=== PATIENT | female | born 1955 | race Caucasian/White ===

== ENCOUNTER 2016-08-24 21:10 | Inpatient (IN) | payer MEDICARE ==
[~2016-08-24] VITALS: Ht 180.3 cm; Wt 93.6 kg
[~2016-08-24 21:10] MED LIST: BUPR150T3 PO; CITA40; CYCL-36 PO; GABA300C3 PO; IMIT100T PO; LORTA5 PO; PRED20 PO; PRIL40CA PO; TRAM50 PO
[2016-08-24 21:57] VITALS: BP 137/85; PULSE 127; RESP 20; TEMP 99.7; O2SAT 97
[2016-08-24 22:30] VITALS: BP 149/90; PULSE 108; RESP 20; O2SAT 98
[2016-08-24] MEDS ORDERED: ONDANSETRON HCL 4 MG/2 ML VIAL IV PUSH ONE (22:30)
[2016-08-24] MEDS ORDERED: SODIUM CHLOR 0.9% 1000 ML INJ 1,000 ML IV ONE (22:30)
[2016-08-24] MEDS ORDERED: HYDROmorphone HCL PF 1 MG/ML VIAL IV PUSH ONE (22:30)
--- NOTE | 2016-08-24 22:32 | PD ---
HPI Chief Complaint: right lower quadrant pain Time Seen by Provider: 22:05 Travel History International Travel<30 days: No Contact w/Intl Traveler<30days: No Traveled to known affect area: No History of Present Illness HPI This 61-year-old female says she is having severe pain in the right inguinal area. She's been having pain and nausea since last . She has not been able to eat. She went to [facility] on and had a CT scan. She was told she had colitis and was put on Phenergan and Flagyl and Cipro. She has not gotten any better. She continues to have somewhat diffuse abdominal pain and also quite severe pain in the right inguinal area. She has a history of rheumatoid arthritis and has been on methotrexate and cortisone in the past. sHe says that since Tuesday she has not been able to eat. sHe is not aware of fever or chills PFSH Past Medical History Asthma: Yes Cardiovascular Problems: Yes (SVT) Diminished Hearing: No GERD: Yes Headaches: Yes (MIGRAINES) Respiratory: Yes Past Surgical History Appendectomy: Yes Cholecystectomy: Yes Other Surgery: Yes (back sx. rotator cuff repair) Social History Alcohol Use: No Tobacco Use: No Substance Use: No Allergies-Medications (Allergen,Severity, Reaction): Coded Allergies: Levaquin (Verified Allergy, Severe, 08/24/16) Zosyn (Verified Allergy, Severe, ANAPHALACTIC SHOCK, 08/24/16) Erythromycin (Verified Allergy, Intermediate, RASH, 08/24/16) Tetracycline (Verified Allergy, Intermediate, RASH, 08/24/16) Reported Meds & Prescriptions Reported Meds & Active Scripts Active Ultram (Tramadol HCl) 50 Mg Tab 50 Mg PO Q6 PRN Deltasone (Prednisone) 20 Mg Tab 2 Tab PO DAILY 5 Days Reported Imitrex (Sumatriptan Succinate) 100 Mg Tab 100 Mg PO BID PRN Flexeril (Cyclobenzaprine HCl) 10 Mg Tab 10 Mg PO TID Nixon 5-325 mg (Hydrocodone-Acetaminophen 5-325 mg) 1 Tab 1 Tab PO Q6H PRN Prilosec 40 mg cap (Omeprazole) 40 Mg Cap 40 Mg PO BID Gabapentin 300 Mg Cap 300 Mg PO TID Bupropion Hcl Xl (Bupropion HCl) 150 Mg Tab 150 Mg PO DAILY Celexa 40 Mg Tab (Citalopram Hydrobromide) 40 Mg Tab 40 Mg .XX DAILY Review of Systems General / Constitutional: No: Fever, Chills Eyes: No: Diploplia, Blurred Vision HENT: No: Headaches, Vertigo Cardiovascular: No: Chest Pain or Discomfort, Palpitations Respiratory: No: Cough, Shortness of Breath Gastrointestinal: Positive: Nausea, Abdominal Pain, Loss of Appetite Genitourinary: No: Frequency Musculoskeletal: Positive: Myalgias, Arthralgias, Pain (rheumatoid arthritis) Skin: No Rash Psychiatric: No: Anxiety, Depression Hematologic/Lymphatic: No: Easy Bruising Physical Exam Narrative GENERAL: Well-developed female. She appears quite uncomfortable with pain. Pain is aggravated by movement of the right leg. SKIN: Warm and dry. HEAD: Atraumatic. Normocephalic. EYES: Pupils equal and round. No scleral icterus. No injection or drainage. ENT: No nasal bleeding or discharge. Mucous membranes pink and moist. NECK: Trachea midline. No JVD. CARDIOVASCULAR: Regular rate and rhythm. No murmur appreciated. RESPIRATORY: No accessory muscle use. Clear to auscultation. Breath sounds equal bilaterally. GASTROINTESTINAL: Abdomen soft, there is mild right-sided tenderness, nondistended. Hepatic and splenic margins not palpable. He has a lot of pain in an area just below the inguinal ligament on themedial aspect of the thigh. I do not Feel a definite mass there MUSCULOSKELETAL: No obvious deformities. No clubbing. No cyanosis. No edema. NEUROLOGICAL: Awake and alert. No obvious cranial nerve deficits. Motor grossly within normal limits. Normal speech. PSYCHIATRIC: Appropriate mood and affect; insight and judgment normal. Data Data Last Documented VS Vital Signs Date Time Temp Pulse Resp B/P Pulse Ox O2 Delivery O2 Flow Rate FiO2 08/24/16 21:57 99.7 127 20 137/85 97 Orders Complete Blood Count With Diff (08/24/16 22:20) Comprehensive Metabolic Panel (08/24/16 22:20) Urinalysis - C+S If Indicated (08/24/16 22:20) Ct Abd/Pel W Iv Contrast(Rout) (08/24/16 22:20) Sodium Chlor 0.9% 1000 Ml Inj (Ns 1000 M (08/24/16 22:30) Sodium Chlor 0.9% 1000 Ml Inj (Ns 1000 M (08/24/16 22:30) Ondansetron Inj (Zofran Inj) (08/24/16 22:30) Hydromorphone Pf Inj (Dilaudid Pf Inj) (08/24/16 22:30) Potassium Chlor 20 Meq Premix (Kcl 20 Me (08/24/16 23:30) Labs Laboratory Tests Test 08/24/16 22:55 White Blood Count 12.1 TH/MM3 Red Blood Count 4.24 MIL/MM3 Hemoglobin 12.0 GM/DL Hematocrit 37.0 % Mean Corpuscular Volume 87.3 FL Mean Corpuscular Hemoglobin 28.3 PG Mean Corpuscular Hemoglobin 32.5 % Concent Red Cell Distribution Width 18.9 % Platelet Count 322 TH/MM3 Mean Platelet Volume 7.0 FL Neutrophils (%) (Auto) % Lymphocytes (%) (Auto) % Monocytes (%) (Auto) % Eosinophils (%) (Auto) % Basophils (%) (Auto) % Neutrophils # (Auto) TH/MM3 Lymphocytes # (Auto) TH/MM3 Monocytes # (Auto) TH/MM3 Eosinophils # (Auto) TH/MM3 Basophils # (Auto) TH/MM3 CBC Comment AUTO DIFF Differential Total Cells 100 Counted Neutrophils % (Manual) 69 % Band Neutrophils % 1 % Lymphocytes % 22 % Monocytes % 7 % Eosinophils % 1 % Neutrophils # (Manual) 8.5 TH/MM3 Differential Comment AUTO DIFF CONFIRMED Platelet Estimate NORMAL Platelet Morphology Comment NORMAL Sodium Level 141 MEQ/L Potassium Level 3.0 MEQ/L Chloride Level 103 MEQ/L Carbon Dioxide Level 25.7 MEQ/L Anion Gap 12 MEQ/L Blood Urea Nitrogen 9 MG/DL Creatinine 0.91 MG/DL Estimat Glomerular Filtration 63 ML/MIN Rate Random Glucose 119 MG/DL Calcium Level 8.9 MG/DL Total Bilirubin 0.5 MG/DL Aspartate Amino Transf 49 U/L (AST/SGOT) Alanine Aminotransferase 96 U/L (ALT/SGPT) Alkaline Phosphatase 151 U/L Total Protein 7.7 GM/DL Albumin 3.6 GM/DL [facility] Medical Decision Making Medical Screen Exam Complete: Yes Emergency Medical Condition: Yes Medical Record Reviewed: Yes Differential Diagnosis , Differential includes femoral hernia, bowel obstruction Narrative Course White count is elevated at 12,000. Her potassium is 3.0. The CT scan was ordered. The patient had infiltration of her IV had CTs of the CT has been done without contrast. The result is pending. Disposition will be determined by oncoming physician. Rod Elder MD Aug 24, 2016 22:32
[2016-08-24 23:08] LABS: MEAN CELL VOLUME 87.3 FL (80.0-100.0); MEAN CORPUSCULAR HEMOGLOBIN 28.3 PG (27.0-34.0); MEAN CORPUSCULAR HGB CONC 32.5 % (32.0-36.0); PLATELET COUNT 322 TH/MM3 (150-450); RED BLOOD COUNT 4.24 MIL/MM3 (4.00-5.30); RED CELL DISTRIBUTION WIDTH 18.9 % (11.6-17.2); WHITE BLOOD COUNT 12.1 TH/MM3 (4.0-11.0)
[2016-08-24 23:14] VITALS: BP 150/88; PULSE 98; RESP 20; O2SAT 97
[2016-08-24 23:18] LABS: HEMO FLAGS AUTO DIFF
[2016-08-24 23:23] LABS: CHLORIDE 103 MEQ/L (98-107); SODIUM (NA) 141 MEQ/L (136-145)
[2016-08-24 23:26] LABS: ANION GAP 12 MEQ/L (5-15); BICARBONATE 25.7 MEQ/L (21.0-32.0)
[2016-08-24 23:27] LABS: BLOOD UREA NITROGEN 9 MG/DL (7-18)
[2016-08-24 23:29] LABS: ALT (GPT) 96 U/L (10-53)
[2016-08-24 23:30] LABS: AST (GOT) 49 U/L (15-37); GLOMERULAR FILTRATION RATE 63 ML/MIN (>89)
[2016-08-24 23:31] LABS: TOTAL BILIRUBIN ADULT 0.5 MG/DL (0.2-1.0)
[2016-08-24 23:32] LABS: ALKALINE PHOSPHATASE 151 U/L (45-117)
[2016-08-24] MEDS: SODIUM CHLOR 0.9% 1000 ML INJ 1,000 ML IV SCH (23:35)
[2016-08-24 23:42] LABS: BANDS 1 % (0-6); EOSINOPHILS 1 % (0-4); NEUTROPHIL # MANUAL DIFF 8.5 TH/MM3 (1.8-7.7); POLYS (SEG NEUTROPHILS) 69 % (16-70); WBC DIFF SAMPLE 100
[2016-08-24 23:44] LABS: PLATELET ESTIMATE SMEAR NORMAL (NORMAL); PLATELET MORPHOLOGY NORMAL (NORMAL); SCAN/DIFF AUTO DIFF CONFIRMED
[2016-08-24] MEDS: POTASSIUM CHLOR 20 MEQ PREMIX 100 ML IV SCH (23:44)
[2016-08-25] VITALS (9 sets, daily range): BP systolic 101–157; BP diastolic 69–94; PULSE 96–109; RESP 16–20; TEMP 98.3–98.5; O2SAT 94–97
--- NOTE | 2016-08-25 00:39 | RADHPO ---
EXAM DATE/TIME: 08/24/2016 23:48 [facility] COMPARISON: No previous studies available for comparison. INDICATIONS : Abdominal pain. Right inguinal pain. Evaluate for femoral hernia. ORAL CONTRAST: No oral contrast ingested. RADIATION DOSE: 19.16 CTDIvol (mGy) MEDICAL HISTORY : Cardiovascular disease. Gastroesophageal reflux disease. SURGICAL HISTORY : Appendectomy. Cholecystectomy. ENCOUNTER: Initial ACUITY: 1 week PAIN SCALE: 10/10 LOCATION: Right inguinal TECHNIQUE: Volumetric scanning of the abdomen and pelvis was performed. Using automated exposure control and ad justment of the mA and/or kV according to patient size, radiation dose was kept as low as reasonably achievable to obtain optimal diagnostic quality images. FINDINGS: LOWER LUNGS: The visualized lower lungs are clear. Small hiatal hernia. LIVER: Homogeneous density without lesion. There is no dilation of the biliary tree. Patient is status post cholecystectomy. SPLEEN: Normal size without lesion. PANCREAS: Within normal limits. KIDNEYS: Normal in size and shape. There is no mass, stone, or hydronephrosis. ADRENAL GLANDS: Within normal limits. VASCULAR: There is no aortic aneurysm. BOWEL/MESENTERY: The stomach, small bowel, and colon demonstrate no acute abnormality. There is no free intraperitone al air or fluid. A few scattered diverticula in the descending colon. ABDOMINAL WALL: Within normal limits. RETROPERITONEUM: There is no lymphadenopathy. BLADDER: No wall thickening or mass. REPRODUCTIVE: Within normal limits. INGUINAL: There is no lymphadenopathy or hernia. MUSCULOSKELETAL: Within normal limits for patient age. CONCLUSION: 1. Patient is status post cholecystectomy. 2. Small hiatal hernia. 3. Scattered diverticula in the descending colon without diverticulitis. 4. Otherwise negative. Specifically, no findings of hernia to explain current clinical symptoms. Seth Duran MD on August 25, 2016 at 0:35 Board Certified Radiologist. This report was verified electronically.
[2016-08-25] MEDS ORDERED: TRAZ100T4 PO (00:54)
[2016-08-25] MEDS ORDERED: METR-1 PO (00:54)
[2016-08-25] MEDS ORDERED: HYDR-3580 PO (00:54)
[2016-08-25] MEDS ORDERED: CIPR-9 PO (00:54)
[2016-08-25] MEDS ORDERED: CYCL1TAB29 PO (00:54)
[2016-08-25] MEDS ORDERED: METH2.5T PO (00:54)
[2016-08-25] MEDS ORDERED: OMEP40CA2 PO (00:54)
[2016-08-25] MEDS ORDERED: CLON1TAB PO (00:54)
[2016-08-25] MEDS ORDERED: VITA400T PO (00:54)
[2016-08-25] MEDS ORDERED: ZOFR8TAB PO (00:54)
[2016-08-25] MEDS ORDERED: SUMA100T2 PO (00:54)
[2016-08-25] MEDS ORDERED: FOLI1TAB4 PO (00:54)
[2016-08-25] MEDS ORDERED: PROM25TA5 PO (00:54)
[2016-08-25] MEDS ORDERED: CITA20TA4 PO (00:54)
[2016-08-25] MEDS ORDERED: VITA500T49 PO (00:54)
[2016-08-25] MEDS ORDERED: BUPR100T4 PO (00:54)
[2016-08-25] MEDS ORDERED: HYDROmorphone HCL PF 1 MG/ML VIAL IM ONE (01:15)
[2016-08-25] MEDS ORDERED: ONDANSETRON ODT 4 MG TAB PO ONE (01:15)
[2016-08-25] MEDS: POTASSIUM CHLOR 20 MEQ PREMIX 100 ML IV SCH (01:30)
--- NOTE | 2016-08-25 02:03 | RADHPO ---
EXAM DATE/TIME: 08/25/2016 01:17 [facility] COMPARISON: No previous studies available for comparison. INDICATIONS : Right groin pain from unknown injury. MEDICAL HISTORY : RA. SURGICAL HISTORY : None. ENCOUNTER: Initial ACUITY: 1 week PAIN SCORE: 9/10 LOCATION: Right proximal femur FINDINGS: Two view examination of the right femur demonstrates no evidence of fracture or dislocation. Bony mi neralization is normal. The soft tissue structures are intact. Osteoarthritic changes in the right h ip. CONCLUSION: No acute osseous injury. Osteoarthritis of the right hip. Seth Duran MD on August 25, 2016 at 1:59 Board Certified Radiologist. This report was verified electronically.
--- NOTE | 2016-08-25 02:26 | PD ---
Physical Exam Date Seen by Provider: Aug 25, 2016 Time Seen by Provider: 00:35 Narrative GENERAL: Well-developed well-nourished female in discomfort but no respiratory distress SKIN: Warm and dry. CARDIOVASCULAR: Regular rate and rhythm without murmurs, gallops, or rubs. RESPIRATORY: Breath sounds equal bilaterally. No accessory muscle use. GASTROINTESTINAL: Abdomen soft, non-tender, nondistended. Mild right lower quadrant tenderness to direct palpation no guarding no rebound no mass. MUSCULOSKELETAL: No cyanosis, or edema. Attention right lower extremity no redness no induration no ecchymosis no edema no pallor no coolness of the limb no increased warmth dorsalis pedis pulse 2+ to palpation capillary refill brisk and less than 2 seconds per digit patient is able to perform hip flexion extension with discomfort in the anterior right groin area femoral pulses 2+ to palpation no palpable pulsatile mass. No deformity. Data Data Last Documented VS Vital Signs Date Time Temp Pulse Resp B/P Pulse Ox O2 Delivery O2 Flow Rate FiO2 08/25/16 02:00 20 08/25/16 01:55 102 127/75 95 08/24/16 21:57 99.7 Orders Complete Blood Count With Diff (08/24/16 22:20) Comprehensive Metabolic Panel (08/24/16 22:20) Urinalysis - C+S If Indicated (08/24/16 22:20) Sodium Chlor 0.9% 1000 Ml Inj (Ns 1000 M (08/24/16 22:30) Sodium Chlor 0.9% 1000 Ml Inj (Ns 1000 M (08/24/16 22:30) Ondansetron Inj (Zofran Inj) (08/24/16 22:30) Hydromorphone Pf Inj (Dilaudid Pf Inj) (08/24/16 22:30) Potassium Chlor 20 Meq Premix (Kcl 20 Me (08/24/16 23:30) Ct Abd/Pel W/O Iv Contrast (08/24/16 22:20) Hydromorphone Pf Inj (Dilaudid Pf Inj) (08/25/16 01:15) Ondansetron Odt (Zofran Odt) (08/25/16 01:15) Femur (Ap & Lat/2vws) (08/25/16 ) Admit Order (Ed Use Only) (08/25/16 ) ^ Saline Lock (08/25/16 02:18) Resp Oxygen Kenrick C Titrat 1-4 L (08/25/16 ) ^ Notify Dr: Other (08/25/16 02:18) Sodium Chloride 0.9% Flush (Ns Flush) (08/25/16 09:00) Sodium Chloride 0.9% Flush (Ns Flush) (08/25/16 02:30) Potassium Chloride (Kcl) (08/25/16 02:30) Promethazine (Phenergan) (08/25/16 02:30) Labs Laboratory Tests Test 08/24/16 22:55 White Blood Count 12.1 TH/MM3 Red Blood Count 4.24 MIL/MM3 Hemoglobin 12.0 GM/DL Hematocrit 37.0 % Mean Corpuscular Volume 87.3 FL Mean Corpuscular Hemoglobin 28.3 PG Mean Corpuscular Hemoglobin 32.5 % Concent Red Cell Distribution Width 18.9 % Platelet Count 322 TH/MM3 Mean Platelet Volume 7.0 FL Neutrophils (%) (Auto) % Lymphocytes (%) (Auto) % Monocytes (%) (Auto) % Eosinophils (%) (Auto) % Basophils (%) (Auto) % Neutrophils # (Auto) TH/MM3 Lymphocytes # (Auto) TH/MM3 Monocytes # (Auto) TH/MM3 Eosinophils # (Auto) TH/MM3 Basophils # (Auto) TH/MM3 CBC Comment AUTO DIFF Differential Total Cells 100 Counted Neutrophils % (Manual) 69 % Band Neutrophils % 1 % Lymphocytes % 22 % Monocytes % 7 % Eosinophils % 1 % Neutrophils # (Manual) 8.5 TH/MM3 Differential Comment AUTO DIFF CONFIRMED Platelet Estimate NORMAL Platelet Morphology Comment NORMAL Sodium Level 141 MEQ/L Potassium Level 3.0 MEQ/L Chloride Level 103 MEQ/L Carbon Dioxide Level 25.7 MEQ/L Anion Gap 12 MEQ/L Blood Urea Nitrogen 9 MG/DL Creatinine 0.91 MG/DL Estimat Glomerular Filtration 63 ML/MIN Rate Random Glucose 119 MG/DL Calcium Level 8.9 MG/DL Total Bilirubin 0.5 MG/DL Aspartate Amino Transf 49 U/L (AST/SGOT) Alanine Aminotransferase 96 U/L (ALT/SGPT) Alkaline Phosphatase 151 U/L Total Protein 7.7 GM/DL Albumin 3.6 GM/DL [facility] Medical Record Reviewed: Yes Supervised Visit with BECCA: No Interpretation(s) Last Impressions Femur X-Ray 08/25/16 0000 Signed Impressions: Service Date/Time: Thursday, August 25, 2016 01:17 - CONCLUSION: No acute osseous injury. Osteoarthritis of the right hip. Seth Duran MD Abdomen/Pelvis CT 08/24/16 2220 Signed Impressions: Service Date/Time: Wednesday, August 24, 2016 23:48 - CONCLUSION: 1. Patient is status post cholecystectomy. 2. Small hiatal hernia. 3. Scattered diverticula in the descending colon without diverticulitis. 4. Otherwise negative. Specifically, no findings of hernia to explain current clinical symptoms. Seth Duran MD CBC & BMP Diagram 08/24/16 22:55 Vital Signs Date Time Temp Pulse Resp B/P Pulse Ox O2 Delivery O2 Flow Rate FiO2 08/25/16 00:20 20 08/24/16 21:57 99.7 127 20 137/85 97 Differential Diagnosis Please refer to Dr. Samuels's dictation Narrative Course Care accepted in transfer from Dr. Samuels for pending CT and patient disposition; patient with ongoing intractable pain IV access obtained in the emergency department IV fluids administered oral potassium replacement administered Phenergan requested by patient by mouth and CT abdomen and pelvis reveals no acute abnormality. Patient's case discussed with on-call [facility] hospitalist for intractable groin pain and persistent lower abdominal pain after or outpatient oral replacement with Flagyl and Cipro and as needed Phenergan from [facility] since . Physician Communication Physician Communication discussed with Miguel Welch--admit obs to Dr Mckeon Diagnosis Primary Impression: Intractable pain Additional Impressions: Right groin pain Abdominal pain Qualified Code: R10.31 - Right lower quadrant abdominal pain Rheumatoid arthritis Admitting Information Admitting Physician Requests: Observation Yoana Kessler MD Aug 25, 2016 02:26
[2016-08-25] MEDS ORDERED: PROMETHAZINE HCL 25 MG TAB PO ONE (02:30)
[2016-08-25] MEDS ORDERED: POTASSIUM CHLORIDE 20 MEQ CONTROLLED RELEASE TAB PO ONE (02:30)
[2016-08-25] MEDS ORDERED: SODIUM CHLORIDE 0.9% FLUSH 5 ML FLUSH IVF PRN (02:30)
[2016-08-25] MEDS ORDERED: NALOXONE HCL 0.4 MG/ML AMP IV PRN (03:30)
[2016-08-25] MEDS ORDERED: ONDANSETRON HCL 4 MG/2 ML VIAL IVP PRN (03:30)
[2016-08-25] MEDS ORDERED: SENNOSIDES 8.6 MG TAB PO PRN (03:30)
[2016-08-25] MEDS ORDERED: BISACODYL 10 MG SUPP PR PRN (03:30)
[2016-08-25] MEDS ORDERED: ACETAMINOPHEN 325 MG TAB PO PRN (03:30)
[2016-08-25] MEDS: ENOXAPARIN SODIUM 40 MG/0.4 ML SYRINGE SQ SCH (03:54)
[2016-08-25] MEDS: HYDROmorphone HCL PF 1 MG/ML VIAL IV PRN ×5 (03:58→21:11)
[2016-08-25] MEDS: SODIUM CHLOR 0.9% 1000 ML INJ 1,000 ML IV SCH (06:07)
[2016-08-25 08:54] LABS: POTASSIUM 3.5 MEQ/L (3.5-5.1)
[2016-08-25 09:00] LABS: BICARBONATE 24.9 MEQ/L (21.0-32.0)
[2016-08-25] MEDS ORDERED: SODIUM CHLORIDE 0.9% FLUSH 5 ML FLUSH IVF SCH (09:00)
[2016-08-25] MEDS: SODIUM CHLORIDE 0.9% FLUSH 5 ML FLUSH FLUSH SCH ×2 (09:00→22:01)
[2016-08-25 09:04] LABS: INDIRECT BILIRUBIN 0.4 MG/DL (0.0-0.8); TOTAL BILIRUBIN ADULT 0.5 MG/DL (0.2-1.0)
[2016-08-25] MEDS ORDERED: HYDROmorphone HCL PF 1 MG/ML VIAL IV PUSH PRN (10:30)
[2016-08-25] MEDS ORDERED: SUMAtriptan SUCCINATE 50 MG TAB PO PRN (11:00)
[2016-08-25] MEDS: DEXT 5%-NACL 0.45% 1000 ML INJ 1,000 ML IV SCH ×2 (11:19→20:30)
[2016-08-25] MEDS: PANTOPRAZOLE SODIUM 40 MG VIAL IV PUSH SCH (11:20)
--- NOTE | 2016-08-25 11:31 | MH ---
cc: REMINGTON YUAN MD DATE OF ADMISSION 08/25/[address] Symone Fisher CHIEF COMPLAINT The patient came to the ER complaining of right groin pain for two weeks associated with nausea. HISTORY OF PRESENT ILLNESS This is a 61-year-old obese female with longstanding history of her rheumatoid arthritis and osteoarthritis. She has been on methotrexate for some time along with prednisone. She has longstanding pain in her right hip. She apparently was injected four 4 weeks ago and her right hip area of what sounds like a possible steroid injection. This helped her chronic groin pain initially, however two weeks later, she developed increasing pain which is more severe and different than the previous pain. She also developed increased nausea and had low grade temperature. Last , she went to [facility] emergency room reportedly where she was diagnosed with possible colitis. She was sent home on oral antibiotic and Phenergan. She is taking the antibiotics and Phenergan, however she continued to feel nauseous and continued to have severe pain in the right groin area. She reports that she has not been able to eat much of anything since Tuesday. She can only sip a small amount of fluid. She denies vomiting because she does not "have anything in her". She denies chest pain, denies dyspnea, orthopnea, paroxysmal or paroxysmal nocturnal dyspnea. PAST MEDICAL HISTORY This patient is significant for: 1. Rheumatoid arthritis with osteoarthritis. 2. History of depression 3. History of migraine headache. 4. History of gastroesophageal reflux disease. 5. Prior history of pancreatitis x2 6. History of chronic pain and narcotic dependence. 7. Questionable history of gastroparesis. PAST SURGICAL HISTORY Significant for: 1. Appendectomy 2. Cholecystectomy 3. ERCP 4. Right shoulder rotator cuff repair 5. L4-L5 microdiskectomy SOCIAL HISTORY The patient denies smoking, drinking or drug abuse. She lives by herself. She is on disability due to her depression and psychiatric disorder. FAMILY HISTORY Both parents are . Mom in her 70s due to cirrhosis. Dad at age of 81 due to complications of lung cancer and pneumonia. MEDICATIONS Home medications, she takes: 1. Flexeril 10 mg t.i.d. 2. Imitrex 100 mg p.r.n. for headache 3. [place] 5/325 and she takes 7.5/325 two or three times a day 4. Prilosec 40 mg b.i.d. 5. Gabapentin 300 mg p.o. three times a day 6. Bupropion XL 150 mg daily 7. Celexa 40 mg daily 8. She takes an intermittent course of prednisone. 9. She was given Cipro, Flagyl and Phenergan recently. 10. She has some left over Zofran from previous doctor visit from [place] that she uses occasionally. REVIEW OF SYSTEMS Patient has a congenital nystagmus. She denies headache at this time. She denies changes in vision or hearing. Denies sore throat, dysphagia, or odynophagia. Denies cough with sputum production. She has chronic pain in her bilateral hand, wrist, elbows and shoulders. She also has some back pain. She has morning stiffness. She denies changes in bowel pattern and denies melena or bright red blood per rectum. Denies dysuria or hematuria. Denies any Vaginal discharge. Denies major depression or suicidal ideations. Otherwise negative for 12 systems replacement except what is mentioned above. ALLERGIES She reports allergies to LEVAQUIN, ZOSYN, ERYTHROMYCIN, TETRACYCLINE. PHYSICAL EXAM On examination, this is a middle-aged obese female lying in bed. She is awake, alert. She is slightly drowsy from receiving narcotics. She is responsive and oriented x3. VITAL SIGNS: Upon arrival blood pressure was 137/85, pulse of 127, respiration 20, temperature 99.7, O2 sat 97%. HEAD: Normocephalic, atraumatic. Extraocular muscles intact. The patient has horizontal nystagmus. Pupils are round and reactive. ENT: No throat congestion. No oral ulcers or thrush. Ears clear. NECK: Supple. No JVD. No lymphadenopathy. No bruits. CARDIOVASCULAR: S1 and S2 audible. Regular rhythm. RESPIRATORY: Lungs are clear to auscultation. No crackles or rhonchi appreciated. GI: Abdomen is soft, protuberant and bulky. No epigastric tenderness. No suprapubic tenderness. Positive bowel sounds. EXTREMITIES: She has tenderness over the right groin anteriorly. Pain with flexion and extension of both feet. Feet are warm to touch. Homans' sign is negative. NEUROLOGIC: She is awake and alert. She is oriented x3. She has horizontal nystagmus. Moving all four extremities. Movement is limited due to pain. LABORATORY DATA White count 12.1, hemoglobin 12.0, hematocrit 37.0, platelet count of 322, MCV of 87.3. Sodium 142, potassium 3.0, chloride 103, bicarb 25.7, BUN of 9, creatinine 0.91, glucose 109, calcium was 8.9. ALP 151, AST 49, ALT 96, total protein 7.7, albumin 3.6. Repeat potassium is corrected to 3.5. PT/INR normal. X-ray of his right femur shows osteoarthritic changes. No evidence of fracture or dislocation. CT ABDOMEN AND PELVIS Showed post cholecystectomy changes, small hiatal hernia, scattered diverticula in the descending colon without evidence of diverticulitis, otherwise unremarkable study. ASSESSMENT 1. Right groin pain of two weeks duration with nausea and low grade temperature in this obese middle-aged female with prior injection into her right hip. Rule out septic arthritis with a two week laps between the reported injection and development of symptoms. 2. Persistent nausea due to pain. 3. Possible history of gastroparesis. 4. Hypokalemia due to nausea. 5. History of rheumatoid arthritis on DMARD and prednisone. 6. Chronic back pain 7. History of depression and anxiety. 8. Obesity 9. History of pancreatitis. PLAN 1. The patient is admitted to the hospital under observation. 2. I ordered a sed rate and C-reactive protein. 3. I will order MRI of her right hip to rule out septic arthritis. If she has any increased inflammatory markers. 4. The MRA of the hip showed obvious inflammation. We will consider orthopedic evaluation. 5. We will give her IV fluids along with antiemetics. 6. Obtain GI consultation. 7. Consider repeating gastric emptying study. 8. Monitor LFTs. 9. Resume anti-anxiety and antidepressants. 10. Provide supportive care. 11. PPI I have discussed the finding with the patient and have answered all of her questions. Further management of this patient will be dependent on the hospital course. MD MADHU Daly/JLUIS /10:14 AM /10:48 AM NEGRITA
[2016-08-25] MEDS ORDERED: GADODIAMIDE PF 287 MG/ML 20 ML VIAL (for RAD MRI) IV ONE (15:55)
[2016-08-25] MEDS: ONDANSETRON HCL 4 MG/2 ML VIAL IV PUSH PRN (16:34)
--- NOTE | 2016-08-25 16:45 | RADHPO ---
EXAM DATE/TIME: 08/25/2016 15:46 [facility] COMPARISON: FEMUR RIGHT (AP & LAT/2VWS), August 25, 2016, 1:17. INDICATIONS : Right hip pain, hip joint injection 1 month ago. CONTRAST: 18 cc Omniscan (gadodiamide) IV MEDICAL HISTORY : Arthritis. Gastroesophageal reflux disease. Osteoarthritis. SURGICAL HISTORY : Cholecystectomy. Appendectomy. Discectomy, lumbar. Rotator cuff repair. Deviated septum repair. ENCOUNTER: Subsequent ACUITY: 2 day PAIN SCORE: 10 LOCATION: Right hip. TECHNIQUE: Multiplanar, multisequence MRI examination was performed without contrast and after the intravenous a dministration of gadolinium. FINDINGS: 12 mm subchondral marrow edema and reactive appearing enhancement seen centrally of the femoral head. This is probably a site of nondisplaced subchondral fracturing, such as an insufficiency fracture. T here is mild right hip osteoarthritis. A small moderate effusion and mild synovitis present. No other bony signal abnormalities are demonstrated. No displaced bone fragments are seen. Right greater trochanter within normal limits. Right ischial tuberosity/hamstring origin within normal limits. CONCLUSION: Focal subchondral signal changes centrally of the right femoral head as above. A subchondral insuffic iency fracture would be most likely. Joint infection is considered much less likely as there is only a small to moderate effusion and fairly mild appearing synovitis, and no other bony signal changes ar e present. If there is high clinical concern for infectious arthropathy, there is probably enough lan nt fluid to tap for diagnostic purposes. Ivan Zuniga MD on August 25, 2016 at 16:39 Board Certified Radiologist. This report was verified electronically.
[2016-08-25] MEDS ORDERED: POTASSIUM CHLORIDE INJ 40 MEQ in SODIUM CHLOR 0.9% 1000 ML INJ 1,000 ML IV SCH (22:00)
[2016-08-25] MEDS: clonazePAM 1 MG TAB PO SCH (22:00)
[2016-08-25] MEDS: traZODone HCL 100 MG TAB PO SCH (22:01)
[2016-08-25] MEDS: PHENERGAN 25 MG/ML IM PRN (22:11)
[2016-08-25] MEDS: NS + KCL 40 MEQ INJ 1,000 ML IV SCH (22:11)
[2016-08-26] VITALS: BP 119/74; PULSE 99; RESP 20; TEMP 98; O2SAT 93
[2016-08-26] MEDS: ONDANSETRON HCL 4 MG/2 ML VIAL IV PUSH PRN ×3 (00:42→16:54)
[2016-08-26] MEDS: HYDROmorphone HCL PF 1 MG/ML VIAL IV PRN ×6 (00:44→23:46)
[2016-08-26] MEDS: ENOXAPARIN SODIUM 40 MG/0.4 ML SYRINGE SQ SCH (03:36)
[2016-08-26] MEDS: PHENERGAN 25 MG/ML IM PRN ×2 (03:50→19:46)
[2016-08-26 05:11] LABS: BLOOD, URINE NEG (NEG); GLUCOSE,URINE NEG (NEG); KETONE, URINE TRACE mg/dL (NEG); PH, URINE 5.5 (5.0-8.5)
[2016-08-26 05:12] LABS: NITRITE,URINE POS (NEG)
[2016-08-26 05:16] LABS: URINE COLOR AMBER (YELLW/STRAW)
[2016-08-26 05:17] LABS: BACTERIA, URINE FEW /hpf; HYALINE CAST, URINE 0-2 /lpf (RARE); MUCUS URINE MOD /lpf (OCC); SQUAMOUS EPITHELIAL CELL URINE 0-5 /hpf (0-5)
[2016-08-26 05:18] LABS: COMMENT (UR) CULTURE INDICATED; CULTURE IF INDICATED CULTURE INDICATED; WBC, URINE 0-2 /hpf (0-5)
--- NOTE | 2016-08-26 07:57 | HHI.PR ---
Subjective Remarks pt is feeling some nausea no vomitting still has rt hip pain ros for 10 point system is otherwise unremarkable Objective Objective Results - Vital Signs Date Time Temp Pulse Resp B/P Pulse Ox O2 Delivery O2 Flow Rate FiO2 08/26/16 00:00 98.0 99 20 119/74 93 08/25/16 22:05 20 08/25/16 20:00 98.3 102 20 121/79 94 08/25/16 19:58 97 21 08/25/16 16:00 98.3 96 20 139/83 94 08/25/16 12:00 98.4 98 18 152/85 94 08/25/16 09:30 98.5 109 20 145/86 95 08/25/16 08:00 95 21 I/O 08/25/16 08/25/16 08/25/16 08/26/16 08/26/16 08/26/16 07:00 15:00 23:00 07:00 15:00 23:00 Intake Total 1000 ml 525 ml 60 ml 860 ml Output Total 500 ml Balance 1000 ml 525 ml 60 ml 360 ml Intake Oral 525 ml 60 ml 60 ml IV Total 1000 ml 800 ml Output Urine Total 500 ml Bladder Scan Volume Amount 375 ml 575 ml # Voids 1 0 1 # Bowel Movements 0 0 0 Result Diagram: 08/24/16 2255 08/25/16 0835 Other Results Laboratory Tests Test 08/25/16 08/25/16 08/26/16 08:35 11:15 03:40 Sodium Level 142 Potassium Level 3.5 Chloride Level 108 Carbon Dioxide Level 24.9 Anion Gap 9 Blood Urea Nitrogen 9 Creatinine 0.77 Estimat Glomerular Filtration 77 Rate Random Glucose 119 Calcium Level 8.2 Phosphorus Level 2.4 Magnesium Level 2.0 Total Bilirubin 0.5 Direct Bilirubin 0.1 Indirect Bilirubin 0.4 Aspartate Amino Transf 48 (AST/SGOT) Alanine Aminotransferase 81 (ALT/SGPT) Alkaline Phosphatase 146 Total Protein 7.1 Albumin 3.2 Erythrocyte Sedimentation Rate 69 C-Reactive Protein 1.70 Urine Color JAN Urine Turbidity CLEAR Urine pH 5.5 Urine Specific [place] GREATER THAN 1.035 Urine Protein 30 Urine Glucose (UA) NEG Urine Ketones TRACE Urine Occult Blood NEG Urine Nitrite POS Urine Bilirubin NEG Urine Leukocyte Esterase NEG Urine WBC 0-2 Urine Squamous Epithelial 0-5 Cells Urine Bacteria FEW Urine Hyaline Casts 0-2 Urine Mucus MOD Microscopic Urinalysis Comment CULTURE INDICATED Date/Time Procedure Status Source Growth 08/26/16 03:40 Urine Culture Received Urine Clean Catch Pending Physical Exam Physical Exam On examination, this is a middle-aged obese female lying in bed. She is awake, alert. She is responsive and oriented x3. VITAL SIGNS: reivewed HEAD: Normocephalic, atraumatic. Extraocular muscles intact. The patient has horizontal nystagmus. Pupils are round and reactive. ENT: No throat congestion. No oral ulcers or thrush. Ears clear. NECK: Supple. No JVD. No lymphadenopathy. No bruits. CARDIOVASCULAR: S1 and S2 audible. Regular rhythm. RESPIRATORY: Lungs are clear to auscultation. No crackles or rhonchi appreciated. GI: Abdomen is soft, protuberant and bulky. No epigastric tenderness. No suprapubic tenderness. Positive bowel sounds. EXTREMITIES: She has tenderness over the right groin anteriorly. Pain with flexion and extension of both feet. Feet are warm to touch. Homans' sign is negative. NEUROLOGIC: She is awake and alert. She is oriented x3. She has horizontal nystagmus. Moving all four extremities. Movement is limited due to pain. A/P Assessment and Plan 1. Right groin pain of two weeks duration with nausea and low grade temperature in this obese middle-aged female with prior injection into her right hip. Rule out septic arthritis with a two week laps between the reported injection and development of symptoms. 2. Persistent nausea due to pain. 3. Possible history of gastroparesis. 4. Hypokalemia due to nausea. 5. History of rheumatoid arthritis on DMARD and prednisone. 6. Chronic back pain 7. History of depression and anxiety. 8. Obesity 9. Previous history of his sensory dysfunction. 10. History of pancreatitis. PLAN inc sed rate and C-reactive protein. MRI of her right hip eport reviwed consider orthopedic evaluation. IV fluids along with antiemetics. awaitng GI consultation. awaiting gastric emptying study. Monitor LFTs. Resume anti-anxiety and antidepressants. Provide supportive care. PPI dw pt dw GI on floor labs for Rajan Adler MD Aug 26, 2016 07:57
[2016-08-26 08:00] VITALS: BP 145/84; PULSE 96; RESP 20; TEMP 98.9; O2SAT 95
[2016-08-26 08:17] LABS: HEMATOCRIT 32.3 % (35.0-46.0); MEAN CELL VOLUME 88.7 FL (80.0-100.0); MEAN CORPUSCULAR HEMOGLOBIN 28.2 PG (27.0-34.0); MEAN CORPUSCULAR HGB CONC 31.8 % (32.0-36.0); PLATELET COUNT 290 TH/MM3 (150-450); RED BLOOD COUNT 3.65 MIL/MM3 (4.00-5.30); RED CELL DISTRIBUTION WIDTH 18.6 % (11.6-17.2); REVIEW FLAG FINAL; WHITE BLOOD COUNT 7.3 TH/MM3 (4.0-11.0)
[2016-08-26 08:28] LABS: CHLORIDE 111 MEQ/L (98-107); POTASSIUM 3.7 MEQ/L (3.5-5.1); SODIUM (NA) 144 MEQ/L (136-145)
[2016-08-26 08:34] LABS: ANION GAP 9 MEQ/L (5-15); BICARBONATE 24.2 MEQ/L (21.0-32.0); BLOOD UREA NITROGEN 7 MG/DL (7-18)
[2016-08-26 08:35] LABS: ALT (GPT) 63 U/L (10-53); AST (GOT) 35 U/L (15-37); GLOMERULAR FILTRATION RATE 89 ML/MIN (>89)
[2016-08-26 08:37] LABS: TOTAL BILIRUBIN ADULT 0.3 MG/DL (0.2-1.0)
[2016-08-26 08:38] LABS: ALKALINE PHOSPHATASE 120 U/L (45-117)
[2016-08-26] MEDS: clonazePAM 1 MG TAB PO SCH ×2 (09:00→20:59)
[2016-08-26] MEDS: SODIUM CHLORIDE 0.9% FLUSH 5 ML FLUSH FLUSH SCH ×2 (09:00→21:00)
[2016-08-26] MEDS: CITALOPRAM HYDROBROMIDE 20 MG TAB PO SCH (09:18)
[2016-08-26] MEDS: NS + KCL 40 MEQ INJ 1,000 ML IV SCH (09:18)
[2016-08-26] MEDS: buPROPion HCL 100 MG TAB PO SCH (09:22)
[2016-08-26 12:00] VITALS: BP 111/77; PULSE 101; RESP 18; TEMP 99.1; O2SAT 98
[2016-08-26] MEDS: PANTOPRAZOLE SODIUM 40 MG VIAL IV PUSH SCH (12:25)
[2016-08-26 12:47] LABS: FERRITIN 29 NG/ML (8-252); GAMMA GT 255 U/L (5-55); TRANSFERRIN IRON PROFILE 247 MG/DL (200-360)
[2016-08-26] MEDS ORDERED: FUROSEMIDE 20 MG/2 ML VIAL IV PUSH ONE ×2 (14:15→15:45)
[2016-08-26] MEDS ORDERED: METOCLOPRAMIDE HCL 10 MG/2 ML VIAL IV ONE (15:24)
[2016-08-26 16:00] VITALS: BP 142/78; PULSE 103; RESP 18; TEMP 98.7; O2SAT 97
--- NOTE | 2016-08-26 16:34 | MB ---
cc: CHRISTY CARLSON M.D. DATE OF CONSULTATION: 08/26/2016 DATE OF [address] Yu. REASON FOR CONSULTATION Abdominal pain and elevated liver enzymes. The patient is a 61-year-old lady with a history of rheumatoid arthritis and osteoarthritis, on methotrexate and prednisone for a long time. The patient had pain in the right hip for a very long time. She had an injection done 4 weeks ago in that area, most likely a steroid injection. The patient went to [facility] and was diagnosed with possible colitis. She was sent home on antibiotics and Phenergan. The patient reports having pain in the right upper quadrant epigastrium, also having some nausea, inability to take any medications by mouth or eat. She also has some of diarrhea alternating with constipation. She had this kind of problems in the past but not to this extent. She had an endoscopy many, many years ago, colonoscopy a few years ago and she is not looking forward to having another one. PAST MEDICAL HISTORY 1. Rheumatoid arthritis with osteoarthritis. 2. History of depression. 3. Migraine headaches. 4. Reflux. 5. Pancreatitis x2. 6. Question of gastroparesis. 7. Chronic pain. PAST SURGICAL HISTORY 1. Appendectomy. 2. Cholecystectomy. 3. ERCP. 4. Right shoulder rotator repair. 5. L4, L5 microdiskectomy. ALLERGIES LEVAQUIN, ZOSYN, ERYTHROMYCIN AND TETRACYCLINE. SOCIAL HISTORY Denies smoking, drinking or drug use. FAMILY HISTORY Parents are . Mom had cirrhosis. MEDICATION Medication at home: 1. Flexeril. 2. Imitrex. 3. Nal[place]st. 4. Prilosec. 5. Gabapentin. 6. Bupropion. 7. Celexa. 8. Prednisone. 9. Phenergan. 10. Cipro. 11. Zofran. REVIEW OF SYSTEMS She denies any fever or chills. She does have decreased appetite, inability to tolerate p.o. ENT: No alteration in baseline hearing or visual acuity. PULMONARY: Denies any chest pain, shortness of breath. GASTROINTESTINAL: As above. GENITOURINARY: Denies dysuria, hematuria. HEMATOLOGIC: Denies any history of anemia or bleeding disorder. SKIN: No alteration in baseline skin lesion. NEUROLOGICAL: No history of TIA or CVA kind of symptoms. PHYSICAL EXAMINATION GENERAL: On clinical exam she is sitting comfortably in bed, in no acute distress. VITAL SIGNS: Her temperature is 99.1, pulse is 101, respiration 18, blood pressure 117/77, pulse ox 98. HEENT: PERRLA. NECK: No JVD. No lymphadenopathy. CHEST: Clear to auscultation and palpation. CARDIOVASCULAR: S1, S2. No murmur. ABDOMEN: Soft, obese. Bowel sounds are present. Tender in the right upper quadrant, right lower quadrant. SAP PROJECT MANAGER: Awake, alert, oriented x3. No focal signs identified. LABORATORY DATA Her white count is 7.3, was 12.7, hemoglobin 10.3, was 12.8, platelets 290, ESR 69. Her AST is 48, ALT 81, alkaline phosphatase 120. C-reactive protein 1.7. IMAGING STUDIES The patient had a CT abdomen and pelvis which was suggestive of hiatal hernia, diverticulosis, otherwise negative. IMPRESSION Mrs. Cox is a 61-year-old lady admitted with pain in the right lower quadrant and also noted to have decreased appetite, inability to tolerate p.o., elevated liver enzymes. Differential would include peptic ulcer disease, esophagitis, pancreatitis. Elevation of the liver enzymes most likely medication induced but biliary obstruction needs to be entertained. Decreased appetite, fullness, nausea, rule out gastroparesis. RECOMMENDATIONS Gastric emptying study, MRCP. If the above studies are negative we will schedule upper endoscopy in the morning. The patient refuses colonoscopy for now. Elevated liver enzymes most likely secondary to medication. We are going to send additional blood work to establish the etiology of the elevation. We are going to send AMELIA, anti-smooth muscle antibody, antimitochondrial antibody, ferritin, iron, ceruloplasmin, celiac panel, hepatitis profile, GGTP. Further recommendation will depend on the patient's clinical status and the above results. I would like to thank Dr. Yu for referring her to our office for consultation. Christy Carlson MD BSB/TLL /1:32 PM /3:36 PM
--- NOTE | 2016-08-26 17:13 | RADHPO ---
EXAM DATE/TIME: 08/26/2016 11:22 [facility] COMPARISON: CT ABDOMEN & PELVIS W/O CONTRAST, August 24, 2016, 23:48. INDICATIONS : Pain. Right upper quadrant pain. MEDICAL HISTORY : Rheumatoid arthritis. Gastroesophageal reflux disease. Asthma. SURGICAL HISTORY : Appendectomy. Cholecystectomy. Rotator cuff surgery, back surgery and deviated septum repair. ENCOUNTER: Initial ACUITY: 1 day PAIN SCORE: 7/10 LOCATION: Right upper quadrant TECHNIQUE: Multiplanar, multisequence magnetic resonance imaging of the abdomen was performed. High-resolution 3D dataset was utilized to reconstruct maximum-intensity projection (MIP) images. FINDINGS: INTRAHEPATIC BILE DUCTS: Within normal limits. No significant anatomical variant is present. EXTRAHEPATIC BILE DUCTS: The common duct measures between 5 and 6 mm throughout. No stone or filling defect is identified. GALLBLADDER: Surgically absent. Cystic duct remnant is mildly distended but demonstrates no abnormality. LIVER: Normal size and signal intensity. No concerning liver lesion is identified on this non-contrast exam. PANCREAS: The main pancreatic duct is normal in size. There is no significant anatomical variant. Signal inte nsity is within normal limits. No mass is visualized on this non-contrast exam. OTHER: The remaining visualized structures demonstrate no acute abnormality on this non-contrast exam. There is a small hiatal hernia. CONCLUSION: 1. No abnormality is identified to explain the clinical symptoms. 2. Small hiatal hernia. Ivan Perez MD on August 26, 2016 at 17:07 Board Certified Radiologist. This report was verified electronically.
--- NOTE | 2016-08-26 17:45 | RADHPO ---
EXAM DATE/TIME: 08/26/2016 10:06 [facility] COMPARISON: No previous studies available for comparison. INDICATIONS : Nausea for 1 week. DOSE: 1.0 mCi Tc99m Sulfur Colloid Labeled Whole egg PO MEDICATONS: 1.) 5 mg Reglan IV at 90 minutes IMAGIN hrs MEDICAL HISTORY : Hypothyroidism. Rheumatoid arthritis. Chronic obstructive pulmonary disease. SURGICAL HISTORY : section. Hysterectomy. Cholecystectomy. ENCOUNTER: Initial ACUITY: 1 week PAIN SCALE: 4/10 LOCATION: Bilateral Abdomen. TECHNIQUE: Following the oral ingestion of radiotracer-labeled meal, dynamic sequential images in the URDU projec tion were acquired with simultaneous computer acquisition. The data set was decay-corrected. FINDINGS: LAG PHASE: There is no significant lag time before onset of gastric emptying. EMPTYING: Gastric emptying kinetics are linear. The decay-corrected, back-extrapolated half-time of emptying i s 19 minutes. (Normal for this lab is 45- 90 minutes.) INTERVENTION: None CONCLUSION: 1. Rapid gastric emptying with half-time of 19 minutes. Vipul Alvarez MD on August 26, 2016 at 17:43 Board Certified Radiologist. This report was verified electronically.
[2016-08-26 20:00] VITALS: BP_SYST 127; BP_SYST 151; BP_DIAS 65; BP_DIAS 79; PULSE 109; PULSE 93; RESP 20; TEMP 100.3; TEMP 97.8; O2SAT 94; O2SAT 98
[2016-08-26 20:45] VITALS: O2SAT 95
[2016-08-26] MEDS: traZODone HCL 100 MG TAB PO SCH (20:59)
[2016-08-27] VITALS (7 sets, daily range): BP systolic 104–171; BP diastolic 54–93; PULSE 91–108; RESP 16–22; TEMP 97.3–99.6; O2SAT 91–97
[2016-08-27] MEDS: ONDANSETRON HCL 4 MG/2 ML VIAL IV PUSH PRN ×3 (01:57→17:00)
[2016-08-27] MEDS: PHENERGAN 25 MG/ML IM PRN ×2 (06:45→13:46)
[2016-08-27 06:47] LABS: INDIRECT BILIRUBIN 0.3 MG/DL (0.0-0.8); TOTAL BILIRUBIN ADULT 0.4 MG/DL (0.2-1.0)
[2016-08-27] MEDS: HYDROmorphone HCL PF 1 MG/ML VIAL IV PRN ×5 (06:49→21:35)
[2016-08-27] MEDS: clonazePAM 1 MG TAB PO SCH ×2 (09:00→21:35)
[2016-08-27] MEDS: buPROPion HCL 100 MG TAB PO SCH (10:27)
[2016-08-27] MEDS: PANTOPRAZOLE SODIUM 40 MG VIAL IV PUSH SCH (10:27)
[2016-08-27] MEDS: SODIUM CHLORIDE 0.9% FLUSH 5 ML FLUSH FLUSH SCH ×2 (10:28→21:35)
[2016-08-27] MEDS: CITALOPRAM HYDROBROMIDE 20 MG TAB PO SCH (10:28)
--- NOTE | 2016-08-27 10:31 | PD.RAD ---
Post Procedure Progress Note Pre Procedure Diagnosis: (1) Right groin pain Post Procedure Diagnosis: (1) Right groin pain Procedure Date: Aug 27, 2016 Supervising Radiologist: Rico Kohler Proceduralist/Assist: Annika Ricardo, RT(R)(), Samara Haines RT(R) Anesthesia: Local Plan of Activity Patient to Unit: Nursing Unit Patient Condition: Good See PACS Report for procedural detail/treatment Drainage Procedure Procedure 1 Imaging Guidance: Fluoroscopy Side: Right Procedure Type: Aspiration Fluid Removal (CCs): 1 Fluid Description: Clear, Bloody Rico Kohler MD Aug 27, 2016 10:31
[2016-08-27 11:20] LABS: WBC, SYNOVIAL FLUID 880 /MM3 (0-200)
--- NOTE | 2016-08-27 12:02 | HHI.PR ---
Subjective Interval History Alert, oriented, still complaining of right hip/groin/right lower quadrant pain Has urinary retention Complaining of nausea No fever Review of Systems Constitutional Constitutional Remarks 10 systems reviewed and negative except for the above Vitals/Results Intake & Output 08/26/16 08/26/16 08/27/16 15:00 23:00 07:00 Intake Total 700 ml Output Total 250 ml 1750 ml Balance -250 ml -1750 ml 700 ml Intake Oral 700 ml Output Urine Total 250 ml 1750 ml Bladder Scan Volume Amount 98 ml # Voids 3 # Bowel Movements 1 0 0 Vital Signs Vital Signs Date Time Temp Pulse Resp B/P Pulse Ox O2 Delivery O2 Flow Rate FiO2 08/27/16 08:00 98.4 103 16 105/54 97 08/27/16 04:00 98.9 101 16 104/62 95 08/27/16 00:55 18 08/27/16 00:00 99.6 108 20 112/68 94 08/26/16 20:45 95 21 08/26/16 20:00 100.3 109 20 127/79 94 08/26/16 20:00 97.8 93 20 151/65 98 08/26/16 16:00 98.7 103 18 142/78 97 08/26/16 12:00 99.1 101 18 111/77 98 CBC/BMP: 08/26/16 0800 08/26/16 0800 Lab Results Laboratory Tests Test 08/27/16 08/27/16 05:49 10:00 Total Bilirubin 0.4 MG/DL Direct Bilirubin 0.1 MG/DL Indirect Bilirubin 0.3 MG/DL Aspartate Amino Transf 30 U/L (AST/SGOT) Alanine Aminotransferase 53 U/L (ALT/SGPT) Alkaline Phosphatase 112 U/L Total Protein 6.4 GM/DL Albumin 2.8 GM/DL Synovial Fluid Color PINK Synovial Fluid Appearance SLIGHT Synovial Fluid WBC 880 /MM3 Synovial Fluid RBC 81605 /MM3 Synovial Fluid Neutrophils 62 % Synovial Fluid Lymphocytes 30 % Synovial Fluid Monocytes 8 % Microbiology Microbiology 08/27/16 Gram Stain, Received Pending 08/27/16 Body Fluid Culture, Received Pending 08/27/16 Gram Stain, Received Pending Physical Exam General General Appearance: Well Developed, Comfortable Eyes Eye Exam: Pupils Reactive Ears & Nose Ears & Nose Exam: Nasal Mucosa [place] Throat Throat Exam: Oral Mucosa [place] & Moist Neck Neck Exam: Trachea Midline Pulmonary Resp Exam: Breath Sounds Equal Cardiology CV Exam: Normal Sinus Rhythm, Good Perfusion Gastrointestinal/Abdomen GI Exam: Non-Tender, Bowel Sounds Present Musculoskeletal MS Exam: Normal Tone Integumentary Skin Exam: Warm, Dry Extremeties Extremities Exam: Trace Edema Neurologic Neuro Exam: Awake, Oriented, Speech Clear Psychiatric Psych Exam: Appropriate Responses VTE Prophylaxis VTE Prophylaxis Meds: Heparin Assessment/Plan Assessment/Plan Assessment and Plan Right groin pain status post right hip joint aspiration biopsy on 08/27/16 Rule out septic arthritis Low-grade fever Nausea Overweight Right lower quadrant pain urinary retention Diarrhea Elevated liver enzymes Possible subtle fracture in the right femoral head, according to MRI Mild anemia Proteinuria Management Pain control Follow liver enzymes Follow biopsy reports Anti-emetic as needed loving catheter Stool testing Orthopedics following GI following Consult infectious disease Panendoscopy later today Discussed with patient Discussed with nurse Elba Matthew MD Aug 27, 2016 12:02
--- NOTE | 2016-08-27 12:03 | RADHPO ---
EXAM DATE/TIME: 08/27/2016 09:35 [place] Corrected on: September 09, 2016; Corrected date [facility] COMPARISON: No previous studies available for comparison. INDICATIONS : Patient with a history of right hip pain. MEDICAL HISTORY : Rheumatoid arthritis with osteoarthritis Depression Migraines Reflux Pancreatitis Gastroparesis Chronic pain SURGICAL HISTORY : Appendectomy Cholecystectomy ERCP Right shoulder rotator repair L4, L5 microdiskectomy ENCOUNTER: Initial ACUITY: 1 day PAIN SCORE: 9/10 LOCATION: Right hip FLUORO TIME: 1.07 minutes IMAGE SERIES: 0 CONTRAST: 1 cc Omnipaque 350 DEVICE(S): 22 gauge needle was placed into the right hip joint. RESPONSE: Pre procedure pain level was 9/10 Post procedure pain level was 8/10 FLUID: Total volume of1 cc of clear red fluid was removed. Fluid specimen was submitted to the lab for evaluation. PROCEDURE : 1. Fluoroscopically guided right hip aspiration. The risks, benefits and alternatives to the procedure were explained and verbal and written consent w as obtained. The site was prepped in sterile fashion. Full sterile technique was used, including ca p, mask, sterile gloves and gown and a large sterile sheet. Hand hygiene and 2% chlorhexidine and/or betadine/alcohol prep was utilized per protocol for cutaneous antisepsis. The skin and subcutaneous tissues were infiltrated with local anesthetic solution. 10 cc of sterile or placed in the joint after confirmation with contrast and 1 cc of fluid was aspira tiffanie. A specimen was sent to the lab for evaluation The patient tolerated the procedure well and there were no complications. CONCLUSION: Uncomplicated aspiration as above. Rico Kohler MD on August 27, 2016 at 11:48 Board Certified Radiologist. Board Certified Radiologist. This report was verified electronically.
[2016-08-27 14:25] LABS: ANA SCREEN NEG (NEG)
--- NOTE | 2016-08-27 16:28 | GIPROC ---
[facility] [place] [address] [place] [address], [id number] EGD PROCEDURE REPORT EXAM DATE: 08/27/2016 PATIENT NAME: Garima Cox MR #: [id number] BIRTHDATE: 1955 ATTENDING: Christy Melton MD ORDER #: [id number] RESIDENTIAL INTERIOR DESIGNER: Tiana Muñoz and Abilio Saavedra STATUS: inpatient INDICATIONS: The patient is a 61 yr old female here for an EGD due to nausea, poor oral intake PROCEDURE PERFORMED: EGD w/ biopsy MEDICATIONS: None and Per Anesthesia. TOPICAL ANESTHETIC: none CONSENT: The patient understands the risks and benefits of the procedure and understands that these risks include, but are not limited to: sedation, allergic reaction, infection, perforation and/or bleeding. Alternative means of evaluation and treatment include, among others: physical exam, x-rays, and/or surgical intervention. The patient elects to proceed with this endoscopic procedure. medical equipment was checked for proper function. Hand hygiene and appropriate measures for infection prevention was taken. After the risks, benefits and alternatives of the procedure were thoroughly explained, Informed consent was verified, confirmed and timeout was successfully executed by the treatment team. The patient was anesthetized with topical anesthesia and the Pentax EG-[id number] endoscope was introduced through the mouth and advanced to the second portion of the duodenum. Retroflexed views revealed a hiatal hernia The gastroscope was then slowly withdrawn and removed. Prominent ampulla gastritis antrum-biopsy esophagitis distal esophagus -biopsy. ADVERSE EVENTS: There were no complications. IMPRESSIONS: 1. Prominent ampulla gastritis antrum-biopsy esophagitis distal esophagus -biopsy 2. Retroflexed views revealed a hiatal hernia RECOMMENDATIONS: 1. Await biopsy results. Biopsy results will not be ready for 7-10 days. If you don't hear from us in two weeks, call our office for biopsy results. 2. Anti-reflux regimen 3. Continue PPI 4. Avoid NSAIDS PATIENT CONDITION: stable DISPOSITION: Inpatient REPEAT EXAM: EGD pending biopsy results Christy Mleton MD eSigned: Christy Melton MD 08/27/2016 4:27 PM cc: PATIENT NAME: Garima Cox MR#: [id number]
[2016-08-27] MEDS ORDERED: PROPOFOL 200 MG/20 ML AMP IV ONE (17:14)
--- NOTE | 2016-08-27 20:47 | MB ---
cc: EMILY CHEUNG MD DATE OF CONSULTATION 08/27/[address] Matthew. REASON FOR CONSULTATION Fever, hip pain and diarrhea. HISTORY OF PRESENT ILLNESS This is a 61-year-old white female who presented to emergency department with pain in the right groin. The patient notes that the pain began approximately 10 days ago. She saw her primary physician after two days from the onset and she was sent to the emergency department at [facility] to be evaluated. The patient was told that she has had colitis and she was put on Flagyl and Cipro. The pain did not get any better. She also was complaining of pain in the right lower abdomen at the time. She presented to the emergency department for further evaluation. She notes that she had decreased appetite a few days before admission. The patient had low grade fever after she was evaluated and admitted. Temperature was 99.7 degrees when she presented and heart rate was 102 and white blood cell count was mildly elevated at 12.1. CT scan of abdomen and pelvis showed scattered diverticula in the descending colon without diverticulitis and was otherwise negative. MRI of the right hip showed focal subchondral signal changes at the right femoral head. There was also small to moderate effusion and mild appearing synovitis. The patient underwent aspiration of the right hip today. One mL of fluid which was clear to bloody was removed and sent for analysis. The fluid count revealed 880 white cells with 62% neutrophils and 450 red cells. The patient states that she continues to have right groin pain. She states that the pain sometimes radiates up the left side of her abdomen and also down the inner aspect of the right groin. The patient notes that she had a steroid injection into the right hip in June. She has history of rheumatoid arthritis. PAST MEDICAL HISTORY 1. Rheumatoid arthritis 2. Gastroesophageal reflux disease 3. Depression, 4. Migraine headaches 5. History of pancreatitis, 6. History of polyp removal from the lower GI tracts 7. Hysterectomy 8. Appendectomy 9. Sympathectomy 10. Cataract surgery, 11. Hypothyroidism, 12. Left knee arthroscopy ALLERGIES LEVAQUIN TETRACYCLINE ERYTHROMYCIN ZOSYN - ALLERGIC TO THE TAZOBACTAM COMPONENT OF ZOSYN MEDICATIONS 1. Wellbutrin. 2. Celexa. 3. Klonopin 4. Desyrel 5. Protonix 6. Dilaudid SOCIAL HISTORY No tobacco use, no alcohol. No illicit drugs. FAMILY HISTORY Noncontributory. REVIEW OF SYSTEMS GENERAL: Significant for slight chills and fever. HEENT: No difficulty swallowing or soreness of the throat. No visual blurring or diplopia. No nasal bleed or nasal drainage. NECK: No pain or swelling. CARDIOVASCULAR: No palpitation or chest pain. RESPIRATORY: No cough or shortness of breath. GASTROINTESTINAL: Significant for loose stools. No constipation. Lower abdominal pain. GENITOURINARY:: No urgency, frequency or dysuria. MUSCULOSKELETAL: Significant for right groin pain, ENDOCRINE: No polyuria OR polydipsia. HEMATOPOIETIC: No easy bruising or bleeding. INTEGUMENTARY: No skin rash or itching. NEUROLOGIC: No problems with coordination. Weakness at the right lower extremity. PSYCHIATRIC: No problems with confusion, no problems with suicidal ideation. PHYSICAL EXAMINATION GENERAL: This is a pleasant female in no acute distress. VITAL SIGNS: Temperature 98.1, BP 121/76, respirations 18, heart rate 103. HEENT: The head is atraumatic. Extraocular movements are grossly intact, pupils reactive to light. No icterus. No conjunctival erythema. Nose - no drainage or bleeding. Oropharynx - no visible lesions. Oral mucosa is moist. NECK: Supple without adenopathy. LUNGS: Clear, decreased breath sounds throughout. HEART: Distant S1-S2. No audible murmurs. ABDOMEN: Bowel sounds present, soft, mild tenderness at the right lower quadrant. RECTAL: Not performed. EXTREMITIES: Right groin region has tenderness on palpation of the inner groove of the groin. No clubbing or cyanosis or edema. SKIN: No rash. NEUROLOGIC: No focal findings. PSYCHIATRIC: The patient calm and cooperative. LABORATORY DATA WBC 7.3, platelet count 290, hemoglobin 10.3, sedimentation rate 69, creatinine 0.68, BUN seven, sodium 144, AST 35, ALT 63, alk phos 120. C-reactive protein 1.70. IMPRESSION 1. Right groin pain and fever. Possible myositis versus a right groin abscess. 2. Fever probably related to infection of the right groin. 3. Diarrhea. Questionable etiology. The patient notes that the diarrhea has subsided. 4. Multiple antibiotic allergies. RECOMMENDATIONS 1. Monitor the synovial fluid culture 2. Monitor temperature and clinical status. 3. May hold off on antibiotics until further information is obtained from the culture since the patient is currently afebrile and the white blood cell count is normal. Thank you for this consultation. The patient's progress will be monitored and further recommendations will be made on followup. Emily Cheung MD FD/ /5:28 PM /8:12 PM [facility]
[2016-08-27] MEDS: traZODone HCL 100 MG TAB PO SCH (21:35)
[2016-08-28 00:05] VITALS: BP 99/63; PULSE 97; RESP 18; TEMP 98.8; O2SAT 93
[2016-08-28 03:47] LABS: C. DIFF EPI 027 PRESUMPTIVE NEGATIVE (NEGATIVE); C. DIFF TOXIN PCR NEGATIVE (NEGATIVE)
[2016-08-28 08:00] VITALS: BP 91/61; PULSE 94; RESP 20; TEMP 98.8; O2SAT 94
[2016-08-28] MEDS: clonazePAM 1 MG TAB PO SCH ×2 (09:00→21:34)
--- NOTE | 2016-08-28 09:21 | HHI.PR ---
Subjective Remarks Alert, oriented, still complaining of right hip/groin/right lower quadrant pain No fever Objective Objective Results - Vital Signs Date Time Temp Pulse Resp B/P Pulse Ox O2 Delivery O2 Flow Rate FiO2 08/28/16 08:00 98.8 94 20 91/61 94 08/28/16 00:05 98.8 97 18 99/63 93 08/27/16 20:05 99.0 108 22 115/67 91 08/27/16 16:45 93 16 108/76 95 08/27/16 16:35 92 16 103/67 93 08/27/16 16:25 98.9 92 15 103/78 98 08/27/16 16:00 98.8 91 16 126/81 97 08/27/16 15:50 98.8 91 18 126/81 97 08/27/16 12:00 98.4 103 16 105/54 97 I/O 08/27/16 08/27/16 08/27/16 08/28/16 08/28/16 08/28/16 07:00 15:00 23:00 07:00 15:00 23:00 Intake Total 700 ml 150 ml Output Total 200 ml Balance 700 ml -200 ml 150 ml Intake Oral 700 ml Other 150 ml Output Urine Total 200 ml # Voids 3 3 5 # Bowel Movements 0 1 Result Diagram: 08/26/16 0800 08/26/16 0800 Other Results Laboratory Tests Test 08/27/16 08/27/16 10:00 18:00 Synovial Fluid Color PINK Synovial Fluid Appearance SLIGHT Synovial Fluid WBC 880 Synovial Fluid RBC 17296 Synovial Fluid Neutrophils 62 Synovial Fluid Lymphocytes 30 Synovial Fluid Monocytes 8 Synovial Fluid Crystals NONE Stool C. difficile Toxin (PCR) NEGATIVE Stl C. difficile Toxin PRESUMPTIVE Epiderm 027 NEGATIVE Date/Time Procedure Status Source Growth 08/27/16 10:00 Gram Stain - Final Resulted Fluid Synovial Fluid 08/27/16 10:00 Body Fluid Culture Resulted Fluid Synovial Fluid Pending 08/27/16 10:00 Cancelled Other 08/26/16 03:40 Urine Culture - Final Complete Urine Clean Catch No growth. ROS General: No: Fatigue, Weakness, Other HEENT: No: Sore Throat, Dysphagia, Other Cardiac: No: Chest Pain, Edema, Palpitations, Other Pulmonary: No: Cough, SOB, Wheezing, Other GI: No: Abdominal Pain, BM, Diarrhea, N/V, Other /RETAIL CLERK: No: Dysuria, Urgency, Other Neuro/MS: Other (right hip/groin pain.) Psych: No: Anxiety, Depression, Other Skin: No: Itching, Rash, Other Physical Exam Physical Exam PHYSICAL EXAMINATION GENERAL: This is a well-developed, well-nourished female who appears to be in no acute distress. She is alert and awake.. HEAD: Normocephalic without any lesion or mass noted. . EYES: Perrla, Normal eye movement, no icterus. OROPHARYNGEAL: Oropharynx without erythema or edema. MOUTH/THROAT: Buccal mucosa is moist. NECK: Supple. No nuchal rigidity or lymphadenopathy. CARDIAC: Regular rhythm, regular rate, S1 and S2 are heard. LUNGS: Clear to auscultation bilaterally. ABDOMEN: Soft, nontender, no organomegaly or masses. Bowel sounds are heard in all four quadrants. No rebound. No guarding. EXTREMITIES: Trace pedal edema. NEUROLOGICAL: No focal deficits. SKIN:Warm and moist PSYCH: Mood and affect appropriate A/P Assessment and Plan Assessment and Plan Right groin pain: myositis vs abscess. status post right hip joint aspiration biopsy on 08/27/16 Rule out septic arthritis Low-grade fever prob sec to #1 Nausea Overweight Right lower quadrant pain urinary retention Diarrhea: improving. Elevated liver enzymes Possible subtle fracture in the right femoral head, according to MRI Mild anemia Proteinuria Management Pain control Follow liver enzymes Follow biopsy reports Anti-emetic as needed loving catheter Stool testing: c.diff neg. Orthopedics following GI following appreciate Infectious disease input. Panendoscopy later today Discussed with patient Discussed with nurse AM labs. Sobia Hugo MD Aug 28, 2016 09:21 Sobia Hugo MD Aug 28, 2016 09:21
[2016-08-28] MEDS: buPROPion HCL 100 MG TAB PO SCH (09:31)
[2016-08-28] MEDS: CITALOPRAM HYDROBROMIDE 20 MG TAB PO SCH (09:31)
[2016-08-28] MEDS: SODIUM CHLORIDE 0.9% FLUSH 5 ML FLUSH FLUSH SCH ×2 (09:31→11:58)
[2016-08-28] MEDS: HEPARIN SODIUM - SQ 10,000 UNITS/ML VIAL SQ SCH ×2 (09:32→20:10)
[2016-08-28] MEDS: PANTOPRAZOLE SODIUM 40 MG VIAL IV PUSH SCH (11:57)
[2016-08-28 12:00] VITALS: BP 93/71; PULSE 91; RESP 20; TEMP 98; O2SAT 94
[2016-08-28] MEDS: HYDROmorphone HCL PF 1 MG/ML VIAL IV PRN ×3 (12:09→20:10)
[2016-08-28 16:00] VITALS: BP 103/64; PULSE 91; RESP 20; TEMP 99.3; O2SAT 94
--- NOTE | 2016-08-28 16:31 | RADHPO ---
EXAM DATE/TIME: 08/28/2016 14:58 [facility] COMPARISON: No previous studies available for comparison. INDICATIONS : Hydronephrosis. MEDICAL HISTORY : Chronic obstructive pulmonary disease. Hypothyroidism. Migraines. Emphysema. Arthritis. SURGICAL HISTORY : Cholecystectomy. Hysterectomy. section. Cardiac catheterization. L4-L5 repair. Left knee art hroscopy. Sympathectomy. ENCOUNTER: Initial ACUITY: 1 day PAIN SCORE: 3/10 LOCATION: Bilateral flank MEASUREMENTS: RIGHT KIDNEY: 11.5 x 5.3 x 5.4 cm LEFT KIDNEY: 12.2 x 5.1 x 5.8 cm FINDINGS: RIGHT KIDNEY: Renal cortex is normal in thickness and echotexture. No hydronephrosis, stone, or mass. LEFT KIDNEY: Renal cortex is normal in thickness and echotexture. No hydronephrosis, stone, or mass. BLADDER: Within normal limits given the degree of distension. CONCLUSION: No acute abnormality demonstrated. No perceptible parenchymal changes. Ivan Zuniga MD on August 28, 2016 at 16:29 Board Certified Radiologist. This report was verified electronically.
--- NOTE | 2016-08-28 16:53 | HHI.IDPN ---
Note Infectious Disease Note Patient continues to have severe pain in the R groin. (+) Sweats. Afebrile. Feels warm. Culture of the groin aspirate has no growth at 24 hours. PAST MEDICAL HISTORY 1. Rheumatoid arthritis 2. Gastroesophageal reflux disease 3. Depression, 4. Migraine headaches 5. History of pancreatitis, 6. History of polyp removal from the lower GI tracts 7. Hysterectomy 8. Appendectomy 9. Sympathectomy 10. Cataract surgery, 11. Hypothyroidism, 12. Left knee arthroscopy ALLERGIES LEVAQUIN TETRACYCLINE ERYTHROMYCIN ZOSYN - ALLERGIC TO THE TAZOBACTAM COMPONENT OF ZOSYN Current Medications Medications (Trade) Dose Ordered Sig/Kelly Route PRN Reason Start Time Stop Time Status Last Admin Dose Admin IV Flush (NS Flush) 2 ml UNSCH PRN FLUSH FLUSH AFTER USING IV ACCESS 08/25/16 03:30 IV Flush (NS Flush) 2 ml BID FLUSH 08/25/16 09:00 08/28/16 11:58 Bisacodyl (Dulcolax Supp) 10 mg DAILY PRN ME CONSTIPATION 08/25/16 03:30 Sennosides (Senokot) 17.2 mg Q12H PRN PO CONSTIPATION 08/25/16 03:30 Acetaminophen (Tylenol) 650 mg Q6H PRN PO PAIN SCALE 1 TO 2 08/25/16 03:30 Hydromorphone HCl (Dilaudid Pf Inj) 0.5 mg Q3H PRN IV Pain 3-5; if unable to take PO 08/25/16 03:30 Hydromorphone HCl (Dilaudid Pf Inj) 1 mg Q3H PRN IV Pain 6-10;if unable to take PO 08/25/16 03:30 08/28/16 12:09 Naloxone HCl (Narcan Inj) 0.4 mg UNSCH PRN IV SEE LABEL COMMENTS 08/25/16 03:30 Bupropion HCl (Wellbutrin) 300 mg DAILY PO 08/26/16 09:00 08/28/16 09:31 Citalopram Hydrobromide (CeleXA) 20 mg DAILY PO 08/26/16 09:00 08/28/16 09:31 Clonazepam (KlonoPIN) 1.5 mg BID PO 08/25/16 21:00 08/27/16 21:35 Trazodone HCl (Desyrel) 100 mg HS PO 08/25/16 21:00 08/27/16 21:35 Pantoprazole Sodium (Protonix Inj) 40 mg Q24H IV PUSH 08/25/16 12:00 08/28/16 11:57 Ondansetron HCl (Zofran Inj) 4 mg Q8HR PRN IV PUSH n/v 08/25/16 14:00 08/27/16 17:00 Non-Formulary Medication PHENERGAN 25 MG/ML; IM DO... Q6H PRN IM NAUSEA OR VOMITING 08/25/16 20:15 08/27/16 13:46 Heparin Sodium (Porcine) (Heparin Inj) 5,000 units Q12HR SQ 08/28/16 09:00 08/28/16 09:32 SOCIAL HISTORY No tobacco use, no alcohol. No illicit drugs. FAMILY HISTORY Noncontributory. OBJECTIVE: Vital Signs Date Time Temp Pulse Resp B/P Pulse Ox O2 Delivery O2 Flow Rate FiO2 08/28/16 16:00 99.3 91 20 103/64 94 08/28/16 12:39 18 08/28/16 12:00 98.0 91 20 93/71 94 08/28/16 08:00 98.8 94 20 91/61 94 08/28/16 00:05 98.8 97 18 99/63 93 08/27/16 20:05 99.0 108 22 115/67 91 Laboratory Tests Test 08/27/16 05:49 Total Bilirubin 0.4 MG/DL Direct Bilirubin 0.1 MG/DL Indirect Bilirubin 0.3 MG/DL Aspartate Amino Transf 30 U/L (AST/SGOT) Alanine Aminotransferase 53 U/L (ALT/SGPT) Alkaline Phosphatase 112 U/L Total Protein 6.4 GM/DL Albumin 2.8 GM/DL Microbiology Date/Time Procedure Status Source Growth 08/26/16 03:40 Urine Culture - Final Complete Urine Clean Catch No growth. 08/27/16 10:00 Gram Stain - Final Resulted Fluid Synovial Fluid 08/27/16 10:00 Body Fluid Culture - Preliminary Resulted Fluid Synovial Fluid NO GROWTH IN 24 HOURS. 08/27/16 10:00 Cancelled Other PHYSICAL EXAMINATION GENERAL: No acute distress. HEENT: No icterus. No conjunctival erythema. Nose - no drainage or bleeding. Oropharynx - no visible lesions. Oral mucosa is moist. NECK: Supple without adenopathy. LUNGS: Clear, decreased breath sounds. HEART: Distant S1-S2. No audible murmurs. ABDOMEN: Bowel sounds present, soft, non tender. EXTREMITIES: Right groin region has tenderness on palpation of the inner groove of the groin. No clubbing or cyanosis or edema. SKIN: No rash. NEUROLOGIC: No focal findings. PSYCHIATRIC: The patient calm and cooperative. IMPRESSION 1. Right groin pain and fever. Possible myositis versus a right groin abscess. Also could be related to severe osteoarthritis. 2. Fever probably related to infection of the right groin. 3. Diarrhea. Questionable etiology. The patient notes that the diarrhea has subsided. 4. Multiple antibiotic allergies. 5. Subchondral insufficiency fracture noted on r. femoral head on MRI. RECOMMENDATIONS 1. Monitor the synovial fluid culture. 2. Monitor temperature and clinical status. 3. Start empiric Ceftriaxone. Zechariah Hernandez MD Aug 28, 2016 16:53
[2016-08-28] MEDS: cefTRIAXone INJ 2,000 MG in SODIUM CHLORIDE 0.9% INJ 100 ML IV SCH (17:33)
[2016-08-28] MEDS: SODIUM CHLORIDE 0.9% FLUSH 5 ML FLUSH FLUSH PRN (17:34)
[2016-08-28 17:54] LABS: IGA SERUM 513 mg/dL (81-463); TISSUE TRANSGLUTAMINASE AB IGG ND U/mL (())
[2016-08-28 20:43] VITALS: BP 85/65; PULSE 97; RESP 14; TEMP 98.3; O2SAT 93
[2016-08-28] MEDS: traZODone HCL 100 MG TAB PO SCH (21:34)
[2016-08-28] MEDS: ONDANSETRON HCL 4 MG/2 ML VIAL IV PUSH PRN (21:40)
[2016-08-29 00:56] VITALS: BP 85/63; PULSE 89; RESP 18; TEMP 98.3; O2SAT 98
[2016-08-29] MEDS: HYDROmorphone HCL PF 1 MG/ML VIAL IV PRN ×4 (04:28→20:00)
[2016-08-29 07:50] LABS: HEMATOCRIT 31.2 % (35.0-46.0); MEAN CELL VOLUME 87.5 FL (80.0-100.0); MEAN CORPUSCULAR HEMOGLOBIN 27.3 PG (27.0-34.0); MEAN CORPUSCULAR HGB CONC 31.2 % (32.0-36.0); PLATELET COUNT 402 TH/MM3 (150-450); RED BLOOD COUNT 3.56 MIL/MM3 (4.00-5.30); RED CELL DISTRIBUTION WIDTH 17.9 % (11.6-17.2); REVIEW FLAG FINAL; WHITE BLOOD COUNT 5.6 TH/MM3 (4.0-11.0)
[2016-08-29 08:00] VITALS: BP 103/71; PULSE 94; RESP 20; TEMP 97.9; O2SAT 91
[2016-08-29 08:03] LABS: BICARBONATE 29.3 MEQ/L (21.0-32.0)
--- NOTE | 2016-08-29 08:18 | HHI.PR ---
Subjective Remarks Alert, oriented, still complaining of right hip/groin/right lower quadrant pain No fever Objective Objective Results - Vital Signs Date Time Temp Pulse Resp B/P Pulse Ox O2 Delivery O2 Flow Rate FiO2 08/29/16 05:04 18 08/29/16 00:56 98.3 89 18 85/63 98 08/28/16 20:43 98.3 97 14 85/65 93 08/28/16 16:00 99.3 91 20 103/64 94 08/28/16 12:00 98.0 91 20 93/71 94 I/O 08/28/16 08/28/16 08/28/16 08/29/16 08/29/16 08/29/16 07:00 15:00 23:00 07:00 15:00 23:00 Intake Total 1000 ml 240 ml 480 ml Output Total 700 ml 320 ml 220 ml Balance 300 ml -80 ml 260 ml Intake Oral 1000 ml 240 ml 480 ml Output Urine Total 700 ml 320 ml 220 ml # Voids 5 0 Result Diagram: 08/29/16 0700 08/29/16 0700 Other Results Laboratory Tests Test 08/29/16 07:00 White Blood Count 5.6 Red Blood Count 3.56 Hemoglobin 9.7 Hematocrit 31.2 Mean Corpuscular Volume 87.5 Mean Corpuscular Hemoglobin 27.3 Mean Corpuscular Hemoglobin 31.2 Concent Red Cell Distribution Width 17.9 Platelet Count 402 Mean Platelet Volume 7.4 Sodium Level 143 Potassium Level 3.0 Chloride Level 105 Carbon Dioxide Level 29.3 Anion Gap 9 Blood Urea Nitrogen 4 Creatinine 0.58 Estimat Glomerular Filtration 106 Rate Random Glucose 97 Calcium Level 8.2 Date/Time Procedure Status Source Growth 08/27/16 10:00 Gram Stain - Final Resulted Fluid Synovial Fluid 08/27/16 10:00 Body Fluid Culture - Preliminary Resulted Fluid Synovial Fluid NO GROWTH IN 24 HOURS. 08/27/16 10:00 Cancelled Other 08/26/16 03:40 Urine Culture - Final Complete Urine Clean Catch No growth. ROS General: No: Fatigue, Weakness, Other HEENT: No: Sore Throat, Dysphagia, Other Cardiac: No: Chest Pain, Edema, Palpitations, Other Pulmonary: No: Cough, SOB, Wheezing, Other GI: No: Abdominal Pain, BM, Diarrhea, N/V, Other Neuro/MS: Other (Right hip/groin pain,) Psych: No: Anxiety, Depression, Other Skin: No: Itching, Rash, Other Physical Exam Physical Exam PHYSICAL EXAMINATION GENERAL: This is a well-developed, well-nourished female who appears to be in no acute distress. She is alert and awake.. HEAD: Normocephalic without any lesion or mass noted. . EYES: Perrla, Normal eye movement, no icterus. OROPHARYNGEAL: Oropharynx without erythema or edema. MOUTH/THROAT: Buccal mucosa is moist. NECK: Supple. No nuchal rigidity or lymphadenopathy. CARDIAC: Regular rhythm, regular rate, S1 and S2 are heard. LUNGS: Clear to auscultation bilaterally. ABDOMEN: Soft, nontender, no organomegaly or masses. Bowel sounds are heard in all four quadrants. No rebound. No guarding. EXTREMITIES: Trace pedal edema. NEUROLOGICAL: No focal deficits. SKIN:Warm and moist PSYCH: Mood and affect appropriate A/P Assessment and Plan Assessment and Plan Right groin pain: myositis vs abscess. status post right hip joint aspiration biopsy on 08/27/16 Rule out septic arthritis Low-grade fever prob sec to #1 Nausea: S/p EGd on 08/27/16. Overweight Right lower quadrant pain urinary retention Diarrhea: improving. Elevated liver enzymes Possible subtle fracture in the right femoral head, according to MRI Mild anemia Hypokalemia Proteinuria Management Pain control Follow liver enzymes Follow biopsy reports Anti-emetic as needed s/p EGd on 08/27/16: gastritis/esophagitis: biopsy pending. loving catheter Stool testing: c.diff neg. Orthopedics following GI following appreciate Infectious disease input. KCL 40meq po x2. rpt potassium in am. Discussed with patient Discussed with nurse AM labs. Sobia Hugo MD Aug 29, 2016 08:18
[2016-08-29] MEDS: clonazePAM 1 MG TAB PO SCH ×3 (09:00→21:35)
[2016-08-29] MEDS: buPROPion HCL 100 MG TAB PO SCH (09:13)
[2016-08-29] MEDS: HEPARIN SODIUM - SQ 10,000 UNITS/ML VIAL SQ SCH ×2 (09:14→19:59)
[2016-08-29] MEDS: CITALOPRAM HYDROBROMIDE 20 MG TAB PO SCH (09:14)
[2016-08-29] MEDS: SODIUM CHLORIDE 0.9% FLUSH 5 ML FLUSH FLUSH SCH ×2 (09:15→21:22)
[2016-08-29] MEDS ORDERED: POTASSIUM CHLORIDE 20 MEQ CONTROLLED RELEASE TAB PO PRN (09:30)
[2016-08-29] MEDS: PHENERGAN 25 MG/ML IM PRN (10:04)
[2016-08-29 12:00] VITALS: BP 98/65; PULSE 93; RESP 20; TEMP 98; O2SAT 93
[2016-08-29] MEDS: PANTOPRAZOLE SODIUM 40 MG VIAL IV PUSH SCH (12:20)
[2016-08-29 16:00] VITALS: BP 88/62; PULSE 88; RESP 20; TEMP 96.9; O2SAT 94
--- NOTE | 2016-08-29 16:47 | HHI.GIFU ---
GI Follow-up Note Consult Follow-up Subjective: Patient laying in bed comfortably, no new complaints except feeling tired Objective: PHYSICAL EXAMINATION: Vitals signs stable No fever HEENT: Pupils round and reactive to light; normocephalic; atraumatic; no jaundice. Throat is clear. NECK: Neck is supple, no JVD, no lymphadenopathy. CHEST: Chest is clear to auscultation and percussion. CARDIAC: Regular rate and rhythm with no murmur gallop or rubs. ABDOMEN: Soft, nondistended, nontender; no hepatosplenomegaly; bowel sounds are present in all four quadrants. EXTREMITIES: No clubbing, cyanosis, or edema. SKIN: Normal; no rash; no jaundice. DROP WIRE BUILDER: No focal deficits; alert and oriented times three. Available Data (labs, X- Rays, Procedues) : Last Impressions Renal Ultrasound 08/28/16 Signed Impressions: Service Date/Time: Sunday, August 28, 2016 14:58 - CONCLUSION: No acute abnormality demonstrated. No perceptible parenchymal changes. Ivan Zuniga MD Hip Aspiration/Injection 08/27/16 0000 Signed Impressions: Service Date/Time: Monday, July 25, 2016 09:35 - CONCLUSION: Uncomplicated aspiration as above. Rico Kohler MD Gastric Emptying Nuclear Medicine 08/26/16 0000 Signed Impressions: Service Date/Time: August 10:06 - CONCLUSION: 1. Rapid gastric emptying with half-time of 19 minutes. Vipul Alvarez MD Cholangiopancreatography MRI 08/26/16 0000 Signed Impressions: Service Date/Time: August 11:22 - CONCLUSION: 1. No abnormality is identified to explain the clinical symptoms. 2. Small hiatal hernia. Ivan Perez MD Hip MRI 08/25/16 0000 Signed Impressions: Service Date/Time: Thursday, August 25, 2016 15:46 - CONCLUSION: Focal subchondral signal changes centrally of the right femoral head as above. A subchondral insufficiency fracture would be most likely. Joint infection is considered much less likely as there is only a small to moderate effusion and fairly mild appearing synovitis, and no other bony signal changes are present. If there is high clinical concern for infectious arthropathy, there is probably enough joint fluid to tap for diagnostic purposes. Ivan Zuniga MD Femur X-Ray 08/25/16 0000 Signed Impressions: Service Date/Time: Thursday, August 25, 2016 01:17 - CONCLUSION: No acute osseous injury. Osteoarthritis of the right hip. Seth Duran MD Abdomen/Pelvis CT 08/24/16 2220 Signed Impressions: Service Date/Time: Wednesday, August 24, 2016 23:48 - CONCLUSION: 1. Patient is status post cholecystectomy. 2. Small hiatal hernia. 3. Scattered diverticula in the descending colon without diverticulitis. 4. Otherwise negative. Specifically, no findings of hernia to explain current clinical symptoms. Seth Duran MD Laboratory Tests Test 08/27/16 08/29/16 18:00 07:00 Stool C. difficile Toxin (PCR) NEGATIVE Stl C. difficile Toxin PRESUMPTIVE Epiderm 027 NEGATIVE White Blood Count 5.6 TH/MM3 Red Blood Count 3.56 MIL/MM3 Hemoglobin 9.7 GM/DL Hematocrit 31.2 % Mean Corpuscular Volume 87.5 FL Mean Corpuscular Hemoglobin 27.3 PG Mean Corpuscular Hemoglobin 31.2 % Concent Red Cell Distribution Width 17.9 % Platelet Count 402 TH/MM3 Mean Platelet Volume 7.4 FL Sodium Level 143 MEQ/L Potassium Level 3.0 MEQ/L Chloride Level 105 MEQ/L Carbon Dioxide Level 29.3 MEQ/L Anion Gap 9 MEQ/L Blood Urea Nitrogen 4 MG/DL Creatinine 0.58 MG/DL Estimat Glomerular Filtration 106 ML/MIN Rate Random Glucose 97 MG/DL Calcium Level 8.2 MG/DL Allergies Coded Allergies Type Severity Reaction Last Updated Verified Levaquin Allergy Severe 08/25/16 Yes Zosyn Allergy Severe ANAPHALACTIC SHOCK 08/25/16 Yes Erythromycin Allergy Intermediate RASH 08/25/16 Yes Tetracycline Allergy Intermediate RASH 08/25/16 Yes Active Scripts Medications Dose Route/Sig Days Date Category Dose Instructions Vitamin B12 (Cyanocobalamin) 500 Mcg Tab 500 Mcg PO DAILY 08/25/16 Reported Vitamin D-3 (Cholecalciferol) 400 Unit Tab 400 Mg PO DAILY 08/25/16 Reported Clonazepam 1 Mg Tab 1.5 Mg PO BID 08/25/16 Reported Phenergan (Promethazine HCl) 25 Mg Tab 25 Mg PO Q6H PRN 08/25/16 Reported Flagyl (Metronidazole) 500 Mg Tab 500 Mg PO TID 08/25/16 Reported Cipro (Ciprofloxacin HCl) 500 Mg Tab 500 Mg PO BID 08/25/16 Reported Trazodone (Trazodone HCl) 100 Mg Tab 100 Mg PO HS 08/25/16 Reported Omeprazole 40 Mg Cap 40 Mg PO DAILY 08/25/16 Reported Sumatriptan (Sumatriptan Succinate) 100 Mg Tab 100 Mg PO ONCE PRN 08/25/16 Reported If a satisfactory response has not been obtained at 2 hours, a second dose may be administered Zofran (Ondansetron HCl) 8 Mg Tab 8 Mg PO TID 08/25/16 Reported Flexeril (Cyclobenzaprine HCl) 10 Mg Tab 10 Mg PO BID 08/25/16 Reported Hydrocodone-Acetaminophen 7.5-325 mg Tab 1 Tab PO Q6H PRN 08/25/16 Reported Citalopram (Citalopram Hydrobromide) 20 Mg Tab 20 Mg PO DAILY 08/25/16 Reported Folate (Folic Acid) 1 Mg Tab 1 Mg PO DAILY 08/25/16 Reported Methotrexate 2.5 Mg Tab 2.5 Mg PO Q7D 08/25/16 Reported Bupropion HCl 100 Mg Tab 300 Mg PO DAILY 08/25/16 Reported ASSESSMENT/PLAN: Seen and examined, LFTs improving. Biopsies-p from EGD. Still doesnot want a colonoscopy. It was a pleasure seeing Garima Cox Thank you for this consult. Entered by: Tawny Ocampo MD Aug 29, 2016 16:47
[2016-08-29 16:59] VITALS: BP 103/71; PULSE 86
[2016-08-29] MEDS: cefTRIAXone INJ 2,000 MG in SODIUM CHLORIDE 0.9% INJ 100 ML IV SCH (17:04)
[2016-08-29 20:00] VITALS: BP 101/70; PULSE 93; RESP 18; TEMP 99; O2SAT 92
[2016-08-29] MEDS: traZODone HCL 100 MG TAB PO SCH (21:35)
[2016-08-30] VITALS: BP 101/67; PULSE 89; RESP 18; TEMP 99.3; O2SAT 96
[2016-08-30 06:59] LABS: BICARBONATE 30.7 MEQ/L (21.0-32.0)
[2016-08-30 07:15] LABS: POTASSIUM 2.9 MEQ/L (3.5-5.1)
[2016-08-30] MEDS: buPROPion HCL 100 MG TAB PO SCH (07:46)
[2016-08-30] MEDS: CITALOPRAM HYDROBROMIDE 20 MG TAB PO SCH (07:46)
[2016-08-30] MEDS: clonazePAM 1 MG TAB PO SCH ×2 (07:47→21:07)
[2016-08-30] MEDS: SODIUM CHLORIDE 0.9% FLUSH 5 ML FLUSH FLUSH SCH ×2 (07:47→21:09)
[2016-08-30] MEDS: HEPARIN SODIUM - SQ 10,000 UNITS/ML VIAL SQ SCH ×2 (07:48→21:07)
--- NOTE | 2016-08-30 07:52 | HHI.GIFU ---
GI Follow-up Note Consult Follow-up Subjective: Patient laying in bed comfortably, still decreased poor oral intake.No nausea, vomiting.Pain better, refusing colonoscopy . LFTs better Objective: PHYSICAL EXAMINATION: Vitals signs stable No fever Vital Signs Date Time Temp Pulse Resp B/P Pulse Ox O2 Delivery O2 Flow Rate FiO2 08/30/16 00:00 99.3 89 18 101/67 96 HEENT: Pupils round and reactive to light; normocephalic; atraumatic; no jaundice. Throat is clear. NECK: Neck is supple, no JVD, no lymphadenopathy. CHEST: Chest is clear to auscultation and percussion. CARDIAC: Regular rate and rhythm with no murmur gallop or rubs. ABDOMEN: Soft, nondistended, nontender; no hepatosplenomegaly; bowel sounds are present in all four quadrants. EXTREMITIES: No clubbing, cyanosis, or edema. SKIN: Normal; no rash; no jaundice. SECURITY MANAGEMENT SPECIALIST: No focal deficits; alert and oriented times three. Available Data (labs, X- Rays, Procedues) : Laboratory Tests Test 08/29/16 08/30/16 07:00 05:14 White Blood Count 5.6 TH/MM3 Red Blood Count 3.56 MIL/MM3 Hemoglobin 9.7 GM/DL Hematocrit 31.2 % Mean Corpuscular Volume 87.5 FL Mean Corpuscular Hemoglobin 27.3 PG Mean Corpuscular Hemoglobin 31.2 % Concent Red Cell Distribution Width 17.9 % Platelet Count 402 TH/MM3 Mean Platelet Volume 7.4 FL Sodium Level 143 MEQ/L 144 MEQ/L Potassium Level 3.0 MEQ/L 2.9 MEQ/L Chloride Level 105 MEQ/L 105 MEQ/L Carbon Dioxide Level 29.3 MEQ/L 30.7 MEQ/L Anion Gap 9 MEQ/L 8 MEQ/L Blood Urea Nitrogen 4 MG/DL 5 MG/DL Creatinine 0.58 MG/DL 0.59 MG/DL Estimat Glomerular Filtration 106 ML/MIN 104 ML/MIN Rate Random Glucose 97 MG/DL 93 MG/DL Calcium Level 8.2 MG/DL 8.6 MG/DL ASSESSMENT/PLAN: poor oral intake-slowly improving -egd -gastris/esophagitis abdominal pain, diarrhea-improved refusing colonoscopy pain in right lower quadrant most likely related to hip pain elevated lfts-better, most likely medications induced Recommendations fu labs colonoscopy if agrees can be done op add ensure to her diet ppi fu biopsy call us as needed if dc fu gi in 1-2 weeks gi will sign off It was a pleasure seeing Garima Cox Thank you for this consult. Entered by: Christy Davis MD Aug 30, 2016 07:52
[2016-08-30] MEDS: HYDROmorphone HCL PF 1 MG/ML VIAL IV PRN ×5 (07:57→23:13)
[2016-08-30 08:00] VITALS: BP 96/69; PULSE 86; RESP 18; TEMP 97.6; O2SAT 92
[2016-08-30] MEDS ORDERED: POTASSIUM CHLOR 10 MEQ PREMIX 100 ML IV ONE (09:15)
--- NOTE | 2016-08-30 10:07 | HHI.PR ---
Subjective History of Present Illness still having severe R groin pain / needing IV analgesic round the clock less Nausea/ No vomiting No fever or chills appetite is ok No CP or SOB No cough or sputum no dysuria No melena or BRBPR offers no other c/o Vitals/Results Intake & Output 08/29/16 08/29/16 08/30/16 15:00 23:00 07:00 Intake Total 1000 ml 240 ml Balance 1000 ml 240 ml Intake Oral 1000 ml 240 ml # Voids 5 3 # Bowel Movements 0 1 Vital Signs Vital Signs Date Time Temp Pulse Resp B/P Pulse Ox O2 Delivery O2 Flow Rate FiO2 08/30/16 08:27 20 08/30/16 08:00 97.6 86 18 96/69 92 08/30/16 00:00 99.3 89 18 101/67 96 08/29/16 20:36 18 08/29/16 20:00 99.0 93 18 101/70 92 08/29/16 16:59 86 103/71 08/29/16 16:00 96.9 88 20 88/62 94 08/29/16 12:00 98.0 93 20 98/65 93 CBC/BMP: 08/29/16 0700 08/30/16 0514 Lab Results Laboratory Tests Test 08/30/16 05:14 Sodium Level 144 MEQ/L Potassium Level 2.9 MEQ/L Chloride Level 105 MEQ/L Carbon Dioxide Level 30.7 MEQ/L Anion Gap 8 MEQ/L Blood Urea Nitrogen 5 MG/DL Creatinine 0.59 MG/DL Estimat Glomerular Filtration 104 ML/MIN Rate Random Glucose 93 MG/DL Calcium Level 8.6 MG/DL Physical Exam General General Appearance: Well Developed, Well Nourished, Anxious, Painful Eyes Eye Exam: Pupils Equal, Sclera White Ears & Nose Ears & Nose Exam: Nasal Mucosa [place] Throat Throat Exam: Oral Mucosa [place] & Moist Neck Neck Exam: Neck Supple, Trachea Midline Pulmonary Resp Exam: Clear Bilaterally, Breath Sounds Equal, No Distress Cardiology CV Exam: Regular, Normal Sinus Rhythm Gastrointestinal/Abdomen GI Exam: Soft, Bowel Sounds Present Integumentary Skin Exam: Warm, Dry Extremeties Extremities Exam: Pedal Pulses Palpable, Trace Edema Neurologic Neuro Exam: Alert, Awake, Oriented, Speech Clear, Moving All Extremities Psychiatric Psych Exam: Appropriate Responses VTE Prophylaxis VTE Prophylaxis Meds: Heparin PUD Prophylasis PUD Prophylaxis: Protonix Assessment/Plan Assessment/Plan Assessment and Plan Right groin pain status post right hip joint aspiration biopsy on 08/27/16 Rule out septic arthritis Low-grade fever Nausea Overweight Right lower quadrant pain urinary retention Diarrhea Elevated liver enzymes Possible subtle fracture in the right femoral head, according to MRI Mild anemia Proteinuria Management Pain control/ IV analgesic Joint fluid c/s Neg empiric iV abx / Rocephin Ortho consult awaited I spoke w Dr Oliva , He reviewed MRI Hip , he Rec Non operative tx No Weight Bearing RLExt Replace kcl PPI anti emetic GI input appreciated Cscope as out pt basis pt meets Inpatient criteria , still very painful needing IV pain meds & also currently On [place] bx . expected LOS is 5 to 6 days /possible d/c home w HHC or SNF d/w case management associate ' will f/u Madonna Yu MD Aug 30, 2016 10:07
[2016-08-30] MEDS ORDERED: POTASSIUM CHLORIDE 10 MEQ CONTROLLED RELEASE TAB PO ONE (10:15)
[2016-08-30 12:00] VITALS: BP 105/70; PULSE 86; RESP 16; TEMP 97.4; O2SAT 93
[2016-08-30 16:00] VITALS: BP 119/85; PULSE 60; RESP 16; TEMP 97.7; O2SAT 96
--- NOTE | 2016-08-30 16:08 | HHI.IDPN ---
Note Infectious Disease Note Patient continues to have severe pain in the R groin. Pain was better yesterday but worse today. 8/10 pain scale. (+) Sweats. Afebrile. Notes dry mouth. Culture of the groin aspirate has no growth at 72 hours. PAST MEDICAL HISTORY 1. Rheumatoid arthritis 2. Gastroesophageal reflux disease 3. Depression, 4. Migraine headaches 5. History of pancreatitis, 6. History of polyp removal from the lower GI tracts 7. Hysterectomy 8. Appendectomy 9. Sympathectomy 10. Cataract surgery, 11. Hypothyroidism, 12. Left knee arthroscopy ALLERGIES LEVAQUIN TETRACYCLINE ERYTHROMYCIN ZOSYN - ALLERGIC TO THE TAZOBACTAM COMPONENT OF ZOSYN Current Medications Medications (Trade) Dose Ordered Sig/Kelly Route PRN Reason Start Time Stop Time Status Last Admin Dose Admin IV Flush (NS Flush) 2 ml UNSCH PRN FLUSH FLUSH AFTER USING IV ACCESS 08/25/16 03:30 08/28/16 17:34 IV Flush (NS Flush) 2 ml BID FLUSH 08/25/16 09:00 08/30/16 07:47 Bisacodyl (Dulcolax Supp) 10 mg DAILY PRN [place] CONSTIPATION 08/25/16 03:30 Sennosides (Senokot) 17.2 mg Q12H PRN PO CONSTIPATION 08/25/16 03:30 Acetaminophen (Tylenol) 650 mg Q6H PRN PO PAIN SCALE 1 TO 2 08/25/16 03:30 Hydromorphone HCl (Dilaudid Pf Inj) 0.5 mg Q3H PRN IV Pain 3-5; if unable to take PO 08/25/16 03:30 08/30/16 07:57 Hydromorphone HCl (Dilaudid Pf Inj) 1 mg Q3H PRN IV Pain 6-10;if unable to take PO 08/25/16 03:30 08/30/16 12:12 Naloxone HCl (Narcan Inj) 0.4 mg UNSCH PRN IV SEE LABEL COMMENTS 08/25/16 03:30 Bupropion HCl (Wellbutrin) 300 mg DAILY PO 08/26/16 09:00 08/30/16 07:46 Citalopram Hydrobromide (CeleXA) 20 mg DAILY PO 08/26/16 09:00 08/30/16 07:46 Clonazepam (KlonoPIN) 1.5 mg BID PO 08/25/16 21:00 08/29/16 21:35 Trazodone HCl (Desyrel) 100 mg HS PO 08/25/16 21:00 08/29/16 21:35 Ondansetron HCl (Zofran Inj) 4 mg Q8HR PRN IV PUSH n/v 08/25/16 14:00 08/28/16 21:40 Non-Formulary Medication PHENERGAN 25 MG/ML; IM DO... Q6H PRN IM NAUSEA OR VOMITING 08/25/16 20:15 08/29/16 10:04 Heparin Sodium (Porcine) 5000 units 5,000 units Q12HR SQ 08/28/16 09:00 08/30/16 07:48 Ceftriaxone Sodium/Sodium Chloride (Rocephin Inj/NS Inj) 100 ml @ 200 mls/hr Q24H IV 08/28/16 18:00 08/29/16 17:04 Pantoprazole Sodium (Protonix) 40 mg DAILY PO 08/31/16 09:00 SOCIAL HISTORY No tobacco use, no alcohol. No illicit drugs. FAMILY HISTORY Noncontributory. OBJECTIVE: Vital Signs Date Time Temp Pulse Resp B/P Pulse Ox O2 Delivery O2 Flow Rate FiO2 08/30/16 12:42 20 08/30/16 12:00 97.4 86 16 105/70 93 08/30/16 08:27 20 08/30/16 08:00 97.6 86 18 96/69 92 08/30/16 00:00 99.3 89 18 101/67 96 08/29/16 20:00 99.0 93 18 101/70 92 08/29/16 16:59 86 103/71 08/29/16 08/29/16 08/30/16 15:00 23:00 07:00 Intake Total 1000 ml 240 ml Balance 1000 ml 240 ml Intake Oral 1000 ml 240 ml # Voids 5 3 # Bowel Movements 0 1 Laboratory Tests Test 08/29/16 07:00 White Blood Count 5.6 TH/MM3 Red Blood Count 3.56 MIL/MM3 Hemoglobin 9.7 GM/DL Hematocrit 31.2 % Mean Corpuscular Volume 87.5 FL Mean Corpuscular Hemoglobin 27.3 PG Mean Corpuscular Hemoglobin 31.2 % Concent Red Cell Distribution Width 17.9 % Platelet Count 402 TH/MM3 Mean Platelet Volume 7.4 FL Laboratory Tests Test 08/29/16 08/30/16 07:00 05:14 Sodium Level 143 MEQ/L 144 MEQ/L Potassium Level 3.0 MEQ/L 2.9 MEQ/L Chloride Level 105 MEQ/L 105 MEQ/L Carbon Dioxide Level 29.3 MEQ/L 30.7 MEQ/L Anion Gap 9 MEQ/L 8 MEQ/L Blood Urea Nitrogen 4 MG/DL 5 MG/DL Creatinine 0.58 MG/DL 0.59 MG/DL Estimat Glomerular Filtration 106 ML/MIN 104 ML/MIN Rate Random Glucose 97 MG/DL 93 MG/DL Calcium Level 8.2 MG/DL 8.6 MG/DL PHYSICAL EXAMINATION GENERAL: No acute distress. HEENT: No icterus. No conjunctival erythema. Oropharynx - no visible lesions. Oral mucosa is dry. No thrush. NECK: Supple without adenopathy. LUNGS: Clear, decreased breath sounds. HEART: Distant S1-S2. No audible murmurs. ABDOMEN: Bowel sounds present, soft, non tender. EXTREMITIES: Right groin region tender on palpation at the inner groove of the groin. No clubbing or cyanosis or edema. SKIN: No rash. NEUROLOGIC: No focal findings. PSYCHIATRIC: The patient calm and cooperative. IMPRESSION 1. Right groin pain and fever. Possible myositis versus a right groin abscess. Also could be related to severe osteoarthritis. 2. Fever probably related to infection of the right groin. 3. Diarrhea. Questionable etiology. The patient notes that the diarrhea has subsided. 4. Multiple antibiotic allergies. 5. Subchondral insufficiency fracture noted on r. femoral head on MRI. RECOMMENDATIONS 1. Agree with orthopedic consult. 2. Continue Ceftriaxone. 3. Await ortho consult to determine if antibiotic can be stopped. Dr. Rosie An covering tomorrow. Zechariah Hernandez MD Aug 30, 2016 16:08
[2016-08-30] MEDS: cefTRIAXone INJ 2,000 MG in SODIUM CHLORIDE 0.9% INJ 100 ML IV SCH (16:19)
[2016-08-30] MEDS: SODIUM CHLORIDE 0.9% FLUSH 5 ML FLUSH FLUSH PRN ×2 (19:41→23:13)
[2016-08-30 19:54] LABS: ENDOMYSIAL AB TITER ND (<1:5); TISSUE TRANSGLUTAMINASE AB LESS THAN 1 U/mL (())
[2016-08-30 20:00] VITALS: BP 112/80; PULSE 100; RESP 20; TEMP 98.3; O2SAT 97
[2016-08-30] MEDS: traZODone HCL 100 MG TAB PO SCH (21:09)
[2016-08-31] VITALS: BP 98/69; PULSE 89; RESP 18; TEMP 98; O2SAT 92
[2016-08-31] MEDS: SODIUM CHLORIDE 0.9% FLUSH 5 ML FLUSH FLUSH PRN ×3 (00:12→07:47)
[2016-08-31] MEDS: ONDANSETRON HCL 4 MG/2 ML VIAL IV PUSH PRN ×2 (00:12→15:00)
[2016-08-31] MEDS: HYDROmorphone HCL PF 1 MG/ML VIAL IV PRN ×5 (02:21→21:26)
[2016-08-31 03:49] LABS: MITOCHONDRIAL ABS LESS THAN 20.0 U (())
[2016-08-31 08:00] VITALS: BP 101/73; PULSE 86; RESP 18; TEMP 98.3; O2SAT 94
[2016-08-31] MEDS: HEPARIN SODIUM - SQ 10,000 UNITS/ML VIAL SQ SCH ×2 (08:29→22:55)
[2016-08-31] MEDS: CITALOPRAM HYDROBROMIDE 20 MG TAB PO SCH (08:29)
[2016-08-31] MEDS: buPROPion HCL 100 MG TAB PO SCH (08:29)
[2016-08-31] MEDS: clonazePAM 1 MG TAB PO SCH ×3 (08:29→22:51)
[2016-08-31] MEDS: PANTOPRAZOLE SOD 40 MG DELAYED RELEASE TAB PO SCH (08:29)
[2016-08-31] MEDS: SODIUM CHLORIDE 0.9% FLUSH 5 ML FLUSH FLUSH SCH ×2 (08:36→21:26)
[2016-08-31 12:00] VITALS: BP 102/68; PULSE 87; RESP 16; TEMP 97.6; O2SAT 94
[2016-08-31 16:00] VITALS: BP 105/72; PULSE 95; RESP 18; TEMP 98.1; O2SAT 95
--- NOTE | 2016-08-31 16:58 | HHI.PR ---
Subjective Interval History Alert, verbal, complaining of right hip pain, pain worse with minimal activity, frustrated and had slow progress Review of Systems Constitutional Constitutional Remarks 10 systems reviewed and negative except for the above Vitals/Results Intake & Output 08/30/16 08/30/16 08/31/16 15:00 23:00 07:00 Intake Total 420 ml 640 ml 420 ml Output Total 840 ml 100 ml Balance -420 ml 540 ml 420 ml Intake Oral 420 ml 640 ml 420 ml Output Urine Total 840 ml 100 ml Bladder Scan Volume Amount 328 ml # Voids 2 # Bowel Movements 0 0 Vital Signs Vital Signs Date Time Temp Pulse Resp B/P Pulse Ox O2 Delivery O2 Flow Rate FiO2 08/31/16 12:00 97.6 87 16 102/68 94 08/31/16 08:00 98.3 86 18 101/73 94 08/31/16 00:00 98.0 89 18 98/69 92 08/30/16 20:00 98.3 100 20 112/80 97 CBC/BMP: 08/29/16 0700 08/30/16 0514 Physical Exam General General Appearance: Well Developed, Well Nourished, Anxious, Painful Eyes Eye Exam: Pupils Equal, Sclera White Ears & Nose Ears & Nose Exam: Nasal Mucosa [place] Throat Throat Exam: Oral Mucosa [place] & Moist Neck Neck Exam: Neck Supple, Trachea Midline Pulmonary Resp Exam: Clear Bilaterally, Breath Sounds Equal, No Distress Cardiology CV Exam: Regular, Normal Sinus Rhythm Gastrointestinal/Abdomen GI Exam: Soft, Bowel Sounds Present Integumentary Skin Exam: Warm, Dry Extremeties Extremities Exam: Pedal Pulses Palpable, Trace Edema Neurologic Neuro Exam: Alert, Awake, Oriented, Speech Clear, Moving All Extremities Psychiatric Psych Exam: Appropriate Responses VTE Prophylaxis VTE Prophylaxis Meds: Heparin PUD Prophylasis PUD Prophylaxis: Protonix Assessment/Plan Assessment/Plan Assessment and Plan Right groin pain status post right hip joint aspiration biopsy on 08/27/16 No strong evidence of septic arthritis Low-grade fever earlier this admission Hypokalemia Overweight Right lower quadrant pain Elevated liver enzymes Possible subtle fracture in the right femoral head, according to MRI Mild anemia Proteinuria Management Transfer to the main campus for orthopedics evaluation This has been requested 5 days ago, patient has not been seen by orthopedics yet Pain control/ IV analgesic Joint fluid c/s Neg empiric iV abx / Rocephin Replace potassium Regular diet, per patient request PPI anti emetic GI input appreciated Cscope as out pt basis possible d/c home w HHC or SNF d/w patient and nurse Elba Matthew MD Aug 31, 2016 16:58
[2016-08-31] MEDS: cefTRIAXone INJ 2,000 MG in SODIUM CHLORIDE 0.9% INJ 100 ML IV SCH (18:34)
[2016-08-31] MEDS: POTASSIUM CHLORIDE 25 MEQ EFFERVESCENT TAB PO SCH ×2 (18:34→22:27)
[2016-08-31] MEDS: PHENERGAN 25 MG/ML IM PRN (18:45)
[2016-08-31 20:00] VITALS: BP 88/57; PULSE 101; RESP 16; TEMP 98.9; O2SAT 91
[2016-08-31] MEDS: traZODone HCL 100 MG TAB PO SCH (22:52)
[2016-09-01] MEDS: HYDROmorphone HCL PF 1 MG/ML VIAL IV PRN ×4 (00:25→22:35)
[2016-09-01 00:28] VITALS: BP 129/72; PULSE 102; RESP 18; TEMP 99; O2SAT 94
[2016-09-01 04:05] VITALS: BP 98/64; PULSE 95; RESP 18; TEMP 98; O2SAT 91
[2016-09-01 08:00] VITALS: BP 105/60; PULSE 93; RESP 19; TEMP 98.7; O2SAT 97
[2016-09-01] MEDS: POTASSIUM CHLORIDE 25 MEQ EFFERVESCENT TAB PO SCH ×3 (10:17→22:36)
[2016-09-01] MEDS: HEPARIN SODIUM - SQ 10,000 UNITS/ML VIAL SQ SCH ×2 (10:18→22:35)
[2016-09-01] MEDS: buPROPion HCL 100 MG TAB PO SCH (10:19)
[2016-09-01] MEDS: PANTOPRAZOLE SOD 40 MG DELAYED RELEASE TAB PO SCH (10:20)
[2016-09-01] MEDS: clonazePAM 1 MG TAB PO SCH ×2 (10:20→22:35)
[2016-09-01] MEDS: CITALOPRAM HYDROBROMIDE 20 MG TAB PO SCH (10:20)
[2016-09-01] MEDS: SODIUM CHLORIDE 0.9% FLUSH 5 ML FLUSH FLUSH SCH ×2 (10:23→22:37)
[2016-09-01 12:00] VITALS: BP 102/55; PULSE 97; RESP 19; TEMP 98.6; O2SAT 91
[2016-09-01 12:08] LABS: BICARBONATE 31.8 MEQ/L (21.0-32.0); POTASSIUM 4.3 MEQ/L (3.5-5.1)
[2016-09-01] MEDS ORDERED: PANT40TA3 PO (13:48)
[2016-09-01] MEDS ORDERED: HYDR-3288 PO (13:48)
[2016-09-01] MEDS ORDERED: CLON1 PO (13:48)
[2016-09-01] MEDS ORDERED: BISA10R PR (13:48)
--- NOTE | 2016-09-01 13:59 | PD.CONS ---
cc: Rakesh Oliva Jr., MD HPI Service Orthopedic Surgeons Consult Requested By Primary Care Physician Symone Fisher M.D. Admission Diagnosis Intractable pain R groin Diagnoses: Chief Complaint: right groin pain History of Present Illness 61-year-old obese female h/o of RA, c/o right groin pain for 4 weeks. Pain has worsened in the past few day that she is unable to bear much weight. no history of fall or trauma. she is being followed by a housing assistant and she received an injected four 4 weeks ago and her right hip area. The injection did help initially. She also developed increased nausea and had low grade temperature. In the interim was dx with collitis at [facility]. She denies vomiting. She denies chest pain, denies dyspnea, orthopnea, paroxysmal or paroxysmal nocturnal dyspnea. Right hip pain is 8/10, exacerbated by ROM, relieved a rest and iv meds, not associated wit neuro symptoms, pain localized in groin, nonradiating. PAST MEDICAL HISTORY This patient is significant for: 1. Rheumatoid arthritis with osteoarthritis. 2. History of depression 3. History of migraine headache. 4. History of gastroesophageal reflux disease. 5. Prior history of pancreatitis x2 6. History of sensory dysfunction. 7. Questionable history of gastroparesis. 8. History of chronic pain and narcotic dependence. PAST SURGICAL HISTORY Significant for: 1. Appendectomy 2. Cholecystectomy 3. ERCP 4. Right shoulder rotator cuff repair 5. L4-L5 microdiskectomy SOCIAL HISTORY The patient denies smoking, drinking or drug abuse. She lives by herself. She is on disability due to her depression and psychiatric disorder. FAMILY HISTORY Both parents are . Mom in her 70s due to cirrhosis. Dad at age of 81 due to complications of lung cancer and pneumonia. MEDICATIONS Home medications, she takes: 1. Flexeril 10 mg t.i.d. 2. Imitrex 100 mg p.r.n. for headache 3. [place] 5/325 and she takes 7.5/325 two or three times a day 4. Prilosec 40 mg b.i.d. 5. Gabapentin 300 mg p.o. three times a day 6. Bupropion XL 150 mg daily 7. Celexa 40 mg daily 8. She takes an intermittent course of prednisone. 9. She was given Cipro, Flagyl and Phenergan recently. 10. She has some left over Zofran from previous doctor visit from [place] that she uses occasionally. Past Family Social History Allergies: Coded Allergies: Levaquin (Verified Allergy, Severe, 08/31/16) Zosyn (Verified Allergy, Severe, ANAPHALACTIC SHOCK, 08/31/16) Erythromycin (Verified Allergy, Intermediate, RASH, 08/31/16) Tetracycline (Verified Allergy, Intermediate, RASH, 08/31/16) Active Ordered Medications Current Medications Medications (Trade) Dose Ordered Sig/Kelly Route Start Time Stop Time Status Last Admin (NS Flush) 2 ml UNSCH PRN FLUSH 08/25/16 03:30 08/31/16 07:47 (NS Flush) 2 ml BID FLUSH 08/25/16 09:00 09/01/16 10:23 (Dulcolax Supp) 10 mg DAILY PRN [place] 08/25/16 03:30 (Senokot) 17.2 mg Q12H PRN PO 08/25/16 03:30 (Tylenol) 650 mg Q6H PRN PO 08/25/16 03:30 (Dilaudid Pf Inj) 0.5 mg Q3H PRN IV 08/25/16 03:30 08/30/16 07:57 (Dilaudid Pf Inj) 1 mg Q3H PRN IV 08/25/16 03:30 09/01/16 10:22 (Narcan Inj) 0.4 mg UNSCH PRN IV 08/25/16 03:30 (Wellbutrin) 300 mg DAILY PO 08/26/16 09:00 09/01/16 10:19 (CeleXA) 20 mg DAILY PO 08/26/16 09:00 09/01/16 10:20 (KlonoPIN) 1.5 mg BID PO 08/25/16 21:00 09/01/16 10:20 (Desyrel) 100 mg HS PO 08/25/16 21:00 08/31/16 22:52 (Zofran Inj) 4 mg Q8HR PRN IV PUSH 08/25/16 14:00 08/31/16 15:00 Non-Formulary Medication PHENERGAN 25 MG/ML; IM DO... Q6H PRN IM 08/25/16 20:15 08/31/16 18:45 Heparin Sodium (Porcine) 5000 units 5,000 units Q12HR SQ 08/28/16 09:00 09/01/16 10:18 (Rocephin Inj/NS Inj) 100 ml @ 200 mls/hr Q24H IV 08/28/16 18:00 08/31/16 18:34 (Protonix) 40 mg DAILY PO 08/31/16 09:00 09/01/16 10:20 (K-Lyte Cl Eff) 25 meq Q12HR PO 08/31/16 17:00 09/01/16 10:17 Reported Meds & Active Scripts Active [place] (Hydrocodone-Acetaminophen) 7.5-325 mg Tab 1 Tab PO Q4H PRN Klonopin (Clonazepam) 1 Mg Tab 1.5 Mg PO BID Reported Vitamin B12 (Cyanocobalamin) 500 Mcg Tab 500 Mcg PO DAILY Vitamin D-3 (Cholecalciferol) 400 Unit Tab 400 Mg PO DAILY Clonazepam 1 Mg Tab 1.5 Mg PO BID Phenergan (Promethazine HCl) 25 Mg Tab 25 Mg PO Q6H PRN Flagyl (Metronidazole) 500 Mg Tab 500 Mg PO TID Cipro (Ciprofloxacin HCl) 500 Mg Tab 500 Mg PO BID Trazodone (Trazodone HCl) 100 Mg Tab 100 Mg PO HS Omeprazole 40 Mg Cap 40 Mg PO DAILY Sumatriptan (Sumatriptan Succinate) 100 Mg Tab 100 Mg PO ONCE PRN If a satisfactory response has not been obtained at 2 hours, a second dose may be administered Zofran (Ondansetron HCl) 8 Mg Tab 8 Mg PO TID Flexeril (Cyclobenzaprine HCl) 10 Mg Tab 10 Mg PO BID Hydrocodone-Acetaminophen 7.5-325 mg Tab 1 Tab PO Q6H PRN Citalopram (Citalopram Hydrobromide) 20 Mg Tab 20 Mg PO DAILY Folate (Folic Acid) 1 Mg Tab 1 Mg PO DAILY Methotrexate 2.5 Mg Tab 2.5 Mg PO Q7D Bupropion HCl 100 Mg Tab 300 Mg PO DAILY Physical Exam Vital Signs Vital Signs Date Time Temp Pulse Resp B/P Pulse Ox O2 Delivery O2 Flow Rate FiO2 09/01/16 12:00 98.6 97 19 102/55 91 09/01/16 10:52 15 09/01/16 08:00 98.7 93 19 105/60 97 09/01/16 04:05 98.0 95 18 98/64 91 09/01/16 00:28 99.0 102 18 129/72 94 08/31/16 20:00 98.9 101 16 88/57 91 08/31/16 16:00 98.1 95 18 105/72 95 Physical Exam aaox3. resting laying on left side. Head: Neck normocephalic atraumatic. Trachea midline. Pulmonary: normal respiratory effort. Abdomen: soft nontender Musculoskeletal exam bilateral upper extremity- neurovascular intact. No deformities. Right lower extremity- neurovascular intact. no deformity, nontender at GT or anterior hip. painful log roll, ROM is painful beyond 30 flexion. Passive 5-40 deg. Intact sensation distally. 2+ palpable dorsalis pedis and posterior tibial pulses. Soft compartments. Negative Homans. Laboratory Laboratory Tests Test 09/01/16 11:31 Sodium Level 142 Potassium Level 4.3 Chloride Level 103 Carbon Dioxide Level 31.8 Anion Gap 7 Blood Urea Nitrogen 4 Creatinine 0.80 Estimat Glomerular Filtration 73 Rate Random Glucose 149 Calcium Level 8.7 Result Diagram: 08/29/16 0700 09/01/16 1131 Imaging MRI revealed femoral head with kissing acetabular lesion with nonspecific high intensity signal, possible stress reaction. Xrays negative for fx or dislocation. Moderate hip DJD. Assessment & Plan Assessment and Plan Initially discussed this case with Dr Fletcher. Patient transferred from [facility] as a result of breakdown in communication. 61yo female, h/o OA and RA, c/o 4 weeks h/o nontraumatic right hip pain. She is nvi and has pain with WB and ROM. no clinical evidence of septic arthritis. hip aspiration performed a few days ago was negative. xray reveal moderate DJD changes. MRI reveal possible subconchondral stress reaction in the femoral head and acetabulum. She is likely experiencing axacerbation of her RA, as she also c /o of IP joints hand pain. No need for any orthopedic intervention. I recommend that she f/u with her housing assistant outpatient. -NWB RLE for 3-4 weeks. f/u [address] Oliva- Rakesh Kunz Jr., MD Sep 01, 2016 13:59
--- NOTE | 2016-09-01 15:16 | HHI.PR ---
Subjective Subjective Remarks Resting in bed Appetite fair Right groin, hip leg pain with movement No shortness of breath Anxiety mild Obesity (Angelita Valdez) Review of Systems Constitutional Constitutional Remarks 10 point ROS done. Positives include right leg pain with movement in the hip area all the way down to her right foot cannot put weight on it.. Other systems negative are unremarkable (Angelita Valdez) Musculoskeletal MS: Weakness, Stiffness, Discomfort/Pain MS Remarks Pain with movement right leg (Angelita Valdez) Psychiatric Psychiatric: Normal Mood, Anxiety (Angelita Valdez) Vitals/Results Intake & Output 08/31/16 08/31/16 09/01/16 15:00 23:00 07:00 Intake Total 650 ml 168 ml Output Total 1050 ml 200 ml 250 ml Balance -400 ml -32 ml -250 ml Intake Oral 650 ml 48 ml IV Total 120 ml Output Urine Total 1050 ml 200 ml 250 ml # Bowel Movements 1 0 Vital Signs Vital Signs Date Time Temp Pulse Resp B/P Pulse Ox O2 Delivery O2 Flow Rate FiO2 09/01/16 12:00 98.6 97 19 102/55 91 09/01/16 10:52 15 09/01/16 08:00 98.7 93 19 105/60 97 09/01/16 04:05 98.0 95 18 98/64 91 09/01/16 00:28 99.0 102 18 129/72 94 08/31/16 20:00 98.9 101 16 88/57 91 08/31/16 16:00 98.1 95 18 105/72 95 (Angelita Valdez) CBC/BMP: 08/29/16 0700 09/01/16 1131 Lab Results Laboratory Tests Test 09/01/16 11:31 Sodium Level 142 MEQ/L Potassium Level 4.3 MEQ/L Chloride Level 103 MEQ/L Carbon Dioxide Level 31.8 MEQ/L Anion Gap 7 MEQ/L Blood Urea Nitrogen 4 MG/DL Creatinine 0.80 MG/DL Estimat Glomerular Filtration 73 ML/MIN Rate Random Glucose 149 MG/DL Calcium Level 8.7 MG/DL Imaging Remarks Last Impressions Renal Ultrasound 08/28/16 0000 Signed Impressions: Service Date/Time: Sunday, August 28, 2016 14:58 - CONCLUSION: No acute abnormality demonstrated. No perceptible parenchymal changes. Ivan Zuniga MD Hip Aspiration/Injection 08/27/16 0000 Signed Impressions: Service Date/Time: Monday, July 25, 2016 09:35 - CONCLUSION: Uncomplicated aspiration as above. Rico Kohler MD Gastric Emptying Nuclear Medicine 08/26/16 0000 Signed Impressions: Service Date/Time: August 10:06 - CONCLUSION: 1. Rapid gastric emptying with half-time of 19 minutes. Vipul Alvarez MD Cholangiopancreatography MRI 08/26/16 0000 Signed Impressions: Service Date/Time: August 11:22 - CONCLUSION: 1. No abnormality is identified to explain the clinical symptoms. 2. Small hiatal hernia. Ivan Perez MD Hip MRI 08/25/16 0000 Signed Impressions: Service Date/Time: Thursday, August 25, 2016 15:46 - CONCLUSION: Focal subchondral signal changes centrally of the right femoral head as above. A subchondral insufficiency fracture would be most likely. Joint infection is considered much less likely as there is only a small to moderate effusion and fairly mild appearing synovitis, and no other bony signal changes are present. If there is high clinical concern for infectious arthropathy, there is probably enough joint fluid to tap for diagnostic purposes. Ivan Zuniga MD Femur X-Ray 08/25/16 0000 Signed Impressions: Service Date/Time: Thursday, August 25, 2016 01:17 - CONCLUSION: No acute osseous injury. Osteoarthritis of the right hip. Seth Duran MD Abdomen/Pelvis CT 08/24/160 Signed Impressions: Service Date/Time: Wednesday, August 24, 2016 23:48 - CONCLUSION: 1. Patient is status post cholecystectomy. 2. Small hiatal hernia. 3. Scattered diverticula in the descending colon without diverticulitis. 4. Otherwise negative. Specifically, no findings of hernia to explain current clinical symptoms. Seth Duran MD Current Medications Active Medications Potassium Bicarb/ Potassium Chloride (K-Lyte Cl Eff) 25 meq Q12HR PO Last administered on 09/01/16t 10:17; Admin Dose 25 MEQ; Start 08/31/16 at 17:00 ( Courtney,Angelita M. [employer]) Physical Exam General General Appearance: Well Developed, Well Nourished, Anxious, Painful (CourtneyAngelita garcia. [employer]) Eyes Eye Exam: Pupils Equal, Sclera White (Angelita Valdez. [employer]) Ears & Nose Ears & Nose Exam: Nasal Mucosa [place] (Angelita Valdez M. [employer]) Throat Throat Exam: Oral Mucosa [place] & Moist (Angeltia Valdez M. [employer]) Neck Neck Exam: Neck Supple, Trachea Midline (Angelita Valdez. [employer]) Pulmonary Resp Exam: Clear Bilaterally, Breath Sounds Equal, No Distress (Ferney,Susan M. [employer]) Cardiology CV Exam: Regular, Normal Sinus Rhythm (CourtneyAngelita garcia. [employer]) Gastrointestinal/Abdomen GI Exam: Soft, Bowel Sounds Present (Angelita Valdez. [employer]) Integumentary Skin Exam: Warm, Dry (Angelita Valdez. [employer]) Extremeties Extremities Exam: Pedal Pulses Palpable, Trace Edema (Angelita Valdez. [employer]) Neurologic Neuro Exam: Alert, Awake, Oriented, Speech Clear, Moving All Extremities ( Angelita Valdez. [employer]) Psychiatric Psych Exam: Appropriate Responses (Angelita Valdez. [employer]) VTE Prophylaxis VTE Prophylaxis Meds: Heparin (CourtneyAngelita. [employer]) PUD Prophylasis PUD Prophylaxis: Protonix (Ferney,Susan M. [employer]) Assessment/Plan Assessment/Plan Assessment and Plan Right groin pain status post right hip joint aspiration biopsy on 08/27/16 No strong evidence of septic arthritis Low-grade fever earlier this admission Hypokalemia Overweight Right lower quadrant pain Elevated liver enzymes Possible subtle fracture in the right femoral head, according to MRI Mild anemia Proteinuria Management Labs vital signs reviewed . Afebrile Joel catheter to be DC'd, monitor for voiding Orthopedic eval done. No surgical intervention. She needs to be nonweightbearing 3-4 weeks Pain control/ IV analgesic Joint fluid c/s Neg empiric iV abx / Rocephin Regular diet, tolerating food well PPI prophylaxis GI input appreciated Cscope as out pt basis Patient is stable and should be able to go to rehabilitation/SNF for strengthening, so hopefully she can return home in the near future. Per or throat patient is nonweightbearing 3-4 weeks d/w patient and nurse d/w Dr. Yu, patient seen on his behalf discussed with case management Discharge planning in process (Angelita Valdez) Assessment/Plan pt is seen & examined d/w PT d/w angelita d/w DR Ann ,ok to d/c abx , all c/s are neg d/w DR Oliva. nOn operative tx d/c to SNF w [facility] RLExt see Orders see HRS see MRS d/w SW (Madonna Yu MD) Angelita Valdez Sep 01, 2016 15:16 Madonna Yu MD Sep 01, 2016 15:24
[2016-09-01 16:00] VITALS: BP 105/68; PULSE 96; RESP 19; TEMP 98.3; O2SAT 91
[2016-09-01] MEDS: cefTRIAXone INJ 2,000 MG in SODIUM CHLORIDE 0.9% INJ 100 ML IV SCH (18:00)
[2016-09-01 20:59] VITALS: BP 148/68; PULSE 107; RESP 21; TEMP 98.1; O2SAT 97
[2016-09-01] MEDS: traZODone HCL 100 MG TAB PO SCH (22:36)
[2016-09-01] MEDS: SODIUM CHLORIDE 0.9% FLUSH 5 ML FLUSH FLUSH PRN (22:50)
[2016-09-01] MEDS: ONDANSETRON HCL 4 MG/2 ML VIAL IV PUSH PRN (22:50)
[2016-09-02] VITALS: PULSE 92; RESP 14; TEMP 98.8; O2SAT 94
[2016-09-02] MEDS: SODIUM CHLORIDE 0.9% FLUSH 5 ML FLUSH FLUSH PRN (03:19)
[2016-09-02] MEDS: HYDROmorphone HCL PF 1 MG/ML VIAL IV PRN (03:19)
[2016-09-02 04:00] VITALS: BP 103/59; PULSE 97; RESP 16; TEMP 96.9; O2SAT 93
[2016-09-02 08:00] VITALS: BP 105/61; PULSE 93; RESP 17; TEMP 97.5; O2SAT 92
[2016-09-02] MEDS: PANTOPRAZOLE SOD 40 MG DELAYED RELEASE TAB PO SCH (09:36)
[2016-09-02] MEDS: clonazePAM 1 MG TAB PO SCH (09:36)
[2016-09-02] MEDS: POTASSIUM CHLORIDE 25 MEQ EFFERVESCENT TAB PO SCH (09:37)
[2016-09-02] MEDS: CITALOPRAM HYDROBROMIDE 20 MG TAB PO SCH (09:37)
[2016-09-02] MEDS: HEPARIN SODIUM - SQ 10,000 UNITS/ML VIAL SQ SCH (09:39)
[2016-09-02 12:00] VITALS: BP 92/53; PULSE 95; RESP 18; TEMP 98.7; O2SAT 92
--- NOTE | 2016-09-02 13:14 | HHI.PR ---
Subjective Subjective Remarks Resting in bed Appetite fair/good Right groin, hip leg pain with movement No shortness of breath Anxiety mild, Obesity nwb (Angelita Valdez) Review of Systems Constitutional Constitutional Remarks 10 point ROS done. Positives include right leg pain with movement in the hip area all the way down to her right foot cannot put weight on it.. Other systems negative are unremarkable (Angelita Valdez) Musculoskeletal MS: Weakness, Stiffness, Discomfort/Pain MS Remarks Pain with movement right leg (Angelita Valdez) Psychiatric Psychiatric: Normal Mood, Anxiety (Angelita Valdez) Vitals/Results Intake & Output 09/01/16 09/01/16 09/02/16 15:00 23:00 07:00 Output Total 1000 ml Balance -1000 ml Output Urine Total 1000 ml # Voids 1 # Bowel Movements 0 1 Vital Signs Vital Signs Date Time Temp Pulse Resp B/P Pulse Ox O2 Delivery O2 Flow Rate FiO2 09/02/16 12:00 98.7 95 18 92/53 92 09/02/16 08:00 97.5 93 17 105/61 92 09/02/16 04:00 96.9 97 16 103/59 93 09/02/16 00:00 98.8 92 14 94 09/01/16 20:59 98.1 107 21 148/68 97 09/01/16 16:00 98.3 96 19 105/68 91 (Angelita Valdez) CBC/BMP: 08/29/16 0700 09/01/16 1131 Physical Exam General General Appearance: Well Developed, Well Nourished, Anxious, Painful (Angelita Valdez) Eyes Eye Exam: Pupils Equal, Sclera White (Angelita Valdez) Ears & Nose Ears & Nose Exam: Nasal Mucosa [place] (Angelita Valdez) Throat Throat Exam: Oral Mucosa [place] & Moist (Angelita Valdez) Neck Neck Exam: Neck Supple, Trachea Midline (Angelita Valdez) Pulmonary Resp Exam: Clear Bilaterally, Breath Sounds Equal, No Distress (Angelita Valdez) Cardiology CV Exam: Regular, Normal Sinus Rhythm (Angelita Valdez) Gastrointestinal/Abdomen GI Exam: Soft, Bowel Sounds Present (Angelita Valdez) Integumentary Skin Exam: Warm, Dry (Angelita Valdez) Extremeties Extremities Exam: Pedal Pulses Palpable, Trace Edema (Angelita Valdez) Neurologic Neuro Exam: Alert, Awake, Oriented, Speech Clear, Moving All Extremities ( Angelita Valdez) Psychiatric Psych Exam: Appropriate Responses (Angelita Valdez) VTE Prophylaxis VTE Prophylaxis Meds: Heparin (Angelita Valdez) PUD Prophylasis PUD Prophylaxis: Protonix (Angelita Valdez) Assessment/Plan Assessment/Plan Right groin pain status post right hip joint aspiration biopsy on 08/27/16 No strong evidence of septic arthritis Low-grade fever earlier this admission Hypokalemia Overweight Right lower quadrant pain Elevated liver enzymes Possible subtle fracture in the right femoral head, according to MRI Mild anemia Proteinuria Management Labs vital signs reviewed . Afebrile, hgb, 9.7, Orthopedic eval done. No surgical intervention. She needs to be nonweightbearing 3-4 weeks Pain control/ IV analgesic empiric iV abx / Rocephin CM working on SNF, rehab today. [facility] coming to see her. Regular diet, tolerating food well PPI prophylaxis GI input appreciated Cscope as out pt basis, no acute issues or diaarhea Patient is stable and should be able to go to rehabilitation/SNF for strengthening, discharge today to [facility]. Per ortho, patient is nonweightbearing 3-4 weeks 3008 done, CM working towards [facility] SNF, rehab. Probable today. assessment medically stable. d/w patient and nurse d/w Dr. Yu, patient seen on his behalf discussed with case management (Angelita Valdez) Assessment/Plan pt is seen & examined d/w PT d/w angelita steele w above d/c when arrangements are made (Madonna Yu MD) Angelita Valdez Sep 02, 2016 13:14 Madonna Yu MD Sep 02, 2016 15:52
[2016-09-02 16:00] VITALS: BP 115/63; PULSE 91; RESP 18; TEMP 98; O2SAT 94
--- NOTE | 2016-10-15 18:24 | HHI.DS ---
Discharge Summary Admission Date Aug 25, 2016 at 10:08 Discharge Date: Sep 02, 2016 Admitting Diagnosis Intractable pain R groin (1) Intractable pain (2) Right groin pain (3) Abdominal pain (4) Rheumatoid arthritis Procedures 08/27/2016-EGD with findings of gastritis and esophagitis 08/27/2016-right hip aspiration per IR Imaging Last Impressions Renal Ultrasound 08/28/16 0000 Signed Impressions: Service Date/Time: Sunday, August 28, 2016 14:58 - CONCLUSION: No acute abnormality demonstrated. No perceptible parenchymal changes. Ivan Zuniga MD Hip Aspiration/Injection 08/27/16 0000 Signed Impressions: Service Date/Time: Saturday, August 27, 2016 09:35 - CONCLUSION: Uncomplicated aspiration as above. Rico Kohler MD Gastric Emptying Nuclear Medicine 08/26/16 0000 Signed Impressions: Service Date/Time: August 10:06 - CONCLUSION: 1. Rapid gastric emptying with half-time of 19 minutes. Vipul Alvarez MD Cholangiopancreatography MRI 08/26/16 0000 Signed Impressions: Service Date/Time: August 11:22 - CONCLUSION: 1. No abnormality is identified to explain the clinical symptoms. 2. Small hiatal hernia. Ivan Perez MD Hip MRI 08/25/16 0000 Signed Impressions: Service Date/Time: Thursday, August 25, 2016 15:46 - CONCLUSION: Focal subchondral signal changes centrally of the right femoral head as above. A subchondral insufficiency fracture would be most likely. Joint infection is considered much less likely as there is only a small to moderate effusion and fairly mild appearing synovitis, and no other bony signal changes are present. If there is high clinical concern for infectious arthropathy, there is probably enough joint fluid to tap for diagnostic purposes. Ivan Zuniga MD Femur X-Ray 08/25/16 0000 Signed Impressions: Service Date/Time: Thursday, August 25, 2016 01:17 - CONCLUSION: No acute osseous injury. Osteoarthritis of the right hip. Seth Duran MD Abdomen/Pelvis CT 08/24/160 Signed Impressions: Service Date/Time: Wednesday, August 24, 2016 23:48 - CONCLUSION: 1. Patient is status post cholecystectomy. 2. Small hiatal hernia. 3. Scattered diverticula in the descending colon without diverticulitis. 4. Otherwise negative. Specifically, no findings of hernia to explain current clinical symptoms. Seth Duran MD Hospital Course This is a 61-year-old obese female with longstanding history of rheumatoid arthritis and osteoarthritis. She haD been on methotrexate for some time along with prednisone. She has longstanding pain in her right hip. She apparently was injected four 4 weeks ago of right hip area of what sounds like a possible steroid injection. This helped her chronic groin pain initially, however two weeks later, she developed increasing pain which is more severe and different than the previous pain. She also developed increased nausea and had low grade temperature. Last , she went to [facility] emergency room reportedly where she was diagnosed with possible colitis. She was sent home on oral antibiotic and Phenergan. She was taking the antibiotics and Phenergan, however she continued to feel nauseous and continued to have severe pain in the right groin area. She reported that she had not been able to eat much of anything since Tuesday. She can only sip a small amount of fluid. She denied vomiting because she does not "have anything in her". She denied chest pain, denies dyspnea, orthopnea, paroxysmal or paroxysmal nocturnal dyspnea. Pt. evaluated in the ED: LABORATORY DATA White count 12.1, hemoglobin 12.0, hematocrit 37.0, platelet count of 322, MCV of 87.3. Sodium 142, potassium 3.0, chloride 103, bicarb 25.7, BUN of 9, creatinine 0.91, glucose 109, calcium was 8.9. ALP 151, AST 49, ALT 96, total protein 7.7, albumin 3.6. Repeat potassium is corrected to 3.5. PT/INR normal. X-ray of his right femur shows osteoarthritic changes. No evidence of fracture or dislocation. CT ABDOMEN AND PELVIS Showed post cholecystectomy changes, small hiatal hernia, scattered diverticula in the descending colon without evidence of diverticulitis, otherwise unremarkable study. Admitted for: 1. Right groin pain of two weeks duration with nausea and low grade temperature in this obese middle-aged female with prior injection into her right hip. Rule out septic arthritis with a two week laps between the reported injection and development of symptoms. 2. Persistent nausea due to pain. 3. Possible history of gastroparesis. 4. Hypokalemia due to nausea. 5. History of rheumatoid arthritis on DMARD and prednisone. 6. Chronic back pain 7. History of depression and anxiety. 8. Obesity 9. History of pancreatitis. During the course of the hospitalization, the following took place: Patient is admitted, ordered a sed rate and C-reactive protein. MRI of her right hip to rule out septic arthritis. IVF, antiemetics ordered. GI, ortho, and ID consulted. Patient remained very painful to the right hip, appropriate pain management was ordered Gastroenterology recommended further workup. Gastric emptying was done, it was normal. MRCP did not reveal any acute findings. Abdomen and pelvis CT was unremarkable. GI recommended EGD. Patient refuse colonoscopy. EGD showed gastritis and esophagitis. Patient did have diarrhea which improved. Again patient continued to refuse colonoscopy LFTs were followed, initially elevated but then improved. Per GI, possibly medication induced. GI signed off the case, recommended follow up as outpatient for biopsy findings in 1-2 weeks. Was continued on PPI, ensure was added to her diet. Orthopedic evaluated patient Per orthopedic evaluation, no evidence of septic arthritis. Hip aspiration was performed, results were negative. She had pain with WB and ROM. nxray reveal moderate DJD changes. MRI reveal possible subconchondral stress reaction in the femoral head and acetabulum. She was likely experiencing exacerbation of her RA , as she also c/o of IP joints hand pain. No need for any orthopedic intervention. Recommended that she f/u with her wrapper hand outpatient, [facility] for 3-4 weeks, f/u [address] Oliva. Per ID, put on Rocephin initially Cultures remain negative Hip aspiration results negative It was thought that right groin pain was possible myositis versus right groin abscess versus severe arthritis. Patient did have diarrhea, etiology was unclear. Diarrhea did improve. Patient had multiple antibiotic allergies which made her management difficult. No need for antibiotics upon discharge. Patient's symptoms improve, physical therapy was ordered to assist with mobility Case management was consulted for discharge planning Patient was discharged in stable condition to rehabilitation facility Pt Condition on Discharge: Stable Discharge Disposition: Discharge to SNF Discharge Instructions DIET: Follow Instructions for: As Tolerated, No Restrictions Activities you can perform: Non Weight Bearing Follow up Referrals: Orthopedics - 2 Weeks PCP Follow-up - 2 Weeks New Medications: Hydrocodone-Acetaminophen ([place]) 7.5-325 mg Tab 1 TAB PO Q4H PRN PAIN #60 Ref 0 TAB Bisacodyl Supp (Bisac-Evac Supp) 10 Mg Supp 10 MG LA DAILY PRN CONSTIPATION #10 TAB Clonazepam (Klonopin) 1 Mg Tab 1.5 MG PO BID anxiety #60 TAB Pantoprazole (Pantoprazole) 40 Mg Tab 40 MG PO DAILY gerd #30 TAB Continued Medications: Bupropion HCl (Bupropion HCl) 100 Mg Tab 300 MG PO DAILY Control Depression Ref 0 TAB Cholecalciferol (Vitamin D-3) 400 Unit Tab 400 MG PO DAILY Citalopram (Citalopram) 20 Mg Tab 20 MG PO DAILY Control Depression #30 Ref 0 TAB Cyanocobalamin (Vitamin B12) 500 Mcg Tab 500 MCG PO DAILY #1 BOTTLE Cyclobenzaprine (Flexeril) 10 Mg Tab 10 MG PO BID Muscle Spasm #90 Ref 0 TAB Folic Acid (Folate) 1 Mg Tab 1 MG PO DAILY Nutritional Supplement Ref 0 TAB Methotrexate (Methotrexate) 2.5 Mg Tab 2.5 MG PO Q7D Ref 0 TAB Omeprazole (Omeprazole) 40 Mg Cap 40 MG PO DAILY #30 Ref 0 CAP Sumatriptan (Sumatriptan) 100 Mg Tab 100 MG PO ONCE If a satisfactory response has not been obtained at 2 hours, a second dose may be administered PRN MIGRAINE HEADACHE Ref 0 TAB Trazodone (Trazodone) 100 Mg Tab 100 MG PO HS Control Depression #30 Ref 0 TAB Discontinued Medications: Ciprofloxacin (Cipro) 500 Mg Tab 500 MG PO BID Infection Ref 0 TAB Clonazepam (Clonazepam) 1 Mg Tab 1.5 MG PO BID #60 Ref 0 TAB Hydrocodone-Acetaminophen (Hydrocodone-Acetaminophen) 7.5-325 mg Tab 1 TAB PO Q6H PRN PAIN Ref 0 TAB Metronidazole (Flagyl) 500 Mg Tab 500 MG PO TID Infection Ref 0 TAB Ondansetron (Zofran) 8 Mg Tab 8 MG PO TID Nausea/Vomiting Ref 0 TAB Promethazine (Phenergan) 25 Mg Tab 25 MG PO Q6H PRN Nausea/Vomiting Ref 0 TAB Kenia Macias Oct 15, 2016 18:24
== END 2016-09-02 19:00 | DRG 543 ==
LOC: PHED 21:10 → PHEDA 08-25 02:21 → PHEDH 08-25 06:20 → PH3A 08-25 09:29 → OBSVTOIN 08-25 10:08 → N05B 08-31 22:03
PROVIDERS: ADMIT Family Medicine; ATTEND Family Medicine
PROC: 0DB98ZX Excision of Duodenum, Via Natural or Artificial Opening Endoscopic, Diagnostic (ICD-10-PCS; 2016-08-27)
PROC: 0DB68ZX Excision of Stomach, Via Natural or Artificial Opening Endoscopic, Diagnostic (ICD-10-PCS; 2016-08-27)
PROC: 0DB38ZX Excision of Lower Esophagus, Via Natural or Artificial Opening Endoscopic, Diagnostic (ICD-10-PCS; 2016-08-27)
PROC: 0S993ZX Drainage of Right Hip Joint, Percutaneous Approach, Diagnostic (ICD-10-PCS; principal; 2016-08-27 16:00)
DX: M84.451A Pathological fracture, right femur, initial encounter for fracture (principal); I47.1 Supraventricular tachycardia; F11.20 Opioid dependence, uncomplicated; F32.9 Major depressive disorder, single episode, unspecified; M06.9 Rheumatoid arthritis, unspecified; J45.909 Unspecified asthma, uncomplicated; K21.9 Gastro-esophageal reflux disease without esophagitis; G43.909 Migraine, unspecified, not intractable, without status migrainosus; R74.8 Abnormal levels of other serum enzymes; E03.9 Hypothyroidism, unspecified; K29.70 Gastritis, unspecified, without bleeding; K20.9 Esophagitis, unspecified; K44.9 Diaphragmatic hernia without obstruction or gangrene; G89.29 Other chronic pain; E87.6 Hypokalemia; R33.9 Retention of urine, unspecified; M16.11 Unilateral primary osteoarthritis, right hip; K59.00 Constipation, unspecified; F41.9 Anxiety disorder, unspecified; Z79.52 Long term (current) use of systemic steroids
CPT/HCPCS: 20610; 27093; 73552; 73723; 74176; 74181; 76377; 76775; 76937; 78264; 80048; 80053; 80074; 80076; 81001; 82103; 82390; 82728; 82784; 82977; 83516; 83520; 83540; 83550; 83735; 84100; 85025; 85027; 85652; 86038; 86140; 86256; 87070; 87086; 87205; 87493; 88305; 88312; 89051; 89060; 96361; 96372; 96374; 96375; A9541; A9579; C9113; G0378; G8987-GP; G8988-GP; J0696; J1170; J1644; J1650; J1940; J2405; J2765; J3480; J7030; Q0169

== ENCOUNTER 2016-12-12 19:42 | Inpatient (IN) | payer MEDICARE ==
[~2016-12-12] VITALS: Ht 170.2 cm; Wt 86.8 kg
[~2016-12-12 19:42] MED LIST changes: +BISA10R PR; +BUPR100T4 PO; -BUPR150T3 PO; +CITA20TA4 PO; -CITA40; +CLON1 PO; -CYCL-36 PO; +CYCL1TAB29 PO; +FOLI1TAB4 PO; -GABA300C3 PO; +HYDR-3288 PO; -IMIT100T PO; -LORTA5 PO; +METH2.5T PO; +OMEP40CA2 PO; +PANT40TA3 PO; -PRED20 PO; -PRIL40CA PO; +SUMA100T2 PO; -TRAM50 PO; +TRAZ100T4 PO; +VITA400T PO; +VITA500T49 PO
[2016-12-12 19:44] VITALS: BP 140/72; PULSE 122; RESP 20; TEMP 98.8; O2SAT 98
[2016-12-12] MEDS ORDERED: AZTREONAM INJ 2,000 MG in SODIUM CHLORIDE 0.9% INJ 100 ML IV STA (20:41)
[2016-12-12] MEDS ORDERED: VANCOMYCIN INJ 1,000 MG in SODIUM CHLOR 0.9% 250 ML INJ 250 ML IV STA (20:41)
[2016-12-12] MEDS ORDERED: SODIUM CHLOR 0.9% 1000 ML INJ 1,000 ML IV ONE ×2 (20:41)
[2016-12-12] MEDS ORDERED: SODIUM CHLOR 0.9% 1000 ML INJ 100 ML IV ONE (20:41)
[2016-12-12] MEDS ORDERED: metroNIDAZOLE 500 MG INJ 100 ML IV STA (20:41)
--- NOTE | 2016-12-12 21:11 | RADRPT ---
EXAM DATE/TIME: 12/12/2016 21:03 [place] COMPARISON: No previous studies available for comparison. INDICATIONS : Fever with entire body ache. MEDICAL HISTORY : Rheumatoid arthritis. Chronic obstructive pulmonary disease. Emphysema. SURGICAL HISTORY : Cholecystectomy. Hysterectomy. section. ENCOUNTER: Initial ACUITY: 1 day PAIN SCORE: 10/10 LOCATION: Bilateral entire body FINDINGS: A single view of the chest demonstrates the lungs to be symmetrically aerated without evidence of mas s, infiltrate or effusion. The cardiomediastinal contours are unremarkable. Osseous structures are intact. Degenerative changes are noted throughout the thoracic spine. CONCLUSION: No acute cardiopulmonary disease. Fred Acevedo MD on December 12, 2016 at 21:08 Board Certified Radiologist. This report was verified electronically.
[2016-12-12] MEDS ORDERED: MORPHINE SULFATE 4 MG/ML INJ IV PUSH ONE (21:45)
[2016-12-12] MEDS ORDERED: PROMETHAZINE HCL 12.5 MG SUPP RECTAL ONE (21:45)
--- NOTE | 2016-12-12 21:58 | PD ---
HPI Chief Complaint: Fever Time Seen by Provider: 20:38 Travel History International Travel<30 days: No Contact w/Intl Traveler<30days: No Traveled to known affect area: No History of Present Illness HPI The patient is a 61 year old female who presents to the [facility] emergency department with a history of chronic joint pain and chronic low back pain previously diagnosed with rheumatoid arthritis and recently seen for a second opinion by a new enforcement safety officer, . She reports that she received laboratory study results from him on and was diagnosed with ankylosing spondylitis. She reports that she was started on sulfasalazine. She took her first dose on . She reports that she took 2 doses on 2 doses on Tuesday and then began to have a fever which she attributed to the medicine. She reports that she has not taking any since then. She reports that on Tuesday she began to have abdominal pain. The patient has chronic intermittent diarrhea that she reports has recurred over the last month , however her last episode of diarrhea was on Tuesday. The patient reports having nausea without any vomiting. She reports that she has chronic nausea which is treated with Phenergan 25 mg tablets by mouth. The patient denies having any known sick contacts. She reports that she was last on antibiotic in September. She denies any foreign travel or unusual food intake. The patient reports that she has been evaluated in the past for an inflammatory bowel disease. She reports that she last had a colonoscopy a year ago that was reportedly unremarkable. A colonoscopy prior to that was 4-5 years ago and revealed some polyps that were removed. I review systems, the patient denies any recent worsening cough, congestion (she has a history of chronic postnasal drip and congestion related to chronic sinusitis and allergies), neck pain, chest pain, shortness of breath, urinary symptoms, or neurologic symptoms. [facility] Past Medical History Narrative Medical The patient's past medical history is significant for having chronic joint pain and chronic low back pain previously diagnosed with rheumatoid arthritis and recently seen for a second opinion by a new enforcement safety officer, . She reports that she received laboratory study results from him on and was diagnosed with ankylosing spondylitis, history of chronic pain, history of migraine headaches, history of anxiety disorder, history of acid reflux, hyperlipidemia, COPD, history of liver enzyme elevation in the past with a hepatitis panel that was negative. The patient reports that her prior elevated LFTs were thought to be related to methotrexate which was discontinued. Arthritis: Yes Asthma: Yes Anxiety: Yes Depression: Yes Cancer: No Cardiovascular Problems: Yes High Cholesterol: Yes Chemotherapy: Yes (METHOTREXATE LOW DOSES) Chest Pain: Yes COPD: Yes Diminished Hearing: No Endocrine: Yes Gastrointestinal Disorders: Yes (lower GI POLYPS REMOVAL ) GERD: Yes Genitourinary: Yes Headaches: Yes (MIGRAINES) Immune Disorder: Yes (RA) Implanted Vascular Access Dvce: No Musculoskeletal: Yes Neurologic: No Psychiatric: Yes (BIPOLAR ) Respiratory: Yes (ASTHMA) Migraines: Yes Thyroid Disease: Yes (HYPO ) Tetanus Vaccination: Unknown ?: Not LMP: 2001 Menopausal: Yes : 0 Para: 0 Past Surgical History Narrative Surgical The patient's past surgical history is significant for a cholecystectomy, appendectomy, cardiac catheterization without any stents placed, history of back surgery, history of a rotator cuff surgery, , hysterectomy Abdominal Surgery: Yes Appendectomy: Yes Cardiac Surgery: Yes (cardiac cath x2 no stents ) Cholecystectomy: Yes Ear Surgery: Yes (cataracts, lens) Gynecologic Surgery: Yes (, hysterectomy ) Neurologic Surgery: Yes (SYPATHECTOMY ) Oral Surgery: Yes (all teeth removal ) Other Surgery: Yes (BACK SURGERY, ROTATOR CUFF SURGERY) Social History Alcohol Use: No Tobacco Use: No Substance Use: No Allergies-Medications (Allergen,Severity, Reaction): Coded Allergies: Levaquin (Verified Allergy, Severe, 12/12/16) Zosyn (Verified Allergy, Severe, ANAPHALACTIC SHOCK, 12/12/16) Erythromycin (Verified Allergy, Intermediate, RASH, 12/12/16) Tetracycline (Verified Allergy, Intermediate, RASH, 12/12/16) Reported Meds & Prescriptions Reported Meds & Active Scripts Active [place] (Hydrocodone-Acetaminophen) 7.5-325 mg Tab 1 Tab PO Q4H PRN Klonopin (Clonazepam) 1 Mg Tab 1.5 Mg PO BID Reported Sulfasalazine 500 Mg Tab 500 Mg PO BID Vitamin B12 (Cyanocobalamin) 500 Mcg Tab 500 Mcg PO DAILY Vitamin D-3 (Cholecalciferol) 400 Unit Tab 400 Mg PO DAILY Trazodone (Trazodone HCl) 100 Mg Tab 100 Mg PO HS Omeprazole 40 Mg Cap 40 Mg PO DAILY Sumatriptan (Sumatriptan Succinate) 100 Mg Tab 100 Mg PO ONCE PRN If a satisfactory response has not been obtained at 2 hours, a second dose may be administered Flexeril (Cyclobenzaprine HCl) 10 Mg Tab 10 Mg PO BID Citalopram (Citalopram Hydrobromide) 20 Mg Tab 20 Mg PO DAILY Bupropion HCl 100 Mg Tab 300 Mg PO DAILY Review of Systems Except as stated in HPI: all other systems reviewed are Neg General / Constitutional: No: Fever Eyes: No: Visual changes HENT: No: Headaches Cardiovascular: No: Chest Pain or Discomfort Respiratory: No: Shortness of Breath Gastrointestinal: Positive: Nausea, Diarrhea, Abdominal Pain, Changes in Bowel Habits, Loss of Appetite, No: Hematemesis, Hematochezia, Constipation, Indigestion, Other Genitourinary: No: Dysuria Musculoskeletal: No: Pain Skin: No Rash Neurologic: No: Weakness Psychiatric: No: Depression Endocrine: No: Polydipsia Hematologic/Lymphatic: No: Easy Bruising Physical Exam Narrative General: The patient is a well-developed well-nourished female, uncomfortable appearing on arrival with reported low back pain, laying on her left side holding the right side of the abdomen. Head and Neck exam: Head is normocephalic atraumatic. Eyes: EOMI, pupils are equal round and reactive to light. Nose: Midline septum with pink mucous membranes Mouth: Dentition unremarkable. Moist mucus membranes. Posterior oropharynx is not erythematous. No tonsillar hypertrophy. Uvula midline. Airway patent. Neck: No palpable lymphadenopathy. No nuchal rigidity. No thyromegaly. Cardiovascular: Sinus tachycardia in the 1 teens without murmurs, gallops, or rubs. No pulse deficit to the extremities and simultaneous auscultation and palpation of her radial artery. Lungs: Clear to auscultation bilaterally. No wheezes, rhonchi, or rales. Abdomen: Soft, tenderness on palpation of the right upper and lower quadrant of the abdomen worse along the mid aspect of the lateral right side of the abdomen. No guarding, rebound, or rigidity. Negative [place] sign. The patient has tenderness on palpation over McBurney's point. The patient has normal bowel sounds are audible. Extremities: No clubbing, cyanosis, or edema. 2+ pulses in all 4 extremities. No calf tenderness on palpation. Back: No spinous process tenderness to palpation. The patient has tenderness on palpation along bilateral SI joints. No erythema or ecchymosis noted. No step- off or crepitus. Right-sided CVA tenderness on palpation. Neurologic Exam: Grossly nonfocal. Skin Exam: No rash noted. Intact skin that is warm and dry. Data Data Last Documented VS Vital Signs Date Time Temp Pulse Resp B/P Pulse Ox O2 Delivery O2 Flow Rate FiO2 12/12/16 20:37 108 20 99 12/12/16 19:44 98.8 140/72 Room Air Orders Electrocardiogram (12/12/16 20:41) Complete Blood Count With Diff (12/12/16 20:41) Comprehensive Metabolic Panel (12/12/16 20:41) Prothrombin Time / Inr (Pt) (12/12/16 20:41) Act Partial Throm Time (Ptt) (12/12/16 20:41) Lactic Acid Sepsis Protocol (12/12/16 20:41) Magnesium (Mg) (12/12/16 20:41) Lipase (12/12/16 20:41) Ckmb (Isoenzyme) Profile (12/12/16 20:41) Troponin I (12/12/16 20:41) Urinalysis - C+S If Indicated (12/12/16 20:41) Influenzae A/B Antigen (12/12/16 20:41) Blood Culture (12/12/16 20:41) Chest, Single Ap (12/12/16 20:41) Blood Glucose (12/12/16 20:41) Ecg Monitoring (12/12/16 20:41) Iv Access Insert/Monitor (12/12/16 20:41) Oximetry (12/12/16 20:41) Oxygen Administration (12/12/16 20:41) Ct Abd/Pel W Iv Contrast(Rout) (12/12/16 20:41) Vancomycin Inj (Vancomycin Inj) (12/12/16 20:41) Aztreonam Inj (Azactam Inj) (12/12/16 20:41) Metronidazole 500 Mg Inj (Flagyl 500 Mg (12/12/16 20:41) Sodium Chlor 0.9% 1000 Ml Inj (Ns 1000 M (12/12/16 20:41) Sodium Chlor 0.9% 1000 Ml Inj (Ns 1000 M (12/12/16 20:41) Sodium Chlor 0.9% 1000 Ml Inj (Ns 1000 M (12/12/16 20:41) Morphine Inj (Morphine Inj) (12/12/16 21:45) Promethazine Supp (Phenergan Supp) (12/12/16 21:45) Hydromorphone Pf Inj (Dilaudid Pf Inj) (12/12/16 22:45) Iohexol 350 Inj (Omnipaque 350 Inj) (12/13/16 00:09) Diphenhydramine Inj (Benadryl Inj) (12/13/16 01:09) Urine Culture (12/13/16 00:45) Admit Order (Ed Use Only) (12/13/16 01:49) Labs Laboratory Tests Test 12/12/16 12/12/16 12/13/16 21:25 22:50 00:45 Prothrombin Time 11.4 SEC Prothromb Time International 1.0 RATIO Ratio Activated Partial 30.6 SEC Thromboplast Time Lactic Acid Level 1.3 mmol/L White Blood Count 7.2 TH/MM3 Red Blood Count 4.48 MIL/MM3 Hemoglobin 12.2 GM/DL Hematocrit 36.8 % Mean Corpuscular Volume 82.1 FL Mean Corpuscular Hemoglobin 27.3 PG Mean Corpuscular Hemoglobin 33.2 % Concent Red Cell Distribution Width 16.7 % Platelet Count 222 TH/MM3 Mean Platelet Volume 7.8 FL Neutrophils (%) (Auto) 67.1 % Lymphocytes (%) (Auto) 22.6 % Monocytes (%) (Auto) 8.3 % Eosinophils (%) (Auto) 1.7 % Basophils (%) (Auto) 0.3 % Neutrophils # (Auto) 4.9 TH/MM3 Lymphocytes # (Auto) 1.6 TH/MM3 Monocytes # (Auto) 0.6 TH/MM3 Eosinophils # (Auto) 0.1 TH/MM3 Basophils # (Auto) 0.0 TH/MM3 CBC Comment DIFF FINAL Differential Comment Sodium Level 135 MEQ/L Potassium Level 4.6 MEQ/L Chloride Level 102 MEQ/L Carbon Dioxide Level 20.3 MEQ/L Anion Gap 13 MEQ/L Blood Urea Nitrogen 14 MG/DL Creatinine 0.93 MG/DL Estimat Glomerular Filtration 62 ML/MIN Rate Random Glucose 79 MG/DL Calcium Level 9.5 MG/DL Magnesium Level 2.1 MG/DL Total Bilirubin 0.5 MG/DL Aspartate Amino Transf 162 U/L (AST/SGOT) Alanine Aminotransferase 139 U/L (ALT/SGPT) Alkaline Phosphatase 203 U/L Total Creatine Kinase 42 U/L Troponin I LESS THAN 0.02 NG/ML Total Protein 9.0 GM/DL Albumin 3.7 GM/DL Lipase 57 U/L Urine Color YELLOW Urine Turbidity HAZY Urine pH 6.5 Urine Specific [place] 1.047 Urine Protein 30 mg/dL Urine Glucose (UA) NEG mg/dL Urine Ketones 10 mg/dL Urine Occult Blood TRACE Urine Nitrite NEG Urine Bilirubin NEG Urine Urobilinogen 2.0 MG/DL Urine Leukocyte Esterase TRACE Urine RBC 14 /hpf Urine WBC 3 /hpf Urine Squamous Epithelial 16 /hpf Cells Urine Renal Epithelial Cells <1 /hpf Urine Bacteria FEW /hpf Urine Hyaline Casts INNUM /lpf Urine Mucus FEW /lpf Microscopic Urinalysis Comment CATH-CULTURE IND MDM Medical Decision Making Medical Screen Exam Complete: Yes Emergency Medical Condition: Yes Medical Record Reviewed: Yes Interpretation(s) Last Impressions Chest X-Ray 12/12/162040 Signed Impressions: Service Date/Time: Monday, December 12, 2016 21:03 - CONCLUSION: No acute cardiopulmonary disease. Fred Acevedo MD Abdomen/Pelvis CT 12/12/162040 Signed Impressions: Service Date/Time: Tuesday, December 13, 2016 00:07 - CONCLUSION: 1. There is a mild amount gas in the lumen of the sigmoid colon with transition in diameter in the distal sigmoid without definite mass seen. If the patient has not had a colonoscopy, may consider such. 2. Nonspecific lymph nodes in the periaortic region upper abdomen, subcentimeter in size, and unchanged from August 2016. 3. Small hiatus hernia, stable. Damian Reinoso MD Differential Diagnosis Bowel obstruction, versus colitis, versus diverticulitis, versus dehydration, versus sepsis of undetermined origin Narrative Course During the course of the patients emergency department visit, the patients history, examination, and differential diagnosis were reviewed with the patient. The patient had IV access obtained and blood work sent for analysis. An EKG was done on arrival. The patient's EKG shows a sinus rhythm heart rate of 95, no acute ST segment elevation or depression, T waves are inverted in lead 3, V1. The patient was initially provided normal saline of 30 mL per KG IV fluid bolus , Azactam, vancomycin, and Flagyl were started for suspected sepsis with an abdominal source. CT scan of the abdomen and pelvis was ordered. The patients laboratory studies were reviewed and remarkable for a white count of 7.2, hemoglobin 12.2, platelets 222 with monocytes 8.3, CMP is remarkable for sodium of 135, CO2 20.3, GFR 62, lactic acid 1.3, AST 162, ALT 139, alkaline phosphatase 203 which is increased compared to previously. The patient has had a cholecystectomy. Magnesium is 2.1, total bilirubin 0.5, CPK 42, troponin I less than 0.02, lipase 57, PT 11.4, PTT 30.6, urinalysis shows concentrated urine trace leukocyte Estrace, RBCs 14. Radiology studies were reviewed and remarkable for a chest x-ray that shows no acute cardiopulmonary disease. CT scan of the abdomen and pelvis shows there is a mild amount of gas in the lumen of the sigmoid colon with a transition in diameter in the distal sigmoid colon without a definite mass The patient required multiple doses of pain medication for pain relief, therefore the patient will be admitted to the hospital for intractable pain and further evaluation for possible colonic mass. The patients results were discussed with the patient, including the plan of care. I explained that further testing and/ or monitoring is indicated based on the patients history, examination, and/ or laboratory findings. Therefore, I recommended admission for additional evaluation. The patient expressed understanding and was agreeable with this plan. The patient was admitted to the hospital in stable condition and sent to a bed under the care of the [facility]. Physician Communication Physician Communication The patient's case was discussed with Ivan Welch who did agree to admit the patient to the [facility]. Diagnosis Primary Impression: Abdominal pain Qualified Code: R10.9 - Abdominal pain, unspecified location Additional Impressions: Mild dehydration Intractable pain Admitting Information Admitting Physician Requests: Admit Juliann Johnson MD Dec 12, 2016 21:58
[2016-12-12 22:21] LABS: AUTOMATED NEUTROPHIL # 4.9 TH/MM3 (1.8-7.7); BASOPHIL % 0.3 % (0.0-2.0); EOSINOPHIL # 0.1 TH/MM3 (0-0.4); EOSINOPHIL % 1.7 % (0.0-4.0); HEMATOCRIT 36.8 % (35.0-46.0); HEMO FLAGS DIFF FINAL; LYMPH % 22.6 % (9.0-44.0); LYMPHOCYTE # 1.6 TH/MM3 (1.0-4.8); MEAN CELL VOLUME 82.1 FL (80.0-100.0); MEAN CORPUSCULAR HEMOGLOBIN 27.3 PG (27.0-34.0); MEAN CORPUSCULAR HGB CONC 33.2 % (32.0-36.0); MONO % 8.3 % (0.0-8.0); NEUT % 67.1 % (16.0-70.0); PLATELET COUNT 222 TH/MM3 (150-450); RED BLOOD COUNT 4.48 MIL/MM3 (4.00-5.30); RED CELL DISTRIBUTION WIDTH 16.7 % (11.6-17.2); WHITE BLOOD COUNT 7.2 TH/MM3 (4.0-11.0)
[2016-12-12 22:26] LABS: APTT (PATIENT) 30.6 SEC (24.3-30.1); PROTHROMBIN TIME - PATIENT 11.4 SEC (9.8-11.6)
[2016-12-12] MEDS ORDERED: HYDROmorphone HCL PF 1 MG/ML VIAL IV PUSH ONE (22:45)
[2016-12-12] MEDS ORDERED: SULF500T3 PO (23:11)
[2016-12-12 23:34] LABS: ALT (GPT) 139 U/L (10-53); ANION GAP 13 MEQ/L (5-15); AST (GOT) 162 U/L (15-37); BICARBONATE 20.3 MEQ/L (21.0-32.0); BLOOD UREA NITROGEN 14 MG/DL (7-18); CHLORIDE 102 MEQ/L (98-107); GLOMERULAR FILTRATION RATE 62 ML/MIN (>89); MAGNESIUM 2.1 MG/DL (1.5-2.5); POTASSIUM 4.6 MEQ/L (3.5-5.1); SODIUM (NA) 135 MEQ/L (136-145)
[2016-12-12 23:37] LABS: ALKALINE PHOSPHATASE 203 U/L (45-117); CREATINE KINASE 42 U/L (26-192); TOTAL BILIRUBIN ADULT 0.5 MG/DL (0.2-1.0)
[2016-12-13] VITALS (10 sets, daily range): BP systolic 107–120; BP diastolic 53–72; PULSE 62–102; RESP 16–20; TEMP 98.1–99.2; O2SAT 93–96
[2016-12-13] MEDS ORDERED: IOHEXOL 350 MG/ML 10 ML VIAL (for RAD DIAG) IV ONE (00:09)
--- NOTE | 2016-12-13 00:36 | RADRPT ---
EXAM DATE/TIME: 12/13/2016 00:07 [facility] COMPARISON: CT ABDOMEN & PELVIS W/O CONTRAST, August 24, 2016, 23:48. MRI HIP RIGHT W & W/O CONTRAST, August 25 017, 15:46. INDICATIONS : Abdominal pain with fever and vomiting. IV CONTRAST: 96 cc Omnipaque 350 (iohexol) IV ORAL CONTRAST: No oral contrast ingested. RADIATION DOSE: 16.84 CTDIvol (mGy) MEDICAL HISTORY : Cardiovascular disease. Rheumatoid arthritis. Chronic obstructive pulmonary disease. SURGICAL HISTORY : section. Cholecystectomy.Appendectomy.Hysterectomy. Lumbar surgery. ENCOUNTER: Initial ACUITY: 3 days PAIN SCALE: 8/10 LOCATION: Bilateral abdomen TECHNIQUE: Volumetric scanning of the abdomen and pelvis was performed. Using automated exposure control and ad justment of the mA and/or kV according to patient size, radiation dose was kept as low as reasonably achievable to obtain optimal diagnostic quality images. DICOM format image data is available electro nically for review and comparison. FINDINGS: LOWER LUNGS: The visualized lower lungs are clear. Small hiatus hernia stable in appearance. LIVER: 9 mm hypodense lesion adjacent to gallbladder fossa is stable from prior CT. No new lesions seen. N o biliary ductal dilatation. Cholecystectomy. SPLEEN: Normal size without lesion. PANCREAS: Mild fatty replacement of the pancreas, stable from prior. KIDNEYS: Normal in size and shape. There is no mass, stone or hydronephrosis. Mildly prominent extrarenal pe lvis on both sides, stable from prior. ADRENAL GLANDS: Within normal limits. VASCULAR: There is no aortic aneurysm. BOWEL/MESENTERY: No dilated loops of small or large bowel. Oral contrast passes through to the distal small bowel. N o significant wall thickening seen. There is a moderate amount of gas seen in the lumen of the mid s igmoid colon with a abrupt transition in diameter and the distal sigmoid, but no definite mass seen. No evidence of free fluid.. ABDOMINAL WALL: Within normal limits. RETROPERITONEUM: There are scattered subcentimeter periaortic lymph nodes which are similar in appearance to prior CT of August 2016. BLADDER: No wall thickening or mass. REPRODUCTIVE: Within normal limits. INGUINAL: There is no lymphadenopathy or hernia. MUSCULOSKELETAL: Degenerative changes in the right hip have similar characteristics to prior exam. CONCLUSION: 1. There is a mild amount gas in the lumen of the sigmoid colon with transition in diameter in the di stal sigmoid without definite mass seen. If the patient has not had a colonoscopy, may consider such . 2. Nonspecific lymph nodes in the periaortic region upper abdomen, subcentimeter in size, and unchang ed from August 2016. 3. Small hiatus hernia, stable. Damian Reinoso MD on December 13, 2016 at 0:21 Board Certified Radiologist. This report was verified electronically.
[2016-12-13] MEDS ORDERED: diphenhydrAMINE HCL 50 MG/ML VIAL ONE (01:09)
[2016-12-13 01:14] LABS: BACTERIA, URINE FEW /hpf; BLOOD, URINE TRACE (NEG); GLUCOSE,URINE NEG (NEG); HYALINE CAST, URINE INNUM /lpf (RARE); KETONE, URINE 10 mg/dL (NEG); MUCUS URINE FEW /lpf (OCC); NITRITE,URINE NEG (NEG); PH, URINE 6.5 (5.0-8.5); RENAL EPITHELIAL CELLS <1 /hpf; SQUAMOUS EPITHELIAL CELL URINE 16 /hpf (0-5); URINE COLOR YELLOW (YELLW/STRAW)
[2016-12-13 01:15] LABS: COMMENT (UR) CATH-CULTURE IND; CULTURE IF INDICATED CATH CULTURE IND
[2016-12-13] MEDS: SODIUM CHLOR 0.9% 1000 ML INJ 1,000 ML IV SCH ×4 (01:53→23:49)
[2016-12-13] MEDS ORDERED: NALOXONE HCL 0.4 MG/ML AMP IV PRN (02:00)
[2016-12-13] MEDS ORDERED: HEPARIN SODIUM - SQ 10,000 UNITS/ML VIAL SQ SCH (02:00)
[2016-12-13] MEDS: FAMOTIDINE 20 MG/2 ML VIAL IV PUSH SCH ×2 (02:00→15:10)
[2016-12-13] MEDS ORDERED: MORPHINE SULFATE 4 MG/ML INJ IV PRN (02:00)
[2016-12-13] MEDS ORDERED: diphenhydrAMINE HCL 50 MG/ML VIAL IV PUSH ONE (02:00)
[2016-12-13] MEDS: ONDANSETRON HCL 4 MG/2 ML VIAL IVP PRN ×4 (02:31→21:40)
[2016-12-13] MEDS: MORPHINE SULFATE 4 MG/ML INJ IV PRN ×3 (02:31→09:33)
[2016-12-13] MEDS: SODIUM CHLORIDE 0.9% FLUSH 10 ML FLUSH IV FLUSH PRN ×2 (05:41→23:48)
[2016-12-13] MEDS: SODIUM CHLORIDE 0.9% FLUSH 10 ML FLUSH IV FLUSH SCH ×2 (09:34→15:10)
--- NOTE | 2016-12-13 09:48 | HHI.HP ---
HPI Service [facility] Primary Care Physician Symone Fisher M.D. Admission Diagnosis Intractable abdominal pain, r/o bowel obstruction/ mass Diagnoses: Chief Complaint: Abdominal pain, fever (Kenia Macias) Travel History International Travel<30 Days: No Contact w/Intl Traveler <30 Da: No Traveled to Known Affected Are: No (Kenia Macias) History of Present Illness This a 61-year-old female with history of chronic joint pain secondary to rheumatoid arthritis, asthma, bipolar disease. Patient presented to the emergency room because of complaint of fever, right upper quadrant pain and overall feeling poorly. Patient states that she was recently evaluated by Dr. Burleson and was diagnosed with ankylosing spondylitis. She was prescribed sulfasalazine which she started taking last and then took another dose on Tuesday. States that on Tuesday she started to develop fevers that were low- grade and on Tuesday they spiked up to 102. She's had a dry cough but no sputum. She's had abdominal pain that is diffuse but more pronounced to the right upper quadrant. She's had loose stools, no blood. She's noted swelling on her joints. She feels that she cannot think straight and has not been eating very much and feeling nauseous. She is complaining of excessive thirst. She has not taken any more low sulfasalazine. She denies any recent sick contacts. No urinary symptoms. She has not been on any antibiotics. Indicates she has some chronic intermittent diarrhea. She's had previous GI evaluations, had capsule endoscopy EGD and colonoscopy about 3-4 years ago when she lived in [place]. Patient was evaluated in emergency room, laboratory workup was completed. CBC was unremarkable. CMP remarkable for mild hyponatremia, sodium 135. AST was 162, ALT 139, alkaline phosphatase 203. Lipase 57. Lactic acid 1.3. Urinalysis positive for trace leukocyte esterase culture pending. She was tachycardic, heart rate 122. Low-grade fever, temperature 99.2. Blood pressure initially 140s and has been trending down to 100s. Chest x-ray negative. Abdomen and pelvis CT shows mild amount of gas in the lumen of the sigmoid colon with transition in diameter and a distal sigmoid without definitive mass seen. Nonspecific lymph nodes in the periaortic region upper abdomen, subcentimeter in size and unchanged from August 2016. Small hiatal hernia. Influenza was negative. Cultures were obtained. Patient was started on IV fluids and given empiric antibiotics. A consultation has been put in place by gastroenterology who has evaluated. Apparently the patient had also recently taken hemp oil tabs. Patient is admitted for further hydration and treatment. (Kenia Macias) Review of Systems ROS Limitations: Altered Mental Status, Poor Historian Constitutional: COMPLAINS OF: Chills, Change in appetite Endocrine: COMPLAINS OF: Polydipsia (`) Respiratory: COMPLAINS OF: Cough Gastrointestinal: COMPLAINS OF: Abdominal pain, Diarrhea, Nausea, Vomiting Musculoskeletal: COMPLAINS OF: Joint pain, Joint Swelling Psychiatric: COMPLAINS OF: Confusion (Kenia Macias) Past Family Social History Past Medical History 1. Rheumatoid arthritis with osteoarthritis. 2. History of depression 3. History of migraine headache. 4. History of gastroesophageal reflux disease. 5. Prior history of pancreatitis x2 6. History of chronic pain and narcotic dependence. 7. Questionable history of gastroparesis. Past Surgical History 1. Appendectomy 2. Cholecystectomy 3. ERCP 4. Right shoulder rotator cuff repair 5. L4-L5 microdiskectomy Reported Medications Reported Meds & Active Scripts Active [place] (Hydrocodone-Acetaminophen) 7.5-325 mg Tab 1 Tab PO Q4H PRN Klonopin (Clonazepam) 1 Mg Tab 1.5 Mg PO BID Reported Sulfasalazine 500 Mg Tab 500 Mg PO BID Vitamin B12 (Cyanocobalamin) 500 Mcg Tab 500 Mcg PO DAILY Vitamin D-3 (Cholecalciferol) 400 Unit Tab 400 Mg PO DAILY Trazodone (Trazodone HCl) 100 Mg Tab 100 Mg PO HS Omeprazole 40 Mg Cap 40 Mg PO DAILY Sumatriptan (Sumatriptan Succinate) 100 Mg Tab 100 Mg PO ONCE PRN If a satisfactory response has not been obtained at 2 hours, a second dose may be administered Flexeril (Cyclobenzaprine HCl) 10 Mg Tab 10 Mg PO BID Citalopram (Citalopram Hydrobromide) 20 Mg Tab 20 Mg PO DAILY Bupropion HCl 100 Mg Tab 300 Mg PO DAILY (Kenia Macias) Allergies: Coded Allergies: Levaquin (Verified Allergy, Severe, 12/12/16) Zosyn (Verified Allergy, Severe, ANAPHALACTIC SHOCK, 12/12/16) Erythromycin (Verified Allergy, Intermediate, RASH, 12/12/16) Tetracycline (Verified Allergy, Intermediate, RASH, 12/12/16) Active Ordered Medications Inpatient Medications Aztreonam 2000 mg/ Sodium Chloride 100 ml @ 200 mls/hr ONCE STAT IV Last administered on 12/12/16 20:41; Start 12/12/16 at 20:41; Stop 12/12/16 at 21:10 ; Status DC Diphenhydramine HCl 25 mg 25 mg ONCE ONCE IV PUSH Last administered on 02:00; Start 12/13/16 at 02:00; Stop 12/13/16 at 02:01; Status DC Famotidine (Pepcid Inj) 20 mg Q12H IV PUSH Last administered on 12/13/16 02:00 ; Start 12/13/16 at 02:00 Heparin Sodium (Porcine) (Heparin Inj) 5,000 units Q12H SQ Last administered on 12/13/16 02:00; Start 12/13/16 at 02:00 Hydromorphone HCl (Dilaudid Pf Inj) 1 mg ONCE ONCE IV PUSH Last administered on 12/12/16 22:45; Start 12/12/16 at 22:45; Stop 12/12/16 at 22:46; Status DC Metronidazole (Flagyl 500 Mg Inj) 100 ml @ 100 mls/hr ONCE STAT IV Last administered on 12/12/16 20:41; Start 12/12/16 at 20:41; Stop 12/12/16 at 21:40 ; Status DC Morphine Sulfate (Morphine Inj) 4 mg Q3H PRN IV Pain 6-10;if unable to take PO Last administered on 12/13/16 09:33; Start 12/13/16 at 02:00 Naloxone HCl (Narcan Inj) 0.4 mg UNSCH PRN IV SEE LABEL COMMENTS; Start at 02:00 Ondansetron HCl (Zofran Inj) 4 mg Q6H PRN IVP NAUSEA OR VOMITING Last administered on 12/13/16 09:34; Start 12/13/16 at 02:00 Promethazine HCl (Phenergan Supp) 12.5 mg ONCE ONCE RECTAL Last administered on 12/12/16 21:45; Start 12/12/16 at 21:45; Stop 12/12/16 at 21:46; Status DC Sodium Chloride (NS 1000 ml Inj) 1,000 ml @ 100 mls/hr Q10H IV Last administered on 12/13/16 01:53; Start 12/13/16 at 01:53 Sodium Chloride (NS Flush) 2 ml BID IV FLUSH Last administered on 12/13/16 09: 34; Start 12/13/16 at 09:00 Vancomycin HCl 1000 mg/Sodium Chloride 250 ml @ 250 mls/hr ONCE STAT IV Last administered on 12/12/16 20:41; Start 12/12/16 at 20:41; Stop 12/12/16 at 21:40 ; Status DC Family History Both parents are . Mom in her 70s due to cirrhosis. Dad at age of 81 due to complications of lung cancer and pneumonia. Social History The patient denies smoking, drinking or drug abuse. She lives by herself. She is on disability due to her depression and psychiatric disorder. (Kenia Macias) Physical Exam Vital Signs Vital Signs Date Time Temp Pulse Resp B/P Pulse Ox O2 Delivery O2 Flow Rate FiO2 12/13/16 04:05 99.1 97 19 115/70 96 12/13/16 03:02 16 12/13/16 02:44 93 12/13/16 02:36 98 20 110/62 96 Room Air 12/13/16 02:36 96 Room Air 12/13/16 02:33 99 20 111/68 96 12/12/16 20:37 108 20 99 12/12/16 19:44 98.8 122 20 140/72 98 Room Air Physical Exam GENERAL: This is a well-nourished, well-developed patient, in no apparent distress. SKIN: No rashes, ecchymoses or lesions. Cool and dry. HEAD: Atraumatic. Normocephalic. No temporal or scalp tenderness. EYES: Pupils equal round and reactive. Extraocular motions intact. No scleral icterus. No injection or drainage. ENT: Nose without bleeding, purulent drainage or septal hematoma. Throat without erythema, tonsillar hypertrophy or exudate. Uvula midline. Airway patent. NECK: Trachea midline. No JVD or lymphadenopathy. Supple, nontender, no meningeal signs. CARDIOVASCULAR: Regular rate and rhythm without murmurs, gallops, or rubs. RESPIRATORY: Clear to auscultation. Breath sounds equal bilaterally. No wheezes , rales, or rhonchi. GASTROINTESTINAL: Abdomen soft, tender to palpation to right upper quadrant. Bowel sounds normoactive 4. Unable to detect any organomegaly. MUSCULOSKELETAL: Joint swelling noted to both hands. Mild edema to both hands. No other joint abnormality. Trace pretibial edema. Pedal pulses 2+. Active range of motion to all joints. NEUROLOGICAL: Awakes to voice, oriented 3. Slow to respond but otherwise attempts to give past medical history. No focal deficits. Laboratory Laboratory Tests Test 12/12/16 12/12/16 12/13/16 21:25 22:50 00:45 Prothrombin Time 11.4 Prothromb Time International 1.0 Ratio Activated Partial 30.6 Thromboplast Time Lactic Acid Level 1.3 White Blood Count 7.2 Red Blood Count 4.48 Hemoglobin 12.2 Hematocrit 36.8 Mean Corpuscular Volume 82.1 Mean Corpuscular Hemoglobin 27.3 Mean Corpuscular Hemoglobin 33.2 Concent Red Cell Distribution Width 16.7 Platelet Count 222 Mean Platelet Volume 7.8 Neutrophils (%) (Auto) 67.1 Lymphocytes (%) (Auto) 22.6 Monocytes (%) (Auto) 8.3 Eosinophils (%) (Auto) 1.7 Basophils (%) (Auto) 0.3 Neutrophils # (Auto) 4.9 Lymphocytes # (Auto) 1.6 Monocytes # (Auto) 0.6 Eosinophils # (Auto) 0.1 Basophils # (Auto) 0.0 CBC Comment DIFF FINAL Differential Comment Sodium Level 135 Potassium Level 4.6 Chloride Level 102 Carbon Dioxide Level 20.3 Anion Gap 13 Blood Urea Nitrogen 14 Creatinine 0.93 Estimat Glomerular Filtration 62 Rate Random Glucose 79 Calcium Level 9.5 Magnesium Level 2.1 Total Bilirubin 0.5 Aspartate Amino Transf 162 (AST/SGOT) Alanine Aminotransferase 139 (ALT/SGPT) Alkaline Phosphatase 203 Total Creatine Kinase 42 Troponin I LESS THAN 0.02 Total Protein 9.0 Albumin 3.7 Lipase 57 Urine Color YELLOW Urine Turbidity HAZY Urine pH 6.5 Urine Specific [place] 1.047 Urine Protein 30 Urine Glucose (UA) NEG Urine Ketones 10 Urine Occult Blood TRACE Urine Nitrite NEG Urine Bilirubin NEG Urine Urobilinogen 2.0 Urine Leukocyte Esterase TRACE Urine RBC 14 Urine WBC 3 Urine Squamous Epithelial 16 Cells Urine Renal Epithelial Cells <1 Urine Bacteria FEW Urine Hyaline Casts INNUM Urine Mucus FEW Microscopic Urinalysis Comment CATH-CULTURE IND Date/Time Procedure Status Source Growth 12/13/16 00:45 Urine Culture Received Urine Catheterized Urine Pending 12/12/16 21:55 Influenza Types A,B Antigen (KEYUR) - Final Complete Nasal Washing NEGATIVE FOR FLU A AND B ANTIGEN.... 12/12/16 21:25 Aerobic Blood Culture Received Blood Peripheral Pending 12/12/16 21:25 Anaerobic Blood Culture Received Blood Peripheral Pending (Kenia Macias) Result Diagram: 12/12/16212412/12/160 Imaging Last Impressions Chest X-Ray 12/12/162040 Signed Impressions: Service Date/Time: Monday, December 12, 2016 21:03 - CONCLUSION: No acute cardiopulmonary disease. Fred Acevedo MD Abdomen/Pelvis CT 12/12/162040 Signed Impressions: Service Date/Time: Tuesday, December 13, 2016 00:07 - CONCLUSION: 1. There is a mild amount gas in the lumen of the sigmoid colon with transition in diameter in the distal sigmoid without definite mass seen. If the patient has not had a colonoscopy, may consider such. 2. Nonspecific lymph nodes in the periaortic region upper abdomen, subcentimeter in size, and unchanged from August 2016. 3. Small hiatus hernia, stable. Damian Reinoso MD (Kenia Macias) Assessment and Plan Problem List: (1) Abdominal pain (2) Rheumatoid arthritis (3) Mild dehydration (4) Transaminitis (5) Depression (6) Diarrhea (7) UTI (urinary tract infection) Assessment and Plan Admit to Dr. Stephenson 61-year-old female presented to the emergency room with right upper quadrant pain, generalized malaise, nausea, vomiting, reported diarrhea, fever. Found with transaminitis. Had recently started taking sulfasalazine as well as hemp oil tabs. Reported diarrhea, has not had a BM in the last 24 hours. -Gastroenterology has been consulted for evaluation, their input is appreciated. Liver workup in progress. Possible upper and lower endoscopy tomorrow Continue with IV fluids -If diarrhea recurs, we will check stools for C. difficile. Avoid hepatotoxic agents, hold sulfasalazine at this time. Follow LFTs in the morning Fever, UTI, culture pending Continue with Azactam, patient allergic to so sent and Levaquin. Continue to follow cultures -Monitor CBC, monitor for fevers History rheumatoid arthritis and possible recent diagnosis of ankylosing spondylitis. -Continue to monitor Depression Continue home medications Home medications reviewed, initiated as indicated Heparin for DVT prophylaxis Plan of care has been discussed with the patient, attending and registered nurse. Further management of the patient will be dependent on the hospital course Patient was seen by myself and Dr. 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 In the case of services not specified as inpatient-only, they are appropriately provided as inpatient services in accordance with the 2-midnight benchmark. Estimated LOS (days): 2 2 days is the estimated time the patient will need to remain in the hospital, assuming treatment plan goals are met and no additional complications. Post-Hospital Plan: Home (Kenia Macias) Problem Qualifiers (1) Abdominal pain: Qualified Code: R10.9 - Abdominal pain, unspecified location (2) Rheumatoid arthritis: Qualified Code: M06.9 - Rheumatoid arthritis involving both hands, unspecified rheumatoid factor presence (3) Depression: Qualified Code: F32.9 - Depression, unspecified depression type (4) Diarrhea: Qualified Code: R19.7 - Diarrhea, unspecified type (5) UTI (urinary tract infection): Qualified Code: N39.0 - Urinary tract infection without hematuria, site unspecified Kenia Macias Dec 13, 2016 09:47 Rajan Stephenson MD Dec 13, 2016 19:00
--- NOTE | 2016-12-13 09:54 | PD.CONS ---
HPI History of Present Illness This is a 61 year old female who presented to the emergency room for evaluation of abdominal pain. She has a medical history of rheumatoid arthritis and at one point was on methotrexate, but she taken off of this secondary to elevated LFTs. She reports that her last labs revealed normal LFTs. She is followed by Dr. Burleson and was recently diagnosed with ankylosing spondylitis and started on sulfasalazine on . On Tuesday, she noticed that she was having fevers and mild RUQ pain. She thought it was the sulfasalazine and stopped taking it. She had associated nausea and vomiting, consisting of bilious material and was not able to keep anything down. She is no longer having this, but states that she has not had anything to eat. She has had this same RUQ pain intermittently for years. She is s/p cholecystectomy and was told at one time that this was related to Sphincter of Oddi Dysfunction. She cannot identify any aggravating or alleviating factors and can not tell if it is related to food or movement. It is a "double over type pain" and she has associated lower back pain that radiates to her right groin. This pain gradually worsened and therefore she came in for further evaluation. She also reports that she has been having intermittent diarrhea "for years." She last had a colonoscopy about a year and a half ago and reports this was normal. Prior to that, she did have a colonoscopy with polypectomy. She denies any history of ulcerative colitis or crohn's, but states that Dr. Burleson was doing some lab tests to look for this. She is not currently having the diarrhea and reports that her last bowel movement was or Tuesday. She is passing flatus. She has lost 22 lbs over the past 2-3 months. Abdomen/Pelvis CT (12/12/16)-----> 1. There is a mild amount gas in the lumen of the sigmoid colon with transition in diameter in the distal sigmoid without definite mass seen. If the patient has not had a colonoscopy, may consider such. 2. Nonspecific lymph nodes in the periaortic region upper abdomen, subcentimeter in size, and unchanged from August 2016. 3. Small hiatus hernia, stable. She was also noted to have elevated transaminases with T. Bili 0.5, AST 162, ALT 139, Alk Phosph 203. Of note, these were elevated during a prior hospitalization in August of 2016, but normal on . Her mother from complications related to cirrhosis. 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 In August of 2016, she had a liver workup with hepatitis profile negative, AMELIA negative, AMA < 20.0, ASMA negative, Celiac panel negative, ferritin 29, Iron saturation 10.4, Alpha 1 antitrypsin 177, Ceruloplasmin 27. She was told that her elevated LFTs was attributed to her Methotrexate and therefore she quit taking it. She occasionally drinks alcohol. She recently started Sulfasalazine on . She also started taking a CBD Hemp oil in a capsule about a month ago. PFSH Past Medical History RA OA Ankylosing spondylitis Depression Migraines GERD Pancreatitis x 2 COPD Chronic pain Diverticulosis Colon polyps Hx elevated LFTs, thought to be medication related Sphincter of Oddi Dysfunction. Past Surgical History Appendectomy Cholecystectomy ERCP Cardiac catheterization Right shoulder rotator cuff repair L4-5 Microdiscectomy Hysterectomy Colonoscopy Coded Allergies: Levaquin (Verified Allergy, Severe, 12/12/16) Zosyn (Verified Allergy, Severe, ANAPHALACTIC SHOCK, 12/12/16) Erythromycin (Verified Allergy, Intermediate, RASH, 12/12/16) Tetracycline (Verified Allergy, Intermediate, RASH, 12/12/16) Medications Allergies Coded Allergies Type Severity Reaction Last Updated Verified Levaquin Allergy Severe 12/12/16 Yes Zosyn Allergy Severe ANAPHALACTIC SHOCK 12/12/16 Yes Erythromycin Allergy Intermediate RASH 12/12/16 Yes Tetracycline Allergy Intermediate RASH 12/12/16 Yes Active Scripts Medications Dose Route/Sig Days Date Category Dose Instructions Sulfasalazine 500 Mg Tab 500 Mg PO BID 12/12/16 Reported [place] (Hydrocodone-Acetaminophen) 7.5-325 mg Tab 1 Tab PO Q4H PRN 09/01/16 Rx Klonopin (Clonazepam) 1 Mg Tab 1.5 Mg PO BID 09/01/16 Rx Vitamin B12 (Cyanocobalamin) 500 Mcg Tab 500 Mcg PO DAILY 08/25/16 Reported Vitamin D-3 (Cholecalciferol) 400 Unit Tab 400 Mg PO DAILY 08/25/16 Reported Trazodone (Trazodone HCl) 100 Mg Tab 100 Mg PO HS 08/25/16 Reported Omeprazole 40 Mg Cap 40 Mg PO DAILY 08/25/16 Reported Sumatriptan (Sumatriptan Succinate) 100 Mg Tab 100 Mg PO ONCE PRN 08/25/16 Reported If a satisfactory response has not been obtained at 2 hours, a second dose may be administered Flexeril (Cyclobenzaprine HCl) 10 Mg Tab 10 Mg PO BID 08/25/16 Reported Citalopram (Citalopram Hydrobromide) 20 Mg Tab 20 Mg PO DAILY 08/25/16 Reported Bupropion HCl 100 Mg Tab 300 Mg PO DAILY 08/25/16 Reported Family History Mother from complications r/t cirrhosis (states she acquired a tb infection that left her with chronic liver disease) Father had lung cancer, from pneumonia. Social History Quit smoking in March of 2016 Occasional ETOH use No illicit drug use Review of Systems Constitutional: COMPLAINS OF: Fatigue, Fever, Weight loss, Chills, Change in appetite Respiratory: DENIES: Cough Gastrointestinal: COMPLAINS OF: Abdominal pain, Diarrhea, Nausea, Vomiting, Anorexia, Heartburn, DENIES: Bloody stools, Hematemesis Musculoskeletal: COMPLAINS OF: Joint pain, Muscle aches, Back pain Integumentary: DENIES: Abnormal pigmentation Hematologic/lymphatic: DENIES: Bruising Neurologic: COMPLAINS OF: Headache Psychiatric: COMPLAINS OF: Depression, DENIES: Confusion GI Exam Vitals I&O Vital Signs Date Time Temp Pulse Resp B/P Pulse Ox O2 Delivery O2 Flow Rate FiO2 12/13/16 04:05 99.1 97 19 115/70 96 12/13/16 03:02 16 12/13/16 02:44 93 12/13/16 02:36 98 20 110/62 96 Room Air 12/13/16 02:36 96 Room Air 12/13/16 02:33 99 20 111/68 96 12/12/16 20:37 108 20 99 12/12/16 19:44 98.8 122 20 140/72 98 Room Air I/O 12/12/16 12/12/16 12/12/16 12/13/16 12/13/16 12/13/16 07:00 15:00 23:00 07:00 15:00 23:00 Intake Total 215 ml Output Total 1 ml Balance 214 ml Intake IV Total 215 ml Output Urine Total 1 ml Imaging Last Impressions Chest X-Ray 12/12/162040 Signed Impressions: Service Date/Time: Monday, December 12, 2016 21:03 - CONCLUSION: No acute cardiopulmonary disease. Fred Acevedo MD Abdomen/Pelvis CT 12/12/162040 Signed Impressions: Service Date/Time: Tuesday, December 13, 2016 00:07 - CONCLUSION: 1. There is a mild amount gas in the lumen of the sigmoid colon with transition in diameter in the distal sigmoid without definite mass seen. If the patient has not had a colonoscopy, may consider such. 2. Nonspecific lymph nodes in the periaortic region upper abdomen, subcentimeter in size, and unchanged from August 2016. 3. Small hiatus hernia, stable. Damian Reinoso MD Laboratory Test 12/12/16 12/12/16 12/13/16 21:25 22:50 00:45 Prothrombin Time 11.4 SEC Prothromb Time International 1.0 RATIO Ratio Activated Partial 30.6 SEC Thromboplast Time Lactic Acid Level 1.3 mmol/L White Blood Count 7.2 TH/MM3 Red Blood Count 4.48 MIL/MM3 Hemoglobin 12.2 GM/DL Hematocrit 36.8 % Mean Corpuscular Volume 82.1 FL Mean Corpuscular Hemoglobin 27.3 PG Mean Corpuscular Hemoglobin 33.2 % Concent Red Cell Distribution Width 16.7 % Platelet Count 222 TH/MM3 Mean Platelet Volume 7.8 FL Neutrophils (%) (Auto) 67.1 % Lymphocytes (%) (Auto) 22.6 % Monocytes (%) (Auto) 8.3 % Eosinophils (%) (Auto) 1.7 % Basophils (%) (Auto) 0.3 % Neutrophils # (Auto) 4.9 TH/MM3 Lymphocytes # (Auto) 1.6 TH/MM3 Monocytes # (Auto) 0.6 TH/MM3 Eosinophils # (Auto) 0.1 TH/MM3 Basophils # (Auto) 0.0 TH/MM3 CBC Comment DIFF FINAL Differential Comment Sodium Level 135 MEQ/L Potassium Level 4.6 MEQ/L Chloride Level 102 MEQ/L Carbon Dioxide Level 20.3 MEQ/L Anion Gap 13 MEQ/L Blood Urea Nitrogen 14 MG/DL Creatinine 0.93 MG/DL Estimat Glomerular Filtration 62 ML/MIN Rate Random Glucose 79 MG/DL Calcium Level 9.5 MG/DL Magnesium Level 2.1 MG/DL Total Bilirubin 0.5 MG/DL Aspartate Amino Transf 162 U/L (AST/SGOT) Alanine Aminotransferase 139 U/L (ALT/SGPT) Alkaline Phosphatase 203 U/L Total Creatine Kinase 42 U/L Troponin I LESS THAN 0.02 NG/ML Total Protein 9.0 GM/DL Albumin 3.7 GM/DL Lipase 57 U/L Urine Color YELLOW Urine Turbidity HAZY Urine pH 6.5 Urine Specific [place] 1.047 Urine Protein 30 mg/dL Urine Glucose (UA) NEG mg/dL Urine Ketones 10 mg/dL Urine Occult Blood TRACE Urine Nitrite NEG Urine Bilirubin NEG Urine Urobilinogen 2.0 MG/DL Urine Leukocyte Esterase TRACE Urine RBC 14 /hpf Urine WBC 3 /hpf Urine Squamous Epithelial 16 /hpf Cells Urine Renal Epithelial Cells <1 /hpf Urine Bacteria FEW /hpf Urine Hyaline Casts INNUM /lpf Urine Mucus FEW /lpf Microscopic Urinalysis Comment CATH-CULTURE IND Date/Time Procedure Status Source Growth 12/13/16 00:45 Urine Culture Received Urine Catheterized Urine Pending 12/12/16 21:55 Influenza Types A,B Antigen (KEYUR) - Final Complete Nasal Washing NEGATIVE FOR FLU A AND B ANTIGEN.... 12/12/16 21:25 Aerobic Blood Culture Received Blood Peripheral Pending 12/12/16 21:25 Anaerobic Blood Culture Received Blood Peripheral Pending Physical Examination HEENT: Normocephalic; atraumatic; no jaundice. CHEST: CTA CARDIAC: RRR ABDOMEN: Soft, nondistended, nontender; no hepatosplenomegaly; bowel sounds are present in all four quadrants. EXTREMITIES: Trace generalized edema. SKIN: Normal; no rash; no jaundice. STITCH WELDER: No focal deficits; alert and oriented times three. Assessment and Plan Plan ASSESSMENT: - Abnormal imaging on CT with questionable partial obstruction in sigmoid colon. Abdomen/Pelvis CT (12/12/16)-----> 1. There is a mild amount gas in the lumen of the sigmoid colon with transition in diameter in the distal sigmoid without definite mass seen. If the patient has not had a colonoscopy, may consider such. 2. Nonspecific lymph nodes in the periaortic region upper abdomen, subcentimeter in size, and unchanged from August 2016. 3. Small hiatus hernia, stable. Last colonoscopy was about 1.5 years ago, normal per patient. She had a colonoscopy prior to that with colon polyps. She has chronic diarrhea and denies any hx of IBD, but does note that her culinary art teacher is checking labs for this. She has a hx of diverticulosis without diverticulitis. Will plan for EGD/Colonoscopy in am if she can tolerate the bowel prep. - RUQ pain. 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 She cannot tell if this is related to food. She has elevated transaminases. - Elevated LFTs. Started CBD Hemp oil one month ago. Started Sulfasalazine on and took Tuesday, but stopped at that time secondary to fevers. She had elevated LFTs during a prior hospitalization in August of 2016, but normal on 08/27/16. Her mother from complications related to cirrhosis. 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 In August of 2016, she had a liver workup with hepatitis profile negative, AMELIA negative, AMA < 20.0, ASMA negative, Celiac panel negative, ferritin 29, Iron saturation 10.4, Alpha 1 antitrypsin 177, Ceruloplasmin 27. She was told that her elevated LFTs was attributed to her Methotrexate and therefore she quit taking it. Occasionally drinks alcohol. T. Bili 0.5, AST 162, ALT 139, Alk Phosph 203. ? Drug induced. ? Sphincter of Oddi Dysfunction. Will get AFP, as this was not included in previous liver workup. - Diarrhea, chronic. Pt reports that she has had intermittent diarrhea for years. She denies any hx of IBD, although she reports that Dr. Burleson is checking labs for IBD. She typically will have from 3-5 to 6-7 loose stools per day without blood. She has not had a bowel movement since . - Fevers/Chills. Pt reports she started having fevers after starting sulfasalazine on . 99.1. - Ankylosing spondylitis, RA, chronic pain. Per attending. Followed by Dr. Burleson as outpatient, recently started on sulfasalazine. PLAN: - Plan for egd/colonoscopy in am- D/W patient she will try to take bowel prep - Obtain consents - Clear liquids - Golytely prep - Hold heparin after MN - AFP level - CBC, CMP in am - Hold sulfasalazine - Supportive care - Further recommendations to follow based on results of above - Pt seen and examined by Dr. Hatfield and myself and this note is written on his behalf Roselia Brooks Dec 13, 2016 09:54
[2016-12-13] MEDS ORDERED: PEG (High)/E-LYTE SOLN 4000 ML BTL PO ONE (10:00)
[2016-12-13] MEDS: HEPARIN SODIUM - SQ 10,000 UNITS/ML VIAL SQ SCH (15:08)
[2016-12-13] MEDS: AZTREONAM INJ 1,000 MG in SODIUM CHLORIDE 0.9% INJ 100 ML IV SCH ×2 (15:26→23:49)
[2016-12-13] MEDS: HYDROmorphone HCL PF 1 MG/ML VIAL IV PUSH PRN ×2 (19:39→23:48)
[2016-12-13] MEDS: diphenhydrAMINE HCL 25 MG CAP PO PRN (20:34)
[2016-12-14] VITALS (7 sets, daily range): BP systolic 113–130; BP diastolic 58–84; PULSE 87–98; RESP 16–18; TEMP 96.8–99.1; O2SAT 95–98
[2016-12-14] MEDS ORDERED: NYSTAT/DIPHENHY/LIDO MOUTHWASH (Adult) 120ML PO SCH (02:00)
[2016-12-14] MEDS ORDERED: NYSTAT/DIPHENHY/LIDO MOUTHWASH (Adult) 120ML PO PRN (02:00)
[2016-12-14] MEDS: FAMOTIDINE 20 MG/2 ML VIAL IV PUSH SCH ×2 (02:21→12:23)
[2016-12-14] MEDS: HEPARIN SODIUM - SQ 10,000 UNITS/ML VIAL SQ SCH ×2 (02:32→14:18)
[2016-12-14] MEDS: HYDROmorphone HCL PF 1 MG/ML VIAL IV PUSH PRN ×4 (06:18→19:57)
[2016-12-14] MEDS: SODIUM CHLORIDE 0.9% FLUSH 10 ML FLUSH IV FLUSH PRN (06:18)
[2016-12-14] MEDS: AZTREONAM INJ 1,000 MG in SODIUM CHLORIDE 0.9% INJ 100 ML IV SCH ×3 (06:20→23:12)
[2016-12-14] MEDS: ONDANSETRON HCL 4 MG/2 ML VIAL IVP PRN ×2 (06:24→14:18)
--- NOTE | 2016-12-14 07:45 | EKG ---
Date Performed: 12/13/2016 Time Performed: 02:44:30 PTAGE: 61 years EKG: Sinus rhythm LOW QRS VOLTAGE IN PRECORDIAL LEADS POSSIBLE RIGHT VENTRICULAR CONDUCTION DELAY NONSPECIFIC [address] ABNORMALITY BORDERLINE ECG NO PREVIOUS TRACING DOCTOR: Koffi Singh Interpretating Date/Time 12/14/2016 07:42:55
[2016-12-14] MEDS: SODIUM CHLORIDE 0.9% FLUSH 10 ML FLUSH IV FLUSH SCH ×2 (08:02→19:56)
[2016-12-14] MEDS: buPROPion HCL 100 MG TAB PO SCH (08:02)
[2016-12-14] MEDS: CITALOPRAM HYDROBROMIDE 20 MG TAB PO SCH (08:02)
[2016-12-14] MEDS: CYANOCOBALAMIN 100 MCG TAB PO SCH (08:02)
[2016-12-14 08:08] LABS: AUTOMATED NEUTROPHIL # 3.7 TH/MM3 (1.8-7.7); BASOPHIL % 0.6 % (0.0-2.0); EOSINOPHIL # 0.3 TH/MM3 (0-0.4); EOSINOPHIL % 4.8 % (0.0-4.0); HEMATOCRIT 31.8 % (35.0-46.0); HEMO FLAGS DIFF FINAL; LYMPHOCYTE # 0.8 TH/MM3 (1.0-4.8); MEAN CELL VOLUME 83.3 FL (80.0-100.0); MEAN CORPUSCULAR HEMOGLOBIN 27.1 PG (27.0-34.0); MEAN CORPUSCULAR HGB CONC 32.6 % (32.0-36.0); MONO % 11.5 % (0.0-8.0); NEUT % 68.1 % (16.0-70.0); PLATELET COUNT 187 TH/MM3 (150-450); RED BLOOD COUNT 3.82 MIL/MM3 (4.00-5.30); RED CELL DISTRIBUTION WIDTH 15.9 % (11.6-17.2); WHITE BLOOD COUNT 5.4 TH/MM3 (4.0-11.0)
[2016-12-14 08:42] LABS: INDIRECT BILIRUBIN 0.2 MG/DL (0.0-0.8); TOTAL BILIRUBIN ADULT 0.3 MG/DL (0.2-1.0)
[2016-12-14] MEDS ORDERED: RESP: ALBUTEROL 2.5 MG/IPRATROPIUM 0.5 MG NEB (PRN) NEB (09:45)
[2016-12-14] MEDS ORDERED: LACTULOSE SYRUP 20 GM/30 ML CUP PO PRN (09:45)
[2016-12-14] MEDS ORDERED: BISACODYL EC 5 MG TABEC PO PRN (09:45)
[2016-12-14] MEDS ORDERED: ALBUTEROL SULFATE 90 MCG/ACT HFA 18 GM INHALER INH PRN (09:45)
[2016-12-14] MEDS ORDERED: SODIUM CHLORIDE 0.65% NASAL DRP/SPRY 30 ML BTL EACH NARE PRN (09:45)
[2016-12-14] MEDS ORDERED: DOCUSATE SODIUM 100 MG CAP PO PRN (09:45)
[2016-12-14] MEDS ORDERED: MAGNESIUM HYDROXIDE SUSP 30 ML CUP PO PRN (09:45)
--- NOTE | 2016-12-14 09:45 | HHI.PR ---
Subjective Remarks more awake, oriented x 3 c/o right upper quad pain wants to know if she is having ERCP or EGD/Colon c/o nasal dryness and occ. congestions wants rescue inhaler and duonebs if needed feeling very anxious Objective Objective Results - Vital Signs Date Time Temp Pulse Resp B/P Pulse Ox O2 Delivery O2 Flow Rate FiO2 12/14/16 08:00 98.6 89 18 113/60 96 12/14/16 04:00 98.2 98 17 115/84 98 12/14/16 00:00 98.4 91 18 115/69 95 12/13/16 22:00 95 Nasal Cannula 2.00 12/13/16 20:00 98.1 62 18 109/56 96 12/13/16 16:00 98.5 85 16 108/53 95 12/13/16 12:00 98.8 94 16 107/68 94 12/13/16 10:00 99.2 102 16 120/72 94 I/O 12/13/16 12/13/16 12/13/16 12/14/16 12/14/16 12/14/16 07:00 15:00 23:00 07:00 15:00 23:00 Intake Total 215 ml 40 ml 2355 ml Output Total 1 ml Balance 214 ml 40 ml 2355 ml Intake Oral 40 ml IV Total 215 ml 2355 ml Output Urine Total 1 ml # Voids 4 1 1 # Bowel Movements 0 Result Diagram: 12/14/16 0657 12/12/16 2250 Imaging Last Impressions Chest X-Ray 12/12/162040 Signed Impressions: Service Date/Time: Monday, December 12, 2016 21:03 - CONCLUSION: No acute cardiopulmonary disease. Fred Acevedo MD Abdomen/Pelvis CT 12/12/162040 Signed Impressions: Service Date/Time: Tuesday, December 13, 2016 00:07 - CONCLUSION: 1. There is a mild amount gas in the lumen of the sigmoid colon with transition in diameter in the distal sigmoid without definite mass seen. If the patient has not had a colonoscopy, may consider such. 2. Nonspecific lymph nodes in the periaortic region upper abdomen, subcentimeter in size, and unchanged from August 2016. 3. Small hiatus hernia, stable. Damian Reinoso MD Other Results Laboratory Tests Test 12/14/16 06:57 White Blood Count 5.4 Red Blood Count 3.82 Hemoglobin 10.4 Hematocrit 31.8 Mean Corpuscular Volume 83.3 Mean Corpuscular Hemoglobin 27.1 Mean Corpuscular Hemoglobin 32.6 Concent Red Cell Distribution Width 15.9 Platelet Count 187 Mean Platelet Volume 7.5 Neutrophils (%) (Auto) 68.1 Lymphocytes (%) (Auto) 15.0 Monocytes (%) (Auto) 11.5 Eosinophils (%) (Auto) 4.8 Basophils (%) (Auto) 0.6 Neutrophils # (Auto) 3.7 Lymphocytes # (Auto) 0.8 Monocytes # (Auto) 0.6 Eosinophils # (Auto) 0.3 Basophils # (Auto) 0.0 CBC Comment DIFF FINAL Differential Comment Total Bilirubin 0.3 Direct Bilirubin 0.1 Indirect Bilirubin 0.2 Aspartate Amino Transf 126 (AST/SGOT) Alanine Aminotransferase 122 (ALT/SGPT) Alkaline Phosphatase 226 Total Protein 6.9 Albumin 2.7 Date/Time Procedure Status Source Growth 12/13/16 00:45 Urine Culture Received Urine Catheterized Urine Pending 12/12/16 21:55 Influenza Types A,B Antigen (KEYUR) - Final Complete Nasal Washing NEGATIVE FOR FLU A AND B ANTIGEN.... 12/12/16 21:25 Aerobic Blood Culture - Preliminary Resulted Blood Peripheral NO GROWTH IN 1 DAY 12/12/16 21:25 Anaerobic Blood Culture - Preliminary Resulted Blood Peripheral NO GROWTH IN 1 DAY ROS HEENT: Other (dry nose, allergies ) Cardiac: Other GI: Abdominal Pain, Other (now constipated, no bm since Tuesday ) Physical Exam Physical Exam GENERAL: This is a well-nourished, well-developed patient, in no apparent distress. SKIN: No rashes, ecchymoses or lesions. Cool and dry. HEAD: Atraumatic. Normocephalic. No temporal or scalp tenderness. EYES: Pupils equal round and reactive. Extraocular motions intact. No scleral icterus. No injection or drainage. ENT: Nose without bleeding, purulent drainage or septal hematoma. Throat without erythema, tonsillar hypertrophy or exudate. Uvula midline. Airway patent. NECK: Trachea midline. No JVD or lymphadenopathy. Supple, nontender, no meningeal signs. CARDIOVASCULAR: Regular rate and rhythm without murmurs, gallops, or rubs. RESPIRATORY: Clear to auscultation. Breath sounds equal bilaterally. No wheezes , rales, or rhonchi. GASTROINTESTINAL: Abdomen soft, tender to palpation to right upper quadrant. Bowel sounds normoactive 4. Unable to detect any organomegaly. MUSCULOSKELETAL: Joint swelling noted to both hands. Mild edema to both hands. No other joint abnormality. Trace pretibial edema. Pedal pulses 2+. Active range of motion to all joints. NEUROLOGICAL: Awakes to voice, oriented 3. No focal deficits. Anxious Urinary Catheter: No Vascular Central Line Catheter: No A/P Diagnosis: (1) Abdominal pain (2) Rheumatoid arthritis (3) Mild dehydration (4) Transaminitis (5) Depression (6) Diarrhea (7) UTI (urinary tract infection) Assessment and Plan 61-year-old female presented to the emergency room with right upper quadrant pain, generalized malaise, nausea, vomiting, reported diarrhea, fever. Found with transaminitis. Had recently started taking sulfasalazine as well as hemp oil tabs. Reported diarrhea, has not had a BM in the last 24 hours. -Gastroenterology has been consulted for evaluation, their input is appreciated. Liver workup in progress. Has hx of sphincter of vicki dysfunction. Possible upper and lower endoscopy vs ERCP today Continue with IV fluids -If diarrhea recurs, we will check stools for C. difficile. Avoid hepatotoxic agents, hold sulfasalazine at this time. LFTs trending down -will wait for GI work up results, remains with RUQ pain. No diarrhea now, c/o constipation since Tuesday Fever, UTI, culture pending Continue with Azactam, patient allergic to so sent and Levaquin. Continue to follow cultures-negative so far -Monitor CBC, monitor for fevers History rheumatoid arthritis and possible recent diagnosis of ankylosing spondylitis. -Continue to monitor Depression Continue home medications Asthma, stable, no wheezing -Ventolin INH ordered as well as duonebs PRN Reports constipation now -bowel regimen in place Heparin for DVT prophylaxis follow up on GI work up results D/W RN D/W pt D/W Dr. Stephenson Patient was seen by myself and Dr. Stephenson, this note is written on his behalf Problem Qualifiers (1) Abdominal pain: Qualified Code: R10.9 - Abdominal pain, unspecified location (2) Rheumatoid arthritis: Qualified Code: M06.9 - Rheumatoid arthritis involving both hands, unspecified rheumatoid factor presence (3) Depression: Qualified Code: F32.9 - Depression, unspecified depression type (4) Diarrhea: Qualified Code: R19.7 - Diarrhea, unspecified type (5) UTI (urinary tract infection): Qualified Code: N39.0 - Urinary tract infection without hematuria, site unspecified Kenia Macias Dec 14, 2016 09:45
[2016-12-14] MEDS ORDERED: SENNOSIDES 8.6 MG TAB PO PRN (10:45)
--- NOTE | 2016-12-14 12:08 | HHI.GIFU ---
Subjective Remarks Resting in bed. Has mild nausea, no vomiting. Continues to have right sided abdominal pain, this seems to be more upper than lower. No diarrhea. Objective Vitals I&O Vital Signs Date Time Temp Pulse Resp B/P Pulse Ox O2 Delivery O2 Flow Rate FiO2 12/14/16 09:37 96 21 12/14/16 08:00 98.6 89 18 113/60 96 12/14/16 04:00 98.2 98 17 115/84 98 12/14/16 00:00 98.4 91 18 115/69 95 12/13/16 22:00 95 Nasal Cannula 2.00 12/13/16 20:00 98.1 62 18 109/56 96 12/13/16 16:00 98.5 85 16 108/53 95 12/13/16 12:00 98.8 94 16 107/68 94 I/O 12/13/16 12/13/16 12/13/16 12/14/16 12/14/16 12/14/16 07:00 15:00 23:00 07:00 15:00 23:00 Intake Total 215 ml 40 ml 2355 ml Output Total 1 ml Balance 214 ml 40 ml 2355 ml Intake Oral 40 ml IV Total 215 ml 2355 ml Output Urine Total 1 ml # Voids 4 1 1 # Bowel Movements 0 Laboratory Laboratory Tests Test 12/14/16 06:57 White Blood Count 5.4 Red Blood Count 3.82 Hemoglobin 10.4 Hematocrit 31.8 Mean Corpuscular Volume 83.3 Mean Corpuscular Hemoglobin 27.1 Mean Corpuscular Hemoglobin 32.6 Concent Red Cell Distribution Width 15.9 Platelet Count 187 Mean Platelet Volume 7.5 Neutrophils (%) (Auto) 68.1 Lymphocytes (%) (Auto) 15.0 Monocytes (%) (Auto) 11.5 Eosinophils (%) (Auto) 4.8 Basophils (%) (Auto) 0.6 Neutrophils # (Auto) 3.7 Lymphocytes # (Auto) 0.8 Monocytes # (Auto) 0.6 Eosinophils # (Auto) 0.3 Basophils # (Auto) 0.0 CBC Comment DIFF FINAL Differential Comment Total Bilirubin 0.3 Direct Bilirubin 0.1 Indirect Bilirubin 0.2 Aspartate Amino Transf 126 (AST/SGOT) Alanine Aminotransferase 122 (ALT/SGPT) Alkaline Phosphatase 226 Total Protein 6.9 Albumin 2.7 Date/Time Procedure Status Source Growth 6/26/17 00:45 Urine Culture Received Urine Catheterized Urine Pending 12/12/16 21:55 Influenza Types A,B Antigen (KEYUR) - Final Complete Nasal Washing NEGATIVE FOR FLU A AND B ANTIGEN.... 12/12/16 21:25 Aerobic Blood Culture - Preliminary Resulted Blood Peripheral NO GROWTH IN 2 DAYS 12/12/16 21:25 Anaerobic Blood Culture - Preliminary Resulted Blood Peripheral NO GROWTH IN 2 DAYS Imaging Last Impressions Chest X-Ray 12/12/162040 Signed Impressions: Service Date/Time: Monday, December 12, 2016 21:03 - CONCLUSION: No acute cardiopulmonary disease. Fred Acevedo MD Abdomen/Pelvis CT 12/12/162040 Signed Impressions: Service Date/Time: Tuesday, December 13, 2016 00:07 - CONCLUSION: 1. There is a mild amount gas in the lumen of the sigmoid colon with transition in diameter in the distal sigmoid without definite mass seen. If the patient has not had a colonoscopy, may consider such. 2. Nonspecific lymph nodes in the periaortic region upper abdomen, subcentimeter in size, and unchanged from August 2016. 3. Small hiatus hernia, stable. Damian Reinoso MD Physical Exam HEENT: Normocephalic; atraumatic; no jaundice. CHEST: CTA CARDIAC: RRR ABDOMEN: Soft, nondistended,mild RUQ/Right sided- in middle tenderness; no hepatosplenomegaly; bowel sounds are present in all four quadrants. EXTREMITIES: No clubbing, cyanosis, or edema. SKIN: Normal; no rash; no jaundice. ADVANCED PRACTICE RN: No focal deficits; alert and oriented times three. Assessment and Plan Plan ASSESSMENT: - Abnormal imaging on CT with questionable partial obstruction in sigmoid colon. Abdomen/Pelvis CT (12/12/16)-----> 1. There is a mild amount gas in the lumen of the sigmoid colon with transition in diameter in the distal sigmoid without definite mass seen. If the patient has not had a colonoscopy, may consider such. 2. Nonspecific lymph nodes in the periaortic region upper abdomen, subcentimeter in size, and unchanged from August 2016. 3. Small hiatus hernia, stable. Last colonoscopy was about 1.5 years ago, normal per patient. She had a colonoscopy prior to that with colon polyps. She has chronic diarrhea and denies any hx of IBD, but does note that her turner off is checking labs for this. She has a hx of diverticulosis without diverticulitis. CT imaging revealed by Dr. Hatfield. No need for egd/colonoscopy at this time. - RUQ pain. 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 She cannot tell if this is related to food. She has elevated transaminases. D/W Dr. Membreno/Liu, unclear if LFTs are elevated secondary to medication vs. SOD. Will start clears. If LFTs trend down. - Elevated LFTs. Started CBD Hemp oil one month ago. Started Sulfasalazine on and took Tuesday, but stopped at that time secondary to fevers. She had elevated LFTs during a prior hospitalization in August of 2016, but normal on 08/27/16. Her mother from complications related to cirrhosis. 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 In August of 2016, she had a liver workup with hepatitis profile negative, AMELIA negative, AMA < 20.0, ASMA negative, Celiac panel negative, ferritin 29, Iron saturation 10.4, Alpha 1 antitrypsin 177, Ceruloplasmin 27. She was told that her elevated LFTs was attributed to her Methotrexate and therefore she quit taking it. Occasionally drinks alcohol. Unclear if this is r/t drug induced liver disease vs. shincter of oddi dysfunction. Will get AFP, as this was not included in previous liver workup. LFTs are slightly improved. If these continue to improve, it is likely more related to recent Sulfasalazine use and we will follow as outpatient for possible ERCP with sphincteroplasty as outpatient if her RUQ persists. If these worsen or if she has worsening pain, we will consider as inpatient. - Diarrhea, chronic. Pt reports that she has had intermittent diarrhea for years. She denies any hx of IBD, although she reports that Dr. Burleson is checking labs for IBD. Has not had any since being in the hospital. - Fevers/Chills. Pt reports she started having fevers after starting sulfasalazine on . Afebrile. - Ankylosing spondylitis, RA, chronic pain. Per attending. Followed by Dr. Burleson as outpatient, recently started on sulfasalazine. PLAN: - Start Clear liquids - Cont. PPI - AFP level - CBC, CMP in am - Hold sulfasalazine - Supportive care - Will monitor LFTs. If these continue to improve and she tolerates diet/pain improves, it is possible that her LFT elevation was more related to medication and we can follow as outpatient for possible ERCP with sphincteroplasty as needed. If she has worsening LFT elevation, or worsening pain, we will consider as inpatient. Pt will need to d/w Dr. Burleson, changing her sulfasalazine. - Further recommendations to follow based on results of above - Pt seen and examined by Dr. Hatfield and myself and this note is written on his behalf Roselia Brooks Dec 14, 2016 12:08
[2016-12-14] MEDS: FLUTICASONE PROPIONATE 50 MCG/ACT 16 GM NASAL SPRAY EACH NARE SCH (12:22)
[2016-12-14] MEDS: DOCUSATE SODIUM 50 MG/SENNA 8.6 MG TAB PO SCH ×2 (12:25→19:56)
[2016-12-14] MEDS ORDERED: SUMAtriptan SUCCINATE 50 MG TAB PO PRN (15:15)
[2016-12-14] MEDS: SODIUM CHLOR 0.9% 1000 ML INJ 1,000 ML IV SCH (19:56)
[2016-12-14] MEDS: ONDANSETRON INJ 8 MG in DEXTROSE 5% IN WATER INJ 50 ML IV PUSH PRN ×2 (19:56)
[2016-12-14] MEDS ORDERED: ONDANSETRON HCL 4 MG/2 ML VIAL IVP PRN (20:00)
[2016-12-15] VITALS: BP 130/76; PULSE 99; RESP 17; TEMP 98.8; O2SAT 99
[2016-12-15] MEDS: HYDROmorphone HCL PF 1 MG/ML VIAL IV PUSH PRN ×3 (00:09→11:13)
[2016-12-15] MEDS: diphenhydrAMINE HCL 25 MG CAP PO PRN (00:39)
[2016-12-15] MEDS: HEPARIN SODIUM - SQ 10,000 UNITS/ML VIAL SQ SCH ×2 (02:28→16:17)
[2016-12-15] MEDS: FAMOTIDINE 20 MG/2 ML VIAL IV PUSH SCH ×2 (02:29→14:35)
[2016-12-15] MEDS: AZTREONAM INJ 1,000 MG in SODIUM CHLORIDE 0.9% INJ 100 ML IV SCH ×2 (05:41→16:18)
[2016-12-15] MEDS: SODIUM CHLOR 0.9% 1000 ML INJ 1,000 ML IV SCH ×2 (05:41→11:20)
[2016-12-15 05:48] VITALS: BP 124/64; PULSE 90; RESP 18; TEMP 96.7; O2SAT 96
[2016-12-15 07:17] LABS: AUTOMATED NEUTROPHIL # 2.7 TH/MM3 (1.8-7.7); BASOPHIL % 0.7 % (0.0-2.0); EOSINOPHIL # 0.2 TH/MM3 (0-0.4); EOSINOPHIL % 4.3 % (0.0-4.0); HEMATOCRIT 30.3 % (35.0-46.0); HEMO FLAGS DIFF FINAL; LYMPH % 28.8 % (9.0-44.0); LYMPHOCYTE # 1.4 TH/MM3 (1.0-4.8); MEAN CELL VOLUME 82.8 FL (80.0-100.0); MEAN CORPUSCULAR HGB CONC 32.6 % (32.0-36.0); MONO % 10.5 % (0.0-8.0); NEUT % 55.7 % (16.0-70.0); PLATELET COUNT 173 TH/MM3 (150-450); RED BLOOD COUNT 3.66 MIL/MM3 (4.00-5.30); WHITE BLOOD COUNT 4.9 TH/MM3 (4.0-11.0)
[2016-12-15 07:39] LABS: ALT (GPT) 92 U/L (10-53); ANION GAP 11 MEQ/L (5-15); BICARBONATE 23.8 MEQ/L (21.0-32.0); BLOOD UREA NITROGEN 3 MG/DL (7-18); CHLORIDE 108 MEQ/L (98-107); POTASSIUM 3.2 MEQ/L (3.5-5.1); SODIUM (NA) 143 MEQ/L (136-145)
[2016-12-15 07:41] LABS: ALKALINE PHOSPHATASE 235 U/L (45-117); AST (GOT) 74 U/L (15-37); GLOMERULAR FILTRATION RATE 116 ML/MIN (>89); TOTAL BILIRUBIN ADULT 0.4 MG/DL (0.2-1.0)
[2016-12-15 08:00] VITALS: BP 118/60; PULSE 86; RESP 16; TEMP 97.7; O2SAT 98
[2016-12-15] MEDS: POTASSIUM CHLORIDE 25 MEQ EFFERVESCENT TAB PO ONE ×2 (08:00→09:50)
[2016-12-15] MEDS: DOCUSATE SODIUM 50 MG/SENNA 8.6 MG TAB PO SCH (09:00)
[2016-12-15] MEDS: SODIUM CHLORIDE 0.9% FLUSH 10 ML FLUSH IV FLUSH SCH (09:00)
[2016-12-15] MEDS: FLUTICASONE PROPIONATE 50 MCG/ACT 16 GM NASAL SPRAY EACH NARE SCH (09:49)
[2016-12-15] MEDS: buPROPion HCL 100 MG TAB PO SCH (09:50)
[2016-12-15] MEDS: CITALOPRAM HYDROBROMIDE 20 MG TAB PO SCH (09:50)
[2016-12-15] MEDS: CYANOCOBALAMIN 100 MCG TAB PO SCH (09:51)
--- NOTE | 2016-12-15 09:51 | HHI.GIFU ---
Subjective Remarks Resting in bed. Mild nausea at times. Continues to have right-sided abdominal pain which she describes as a cramping. She has not had a bowel movement during this hospitalization reports that she was given a stool softener, which seemed to aggravate her pain. She has contacted Dr. Burleson's office regarding her hospitalization and she was told to stop the sulfasalazine Objective Vitals I&O Vital Signs Date Time Temp Pulse Resp B/P Pulse Ox O2 Delivery O2 Flow Rate FiO2 12/15/16 08:00 97.7 86 16 118/60 98 12/15/16 05:48 96.7 90 18 124/64 96 12/15/16 00:00 98.8 99 17 130/76 99 12/14/16 20:00 99.1 87 18 123/61 97 12/14/16 17:00 96.8 89 16 130/68 95 12/14/16 11:57 98.2 88 16 117/58 97 I/O 12/14/16 12/14/16 12/14/16 12/15/16 12/15/16 12/15/16 07:00 15:00 23:00 07:00 15:00 23:00 Intake Total 2355 ml 0 ml 800 ml 800 ml Balance 2355 ml 0 ml 800 ml 800 ml Intake Oral 0 ml IV Total 2355 ml 800 ml 800 ml # Voids 1 6 2 Laboratory Laboratory Tests Test 12/14/16 12/15/16 13:15 06:14 Tumor Marker Alpha Fetoprotein 2.8 White Blood Count 4.9 Red Blood Count 3.66 Hemoglobin 9.9 Hematocrit 30.3 Mean Corpuscular Volume 82.8 Mean Corpuscular Hemoglobin 27.0 Mean Corpuscular Hemoglobin 32.6 Concent Red Cell Distribution Width 16.0 Platelet Count 173 Mean Platelet Volume 7.2 Neutrophils (%) (Auto) 55.7 Lymphocytes (%) (Auto) 28.8 Monocytes (%) (Auto) 10.5 Eosinophils (%) (Auto) 4.3 Basophils (%) (Auto) 0.7 Neutrophils # (Auto) 2.7 Lymphocytes # (Auto) 1.4 Monocytes # (Auto) 0.5 Eosinophils # (Auto) 0.2 Basophils # (Auto) 0.0 CBC Comment DIFF FINAL Differential Comment Sodium Level 143 Potassium Level 3.2 Chloride Level 108 Carbon Dioxide Level 23.8 Anion Gap 11 Blood Urea Nitrogen 3 Creatinine 0.54 Estimat Glomerular Filtration 116 Rate Random Glucose 72 Calcium Level 8.3 Total Bilirubin 0.4 Aspartate Amino Transf 74 (AST/SGOT) Alanine Aminotransferase 92 (ALT/SGPT) Alkaline Phosphatase 235 Total Protein 7.0 Albumin 2.6 Date/Time Procedure Status Source Growth 12/13/16 00:45 Urine Culture - Final Complete Urine Catheterized Urine 50-100,000 CFU/ML MIXED GRAM POSITIVE... 12/12/16 21:55 Influenza Types A,B Antigen (KEYUR) - Final Complete Nasal Washing NEGATIVE FOR FLU A AND B ANTIGEN.... 12/12/16 21:25 Aerobic Blood Culture - Preliminary Resulted Blood Peripheral NO GROWTH IN 2 DAYS 12/12/16 21:25 Anaerobic Blood Culture - Preliminary Resulted Blood Peripheral NO GROWTH IN 2 DAYS Imaging Last Impressions Chest X-Ray 12/12/162040 Signed Impressions: Service Date/Time: Monday, December 12, 2016 21:03 - CONCLUSION: No acute cardiopulmonary disease. Fred Acevedo MD Abdomen/Pelvis CT 12/12/162040 Signed Impressions: Service Date/Time: Tuesday, December 13, 2016 00:07 - CONCLUSION: 1. There is a mild amount gas in the lumen of the sigmoid colon with transition in diameter in the distal sigmoid without definite mass seen. If the patient has not had a colonoscopy, may consider such. 2. Nonspecific lymph nodes in the periaortic region upper abdomen, subcentimeter in size, and unchanged from August 2016. 3. Small hiatus hernia, stable. Damian Reinoso MD Physical Exam HEENT: Normocephalic; atraumatic; no jaundice. CHEST: CTA CARDIAC: RRR ABDOMEN: Soft, nondistended,mild RUQ/Right sided- in middle tenderness; no hepatosplenomegaly; bowel sounds are present in all four quadrants. EXTREMITIES: No clubbing, cyanosis, or edema. SKIN: Normal; no rash; no jaundice. ARCHITECTURAL DESIGN LECTURER: No focal deficits; alert and oriented times three. Assessment and Plan Plan ASSESSMENT: - Abnormal imaging on CT with questionable partial obstruction in sigmoid colon. Abdomen/Pelvis CT (12/12/16)-----> 1. There is a mild amount gas in the lumen of the sigmoid colon with transition in diameter in the distal sigmoid without definite mass seen. If the patient has not had a colonoscopy, may consider such. 2. Nonspecific lymph nodes in the periaortic region upper abdomen, subcentimeter in size, and unchanged from August 2016. 3. Small hiatus hernia, stable. Last colonoscopy was about 1.5 years ago, normal per patient. She had a colonoscopy prior to that with colon polyps. She has chronic diarrhea and denies any hx of IBD, but does note that her pocket creaser is checking labs for this. She has a hx of diverticulosis without diverticulitis. CT imaging revealed by Dr. Hatfield. No need for egd/colonoscopy at this time. Continues to have right sided abdominal pain, cramping. No BM during this hospitalization. Will start miralax. - RUQ pain. 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 She cannot tell if this is related to food. She has elevated transaminases. D/W Dr. Membreno/Liu, unclear if LFTs are elevated secondary to medication vs. SOD. LFTs are trending down, T. Bili 0.4, AST 74, ALT 92, Alk Phosph 235. PPI, Advance diet as tolerated. - Elevated LFTs. Started CBD Hemp oil one month ago. Started Sulfasalazine on and took Tuesday, but stopped at that time secondary to fevers. She had elevated LFTs during a prior hospitalization in August of 2016, but normal on 08/27/16. Her mother from complications related to cirrhosis. 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 In August of 2016, she had a liver workup with hepatitis profile negative, AMELIA negative, AMA < 20.0, ASMA negative, Celiac panel negative, ferritin 29, Iron saturation 10.4, Alpha 1 antitrypsin 177, Ceruloplasmin 27. AFP 2.8. She was told that her elevated LFTs was attributed to her Methotrexate and therefore she quit taking it. Occasionally drinks alcohol. Unclear if this is r/t drug induced liver disease vs. shincter of oddi dysfunction. If these continue to improve, it is likely more related to recent Sulfasalazine use and we will follow as outpatient for possible ERCP with sphincteroplasty as outpatient if her RUQ persists. Her LFTs are improving, although she continues to have right sided cramping like pain. T. Bili 0.4, AST 74, ALT 92, Alk Phosph 235. - Constipation with hx of intermittent chronic diarrhea. Pt reports that she has had intermittent diarrhea for years. She denies any hx of IBD, although she reports that Dr. Burleson is checking labs for IBD. Has not had bowel movement since being in the hospital. Will start Miralax. - Fevers/Chills. Pt reports she started having fevers after starting sulfasalazine on . Afebrile. nL WBC. - Anemia. 9.9/30.3. No obvious blood loss. - Ankylosing spondylitis, RA, chronic pain. Per attending. Followed by Dr. Burleson as outpatient, recently started on sulfasalazine. PLAN: - OBEY - Add Miralax - Cont. PPI - Hold sulfasalazine- She has notified Dr. Burleson's office and he would also like for her to stop this. - LFT in am - Supportive care - Further recommendations to follow based on results of above - Pt seen and examined by Dr. Hatfield and myself and this note is written on his behalf Roselia Brooks Dec 15, 2016 09:51
[2016-12-15] MEDS ORDERED: POLYETHYLENE GLYCOL 17 GM PKG PO SCH (10:00)
--- NOTE | 2016-12-15 10:40 | HHI.PR ---
Subjective Remarks no n/v, tolerating liquids well states that RUQ improved from admission no diarrhea no bm since tuesday, refused bowel regimen chronic back pain no cp no sob no fever anxious to go home, prefers to have ERCP as OP Objective Objective Results - Vital Signs Date Time Temp Pulse Resp B/P Pulse Ox O2 Delivery O2 Flow Rate FiO2 12/15/16 08:00 97.7 86 16 118/60 98 12/15/16 05:48 96.7 90 18 124/64 96 12/15/16 00:00 98.8 99 17 130/76 99 12/14/16 20:00 99.1 87 18 123/61 97 12/14/16 17:00 96.8 89 16 130/68 95 12/14/16 11:57 98.2 88 16 117/58 97 I/O 12/14/16 12/14/16 12/14/16 12/15/16 12/15/16 12/15/16 07:00 15:00 23:00 07:00 15:00 23:00 Intake Total 2355 ml 0 ml 800 ml 800 ml Balance 2355 ml 0 ml 800 ml 800 ml Intake Oral 0 ml IV Total 2355 ml 800 ml 800 ml # Voids 1 6 2 Result Diagram: 12/15/1614 12/15/16 0614 Imaging Last Impressions Chest X-Ray 12/12/162040 Signed Impressions: Service Date/Time: Monday, December 12, 2016 21:03 - CONCLUSION: No acute cardiopulmonary disease. Fred Acevedo MD Abdomen/Pelvis CT 12/12/162040 Signed Impressions: Service Date/Time: Tuesday, December 13, 2016 00:07 - CONCLUSION: 1. There is a mild amount gas in the lumen of the sigmoid colon with transition in diameter in the distal sigmoid without definite mass seen. If the patient has not had a colonoscopy, may consider such. 2. Nonspecific lymph nodes in the periaortic region upper abdomen, subcentimeter in size, and unchanged from August 2016. 3. Small hiatus hernia, stable. Damian Reinoso MD Other Results Laboratory Tests Test 12/14/16 12/15/16 13:15 06:14 Tumor Marker Alpha Fetoprotein 2.8 White Blood Count 4.9 Red Blood Count 3.66 Hemoglobin 9.9 Hematocrit 30.3 Mean Corpuscular Volume 82.8 Mean Corpuscular Hemoglobin 27.0 Mean Corpuscular Hemoglobin 32.6 Concent Red Cell Distribution Width 16.0 Platelet Count 173 Mean Platelet Volume 7.2 Neutrophils (%) (Auto) 55.7 Lymphocytes (%) (Auto) 28.8 Monocytes (%) (Auto) 10.5 Eosinophils (%) (Auto) 4.3 Basophils (%) (Auto) 0.7 Neutrophils # (Auto) 2.7 Lymphocytes # (Auto) 1.4 Monocytes # (Auto) 0.5 Eosinophils # (Auto) 0.2 Basophils # (Auto) 0.0 CBC Comment DIFF FINAL Differential Comment Sodium Level 143 Potassium Level 3.2 Chloride Level 108 Carbon Dioxide Level 23.8 Anion Gap 11 Blood Urea Nitrogen 3 Creatinine 0.54 Estimat Glomerular Filtration 116 Rate Random Glucose 72 Calcium Level 8.3 Total Bilirubin 0.4 Aspartate Amino Transf 74 (AST/SGOT) Alanine Aminotransferase 92 (ALT/SGPT) Alkaline Phosphatase 235 Total Protein 7.0 Albumin 2.6 Date/Time Procedure Status Source Growth 12/13/16 00:45 Urine Culture - Final Complete Urine Catheterized Urine 50-100,000 CFU/ML MIXED GRAM POSITIVE... 12/12/16 21:55 Influenza Types A,B Antigen (KEYUR) - Final Complete Nasal Washing NEGATIVE FOR FLU A AND B ANTIGEN.... 12/12/16 21:25 Aerobic Blood Culture - Preliminary Resulted Blood Peripheral NO GROWTH IN 2 DAYS 12/12/16 21:25 Anaerobic Blood Culture - Preliminary Resulted Blood Peripheral NO GROWTH IN 2 DAYS ROS General: Other (back pain ) HEENT: No: Sore Throat, Dysphagia Cardiac: No: Chest Pain, Edema, Palpitations Pulmonary: No: Cough, SOB, Wheezing GI: Abdominal Pain /[employer]ICE [employer]IDENT [employer] SALES: No: Dysuria, Urgency Neuro/MS: No: Lightheaded, Confusion Psych: Anxiety Skin: No: Itching, Rash Physical Exam Physical Exam GENERAL: This is a well-nourished, well-developed patient, in no apparent distress. SKIN: No rashes, ecchymoses or lesions. Cool and dry. HEAD: Atraumatic. Normocephalic. No temporal or scalp tenderness. EYES: Pupils equal round and reactive. Extraocular motions intact. No scleral icterus. No injection or drainage. ENT: Nose without bleeding, purulent drainage or septal hematoma. Throat without erythema, tonsillar hypertrophy or exudate. Uvula midline. Airway patent. NECK: Trachea midline. No JVD or lymphadenopathy. Supple, nontender, no meningeal signs. CARDIOVASCULAR: Regular rate and rhythm without murmurs, gallops, or rubs. RESPIRATORY: Clear to auscultation. Breath sounds equal bilaterally. No wheezes , rales, or rhonchi. GASTROINTESTINAL: Abdomen soft, tender to palpation to right upper quadrant- improved. Bowel sounds normoactive 4. Unable to detect any organomegaly. MUSCULOSKELETAL: Joint swelling noted to both hands. Mild edema to both hands. No other joint abnormality. Trace pretibial edema. Pedal pulses 2+. Active range of motion to all joints. NEUROLOGICAL: Awakes to voice, oriented 3. No focal deficits. Anxious Urinary Catheter: No Vascular Central Line Catheter: No A/P Diagnosis: (1) Abdominal pain (2) Rheumatoid arthritis (3) Mild dehydration (4) Transaminitis (5) Depression (6) Diarrhea (7) UTI (urinary tract infection) Assessment and Plan 61-year-old female presented to the emergency room with right upper quadrant pain, generalized malaise, nausea, vomiting, reported diarrhea, fever. Found with transaminitis. Had recently started taking sulfasalazine as well as hemp oil tabs. Reported diarrhea, has not had a BM in the last 24 hours. -Gastroenterology has been consulted for evaluation, their input is appreciated. Liver workup in progress. Has hx of sphincter of vicki dysfunction. Continue with IV fluids-dec rate -If diarrhea recurs, we will check stools for C. difficile. None, no bm since sat. Avoid hepatotoxic agents, hold sulfasalazine at this time. -per GI poss ERCP as OP if numbers continue to trend down. No plans for colonoscopy/egd at this time. -unclear if elevated LFTs sec. to meds vs sphincter of vicki dysfunction. -LFTs trending down -diet adv. will see how she does, if she can tolerate well poss dc later today -no BM since Tuesday, still with some abd. pain, will check KUB Fever, UTI, cult. mixed GPC Continue with Azactam, patient allergic to so sent and Levaquin. -Monitor CBC, monitor for fevers History rheumatoid arthritis and possible recent diagnosis of ankylosing spondylitis. -Continue to monitor Depression Continue home medications Asthma, stable, no wheezing -Ventolin INH ordered as well as duonebs PRN Reports constipation now -bowel regimen in place, refusing Heparin for DVT prophylaxis Replace Norman shepherd dc today or tomorrow, improving D/W RN D/W pt D/W Dr. Stephenson/Silvana DAILY Patient was seen by myself and Dr. Stephenson, this note is written on his behalf Problem Qualifiers (1) Abdominal pain: Qualified Code: R10.9 - Abdominal pain, unspecified location (2) Rheumatoid arthritis: Qualified Code: M06.9 - Rheumatoid arthritis involving both hands, unspecified rheumatoid factor presence (3) Depression: Qualified Code: F32.9 - Depression, unspecified depression type (4) Diarrhea: Qualified Code: R19.7 - Diarrhea, unspecified type (5) UTI (urinary tract infection): Qualified Code: N39.0 - Urinary tract infection without hematuria, site unspecified Kenia Macias Dec 15, 2016 10:40
[2016-12-15 12:00] VITALS: BP 121/71; PULSE 91; RESP 16; TEMP 97.9; O2SAT 97
--- NOTE | 2016-12-15 13:57 | RADRPT ---
EXAM DATE/TIME: 12/15/2016 13:05 [facility] COMPARISON: No previous studies available for comparison. INDICATIONS : Abdominal pain, possible obstruction. MEDICAL HISTORY : Previous bile duct obstruction. SURGICAL HISTORY : Cholecystectomy. Appendectomy. ENCOUNTER: Initial ACUITY: 4 - 6 days PAIN SCORE: 10/10 LOCATION: Right lower quadrant abdomen. FINDINGS: There is no bowel obstruction or ileus. No radiopaque density resembling urinary calculi is noted. Ri ght upper quadrant surgical clip is noted. Degenerative changes and scoliosis of the thoraco-lumbar s pine are noted. Degenerative changes are noted involving the hip joints bilaterally. CONCLUSION: 1. No bowel obstruction or ileus. 2. Degenerative changes and scoliosis of the thoraco-lumbar spine are noted. 3. Degenerative changes are noted involving the hip joints bilaterally. Fred Acevedo MD on December 15, 2016 at 13:53 Board Certified Radiologist. This report was verified electronically.
[2016-12-15] MEDS ORDERED: OXYC-392 PO (13:58)
[2016-12-15] MEDS: ONDANSETRON INJ 8 MG in DEXTROSE 5% IN WATER INJ 50 ML IV PUSH PRN ×2 (14:41)
[2016-12-15 16:00] VITALS: BP 121/63; PULSE 91; RESP 16; TEMP 98.5
--- NOTE | 2016-12-15 16:42 | HHI.DS ---
Discharge Summary Admission Date Dec 13, 2016 at 01:51 Discharge Date: Dec 15, 2016 Admitting Diagnosis Intractable abdominal pain, r/o bowel obstruction/ mass (1) Abdominal pain (2) Rheumatoid arthritis (3) Mild dehydration (4) Transaminitis (5) Depression (6) Diarrhea (7) UTI (urinary tract infection) Brief History This a 61-year-old female with history of chronic joint pain secondary to rheumatoid arthritis, asthma, bipolar disease. Patient presented to the emergency room because of complaint of fever, right upper quadrant pain and overall feeling poorly. Patient states that she was recently evaluated by Dr. Burleson and was diagnosed with ankylosing spondylitis. She was prescribed sulfasalazine which she started taking last and then took another dose on Tuesday. States that on Tuesday she started to develop fevers that were low- grade and on Tuesday they spiked up to 102. She's had a dry cough but no sputum. She's had abdominal pain that is diffuse but more pronounced to the right upper quadrant. She's had loose stools, no blood. She's noted swelling on her joints. She feels that she cannot think straight and has not been eating very much and feeling nauseous. She is complaining of excessive thirst. She has not taken any more low sulfasalazine. She denies any recent sick contacts. No urinary symptoms. She has not been on any antibiotics. Indicates she has some chronic intermittent diarrhea. She's had previous GI evaluations, had capsule endoscopy EGD and colonoscopy about 3-4 years ago when she lived in [place]. Patient was evaluated in emergency room, laboratory workup was completed. CBC was unremarkable. CMP remarkable for mild hyponatremia, sodium 135. AST was 162, ALT 139, alkaline phosphatase 203. Lipase 57. Lactic acid 1.3. Urinalysis positive for trace leukocyte esterase culture pending. She was tachycardic, heart rate 122. Low-grade fever, temperature 99.2. Blood pressure initially 140s and has been trending down to 100s. Chest x-ray negative. Abdomen and pelvis CT shows mild amount of gas in the lumen of the sigmoid colon with transition in diameter and a distal sigmoid without definitive mass seen. Nonspecific lymph nodes in the periaortic region upper abdomen, subcentimeter in size and unchanged from August 2016. Small hiatal hernia. Influenza was negative. Cultures were obtained. Patient was started on IV fluids and given empiric antibiotics. A consultation has been put in place by gastroenterology who has evaluated. Apparently the patient had also recently taken hemp oil tabs. Patient is admitted for further hydration and treatment. CBC/BMP: 12/15/1614 12/15/16 0614 Significant Findings Laboratory Tests Test 12/12/16 12/12/16 12/13/16 12/14/16 21:25 22:50 00:45 06:57 Activated Partial 30.6 SEC Thromboplast Time (24.3-30.1) Monocytes (%) (Auto) 8.3 % (0.0-8.0) 11.5 % (0.0-8.0) Sodium Level 135 MEQ/L (136-145) Carbon Dioxide Level 20.3 MEQ/L (21.0-32.0) Estimat Glomerular Filtration 62 ML/MIN (>89) Rate Aspartate Amino Transf 162 U/L (15-37) 126 U/L (15-37) (AST/SGOT) Alanine Aminotransferase 139 U/L (10-53) 122 U/L (10-53) (ALT/SGPT) Alkaline Phosphatase 203 U/L 226 U/L (45-117) (45-117) Troponin I LESS THAN 0.02 NG/ML (0.02-0.05) Total Protein 9.0 GM/DL (6.4-8.2) Lipase 57 U/L (73-393) Urine Turbidity HAZY (CLEAR) Urine Specific [place] 1.047 (1.002-1.035) Urine Protein 30 mg/dL (NEG-TRACE) Urine Ketones 10 mg/dL (NEG) Urine Occult Blood TRACE (NEG) Urine Leukocyte Esterase TRACE (NEG) Urine RBC 14 /hpf (0-3) Urine Bacteria FEW /hpf (NONE) Urine Mucus FEW /lpf (OCC) Red Blood Count 3.82 MIL/MM3 (4.00-5.30) Hemoglobin 10.4 GM/DL (11.6-15.3) Hematocrit 31.8 % (35.0-46.0) Eosinophils (%) (Auto) 4.8 % (0.0-4.0) Lymphocytes # (Auto) 0.8 TH/MM3 (1.0-4.8) Albumin 2.7 GM/DL (3.4-5.0) Test 12/15/16 06:14 Red Blood Count 3.66 MIL/MM3 (4.00-5.30) Hemoglobin 9.9 GM/DL (11.6-15.3) Hematocrit 30.3 % (35.0-46.0) Monocytes (%) (Auto) 10.5 % (0.0-8.0) Eosinophils (%) (Auto) 4.3 % (0.0-4.0) Potassium Level 3.2 MEQ/L (3.5-5.1) Chloride Level 108 MEQ/L (98-107) Blood Urea Nitrogen 3 MG/DL (7-18) Random Glucose 72 MG/DL (74-106) Calcium Level 8.3 MG/DL (8.5-10.1) Aspartate Amino Transf 74 U/L (15-37) (AST/SGOT) Alanine Aminotransferase 92 U/L (10-53) (ALT/SGPT) Alkaline Phosphatase 235 U/L (45-117) Albumin 2.6 GM/DL (3.4-5.0) Imaging Last Impressions Abdomen X-Ray 12/15/16 0000 Signed Impressions: Service Date/Time: Thursday, December 15, 2016 13:05 - CONCLUSION: 1. No bowel obstruction or ileus. 2. Degenerative changes and scoliosis of the thoraco-lumbar spine are noted. 3. Degenerative changes are noted involving the hip joints bilaterally. Fred Acevedo MD Chest X-Ray 12/12/162040 Signed Impressions: Service Date/Time: Monday, December 12, 2016 21:03 - CONCLUSION: No acute cardiopulmonary disease. Fred Acevedo MD Abdomen/Pelvis CT 12/12/162040 Signed Impressions: Service Date/Time: Tuesday, December 13, 2016 00:07 - CONCLUSION: 1. There is a mild amount gas in the lumen of the sigmoid colon with transition in diameter in the distal sigmoid without definite mass seen. If the patient has not had a colonoscopy, may consider such. 2. Nonspecific lymph nodes in the periaortic region upper abdomen, subcentimeter in size, and unchanged from August 2016. 3. Small hiatus hernia, stable. Damian Reinoso MD Hospital Course This a 61-year-old female with history of chronic joint pain secondary to rheumatoid arthritis, asthma, bipolar disease. Patient presented to the emergency room because of complaint of fever, right upper quadrant pain and overall feeling poorly. Patient states that she was recently evaluated by Dr. Burleson and was diagnosed with ankylosing spondylitis. She was prescribed sulfasalazine which she started taking last and then took another dose on Tuesday. States that on Tuesday she started to develop fevers that were low- grade and on Tuesday they spiked up to 102. She's had a dry cough but no sputum. She's had abdominal pain that is diffuse but more pronounced to the right upper quadrant. She's had loose stools, no blood. She's noted swelling on her joints. She feels that she cannot think straight and has not been eating very much and feeling nauseous. She is complaining of excessive thirst. She has not taken any more low sulfasalazine. She denies any recent sick contacts. No urinary symptoms. She has not been on any antibiotics. Indicates she has some chronic intermittent diarrhea. She's had previous GI evaluations, had capsule endoscopy EGD and colonoscopy about 3-4 years ago when she lived in [place]. Patient was evaluated in emergency room, laboratory workup was completed. CBC was unremarkable. CMP remarkable for mild hyponatremia, sodium 135. AST was 162, ALT 139, alkaline phosphatase 203. Lipase 57. Lactic acid 1.3. Urinalysis positive for trace leukocyte esterase culture pending. She was tachycardic, heart rate 122. Low-grade fever, temperature 99.2. Blood pressure initially 140s and has been trending down to 100s. Chest x-ray negative. Abdomen and pelvis CT shows mild amount of gas in the lumen of the sigmoid colon with transition in diameter and a distal sigmoid without definitive mass seen. Nonspecific lymph nodes in the periaortic region upper abdomen, subcentimeter in size and unchanged from August 2016. Small hiatal hernia. Influenza was negative. Cultures were obtained. Patient was started on IV fluids and given empiric antibiotics. A consultation has been put in place by gastroenterology who has evaluated. Apparently the patient had also recently taken hemp oil tabs. Patient was admitted for further evaluation and treatment. (1) Abdominal pain (2) Rheumatoid arthritis (3) Mild dehydration (4) Transaminitis (5) Depression (6) Diarrhea (7) UTI (urinary tract infection) During the course of the hospitalization, the following took place: 61-year-old female presented to the emergency room with right upper quadrant pain, generalized malaise, nausea, vomiting, reported diarrhea, fever. Found with transaminitis. Had recently started taking sulfasalazine as well as hemp oil tabs. Reported diarrhea, has not had a BM in the last 24 hours. -Gastroenterology was consulted for evaluation, their input was appreciated. Liver workup in progress. Had hx of sphincter of vicki dysfunction. -put on IVF first, started on clear liquid idet. Avoid hepatotoxic agents, held sulfasalazine -per GI poss ERCP as OP if numbers continued to trend down. No plans for colonoscopy/egd at this time. -unclear if elevated LFTs sec. to meds vs sphincter of vicki dysfunction. -LFTs trending down -diet adv. she tolerated well. Because of no BM, KUB done, no obstruction, no ileus -RUQ pain improved, LFTs trending down. Poss sec. to Sulfasalazine. Pt. called Dr. Burleson and informed him, he agreed with stopping med. GI recommended OP follow up for poss ERCP. PT. agreeable with plan, symptoms resolving, she tolerated diet well. Fever, UTI, cult. mixed GPC -Initially treated wtih Azactam, patient allergic to Zosyn and Levaquin. -Monitored CBC, monitor for fevers -no need for abx as OP History rheumatoid arthritis and possible recent diagnosis of ankylosing spondylitis. -Continued to monitor -f/u as OP wit Dr. Burleson Depression Continued home medications Asthma, stable, not wheezing -Ventolin INH ordered as well as duonebs PRN Reported constipation -bowel regimen in place, refused to take Heparin for DVT prophylaxis K replaced, Pt. improved, tolerated diet cleared for dc Discharge home f/u GI Pt Condition on Discharge: Stable Discharge Disposition: Discharge Home Discharge Instructions DIET: Follow Instructions for: Heart Healthy Diet Activities you can perform: Weight Bearing as Lola Follow up Referrals: Gastroenterology - 2 Weeks PCP Follow-up - 1 Week Pulmonology - 2 Weeks New Medications: Oxycodone (Oxycodone) 5 Mg Tab 5 MG PO Q4H PRN PAIN 6-10 #31 TAB Continued Medications: Bupropion HCl (Bupropion HCl) 100 Mg Tab 300 MG PO DAILY Control Depression Ref 0 TAB Cholecalciferol (Vitamin D-3) 400 Unit Tab 400 MG PO DAILY Citalopram (Citalopram) 20 Mg Tab 20 MG PO DAILY Control Depression #30 Ref 0 TAB Clonazepam (Klonopin) 1 Mg Tab 1.5 MG PO BID anxiety #60 TAB Cyanocobalamin (Vitamin B12) 500 Mcg Tab 500 MCG PO DAILY #1 BOTTLE Cyclobenzaprine (Flexeril) 10 Mg Tab 10 MG PO BID Muscle Spasm #90 Ref 0 TAB Omeprazole (Omeprazole) 40 Mg Cap 40 MG PO DAILY #30 Ref 0 CAP Sumatriptan (Sumatriptan) 100 Mg Tab 100 MG PO ONCE If a satisfactory response has not been obtained at 2 hours, a second dose may be administered PRN MIGRAINE HEADACHE Ref 0 TAB Trazodone (Trazodone) 100 Mg Tab 100 MG PO HS Control Depression #30 Ref 0 TAB Discontinued Medications: Hydrocodone-Acetaminophen ([place]) 7.5-325 mg Tab 1 TAB PO Q4H PRN PAIN #60 Ref 0 TAB Sulfasalazine (Sulfasalazine) 500 Mg Tab 500 MG PO BID #90 Ref 0 TAB Kenia Macias [facility] Dec 15, 2016 16:42
[2016-12-15 18:30] VITALS: BP 125/67; PULSE 93; RESP 20; TEMP 97.6; O2SAT 98
== END 2016-12-15 19:35 | disposition home or self-care (01) | DRG 392 ==
LOC: NEPC 19:42 → NEDA 12-13 01:51 → HOCA 12-13 04:05
PROVIDERS: ADMIT Specialist; ATTEND Specialist
DX: R10.11 Right upper quadrant pain (principal); E87.1 Hypo-osmolality and hyponatremia; F11.20 Opioid dependence, uncomplicated; N39.0 Urinary tract infection, site not specified; J44.9 Chronic obstructive pulmonary disease, unspecified; E86.0 Dehydration; J45.909 Unspecified asthma, uncomplicated; G89.29 Other chronic pain; M06.9 Rheumatoid arthritis, unspecified; M45.9 Ankylosing spondylitis of unspecified sites in spine; G43.909 Migraine, unspecified, not intractable, without status migrainosus; F41.9 Anxiety disorder, unspecified; K21.9 Gastro-esophageal reflux disease without esophagitis; E78.5 Hyperlipidemia, unspecified; E78.00 Pure hypercholesterolemia, unspecified; F31.9 Bipolar disorder, unspecified; E03.9 Hypothyroidism, unspecified; J32.8 Other chronic sinusitis; M25.50 Pain in unspecified joint; K44.9 Diaphragmatic hernia without obstruction or gangrene; R00.0 Tachycardia, unspecified; M19.90 Unspecified osteoarthritis, unspecified site; R74.0 Nonspecific elevation of levels of transaminase and lactic acid dehydrogenase [LDH]; R19.7 Diarrhea, unspecified; Z87.891 Personal history of nicotine dependence; K59.00 Constipation, unspecified; Z86.010 Personal history of colon polyps; R63.1 Polydipsia
CPT/HCPCS: 71010; 74000; 74177; 76937; 80053; 80076; 81001; 82105; 82550; 83605; 83690; 83735; 84484; 85025; 85610; 85730; 87040; 87086; 87804; 93005; 96361; 96374; 96375; J1170; J1200; J1644; J2270; J2405; J3370; J7030; J7050; Q9967

== ENCOUNTER 2017-01-12 03:37 | Emergency (ER) | payer MEDICARE ==
[~2017-01-12] VITALS: Ht 152.4 cm; Wt 84.0 kg
[~2017-01-12 03:37] MED LIST changes: -BISA10R PR; -FOLI1TAB4 PO; -HYDR-3288 PO; -METH2.5T PO; +OXYC-392 PO; -PANT40TA3 PO
[2017-01-12 03:40] VITALS: BP 155/83; PULSE 109; RESP 16; TEMP 99.2; O2SAT 96
[2017-01-12 04:47] VITALS: BP 130/82; PULSE 105; RESP 24; O2SAT 98
[2017-01-12] MEDS ORDERED: TRAZ100T6 PO (04:47)
[2017-01-12] MEDS ORDERED: HYDR-3580 PO (04:47)
[2017-01-12] MEDS ORDERED: CHOL100025 CHEW (04:47)
[2017-01-12 05:45] VITALS: O2SAT 98
--- NOTE | 2017-01-12 06:05 | PD ---
HPI Chief Complaint: Flank/Kidney Pain Time Seen by Provider: 05:39 Travel History International Travel<30 days: No Contact w/Intl Traveler<30days: No Traveled to known affect area: No History of Present Illness HPI The patient is a 61 year old female who presents to the [facility] emergency department with a history of abdominal pain that began again on Tuesday. It is better in the morning. It is worse with eating and movement. It is in the right side of the front of the abdomen and radiates to the right back. Her pain is similar to when she was admitted to the hospital in the past with pancreatitis and liver inflammation in the past. She reports having associated N/V x1. She reports having Diarrhea for a couple of months- 2-3 x per day. She reports that she's had a 29 pound weight loss in the last 2 months. The patient was most recently admitted to the hospital and evaluated by the GI doctor on December 13, 2016. During that time it was difficult to determine whether the patient's elevated liver enzymes and symptoms were related to medication side effects, versus sphincter of Oddi dysfunction. It was recommended that the patient follow-up with the environmental studies department chair for consideration of ERCP if she continued to have symptoms. She reports that she has a follow-up appointment scheduled for January. The patient reports that she takes hydrocodone occasionally for pain, Zofran for nausea. On review of systems, the patient denies having any known fevers, neck pain, urinary symptoms , or neurologic symptoms. She does however report having some congestion and cough with frequent sneezing related to reportedly her allergy symptoms. She also reports having intermittent chest pain and shortness of breath. She reports that this is been determined to be related to pleurisy as her cardiac workup was negative, and her history of asthma. There is been no change with these symptoms recently. She has an appt. with her new PCP at 3:30 PM< Dr. Norton. [facility] Past Medical History Narrative Medical The patient's past medical history is significant for rheumatoid arthritis, osteoarthritis, ankylosing spondylitis, depression, migraine headaches, irritable bowel syndrome, acid reflux, sphincter of the Oddi syndrome, history of pancreatitis 2, COPD, chronic pain, diverticulosis, history of colon polyps , history of elevated LFTs presumably related to medication side effects. Arthritis: Yes Asthma: Yes Anxiety: No Depression: Yes (ON ANTIDEPRESSANTS) Cancer: No Cardiovascular Problems: Yes (Orthostatic hypotension) High Cholesterol: Yes Chemotherapy: Yes (METHOTREXATE LOW DOSES LAST TAKEN SEPTEMBER 2016) Chest Pain: Yes COPD: No Diminished Hearing: No Endocrine: Yes Gastrointestinal Disorders: Yes (lower GI POLYPS REMOVAL ) GERD: Yes Genitourinary: No Headaches: Yes (MIGRAINES) Immune Disorder: Yes (RA) Implanted Vascular Access Dvce: No Musculoskeletal: Yes Neurologic: Yes Psychiatric: No Reproductive: No Respiratory: Yes (ASTHMA) Migraines: Yes Thyroid Disease: No Menopausal: Yes : 0 Para: 0 Past Surgical History Narrative Surgical The patient's past surgical history is significant for an appendectomy, cholecystectomy, ERCP, cardiac catheterization, right shoulder rotator cuff repair, L4 5 microdiscectomy, , hysterectomy, colonoscopy. Abdominal Surgery: Yes (GI polyps removed 2009, gena 1995, appy 2007) Appendectomy: Yes Cardiac Surgery: Yes (Cardiac ablation for SVT 2007) Cholecystectomy: Yes Ear Surgery: No Eye Surgery: Yes (eye surgery for nystagmus 1978) Gynecologic Surgery: Yes Neurologic Surgery: Yes (SYPATHECTOMY ) Oral Surgery: No Other Surgery: Yes (BACK SURGERY 2015, ROTATOR CUFF SURGERY 2007) Social History Alcohol Use: Yes (RARE) Tobacco Use: No Substance Use: No Allergies-Medications (Allergen,Severity, Reaction): Coded Allergies: Levaquin (Verified Allergy, Severe, 12/12/16) Zosyn (Verified Allergy, Severe, ANAPHALACTIC SHOCK, 12/12/16) Erythromycin (Verified Allergy, Intermediate, RASH, 12/12/16) Tetracycline (Verified Allergy, Intermediate, RASH, 12/12/16) Reported Meds & Prescriptions Reported Meds & Active Scripts Active Klonopin (Clonazepam) 1 Mg Tab 1.5 Mg PO BID Reported Vitamin D3 (Cholecalciferol) 1,000 Unit Chew 400 Units CHEW DAILY Trazodone (Trazodone HCl) 100 Mg Tablet 100 Mg PO HS Hydrocodone-Acetaminophen 7.5-325 mg Tab 1 Tab PO Q6HR PRN Vitamin B12 (Cyanocobalamin) 500 Mcg Tab 500 Mcg PO DAILY Omeprazole 40 Mg Cap 40 Mg PO DAILY Sumatriptan (Sumatriptan Succinate) 100 Mg Tab 100 Mg PO ONCE PRN If a satisfactory response has not been obtained at 2 hours, a second dose may be administered Flexeril (Cyclobenzaprine HCl) 10 Mg Tab 10 Mg PO BID Citalopram (Citalopram Hydrobromide) 20 Mg Tab 20 Mg PO DAILY Bupropion HCl 100 Mg Tab 300 Mg PO DAILY Review of Systems Except as stated in HPI: all other systems reviewed are Neg General / Constitutional: No: Fever Eyes: No: Visual changes HENT: Positive: Rhinitis, Rhinorrhea, Congestion, No: Headaches Cardiovascular: Positive: Chest Pain or Discomfort (chronic) Respiratory: Positive: Shortness of Breath (intermittently, chronic), Wheezing (intermittent) Gastrointestinal: Positive: Nausea, Diarrhea, Abdominal Pain, Changes in Bowel Habits, Loss of Appetite, No: Vomiting, Indigestion Genitourinary: Positive: Flank Pain (right flank), No: Dysuria Musculoskeletal: No: Pain Skin: No Rash Neurologic: No: Weakness, Focal Abnormalities, Change in Mentation, Slurred Speech, Sensory Disturbance Psychiatric: No: Depression Endocrine: No: Polydipsia Hematologic/Lymphatic: No: Easy Bruising Physical Exam Narrative General: The patient is a well-developed well-nourished female who is uncomfortable appearing on arrival, holding the right side of her abdomen Head and Neck exam: Head is normocephalic atraumatic. Eyes: Pupils Nose: Midline septum with pink mucous membranes Mouth: Dentition unremarkable. Moist mucus membranes. Posterior oropharynx is not erythematous. No tonsillar hypertrophy. Uvula midline. Airway patent. Neck: No palpable lymphadenopathy. No nuchal rigidity. No thyromegaly. Cardiovascular: Sinus tachycardia in the low 100s without murmurs, gallops, or rubs. No pulse deficit to the extremities and spontaneous auscultation and palpation of her radial artery. Lungs: Clear to auscultation bilaterally. No wheezes, rhonchi, or rales. Abdomen: Soft, with tenderness on palpation of the right upper and right lower quadrant of the abdomen. No other tenderness on palpation of the other quadrants. The patient has a negative Botello sign. The patient has normal bowel sounds are audible. The patient has no guarding, rebound, or rigidity. Extremities: No clubbing, cyanosis, or edema. 2+ pulses in all 4 extremities. No calf tenderness on palpation. Back: No spinous process tenderness to palpation. Right-sided CVA tenderness is reported. Neurologic Exam: Grossly nonfocal. Skin Exam: No rash noted. Intact skin that is warm and dry. Data Data Last Documented VS Vital Signs Date Time Temp Pulse Resp B/P Pulse Ox O2 Delivery O2 Flow Rate FiO2 01/12/17 05:45 98 Room Air 01/12/17 04:47 105 24 130/82 01/12/17 03:40 99.2 Orders Complete Blood Count With Diff (01/12/17 05:39) Comprehensive Metabolic Panel (01/12/17 05:39) Lipase (01/12/17 05:39) Urinalysis - C+S If Indicated (01/12/17 05:39) Iv Access Insert/Monitor (01/12/17 05:39) Ecg Monitoring (01/12/17 05:39) Oximetry (01/12/17 05:39) Morphine Inj (Morphine Inj) (01/12/17 06:15) Ondansetron Inj (Zofran Inj) (01/12/17 06:15) Sodium Chlorid 0.9% 500 Ml Inj (Ns 500 M (01/12/17 06:15) Sodium Chlorid 0.9% 500 Ml Inj (Ns 500 M (01/12/17 07:30) Ct Abd/Pel W Iv Contrast(Rout) (01/12/17 07:24) Hydromorphone Pf Inj (Dilaudid Pf Inj) (01/12/17 07:30) Vascular Access Team Consult/P PRN (01/12/17 07:43) Vascular Poc Ultrasound (01/12/17 ) Labs Laboratory Tests Test 01/12/17 06:00 White Blood Count 14.1 TH/MM3 Red Blood Count 4.46 MIL/MM3 Hemoglobin 12.2 GM/DL Hematocrit 38.2 % Mean Corpuscular Volume 85.6 FL Mean Corpuscular Hemoglobin 27.3 PG Mean Corpuscular Hemoglobin 31.8 % Concent Red Cell Distribution Width 15.8 % Platelet Count 363 TH/MM3 Mean Platelet Volume 6.8 FL Neutrophils (%) (Auto) 72.0 % Lymphocytes (%) (Auto) 20.5 % Monocytes (%) (Auto) 5.9 % Eosinophils (%) (Auto) 0.9 % Basophils (%) (Auto) 0.7 % Neutrophils # (Auto) 10.2 TH/MM3 Lymphocytes # (Auto) 2.9 TH/MM3 Monocytes # (Auto) 0.8 TH/MM3 Eosinophils # (Auto) 0.1 TH/MM3 Basophils # (Auto) 0.1 TH/MM3 CBC Comment DIFF FINAL Differential Comment Sodium Level 137 MEQ/L Potassium Level 3.7 MEQ/L Chloride Level 103 MEQ/L Carbon Dioxide Level 21.8 MEQ/L Anion Gap 12 MEQ/L Blood Urea Nitrogen 24 MG/DL Creatinine 0.89 MG/DL Estimat Glomerular Filtration 65 ML/MIN Rate Random Glucose 95 MG/DL Calcium Level 9.3 MG/DL Total Bilirubin 0.3 MG/DL Aspartate Amino Transf 17 U/L (AST/SGOT) Alanine Aminotransferase 23 U/L (ALT/SGPT) Alkaline Phosphatase 155 U/L Total Protein 8.9 GM/DL Albumin 3.6 GM/DL Lipase 84 U/L MDM Medical Decision Making Medical Screen Exam Complete: Yes Emergency Medical Condition: Yes Medical Record Reviewed: Yes Differential Diagnosis Bowel obstruction, versus recurrent pancreatitis, versus recurrent hepatitis, versus sphincter of the Oddi dysfunction, versus pyelonephritis, versus kidney stone, versus exacerbation of chronic abdominal pain Narrative Course During the course of the patients emergency department visit, the patients history, examination, and differential diagnosis were reviewed with the patient. The patient had IV access obtained and blood work sent for analysis. The patient was placed on a cardiac cath lab manager with oximetry and blood pressure monitoring. The patient was initially provided normal saline 1 L IV fluid bolus, morphine 4 mg IV, Zofran 4 mg IV. The patient reported continued pain. She reports that Dilaudid works better for her. She was given 0.5 mg IV 1. The patients laboratory studies were reviewed and remarkable for a white count of 14.1, hemoglobin 12.2, platelets 363, neutrophils 72.0, CMP is remarkable for a BUN of 24, GFR of 65, alkaline phosphatase 155, total protein 8.9, lipase [address] scan of the abdomen and pelvis is pending at the conclusion of my shift. The patient's case will be checked out to the oncoming emergency physician to disposition the patient based on the conclusion of the patient's workup. Diagnosis Primary Impression: Abdominal pain Qualified Code: R10.9 - Abdominal pain, unspecified location Juliann Johnson MD Jan 12, 2017 06:05
[2017-01-12] MEDS ORDERED: MORPHINE SULFATE 4 MG/ML INJ IV PUSH ONE (06:15)
[2017-01-12] MEDS ORDERED: ONDANSETRON HCL 4 MG/2 ML VIAL IV PUSH ONE (06:15)
[2017-01-12] MEDS ORDERED: SODIUM CHLORID 0.9% 500 ML INJ 500 ML IV ONE ×2 (06:15→07:30)
[2017-01-12 06:30] LABS: AUTOMATED NEUTROPHIL # 10.2 TH/MM3 (1.8-7.7); BASOPHIL # 0.1 TH/MM3 (0-0.2); BASOPHIL % 0.7 % (0.0-2.0); EOSINOPHIL # 0.1 TH/MM3 (0-0.4); EOSINOPHIL % 0.9 % (0.0-4.0); HEMATOCRIT 38.2 % (35.0-46.0); HEMO FLAGS DIFF FINAL; LYMPH % 20.5 % (9.0-44.0); LYMPHOCYTE # 2.9 TH/MM3 (1.0-4.8); MEAN CELL VOLUME 85.6 FL (80.0-100.0); MEAN CORPUSCULAR HEMOGLOBIN 27.3 PG (27.0-34.0); MEAN CORPUSCULAR HGB CONC 31.8 % (32.0-36.0); MONO % 5.9 % (0.0-8.0); PLATELET COUNT 363 TH/MM3 (150-450); RED BLOOD COUNT 4.46 MIL/MM3 (4.00-5.30); RED CELL DISTRIBUTION WIDTH 15.8 % (11.6-17.2); WHITE BLOOD COUNT 14.1 TH/MM3 (4.0-11.0)
[2017-01-12 06:43] LABS: ALT (GPT) 23 U/L (10-53); ANION GAP 12 MEQ/L (5-15); AST (GOT) 17 U/L (15-37); BICARBONATE 21.8 MEQ/L (21.0-32.0); BLOOD UREA NITROGEN 24 MG/DL (7-18); CHLORIDE 103 MEQ/L (98-107); GLOMERULAR FILTRATION RATE 65 ML/MIN (>89); POTASSIUM 3.7 MEQ/L (3.5-5.1); SODIUM (NA) 137 MEQ/L (136-145)
[2017-01-12 06:45] LABS: ALKALINE PHOSPHATASE 155 U/L (45-117); TOTAL BILIRUBIN ADULT 0.3 MG/DL (0.2-1.0)
[2017-01-12] MEDS ORDERED: HYDROmorphone HCL PF 1 MG/ML VIAL IV PUSH ONE (07:30)
--- NOTE | 2017-01-12 08:52 | PD ---
Physical Exam Date Seen by Provider: Jan 12, 2017 Time Seen by Provider: 08:30 Narrative The patient was signed out to me by Dr. Johnson at 8:30 AM. Please see her H&P for specific details for this visit. Patient presents with complaints of flank pain. She's been medicated with Dilaudid. CT scan was ordered and is pending at the time of signout. Data Data Last Documented VS Vital Signs Date Time Temp Pulse Resp B/P Pulse Ox O2 Delivery O2 Flow Rate FiO2 01/12/17 11:14 91 17 119/58 97 Room Air 01/12/17 03:40 99.2 Orders Complete Blood Count With Diff (01/12/17 05:39) Comprehensive Metabolic Panel (01/12/17 05:39) Lipase (01/12/17 05:39) Urinalysis - C+S If Indicated (01/12/17 05:39) Iv Access Insert/Monitor (01/12/17 05:39) Ecg Monitoring (01/12/17 05:39) Oximetry (01/12/17 05:39) Morphine Inj (Morphine Inj) (01/12/17 06:15) Ondansetron Inj (Zofran Inj) (01/12/17 06:15) Sodium Chlorid 0.9% 500 Ml Inj (Ns 500 M (01/12/17 06:15) Sodium Chlorid 0.9% 500 Ml Inj (Ns 500 M (01/12/17 07:30) Ct Abd/Pel W Iv Contrast(Rout) (01/12/17 07:24) Hydromorphone Pf Inj (Dilaudid Pf Inj) (01/12/17 07:30) Hydromorphone Pf Inj (Dilaudid Pf Inj) (01/12/17 12:30) Iohexol 350 Inj (Omnipaque 350 Inj) (01/12/17 12:33) Labs Laboratory Tests Test 01/12/17 01/12/17 06:00 08:19 White Blood Count 14.1 TH/MM3 Red Blood Count 4.46 MIL/MM3 Hemoglobin 12.2 GM/DL Hematocrit 38.2 % Mean Corpuscular Volume 85.6 FL Mean Corpuscular Hemoglobin 27.3 PG Mean Corpuscular Hemoglobin 31.8 % Concent Red Cell Distribution Width 15.8 % Platelet Count 363 TH/MM3 Mean Platelet Volume 6.8 FL Neutrophils (%) (Auto) 72.0 % Lymphocytes (%) (Auto) 20.5 % Monocytes (%) (Auto) 5.9 % Eosinophils (%) (Auto) 0.9 % Basophils (%) (Auto) 0.7 % Neutrophils # (Auto) 10.2 TH/MM3 Lymphocytes # (Auto) 2.9 TH/MM3 Monocytes # (Auto) 0.8 TH/MM3 Eosinophils # (Auto) 0.1 TH/MM3 Basophils # (Auto) 0.1 TH/MM3 CBC Comment DIFF FINAL Differential Comment Sodium Level 137 MEQ/L Potassium Level 3.7 MEQ/L Chloride Level 103 MEQ/L Carbon Dioxide Level 21.8 MEQ/L Anion Gap 12 MEQ/L Blood Urea Nitrogen 24 MG/DL Creatinine 0.89 MG/DL Estimat Glomerular Filtration 65 ML/MIN Rate Random Glucose 95 MG/DL Calcium Level 9.3 MG/DL Total Bilirubin 0.3 MG/DL Aspartate Amino Transf 17 U/L (AST/SGOT) Alanine Aminotransferase 23 U/L (ALT/SGPT) Alkaline Phosphatase 155 U/L Total Protein 8.9 GM/DL Albumin 3.6 GM/DL Lipase 84 U/L Urine Color YELLOW Urine Turbidity CLEAR Urine pH 6.0 Urine Specific [place] 1.023 Urine Protein TRACE mg/dL Urine Glucose (UA) NEG mg/dL Urine Ketones NEG mg/dL Urine Occult Blood LARGE Urine Nitrite NEG Urine Bilirubin NEG Urine Urobilinogen LESS THAN 2.0 MG/DL Urine Leukocyte Esterase TRACE Urine RBC 119 /hpf Urine WBC 7 /hpf Urine Squamous Epithelial 1 /hpf Cells Urine Hyaline Casts 2 /lpf Urine Mucus FEW /lpf Microscopic Urinalysis Comment CULT NOT INDICATED MDM Medical Record Reviewed: Yes Supervised Visit with BECCA: No Narrative Course 89-year-old female history of pancreatitis in the past, presents with nausea vomiting abdominal pain. The patient has chronic pain and takes pain medicine at home. She has Lortab 7.5 already. I've offered her Bentyl and Phenergan as she states Phenergan works very well for her at home. She is amenable to this. She does have vaginal spotting and will be given a referral to [facility] through [facility]. She is instructed to return if she also any worsening symptoms. She is also instructed to follow up with primary care physician. Diagnosis Primary Impression: Abdominal pain Qualified Code: R10.9 - Abdominal pain, unspecified location Additional Impression: Vaginal spotting Referrals: [facility] Additional Instruction: Follow up with [facility] physician for your spotting. Return if feeling worse. Scripts Promethazine (Phenergan)25 Mg [id number] Mg PO Q6H PRN (NAUSEA OR VOMITING) #15 TAB Ref 0 Prov:Balta Camargo MD 01/12/17 Dicyclomine (Bentyl)10 Mg Cap10 Mg PO TID PRN (Bowel Management) #20 CAP Ref 0 Prov:Balta Camargo MD 01/12/17 Disposition: DISCHARGE HOME Condition: Stable Balta Camargo MD Jan 12, 2017 08:52
[2017-01-12 09:01] LABS: BLOOD, URINE LARGE (NEG); COMMENT (UR) CULT NOT INDICATED; CULTURE IF INDICATED CULT NOT INDICATED; GLUCOSE,URINE NEG (NEG); HYALINE CAST, URINE 2 /lpf (RARE); KETONE, URINE NEG (NEG); MUCUS URINE FEW /lpf (OCC); NITRITE,URINE NEG (NEG); SQUAMOUS EPITHELIAL CELL URINE 1 /hpf (0-5); URINE COLOR YELLOW (YELLW/STRAW)
[2017-01-12 11:14] VITALS: BP 119/58; PULSE 91; RESP 17; O2SAT 97
[2017-01-12] MEDS ORDERED: HYDROmorphone HCL PF 1 MG/ML VIAL IVS ONE (12:30)
[2017-01-12] MEDS ORDERED: IOHEXOL 350 MG/ML 10 ML VIAL (for RAD DIAG) IV ONE (12:33)
--- NOTE | 2017-01-12 12:55 | RADRPT ---
EXAM DATE/TIME: 01/12/2017 12:16 [facility] COMPARISON: CT ABDOMEN & PELVIS W CONTRAST, December 13, 2016, 0:07. INDICATIONS : Right side abdominal pain and vaginal bleeding. IV CONTRAST: 85 cc Omnipaque 350 (iohexol) IV ORAL CONTRAST: No oral contrast ingested. RADIATION DOSE: 12.86 CTDIvol (mGy) MEDICAL HISTORY : Pancreatitis. Rheumatoid arthritis. SURGICAL HISTORY : Appendectomy. Cholecystectomy. ENCOUNTER: Initial ACUITY: 3 days PAIN SCALE: 8/10 LOCATION: Right lower quadrant TECHNIQUE: Volumetric scanning of the abdomen and pelvis was performed. Using automated exposure control and adjustment of the mA and/or kV according to patient size, radiation dose was kept as low as reasonably achievable to obtain optimal diagnostic quality images. DICOM format image data is av ailable electronically for review and comparison. FINDINGS: LOWER LUNGS: The visualized lower lungs are clear. LIVER: Homogeneous density without lesion. There is no dilation of the biliary tree. No calcifi ed gallstones. The patient is status post cholecystectomy. SPLEEN: Normal size without lesion. PANCREAS: Within normal limits. KIDNEYS: Normal in size and shape. There is no mass, stone or hydronephrosis. ADRENAL GLANDS: Within normal limits. VASCULAR: There is no aortic aneurysm. BOWEL/MESENTERY: Uncomplicated colonic diverticulosis. No acute diverticulitis. ABDOMINAL WALL: Within normal limits. RETROPERITONEUM: There is no lymphadenopathy. BLADDER: No wall thickening or mass. REPRODUCTIVE: Within normal limits. INGUINAL: There is no lymphadenopathy or hernia. MUSCULOSKELETAL: Degenerative changes and scoliosis of the thoracolumbar spine are noted. CONCLUSION: 1. Uncomplicated colonic diverticulosis. 2. Degenerative changes and scoliosis of the thoracolumbar spine. 3. Etiology of postmenopausal bleeding is not explained by this examination. Pelvic ultrasound may be helpful if postmenopausal bleeding persists. Fred Acevedo MD on January 12, 2017 at 12:49 Board Certified Radiologist. This report was verified electronically.
[2017-01-12] MEDS ORDERED: PROM25TA10 PO (13:31)
[2017-01-12] MEDS ORDERED: DICY10 PO (13:31)
== END 2017-01-12 14:27 | disposition home or self-care (01) ==
LOC: NEPE 03:37
DX: R11.2 Nausea with vomiting, unspecified (principal); R10.9 Unspecified abdominal pain; N93.9 Abnormal uterine and vaginal bleeding, unspecified; K85.90 Acute pancreatitis without necrosis or infection, unspecified; R00.0 Tachycardia, unspecified; M06.9 Rheumatoid arthritis, unspecified; J44.9 Chronic obstructive pulmonary disease, unspecified; K21.9 Gastro-esophageal reflux disease without esophagitis; K58.9 Irritable bowel syndrome, unspecified
CPT/HCPCS: 74177; 80053; 81001; 83690; 85025; 96361; 96374; 96375; 96376; 99285; J1170; J2270; J2405; J7040; Q9967

== ENCOUNTER 2017-04-18 17:06 | Emergency (ER) | payer MEDICARE, OTHER ==
[~2017-04-18 17:06] MED LIST changes: +CHOL100025 CHEW; +CYCL10TA PO; -CYCL1TAB29 PO; +DICY10 PO; +HYDR-3580 PO; -OXYC-392 PO; +PROM25TA10 PO; +TRAZ100T10 PO; -TRAZ100T4 PO; -VITA400T PO; +VITA500T35 PO; -VITA500T49 PO
[2017-04-18 17:34] VITALS: BP 122/88; PULSE 100; RESP 20; TEMP 98.8; O2SAT 99
--- NOTE | 2017-04-18 17:43 | PD ---
HPI Chief Complaint: Abdominal Pain Time Seen by Provider: 17:39 Travel History International Travel<30 days: No Contact w/Intl Traveler<30days: No Traveled to known affect area: No History of Present Illness HPI 60-year-old female presents the emergency department with 2 day history of worsening right lower quadrant tenderness. Patient denies fever or chills. Patient denies urinary symptoms. Patient was seen by Dr. Alexander in her office and is felt to have possible diverticulitis. Patient's pain is currently 9 out 10. It is worse with movement or palpation. Patient has some nausea but no vomiting. He has had several instances of diarrhea in the last 2 days that this is stopped today. Patient has had her gallbladder removed as well as her appendix. Patient has multiple allergies including sulfa, doxycycline, erythromycin, levofloxacin, minocycline, piperacillin, tazobactam, tigecycline. Patient states the level floxacillin was not a true allergy, but did give her some joint pain which she attributes to the illness she had at this time. PFSH Past Medical History Arthritis: Yes Asthma: Yes Anxiety: No Depression: Yes (ON ANTIDEPRESSANTS) Cancer: No Cardiovascular Problems: Yes (Orthostatic hypotension) High Cholesterol: Yes Chemotherapy: Yes (METHOTREXATE LOW DOSES LAST TAKEN SEPTEMBER 2016) Chest Pain: Yes COPD: No Diminished Hearing: No Endocrine: Yes Gastrointestinal Disorders: Yes (lower GI POLYPS REMOVAL ) GERD: Yes Genitourinary: No Headaches: Yes (MIGRAINES) Immune Disorder: Yes (RA) Implanted Vascular Access Dvce: No Musculoskeletal: Yes Neurologic: Yes Psychiatric: No Reproductive: No Respiratory: Yes (ASTHMA) Migraines: Yes Thyroid Disease: No ?: Not Menopausal: Yes : 0 Para: 0 Past Surgical History Abdominal Surgery: Yes (GI polyps removed 2009, gena 1995, appy 2007) Appendectomy: Yes Cardiac Surgery: Yes (Cardiac ablation for SVT 2007) Cholecystectomy: Yes Ear Surgery: No Eye Surgery: Yes (eye surgery for nystagmus 1978) Gynecologic Surgery: Yes Neurologic Surgery: Yes (SYPATHECTOMY ) Oral Surgery: No Other Surgery: Yes (BACK SURGERY 2015, ROTATOR CUFF SURGERY 2007) Social History Alcohol Use: Yes (RARE) Tobacco Use: No Substance Use: No Allergies-Medications (Allergen,Severity, Reaction): Coded Allergies: levofloxacin (Unverified Allergy, Severe, 04/18/17) piperacillin (Unverified Allergy, Severe, ANAPHALACTIC SHOCK, 04/18/17) tazobactam (Unverified Allergy, Severe, ANAPHALACTIC SHOCK, 04/18/17) Sulfa (Sulfonamide Antibiotics) (Unverified Allergy, Intermediate, ) doxycycline (Unverified Allergy, Intermediate, RASH, 04/18/17) erythromycin base (Unverified Allergy, Intermediate, RASH, 04/18/17) minocycline (Unverified Allergy, Intermediate, RASH, 04/18/17) tigecycline (Unverified Allergy, Intermediate, RASH, 04/18/17) Reported Meds & Prescriptions Reported Meds & Active Scripts Active Metronidazole 500 Mg Tab 500 Mg PO TID 7 Days Cipro (Ciprofloxacin HCl) 500 Mg Tab 500 Mg PO BID 7 Days Phenergan (Promethazine HCl) 25 Mg Tablet 25 Mg PO Q6H PRN Klonopin (Clonazepam) 1 Mg Tab 1.5 Mg PO BID Reported Imuran (Azathioprine) 50 Mg Tab 50 Mg PO DAILY Hazardous agent: use appropriate precautions for handling and disposal. Trazodone (Trazodone HCl) 100 Mg Tablet 100 Mg PO HS Hydrocodone-Acetaminophen 7.5-325 mg Tab 1 Tab PO Q6HR PRN Omeprazole 40 Mg Cap 40 Mg PO DAILY Sumatriptan (Sumatriptan Succinate) 100 Mg Tab 100 Mg PO ONCE PRN If a satisfactory response has not been obtained at 2 hours, a second dose may be administered Citalopram (Citalopram Hydrobromide) 20 Mg Tab 20 Mg PO DAILY Bupropion HCl 100 Mg Tab 300 Mg PO DAILY Review of Systems Except as stated in HPI: all other systems reviewed are Neg General / Constitutional: No: Fever Eyes: No: Visual changes HENT: No: Headaches Cardiovascular: No: Chest Pain or Discomfort Respiratory: No: Shortness of Breath Gastrointestinal: Positive: Nausea, Diarrhea, Abdominal Pain (severe right lower quadrant pain), Loss of Appetite, No: Vomiting, Hematemesis, Hematochezia , Constipation, Changes in Bowel Habits, Indigestion, Dysphagia Genitourinary: No: Dysuria Musculoskeletal: No: Pain Skin: No Rash Neurologic: No: Weakness Psychiatric: No: Depression Endocrine: No: Polydipsia Hematologic/Lymphatic: No: Easy Bruising Physical Exam Narrative GENERAL: Patient appears in moderate distress. SKIN: Warm and dry. Normal color. Normal turgor. HEAD: Atraumatic. Normocephalic. EYES: Pupils equal and round. No scleral icterus. No injection or drainage. ENT: No nasal bleeding or discharge. Mucous membranes pink and moist. Pharynx is clear. Airway is patent. NECK: Trachea midline. Supple and nontender. CARDIOVASCULAR: Regular rate and rhythm. RESPIRATORY: No accessory muscle use. Clear to auscultation. Breath sounds equal bilaterally. GASTROINTESTINAL: Abdomen soft, point tenderness in the right lower quadrant with obvious rebounding guarding., nondistended. Hepatic and splenic margins not palpable. MUSCULOSKELETAL: Extremities without clubbing, cyanosis, or edema. No obvious deformities. NEUROLOGICAL: Awake and alert. No obvious cranial nerve deficits. Motor grossly within normal limits. Five out of 5 muscle strength in the arms and legs. Normal speech. PSYCHIATRIC: Appropriate mood and affect; insight and judgment normal. Data Data Last Documented VS Vital Signs Date Time Temp Pulse Resp B/P (MAP) Pulse Ox O2 Delivery O2 Flow Rate FiO2 04/18/17 17:34 98.8 100 20 122/88 (99) 99 Orders Orders Complete Blood Count With Diff (04/18/17 17:44) Comprehensive Metabolic Panel (04/18/17 17:44) Lipase (04/18/17 17:44) Lactic Acid (04/18/17 17:44) Prothrombin Time / Inr (Pt) (04/18/17 17:44) Act Partial Throm Time (Ptt) (04/18/17 17:44) Urinalysis - C+S If Indicated (04/18/17 17:44) Ct Abd/Pel W Iv Contrast(Rout) (04/18/17 17:44) Iv Access Insert/Monitor (04/18/17 17:44) Ecg Monitoring (04/18/17 17:44) Oximetry (04/18/17 17:44) NPO (04/18/17 17:44) Ondansetron Inj (Zofran Inj) (04/18/17 17:45) Sodium Chlor 0.9% 1000 Ml Inj (Ns 1000 M (04/18/17 17:44) Sodium Chloride 0.9% Flush (Ns Flush) (04/18/17 17:45) Electrocardiogram (04/18/17 17:44) Hydromorphone Pf Inj (Dilaudid Pf Inj) (04/18/17 17:45) Metronidazole 500 Mg Inj (Flagyl 500 Mg (04/18/17 17:45) Ciprofloxacin 400 Mg Premix (Cipro 400 M (04/18/17 17:45) Hydromorphone Pf Inj (Dilaudid Pf Inj) (04/18/17 19:00) Iohexol 350 Inj (Omnipaque 350 Inj) (04/18/17 19:22) Labs Laboratory Tests Test 04/18/17 18:10 White Blood Count 9.2 TH/MM3 Red Blood Count 4.39 MIL/MM3 Hemoglobin 12.7 GM/DL Hematocrit 37.7 % Mean Corpuscular Volume 85.9 FL Mean Corpuscular Hemoglobin 28.9 PG Mean Corpuscular Hemoglobin Concent 33.7 % Red Cell Distribution Width 15.6 % Platelet Count 323 TH/MM3 Mean Platelet Volume 7.2 FL Neutrophils (%) (Auto) 71.1 % Lymphocytes (%) (Auto) 20.7 % Monocytes (%) (Auto) 6.5 % Eosinophils (%) (Auto) 1.1 % Basophils (%) (Auto) 0.6 % Neutrophils # (Auto) 6.6 TH/MM3 Lymphocytes # (Auto) 1.9 TH/MM3 Monocytes # (Auto) 0.6 TH/MM3 Eosinophils # (Auto) 0.1 TH/MM3 Basophils # (Auto) 0.1 TH/MM3 CBC Comment DIFF FINAL Differential Comment Prothrombin Time 10.8 SEC Prothromb Time International Ratio 1.0 RATIO Activated Partial Thromboplast Time 27.4 SEC Blood Urea Nitrogen 8 MG/DL Creatinine 0.91 MG/DL Random Glucose 77 MG/DL Total Protein 8.2 GM/DL Albumin 3.6 GM/DL Calcium Level 9.5 MG/DL Alkaline Phosphatase 87 U/L Aspartate Amino Transf (AST/SGOT) 25 U/L Alanine Aminotransferase (ALT/SGPT) 25 U/L Total Bilirubin 0.4 MG/DL Sodium Level 138 MEQ/L Potassium Level 3.5 MEQ/L Chloride Level 105 MEQ/L Carbon Dioxide Level 23.1 MEQ/L Anion Gap 10 MEQ/L Estimat Glomerular Filtration Rate 63 ML/MIN Lactic Acid Level 1.2 mmol/L Lipase 54 U/L MDM Medical Decision Making Medical Screen Exam Complete: Yes Emergency Medical Condition: Yes Medical Record Reviewed: Yes Differential Diagnosis Right lower quadrant pain. Bowel obstruction. Diverticulitis. Narrative Course Patient appears in moderate distress but medically stable. Labs ordered including CBC, CMP, lactic acid, lipase, and urinalysis. IV access is obtained patient is given 1 mg Dilaudid IV as well as 4 mg Zofran IV. Patient is given 400 mg Cipro IV. Patient also given metronidazole 500 mg IV. Patient is given 1000 mL of normal saline bolus. CT of the abdomen/pelvis is ordered with IV contrast. CBC is unremarkable. Coagulation studies are normal. CMP is unremarkable. Lactic acid is 1.2. Lipase is 54. Urinalysis shows CT shows: CONCLUSION: 1. Mild diverticulosis again noted with no inflammatory change or obstruction. 2. Status post cholecystectomy. Patient will be treated with Cipro 500 mg twice a day 7 days. Patient also will be continued on metronidazole 500 mg 3 times a day for 7 days. Patient has pain medications at home that she can take as needed. Patient should follow-up with her primary care physician in the next several days to ensure improvement. Patient can return to emergency Department with worsening symptoms if necessary. Diagnosis Primary Impression: Abdominal pain Qualified Codes: R10.31 - Right lower quadrant pain Additional Impression: Diverticulosis of colon Referrals: Primary Care Physician Patient Instructions: General Instructions Additional Instructions: CBC is unremarkable. Coagulation studies are normal. CMP is unremarkable. Lactic acid is 1.2. Lipase is 54. Urinalysis shows CT shows: CONCLUSION: 1. Mild diverticulosis again noted with no inflammatory change or obstruction. 2. Status post cholecystectomy. Patient will be treated with Cipro 500 mg twice a day 7 days. Patient also will be continued on metronidazole 500 mg 3 times a day for 7 days. Patient has pain medications at home that she can take as needed. Patient should follow-up with her primary care physician in the next several days to ensure improvement. Patient can return to emergency Department with worsening symptoms if necessary. Med/Other Pt SpecificInfo: Prescription(s) given Scripts Metronidazole (Metronidazole) 500 Mg Tab 500 MG PO TID for Infection for 7 Days, #21 TAB 0 Refills Prov: Vida Ku MD 04/18/17 Ciprofloxacin (Cipro) 500 Mg Tab 500 MG PO BID for Infection for 7 Days, #14 TAB 0 Refills Prov: Vida Ku MD 04/18/17 Disposition: 01 DISCHARGE HOME Condition: Stable [place] Cerna Apr 18, 2017 17:43
[2017-04-18] MEDS ORDERED: SODIUM CHLOR 0.9% 1000 ML INJ 1,000 ML IV SCH (17:44)
[2017-04-18] MEDS ORDERED: SODIUM CHLORIDE 0.9% FLUSH 10 ML FLUSH IV FLUSH PRN (17:45)
[2017-04-18] MEDS ORDERED: metroNIDAZOLE 500 MG INJ 100 ML IV ONE (17:45)
[2017-04-18] MEDS ORDERED: ONDANSETRON HCL 4 MG/2 ML VIAL IVP ONE (17:45)
[2017-04-18] MEDS ORDERED: CIPROFLOXACIN 400 MG PREMIX 200 ML IV ONE (17:45)
[2017-04-18] MEDS ORDERED: HYDROmorphone HCL PF 1 MG/ML VIAL IVS ONE (17:45)
[2017-04-18 18:30] LABS: AUTOMATED NEUTROPHIL # 6.6 TH/MM3 (1.8-7.7); BASOPHIL # 0.1 TH/MM3 (0-0.2); BASOPHIL % 0.6 % (0.0-2.0); EOSINOPHIL # 0.1 TH/MM3 (0-0.4); EOSINOPHIL % 1.1 % (0.0-4.0); HEMATOCRIT 37.7 % (35.0-46.0); HEMO FLAGS DIFF FINAL; LYMPH % 20.7 % (9.0-44.0); LYMPHOCYTE # 1.9 TH/MM3 (1.0-4.8); MEAN CELL VOLUME 85.9 FL (80.0-100.0); MEAN CORPUSCULAR HEMOGLOBIN 28.9 PG (27.0-34.0); MEAN CORPUSCULAR HGB CONC 33.7 % (32.0-36.0); MONO % 6.5 % (0.0-8.0); NEUT % 71.1 % (16.0-70.0); PLATELET COUNT 323 TH/MM3 (150-450); RED BLOOD COUNT 4.39 MIL/MM3 (4.00-5.30); RED CELL DISTRIBUTION WIDTH 15.6 % (11.6-17.2); WHITE BLOOD COUNT 9.2 TH/MM3 (4.0-11.0)
[2017-04-18] MEDS ORDERED: IMUR50TA5 PO (18:43)
[2017-04-18 18:44] LABS: APTT (PATIENT) 27.4 SEC (24.3-30.1); PROTHROMBIN TIME - PATIENT 10.8 SEC (9.8-11.6)
[2017-04-18 18:49] LABS: ALT (GPT) 25 U/L (10-53); ANION GAP 10 MEQ/L (5-15); AST (GOT) 25 U/L (15-37); BICARBONATE 23.1 MEQ/L (21.0-32.0); BLOOD UREA NITROGEN 8 MG/DL (7-18); CHLORIDE 105 MEQ/L (98-107); GLOMERULAR FILTRATION RATE 63 ML/MIN (>89); POTASSIUM 3.5 MEQ/L (3.5-5.1); SODIUM (NA) 138 MEQ/L (136-145)
[2017-04-18 18:52] LABS: ALKALINE PHOSPHATASE 87 U/L (45-117); TOTAL BILIRUBIN ADULT 0.4 MG/DL (0.2-1.0)
[2017-04-18] MEDS ORDERED: HYDROmorphone HCL PF 1 MG/ML VIAL IV PUSH ONE (19:00)
[2017-04-18] MEDS ORDERED: IOHEXOL 350 MG/ML 10 ML VIAL (for RAD DIAG) IVCONTRAST ONE (19:22)
--- NOTE | 2017-04-18 19:38 | RADRPT ---
EXAM DATE/TIME: 04/18/2017 19:01 [facility] COMPARISON: CT ABDOMEN & PELVIS W CONTRAST, January 12, 2017, 12:16. INDICATIONS : Right lower abdomen pain for two days. IV CONTRAST: 81 cc Omnipaque 350 (iohexol) IV ORAL CONTRAST: No oral contrast ingested. RADIATION DOSE: 7.11 CTDIvol (mGy) MEDICAL HISTORY : Cardiovascular disease. Chronic obstructive pulmonary disease. SURGICAL HISTORY : Appendectomy. Cholecystectomy.polyp removal ENCOUNTER: Initial ACUITY: 2 days PAIN SCALE: 7/10 LOCATION: Right lower quadrant TECHNIQUE: Volumetric scanning of the abdomen and pelvis was performed. Using automated exposure control and ad justment of the mA and/or kV according to patient size, radiation dose was kept as low as reasonably achievable to obtain optimal diagnostic quality images. DICOM format image data is available electro nically for review and comparison. FINDINGS: LOWER LUNGS: The visualized lower lungs are clear. LIVER: Homogeneous density without lesion. There is no dilation of the biliary tree. Status post cholecyste ctomy. SPLEEN: Normal size without lesion. PANCREAS: Within normal limits. KIDNEYS: Normal in size and shape. There is no mass, stone or hydronephrosis. ADRENAL GLANDS: Within normal limits. VASCULAR: There is no aortic aneurysm. BOWEL/MESENTERY: There is a small hiatal hernia. There are scattered diverticuli. The stomach, small bowel, and colon demonstrate no acute abnormality. There is no free intraperitoneal air or fluid. ABDOMINAL WALL: Within normal limits. RETROPERITONEUM: There is no lymphadenopathy. BLADDER: No wall thickening or mass. REPRODUCTIVE: Within normal limits. INGUINAL: There is no lymphadenopathy or hernia. MUSCULOSKELETAL: Within normal limits for patient age. CONCLUSION: 1. Mild diverticulosis again noted with no inflammatory change or obstruction. 2. Status post cholecystectomy. Mark Chu MD on April 18, 2017 at 19:33 Board Certified Radiologist. This report was verified electronically.
[2017-04-18] MEDS ORDERED: METR1TAB76 PO (20:04)
[2017-04-18] MEDS ORDERED: CIPR-9 PO (20:04)
--- NOTE | 2017-04-19 20:44 | EKG ---
Date Performed: 04/18/2017 Time Performed: 18:23:14 PTAGE: 61 years EKG: REGULAR SUPRAVENTRICULAR SIGNIFICANT BASELINE ARTIFACT PROCLUDING ANY FURTHER INTERPRETATIO N. NONSPECIFIC ST & T-WAVE ABNORMALITY ABNORMAL RHYTHM ECG PREVIOUS TRACING : 12/13/2016 02.44 DOCTOR: Laura Arreaga Interpretating Date/Time 04/19/2017 20:42:55
== END 2017-04-18 21:18 | disposition home or self-care (01) ==
LOC: NEPE 17:06
DX: K57.90 Diverticulosis of intestine, part unspecified, without perforation or abscess without bleeding (principal); M19.90 Unspecified osteoarthritis, unspecified site; J45.909 Unspecified asthma, uncomplicated; E78.00 Pure hypercholesterolemia, unspecified; K21.9 Gastro-esophageal reflux disease without esophagitis; M06.9 Rheumatoid arthritis, unspecified; R94.31 Abnormal electrocardiogram [ECG] [EKG]; Z79.899 Other long term (current) drug therapy; Z88.0 Allergy status to penicillin
CPT/HCPCS: 74177; 80053; 83605; 83690; 85025; 85610; 85730; 93005; 96365; 96375; 96376; 99285; J0744; J1170; J2405; J7030; Q9967

== ENCOUNTER 2017-08-17 15:25 | Observation (INO) | payer MEDICARE, OTHER ==
[~2017-08-17] VITALS: Ht 170.2 cm; Wt 82.5 kg
[~2017-08-17 15:25] MED LIST changes: -CHOL100025 CHEW; +CIPR-9 PO; -CYCL10TA PO; -DICY10 PO; +IMUR50TA5 PO; +METR1TAB76 PO; -VITA500T35 PO
[2017-08-17 15:32] VITALS: BP 141/88; PULSE 114; RESP 16; TEMP 98.2; O2SAT 97
[2017-08-17] MEDS ORDERED: CYCL10TA PO (15:45)
[2017-08-17] MEDS ORDERED: SODIUM CHLORIDE 0.9% FLUSH 10 ML FLUSH IV FLUSH PRN ×2 (16:00→21:45)
[2017-08-17] MEDS ORDERED: KETOROLAC TROMETHAMINE 30 MG/ML (IVP) VIAL IVP ONE (16:00)
[2017-08-17] MEDS ORDERED: MORPHINE SULFATE 4 MG/ML INJ IV PUSH ONE ×2 (16:00→21:30)
[2017-08-17] MEDS ORDERED: ONDANSETRON HCL 4 MG/2 ML VIAL IVP ONE (16:00)
[2017-08-17 16:05] VITALS: O2SAT 98
[2017-08-17 16:30] LABS: CHLORIDE 102 MEQ/L (98-107); SODIUM (NA) 137 MEQ/L (136-145)
[2017-08-17 16:33] LABS: ALBUMIN 3.4 GM/DL (3.4-5.0); BICARBONATE 26.6 MEQ/L (21.0-32.0); CALCIUM 9.4 MG/DL (8.5-10.1)
[2017-08-17 16:34] LABS: BLOOD UREA NITROGEN 14 MG/DL (7-18); GLUCOSE,RANDOM 96 MG/DL (74-106); PROTHROMBIN TIME - PATIENT 9.8 SEC (9.8-11.6)
[2017-08-17 16:36] LABS: AUTOMATED NEUTROPHIL # 6.9 TH/MM3 (1.8-7.7); BASOPHIL % 0.4 % (0.0-2.0); EOSINOPHIL # 0.1 TH/MM3 (0-0.4); EOSINOPHIL % 0.9 % (0.0-4.0); HEMATOCRIT 37.1 % (35.0-46.0); HEMOGLOBIN 12.3 GM/DL (11.6-15.3); LYMPH % 17.7 % (9.0-44.0); LYMPHOCYTE # 1.6 TH/MM3 (1.0-4.8); MEAN CELL VOLUME 87.8 FL (80.0-100.0); MEAN CORPUSCULAR HEMOGLOBIN 29.1 PG (27.0-34.0); MEAN CORPUSCULAR HGB CONC 33.2 % (32.0-36.0); MEAN PLATELET VOLUME 6.7 FL (7.0-11.0); MONO % 5.4 % (0.0-8.0); MONOCYTE # 0.5 TH/MM3 (0-0.9); NEUT % 75.6 % (16.0-70.0); PLATELET COUNT 336 TH/MM3 (150-450); RED BLOOD COUNT 4.23 MIL/MM3 (4.00-5.30); RED CELL DISTRIBUTION WIDTH 15.7 % (11.6-17.2); WHITE BLOOD COUNT 9.1 TH/MM3 (4.0-11.0)
[2017-08-17 16:37] LABS: ALT (GPT) 20 U/L (10-53); AST (GOT) 12 U/L (15-37); CREATININE 0.74 MG/DL (0.50-1.00); GLOMERULAR FILTRATION RATE 80 ML/MIN (>89)
[2017-08-17 16:38] LABS: TOTAL BILIRUBIN ADULT 0.4 MG/DL (0.2-1.0); TOTAL PROTEIN 7.9 GM/DL (6.4-8.2)
[2017-08-17 16:39] LABS: ALKALINE PHOSPHATASE 102 U/L (45-117)
[2017-08-17 16:42] VITALS: BP 103/72; PULSE 98; RESP 20; O2SAT 98
--- NOTE | 2017-08-17 17:05 | RADRPT ---
EXAM DATE/TIME: 08/17/2017 16:19 [facility] COMPARISON: CT ABDOMEN & PELVIS W CONTRAST, April 18, 2017, 19:01. INDICATIONS : Back and right hip pain. ORAL CONTRAST: No oral contrast ingested. RADIATION DOSE: 30.70 CTDIvol (mGy) MEDICAL HISTORY : None SURGICAL HISTORY : Appendectomy. Cholecystectomy. ENCOUNTER: Initial ACUITY: 1 week PAIN SCALE: 10/10 LOCATION: Right hip TECHNIQUE: Volumetric scanning of the pelvis was performed. Using automated exposure control and adjustment of the mA and/or kV according to patient size, radiation dose was kept as low as reasonably achievable t o obtain optimal diagnostic quality images. DICOM format image data is available electronically for review and comparison. FINDINGS: BOWEL/MESENTERY: The visualized small and large bowel demonstrate no acute abnormality. There is no free fluid. There is mild sigmoid diverticulosis. BLADDER: There is no wall thickening or mass. RETROPERITONEUM: There is no aneurysm or lymphadenopathy. There is mild atherosclerotic disease. REPRODUCTIVE: Within normal limits. INGUINAL: There is no lymphadenopathy or hernia. MUSCULOSKELETAL: There is severe right hip joint osteoarthritis with joint space narrowing and osteophytes. No fractur e is identified. Sacroiliac joints demonstrate no abnormality. CONCLUSION: Severe right hip joint osteoarthritis. No acute abnormality is identified. Ivan Perez MD on August 17, 2017 at 17:00 Board Certified Radiologist. This report was verified electronically.
--- NOTE | 2017-08-17 17:09 | RADRPT ---
EXAM DATE/TIME: 08/17/2017 16:23 [facility] COMPARISON: No previous studies available for comparison. INDICATIONS : Back pain and right hip pain. RADIATION DOSE: 40.70 CTDIvol (mGy) MEDICAL HISTORY : None SURGICAL HISTORY : Cholecystectomy. Appendectomy.Back surgery. ENCOUNTER: Initial ACUITY: 1 week PAIN SCALE: 9/10 LOCATION: Right Paraspinal TECHNIQUE: Volumetric scanning of the lumbar spine was performed. Multiplanar reconstructions in the sagittal, coronal and oblique axial planes were performed. Using automated exposure control and adjustment of the mA and/or kV according to patient size, radiation dose was kept as low as reasonably achievable t o obtain optimal diagnostic quality images. DICOM format image data is available electronically for review and comparison. FINDINGS: VERTEBRAE: Normal vertebral body height. No fracture or compression deformity is present. ALIGNMENT: There is no anterolisthesis or retrolisthesis. Leftward convex curvature is present. T12-L1: No disc herniation, canal stenosis, or neural foraminal stenosis. L1-L2: Endplate osteophytes anteriorly. No disc herniation, canal stenosis, or neural foraminal stenosis. L2-L3: There is a mild diffuse disc bulge. No spinal canal stenosis or neural foraminal stenosis is visualiz ed. L3-L4: There is a mild diffuse disc bulge with mild facet hypertrophy. No spinal canal stenosis or neural fo raminal narrowing is present. L4-L5: There is a mild diffuse disc bulge with mild facet hypertrophy. No spinal canal stenosis is identifie d. There is mild to moderate right neural foraminal narrowing. L5-S1: No disc herniation, canal stenosis, or neural foraminal stenosis is present. There is mild facet hype rtrophy. The visualized paraspinal structures demonstrate no acute finding. There is moderate atherosclerotic disease of aorta. CONCLUSION: 1. Mild levoscoliosis with mild multilevel degenerative change. There is moderate neural foraminal na rrowing on the right at L4-L5. No spinal canal stenosis is visualized. 2. Moderate atherosclerotic disease. Ivan Perez MD on August 17, 2017 at 17:03 Board Certified Radiologist. This report was verified electronically.
[2017-08-17 18:13] VITALS: BP 110/71; PULSE 96; RESP 20; O2SAT 96
[2017-08-17 19:28] VITALS: BP 107/79; PULSE 100; RESP 18; O2SAT 99
[2017-08-17] MEDS ORDERED: MORPHINE SULFATE 2 MG/ML INJ IV PUSH ONE (19:45)
--- NOTE | 2017-08-17 20:09 | PD ---
HPI Chief Complaint: Musculoskeletal Complaint Time Seen by Provider: 15:37 Travel History International Travel<30 days: No Contact w/Intl Traveler<30days: No Traveled to known affect area: No History of Present Illness HPI This is a 62-year-old female who presents for right hip pain. She states that she has had over a year of intermittent pain in the right hip. Over the last 4- 5 days, it has increased. It now radiates to the buttock and upper posterior leg. It is aggravated by movement. Alleviated by rest. She does take chronic pain medication but this is not currently alleviating her pain. No associated fever, chills, skin changes. No erythema or increased warmth. No repeat injuries. No focal weakness, numbness, saddle paresthesias, bowel or bladder dysfunction. She does note some intermittent paresthesias in the right leg as if she has a sock that is on too tight. It is not in a dermatomal pattern. No midline back pain. Symptoms are mild to moderate in severity. Onset gradual. PFSH Past Medical History Arthritis: Yes Asthma: Yes Anxiety: No Depression: Yes (ON ANTIDEPRESSANTS) Cardiovascular Problems: Yes (Orthostatic hypotension) High Cholesterol: Yes Chemotherapy: Yes (METHOTREXATE LOW DOSES LAST TAKEN SEPTEMBER 2016) Chest Pain: Yes Diminished Hearing: No Endocrine: Yes Gastrointestinal Disorders: Yes (lower GI POLYPS REMOVAL ) GERD: Yes Genitourinary: No Headaches: Yes (MIGRAINES) Immune Disorder: Yes (SPONDYLITIS) Implanted Vascular Access Dvce: No Musculoskeletal: Yes Neurologic: Yes Psychiatric: No Reproductive: No Respiratory: Yes (ASTHMA) Migraines: Yes Thyroid Disease: No Menopausal: Yes : 0 Para: 0 Past Surgical History Abdominal Surgery: Yes (GI polyps removed 2009, gena 1995, appy 2007) Appendectomy: Yes Cardiac Surgery: Yes (Cardiac ablation for SVT 2007) Cholecystectomy: Yes Ear Surgery: No Eye Surgery: Yes (eye surgery for nystagmus 1978) Gynecologic Surgery: Yes Neurologic Surgery: Yes (SYPATHECTOMY ) Oral Surgery: No Other Surgery: Yes (BACK SURGERY 2015, ROTATOR CUFF SURGERY 2007) Social History Alcohol Use: Yes (RARE) Tobacco Use: No Substance Use: No Allergies-Medications (Allergen,Severity, Reaction): Coded Allergies: levofloxacin (Unverified Allergy, Severe, 08/17/17) piperacillin (Unverified Allergy, Severe, ANAPHALACTIC SHOCK, 08/17/17) tazobactam (Unverified Allergy, Severe, ANAPHALACTIC SHOCK, 08/17/17) Sulfa (Sulfonamide Antibiotics) (Unverified Allergy, Intermediate, 08/17/17 ) doxycycline (Unverified Allergy, Intermediate, RASH, 08/17/17) erythromycin base (Unverified Allergy, Intermediate, RASH, 08/17/17) minocycline (Unverified Allergy, Intermediate, RASH, 08/17/17) tigecycline (Unverified Allergy, Intermediate, RASH, 08/17/17) Reported Meds & Prescriptions Reported Meds & Active Scripts Active Klonopin (Clonazepam) 1 Mg Tab 1.5 Mg PO BID Reported Flexeril (Cyclobenzaprine HCl) 10 Mg Tab 10 Mg PO TID Imuran (Azathioprine) 50 Mg Tab 50 Mg PO DAILY Hazardous agent: use appropriate precautions for handling and disposal. Hydrocodone-Acetaminophen 7.5-325 mg Tab 1 Tab PO Q6HR PRN Omeprazole 40 Mg Cap 40 Mg PO DAILY Sumatriptan (Sumatriptan Succinate) 100 Mg Tab 100 Mg PO ONCE PRN If a satisfactory response has not been obtained at 2 hours, a second dose may be administered Citalopram (Citalopram Hydrobromide) 20 Mg Tab 20 Mg PO DAILY Bupropion HCl 100 Mg Tab 300 Mg PO DAILY Review of Systems Except as stated in HPI: all other systems reviewed are Neg Physical Exam Narrative GENERAL: Alert, well nourished, well appearing patient resting on the bed in no acute distress. Vital Signs reviewed SKIN: Focused skin assessment warm/dry. HEAD: Atraumatic. Normocephalic. EYES: Pupils equal and round. No scleral icterus. No injection or drainage. ENT: No nasal bleeding or discharge. Mucous membranes pink and moist. NECK: Trachea midline. No JVD. Spontaneous, painless full range of motion with no meningismus CARDIOVASCULAR: Regular rate and rhythm. No murmur appreciated. Extremities warm and well perfused with bounding peripheral pulses RESPIRATORY: No accessory muscle use. Clear to auscultation. Breath sounds equal bilaterally. Breathing easily and speaking in full sentences GASTROINTESTINAL: Abdomen soft, non-tender, nondistended. Normal bowel sounds. No rigid, rebound, guarding MUSCULOSKELETAL: No obvious deformities. No clubbing. No cyanosis. No edema. Compartments are soft. No palpable calf cords. Bounding DP pulses bilaterally. Patient complains of pain at right lateral hip, worse with hip flexion. NEUROLOGICAL: Awake and alert. No obvious cranial nerve deficits. Motor grossly within normal limits. Normal speech. Symmetric bilateral patellar reflexes. Sensation: Patient complains of subjective mild paresthesias on the dorsum of the left foot. She is able to differentiate between soft and sharp touch. This is not in a dermatomal pattern. Sensation is otherwise intact in right lower extremity. Data Data Last Documented VS Vital Signs Date Time Temp Pulse Resp B/P (MAP) Pulse Ox O2 Delivery O2 Flow Rate FiO2 08/17/17 21:43 16 08/17/17 19:28 100 107/79 (88) 99 Room Air 08/17/17 15:32 98.2 Orders Orders Complete Blood Count With Diff (08/17/17 15:53) Comprehensive Metabolic Panel (08/17/17 15:53) Prothrombin Time / Inr (Pt) (08/17/17 15:53) Act Partial Throm Time (Ptt) (08/17/17 15:53) Iv Access Insert/Monitor (08/17/17 15:53) Ecg Monitoring (08/17/17 15:53) Oximetry (08/17/17 15:53) Morphine Inj (Morphine Inj) (08/17/17 16:00) Ondansetron Inj (Zofran Inj) (08/17/17 16:00) Sodium Chloride 0.9% Flush (Ns Flush) (08/17/17 16:00) Ketorolac Inj (Toradol Inj) (08/17/17 16:00) Ct Lumb Spine W/O Contrast (08/17/17 15:53) Ct Pelvis W/O Iv Contrast (08/17/17 ) Mri L Spine W/O Contrast (08/17/17 ) Mri Joint Hip W/O Contrast (08/17/17 ) Morphine Inj (Morphine Inj) (08/17/17 19:45) Morphine Inj (Morphine Inj) (08/17/17 21:30) Ondansetron Inj (Zofran Inj) (08/17/17 21:30) Place In Observation (08/17/17 ) Vital Signs (Adult) Q4H (08/17/17 21:43) Activity Oob Ad Linda (08/17/17 21:43) Intake + Output ISABELLA.QSHIFT (08/17/17 21:43) Diet Heart Healthy (08/18/17 Breakfast) Sodium Chloride 0.9% Flush (Ns Flush) (08/17/17 21:45) Sodium Chloride 0.9% Flush (Ns Flush) (08/18/17 09:00) Basic Metabolic Panel (Bmp) (08/18/17 06:00) Complete Blood Count With Diff (08/18/17 06:00) Pt Request For Service (08/17/17 21:43) Case Management Consult (08/17/17 21:43) Scd Bilateral/Knee High ISABELLA.BID (08/17/17 21:43) Naloxone Inj (Narcan Inj) (08/17/17 21:45) Ketorolac Inj (Toradol Inj) (08/17/17 22:00) Admit Order (Ed Use Only) (08/17/17 21:58) Labs Laboratory Tests Test 08/17/17 16:00 White Blood Count 9.1 TH/MM3 Red Blood Count 4.23 MIL/MM3 Hemoglobin 12.3 GM/DL Hematocrit 37.1 % Mean Corpuscular Volume 87.8 FL Mean Corpuscular Hemoglobin 29.1 PG Mean Corpuscular Hemoglobin Concent 33.2 % Red Cell Distribution Width 15.7 % Platelet Count 336 TH/MM3 Mean Platelet Volume 6.7 FL Neutrophils (%) (Auto) 75.6 % Lymphocytes (%) (Auto) 17.7 % Monocytes (%) (Auto) 5.4 % Eosinophils (%) (Auto) 0.9 % Basophils (%) (Auto) 0.4 % Neutrophils # (Auto) 6.9 TH/MM3 Lymphocytes # (Auto) 1.6 TH/MM3 Monocytes # (Auto) 0.5 TH/MM3 Eosinophils # (Auto) 0.1 TH/MM3 Basophils # (Auto) 0.0 TH/MM3 CBC Comment DIFF FINAL Differential Comment Prothrombin Time 9.8 SEC Prothromb Time International Ratio 1.0 RATIO Activated Partial Thromboplast Time 27.0 SEC Blood Urea Nitrogen 14 MG/DL Creatinine 0.74 MG/DL Random Glucose 96 MG/DL Total Protein 7.9 GM/DL Albumin 3.4 GM/DL Calcium Level 9.4 MG/DL Alkaline Phosphatase 102 U/L Aspartate Amino Transf (AST/SGOT) 12 U/L Alanine Aminotransferase (ALT/SGPT) 20 U/L Total Bilirubin 0.4 MG/DL Sodium Level 137 MEQ/L Potassium Level 3.5 MEQ/L Chloride Level 102 MEQ/L Carbon Dioxide Level 26.6 MEQ/L Anion Gap 8 MEQ/L Estimat Glomerular Filtration Rate 80 ML/MIN MDM Medical Decision Making Medical Screen Exam Complete: Yes Emergency Medical Condition: Yes Medical Record Reviewed: Yes Interpretation(s) Last [address] 08/17/17 1553 Signed Impressions: Service Date/Time: Thursday, August 17, 2017 16:23 - CONCLUSION: 1. Mild levoscoliosis with mild multilevel degenerative change. There is moderate neural foraminal narrowing on the right at L4-L5. No spinal canal stenosis is visualized. 2. Moderate atherosclerotic disease. Ivan Perez MD Pelvis CT 08/17/17 0000 Signed Impressions: Service Date/Time: Thursday, August 17, 2017 16:19 - CONCLUSION: Severe right hip joint osteoarthritis. No acute abnormality is identified. Ivan Perez MD Laboratory Tests Test 08/17/17 16:00 White Blood Count 9.1 TH/MM3 Red Blood Count 4.23 MIL/MM3 Hemoglobin 12.3 GM/DL Hematocrit 37.1 % Mean Corpuscular Volume 87.8 FL Mean Corpuscular Hemoglobin 29.1 PG Mean Corpuscular Hemoglobin Concent 33.2 % Red Cell Distribution Width 15.7 % Platelet Count 336 TH/MM3 Mean Platelet Volume 6.7 FL Neutrophils (%) (Auto) 75.6 % Lymphocytes (%) (Auto) 17.7 % Monocytes (%) (Auto) 5.4 % Eosinophils (%) (Auto) 0.9 % Basophils (%) (Auto) 0.4 % Neutrophils # (Auto) 6.9 TH/MM3 Lymphocytes # (Auto) 1.6 TH/MM3 Monocytes # (Auto) 0.5 TH/MM3 Eosinophils # (Auto) 0.1 TH/MM3 Basophils # (Auto) 0.0 TH/MM3 CBC Comment DIFF FINAL Differential Comment Prothrombin Time 9.8 SEC Prothromb Time International Ratio 1.0 RATIO Activated Partial Thromboplast Time 27.0 SEC Blood Urea Nitrogen 14 MG/DL Creatinine 0.74 MG/DL Random Glucose 96 MG/DL Total Protein 7.9 GM/DL Albumin 3.4 GM/DL Calcium Level 9.4 MG/DL Alkaline Phosphatase 102 U/L Aspartate Amino Transf (AST/SGOT) 12 U/L Alanine Aminotransferase (ALT/SGPT) 20 U/L Total Bilirubin 0.4 MG/DL Sodium Level 137 MEQ/L Potassium Level 3.5 MEQ/L Chloride Level 102 MEQ/L Carbon Dioxide Level 26.6 MEQ/L Anion Gap 8 MEQ/L Estimat Glomerular Filtration Rate 80 ML/MIN Differential Diagnosis Arthritis, occult fracture, sciatica, spinal stenosis, muscle spasm Narrative Course IV access was established. Labs, imaging were ordered. Patient was given IV morphine with improvement in her pain. As of 8:20 PM, patient is still at MRI. Care has been signed out to Dr. Gurrola. Further evaluation, care and disposition decisions will be per Dr. Gurrola. Maria Esther Avalos MD Aug 17, 2017 20:09
--- NOTE | 2017-08-17 20:57 | RADRPT ---
EXAM DATE/TIME: 08/17/2017 20:01 [facility] COMPARISON: No previous studies available for comparison. INDICATIONS : HNP. Back pain radiating to right leg. MEDICAL HISTORY : None. SURGICAL HISTORY : Appendectomy. Cholecystectomy. Rotator cuff, right. ENCOUNTER: Subsequent ACUITY: 1 day PAIN SCORE: 9/10 LOCATION: back. TECHNIQUE: Multiplanar multisequence MRI of the lumbar spine was performed without contrast. FINDINGS: The most caudal appearing lumbar vertebra is numbered as L5. VERTEBRAE: Homogeneous signal. Normal alignment. CONUS: Normal level and configuration. T12-L1: The thecal sac has a normal diameter. No evidence of disc bulge or protrusion. The neural foramina are patent bilaterally. L1-L2: The thecal sac has a normal diameter. No evidence of disc bulge or protrusion. The neural foramina are patent bilaterally. L2-L3: The thecal sac has a normal diameter. No evidence of disc bulge or protrusion. The neural foramina are patent bilaterally. L3-L4: The thecal sac has a normal diameter. No evidence of disc bulge or protrusion. The neural foramina are patent bilaterally. L4-L5: There is loss of disc height consistent with degenerative disc disease. There is a mild diffuse asymm etric disc bulge to the right as well as right-sided facet joint hypertrophy resulting in moderate ri ght neural foraminal narrowing and probable impingement upon the right L4 nerve root. Clinical correl ation is recommended. No spinal stenosis is noted. L5-S1: The thecal sac has a normal diameter. No evidence of disc bulge or protrusion. The neural foramina are patent bilaterally. CONCLUSION: Diffuse asymmetric disc bulge to the right and right-sided facet joint hypertrophy re sulting in moderate right neural foraminal narrowing at L4-5 and probable impingement upon the right L4 nerve root. Clinical correlation is recommended. Fred Acevedo MD on August 17, 2017 at 20:51 Board Certified Radiologist. This report was verified electronically.
--- NOTE | 2017-08-17 21:12 | RADRPT ---
EXAM DATE/TIME: 08/17/2017 20:25 [facility] COMPARISON: No previous studies available for comparison. INDICATIONS : Right hip pain. No injury. MEDICAL HISTORY : None. SURGICAL HISTORY : Rotator cuff, right. Cholecystectomy. Appendectomy. ENCOUNTER: Subsequent ACUITY: 1 day PAIN SCORE: 9/10 LOCATION: Right hip. TECHNIQUE: Multiplanar, multisequence MRI examination was performed without contrast. FINDINGS: Mild osteoarthritis is noted involving the right hip joint. Minimal osteoarthritis is noted involving left hip joint. There is no acute fracture or dislocation of either hip. No underlying focal bony ab normality is noted. No significant joint effusion is noted. No marrow infiltration is noted. There is no evidence of avascular necrosis. The soft tissues and musculature are unremarkable. CONCLUSION: 1. Mild osteoarthritis involving right hip joint and minimal osteoarthritis involving the left hip kallie int. 2. No acute fracture, dislocation, focal bony abnormality or avascular necrosis. Fred Acevedo MD on August 17, 2017 at 21:08 Board Certified Radiologist. This report was verified electronically.
--- NOTE | 2017-08-17 21:26 | PD ---
Physical Exam Time Seen by Provider: 21:[address] oseguera left this patient with me to check the MRI of the lumbar spine and right hip to rule out fracture. Data Data Last Documented VS Vital Signs Date Time Temp Pulse Resp B/P (MAP) Pulse Ox O2 Delivery O2 Flow Rate FiO2 08/17/17 19:47 18 08/17/17 19:28 100 107/79 (88) 99 Room Air 08/17/17 15:32 98.2 Orders Orders Complete Blood Count With Diff (08/17/17 15:53) Comprehensive Metabolic Panel (08/17/17 15:53) Prothrombin Time / Inr (Pt) (08/17/17 15:53) Act Partial Throm Time (Ptt) (08/17/17 15:53) Iv Access Insert/Monitor (08/17/17 15:53) Ecg Monitoring (08/17/17 15:53) Oximetry (08/17/17 15:53) Morphine Inj (Morphine Inj) (08/17/17 16:00) Ondansetron Inj (Zofran Inj) (08/17/17 16:00) Sodium Chloride 0.9% Flush (Ns Flush) (08/17/17 16:00) Ketorolac Inj (Toradol Inj) (08/17/17 16:00) Ct Lumb Spine W/O Contrast (08/17/17 15:53) Ct Pelvis W/O Iv Contrast (08/17/17 ) Mri L Spine W/O Contrast (08/17/17 ) Mri Joint Hip W/O Contrast (08/17/17 ) Morphine Inj (Morphine Inj) (08/17/17 19:45) Morphine Inj (Morphine Inj) (08/17/17 21:30) Ondansetron Inj (Zofran Inj) (08/17/17 21:30) Place In Observation (08/17/17 ) Vital Signs (Adult) Q4H (08/17/17 21:43) Activity Oob Ad Linda (08/17/17 21:43) Intake + Output ISABELLA.QSHIFT (08/17/17 21:43) Diet Heart Healthy (08/18/17 Breakfast) Sodium Chloride 0.9% Flush (Ns Flush) (08/17/17 21:45) Sodium Chloride 0.9% Flush (Ns Flush) (08/18/17 09:00) Basic Metabolic Panel (Bmp) (08/18/17 06:00) Complete Blood Count With Diff (08/18/17 06:00) Pt Request For Service (08/17/17 21:43) Case Management Consult (08/17/17 21:43) Scd Bilateral/Knee High ISABELLA.BID (08/17/17 21:43) Naloxone Inj (Narcan Inj) (08/17/17 21:45) Ketorolac Inj (Toradol Inj) (08/17/17 22:00) Labs Laboratory Tests Test 08/17/17 16:00 White Blood Count 9.1 TH/MM3 Red Blood Count 4.23 MIL/MM3 Hemoglobin 12.3 GM/DL Hematocrit 37.1 % Mean Corpuscular Volume 87.8 FL Mean Corpuscular Hemoglobin 29.1 PG Mean Corpuscular Hemoglobin Concent 33.2 % Red Cell Distribution Width 15.7 % Platelet Count 336 TH/MM3 Mean Platelet Volume 6.7 FL Neutrophils (%) (Auto) 75.6 % Lymphocytes (%) (Auto) 17.7 % Monocytes (%) (Auto) 5.4 % Eosinophils (%) (Auto) 0.9 % Basophils (%) (Auto) 0.4 % Neutrophils # (Auto) 6.9 TH/MM3 Lymphocytes # (Auto) 1.6 TH/MM3 Monocytes # (Auto) 0.5 TH/MM3 Eosinophils # (Auto) 0.1 TH/MM3 Basophils # (Auto) 0.0 TH/MM3 CBC Comment DIFF FINAL Differential Comment Prothrombin Time 9.8 SEC Prothromb Time International Ratio 1.0 RATIO Activated Partial Thromboplast Time 27.0 SEC Blood Urea Nitrogen 14 MG/DL Creatinine 0.74 MG/DL Random Glucose 96 MG/DL Total Protein 7.9 GM/DL Albumin 3.4 GM/DL Calcium Level 9.4 MG/DL Alkaline Phosphatase 102 U/L Aspartate Amino Transf (AST/SGOT) 12 U/L Alanine Aminotransferase (ALT/SGPT) 20 U/L Total Bilirubin 0.4 MG/DL Sodium Level 137 MEQ/L Potassium Level 3.5 MEQ/L Chloride Level 102 MEQ/L Carbon Dioxide Level 26.6 MEQ/L Anion Gap 8 MEQ/L Estimat Glomerular Filtration Rate 80 ML/MIN [facility] Medical Record Reviewed: Yes Supervised Visit with BECCA: No Interpretation(s) The MRI of the right hip shows mild osteoarthritis but no acute fracture, dislocation or focal bony abnormality or avascular necrosis. The MRI of the lumbar spine shows diffuse asymmetric disc bulge to the right and right sided facet joint hypertrophy resulting in moderate right neuroforaminal narrowing at L4-5. There is probable impingement upon the right L4 nerve root. Differential Diagnosis Compression fracture lumbar spine, herniated disc lumbar spine, intractable pain lumbar spine Narrative Course The patient states she does not want to go home, the pain is too much. She claims a 10/10 even after 2, 4 mg doses of IV morphine. The pain does shoot down to the right leg, this is where the disc bulge is. The patient states most of the pain stops at the right knee but tingling goes all the way to the right toes. Diagnosis Primary Impression: Herniated nucleus pulposus, L4-5 Additional Impression: Intractable pain Admitting Information Admitting Physician Requests: Observation Disposition: 01 DISCHARGE HOME Condition: Stable Liam Gurrola MD Aug 17, 2017 21:26
[2017-08-17] MEDS ORDERED: ONDANSETRON HCL 4 MG/2 ML VIAL IV ONE (21:30)
[2017-08-17] MEDS ORDERED: NALOXONE HCL 0.4 MG/ML AMP IV PUSH PRN (21:45)
[2017-08-17 22:47] VITALS: BP 110/95; PULSE 78; RESP 16; O2SAT 98
[2017-08-18] MEDS: KETOROLAC TROMETHAMINE 30 MG/ML (IVP) VIAL IV PUSH PRN ×2 (01:45→09:31)
[2017-08-18] MEDS ORDERED: ACETAMINOPHEN/HYDROcodone 325 MG/5 MG TAB PO ONE (03:30)
[2017-08-18] MEDS ORDERED: diphenhydrAMINE HCL 25 MG CAP PO ONE (03:30)
[2017-08-18 06:45] LABS: AUTOMATED NEUTROPHIL # 4.4 TH/MM3 (1.8-7.7); BASOPHIL % 0.3 % (0.0-2.0); EOSINOPHIL # 0.1 TH/MM3 (0-0.4); EOSINOPHIL % 1.3 % (0.0-4.0); HEMATOCRIT 33.2 % (35.0-46.0); HEMOGLOBIN 11.1 GM/DL (11.6-15.3); LYMPH % 24.5 % (9.0-44.0); LYMPHOCYTE # 1.5 TH/MM3 (1.0-4.8); MEAN CELL VOLUME 87.9 FL (80.0-100.0); MEAN CORPUSCULAR HEMOGLOBIN 29.5 PG (27.0-34.0); MEAN CORPUSCULAR HGB CONC 33.6 % (32.0-36.0); MEAN PLATELET VOLUME 6.6 FL (7.0-11.0); MONO % 3.9 % (0.0-8.0); MONOCYTE # 0.2 TH/MM3 (0-0.9); PLATELET COUNT 311 TH/MM3 (150-450); RED BLOOD COUNT 3.77 MIL/MM3 (4.00-5.30); RED CELL DISTRIBUTION WIDTH 15.7 % (11.6-17.2); WHITE BLOOD COUNT 6.2 TH/MM3 (4.0-11.0)
[2017-08-18 07:03] LABS: BICARBONATE 28.2 MEQ/L (21.0-32.0); CALCIUM 8.6 MG/DL (8.5-10.1); CREATININE 0.88 MG/DL (0.50-1.00)
[2017-08-18 08:00] VITALS: BP 122/78; PULSE 75; RESP 18; TEMP 97.2; O2SAT 97
[2017-08-18] MEDS: SODIUM CHLORIDE 0.9% FLUSH 10 ML FLUSH IV FLUSH SCH ×2 (09:00→09:30)
--- NOTE | 2017-08-18 11:13 | HHI.HP ---
[facility] Service [facility] Primary Care Physician Jayme Costa MD Admission Diagnosis Herniated nucleus pulposus, intractable pain Diagnoses: (1) Intractable pain Chief Complaint: Right hip pain Travel History International Travel<30 Days: No Contact w/Intl Traveler <30 Da: No Traveled to Known Affected Are: No History of Present Illness The patient is a 62-year-old female who presented to the emergency department with complaint of right hip pain. She has reported pain in the right hip intermittently for more than a year. Over the past 4-5 days the pain has worsened significantly. It radiates down her right leg. She reports numbness in the lateral toes of the right foot. She was admitted to the hospital last year for similar complaints and had an abnormality noted on MRI. She was evaluated by orthopedic surgery, and nonsurgical management was recommended. Review of Systems Constitutional: DENIES: Fever, Chills, Night Sweats Eyes: DENIES: Blurred vision, Vision loss Ears, nose, mouth, throat: DENIES: Hearing loss Respiratory: DENIES: Cough, Wheezing, Sputum production, Shortness of breath Cardiovascular: DENIES: Chest pain, Palpitations, Dyspnea on Exertion, Lower Extremity Edema Gastrointestinal: DENIES: Abdominal pain, Constipation, Diarrhea, Nausea, Vomiting Genitourinary: DENIES: Urinary frequency, Urinary incontinence, Urgency, Hematuria, Dysuria, Nocturia Musculoskeletal: COMPLAINS OF: Joint pain, DENIES: Muscle aches Integumentary: DENIES: Pruritus, Rash Hematologic/lymphatic: DENIES: Bruising Neurologic: COMPLAINS OF: Localized weakness, Paresthesias, DENIES: Headache Past Family Social History Past Medical History Asthma Osteoarthritis Orthostatic hypotension Spondylitis GERD Hyperlipidemia Past Surgical History Cholecystectomy Appendectomy Cardiac ablation for SVT in 2007 Eye surgery for nystagmus 1979 Back surgery 2016 (patient reports that this was done at the L4 level) Right rotator cuff surgery Reported Medications Klonopin (Clonazepam) 1 Mg Tab 1.5 Mg PO BID Flexeril (Cyclobenzaprine HCl) 10 Mg Tab 10 Mg PO TID Imuran (Azathioprine) 50 Mg Tab 50 Mg PO DAILY Hazardous agent: use appropriate precautions for handling and disposal. Hydrocodone-Acetaminophen 7.5-325 mg Tab 1 Tab PO Q6HR PRN Omeprazole 40 Mg Cap 40 Mg PO DAILY Sumatriptan (Sumatriptan Succinate) 100 Mg Tab 100 Mg PO ONCE PRN If a satisfactory response has not been obtained at 2 hours, a second dose may be administered Citalopram (Citalopram Hydrobromide) 20 Mg Tab 20 Mg PO DAILY Bupropion HCl 100 Mg Tab 300 Mg PO DAILY Allergies: Coded Allergies: levofloxacin (Unverified Allergy, Severe, 08/17/17) piperacillin (Unverified Allergy, Severe, ANAPHALACTIC SHOCK, 08/17/17) tazobactam (Unverified Allergy, Severe, ANAPHALACTIC SHOCK, 08/17/17) Sulfa (Sulfonamide Antibiotics) (Unverified Allergy, Intermediate, 08/17/17 ) doxycycline (Unverified Allergy, Intermediate, RASH, 08/17/17) erythromycin base (Unverified Allergy, Intermediate, RASH, 08/17/17) minocycline (Unverified Allergy, Intermediate, RASH, 08/17/17) tigecycline (Unverified Allergy, Intermediate, RASH, 08/17/17) Family History Diabetes Social History The patient denies tobacco or illicit drug use. Reports rare alcohol use. Physical Exam Vital Signs Vital Signs Date Time Temp Pulse Resp B/P (MAP) Pulse Ox O2 Delivery O2 Flow Rate FiO2 08/18/17 08:00 97.2 75 18 122/78 (93) 97 08/18/17 00:51 08/17/17 22:47 78 16 110/95 (100) 98 Room Air 08/17/17 21:43 16 08/17/17 19:47 18 08/17/17 19:28 100 18 107/79 (88) 99 Room Air 08/17/17 18:13 96 20 110/71 (84) 96 08/17/17 16:42 98 20 103/72 (82) 98 08/17/17 16:05 98 08/17/17 15:32 98.2 114 16 141/88 (105) 97 Physical Exam GENERAL: Well-nourished, well-developed female in no acute distress. HEENT: Normocephalic, atraumatic. Pupils equal, round and reactive. Extraocular movements intact. No scleral icterus. No injection or drainage. Oropharynx is clear. Mucous membranes are moist. CARDIOVASCULAR: Regular rate and rhythm without murmurs, gallops, or rubs. RESPIRATORY: Clear to auscultation. No wheezes, rales, or rhonchi. Breathing is non-labored. GASTROINTESTINAL: Abdomen soft, non-tender, nondistended. EXTREMITIES: No lower extremity edema. No calf tenderness. PSYCH: Alert and oriented x 3. NEURO: Moves all extremities well. Strength is equal in both lower extremities. Patient reports slight decreased sensation over the great toe on the right foot. Laboratory Laboratory Tests Test 08/17/17 16:00 08/18/17 06:30 White Blood Count 9.1 6.2 Red Blood Count 4.23 3.77 Hemoglobin 12.3 11.1 Hematocrit 37.1 33.2 Mean Corpuscular Volume 87.8 87.9 Mean Corpuscular Hemoglobin 29.1 29.5 Mean Corpuscular Hemoglobin Concent 33.2 33.6 Red Cell Distribution Width 15.7 15.7 Platelet Count 336 311 Mean Platelet Volume 6.7 6.6 Neutrophils (%) (Auto) 75.6 70.0 Lymphocytes (%) (Auto) 17.7 24.5 Monocytes (%) (Auto) 5.4 3.9 Eosinophils (%) (Auto) 0.9 1.3 Basophils (%) (Auto) 0.4 0.3 Neutrophils # (Auto) 6.9 4.4 Lymphocytes # (Auto) 1.6 1.5 Monocytes # (Auto) 0.5 0.2 Eosinophils # (Auto) 0.1 0.1 Basophils # (Auto) 0.0 0.0 CBC Comment DIFF FINAL DIFF FINAL Differential Comment Prothrombin Time 9.8 Prothromb Time International Ratio 1.0 Activated Partial Thromboplast Time 27.0 Blood Urea Nitrogen 14 19 Creatinine 0.74 0.88 Random Glucose 96 83 Total Protein 7.9 Albumin 3.4 Calcium Level 9.4 8.6 Alkaline Phosphatase 102 Aspartate Amino Transf (AST/SGOT) 12 Alanine Aminotransferase (ALT/SGPT) 20 Total Bilirubin 0.4 Sodium Level 137 139 Potassium Level 3.5 3.9 Chloride Level 102 103 Carbon Dioxide Level 26.6 28.2 Anion Gap 8 8 Estimat Glomerular Filtration Rate 80 66 Result Diagram: 08/18/1762908/18/17629 Imaging Last Impressions Lumbar Spine CT 08/17/17 1553 Signed Impressions: Service Date/Time: Thursday, August 17, 2017 16:23 - CONCLUSION: 1. Mild levoscoliosis with mild multilevel degenerative change. There is moderate neural foraminal narrowing on the right at L4-L5. No spinal canal stenosis is visualized. 2. Moderate atherosclerotic disease. Ivan Perez MD Pelvis CT 08/17/17 0000 Signed Impressions: Service Date/Time: Thursday, August 17, 2017 16:19 - CONCLUSION: Severe right hip joint osteoarthritis. No acute abnormality is identified. Ivan Perez MD Lumbar Spine MRI 08/17/17 0000 Signed Impressions: Service Date/Time: Thursday, August 17, 2017 20:01 - CONCLUSION: Diffuse asymmetric disc bulge to the right and right-sided facet joint hypertrophy resulting in moderate right neural foraminal narrowing at L4-5 and probable impingement upon the right L4 nerve root. Clinical correlation is recommended. Fred Acevedo MD Hip MRI 08/17/17 0000 Signed Impressions: Service Date/Time: Thursday, August 17, 2017 20:25 - CONCLUSION: 1. Mild osteoarthritis involving right hip joint and minimal osteoarthritis involving the left hip joint. 2. No acute fracture, dislocation, focal bony abnormality or avascular necrosis. MD Layla Doll VTE Risk Assessment Layla VTE Risk Assessment: Mod/High Risk (score >= 2) Caprini Risk Assessment Model Point Value = 1 Point Value = 2 Point Value = 3 Point Value = 5 Age 41-60 Minor surgery BMI > 25 kg/m2 Swollen legs Varicose veins or History of unexplained or recurrent spontaneous Oral contraceptives or hormone replacement Sepsis (< 1 month) Serious lung disease, including pneumonia (< 1 month) Abnormal pulmonary function Acute myocardial infarction Congestive heart failure (< 1 month) History of inflammatory bowel disease Medical patient at bed rest Age 61-74 Arthroscopic surgery Major open surgery (> 45 min) Laparoscopic surgery (> 45 min) Malignancy Confined to bed (> 72 hours) Immobilizing plaster cast Central venous access Age >= 75 History of VTE Family history of VTE Factor V Leiden Prothrombin [id number] Lupus anticoagulant Anticardiolipin antibodies Elevated serum homocysteine Heparin-induced thrombocytopenia Other congenital or acquired thrombophilia Stroke (< 1 month) Elective arthroplasty Hip, pelvis, or leg fracture Acute spinal cord injury (< 1 month) Prophylaxis Regimen Total Risk Factor Score Risk Level Prophylaxis Regimen 0-1 Low Early ambulation 2 Moderate Order ONE of the following: *Sequential Compression Device (SCD) *Heparin 5000 units SQ BID 3-4 Higher Order ONE of the following medications: *Heparin 5000 units SQ TID *Enoxaparin/Lovenox 40 mg SQ daily (WT < 150 kg, CrCl > 30 mL/min) *Enoxaparin/Lovenox 30 mg SQ daily (WT < 150 kg, CrCl > 10-29 mL/min) *Enoxaparin/Lovenox 30 mg SQ BID (WT < 150 kg, CrCl > 30 mL/min) AND/OR *Sequential Compression Device (SCD) 5 or more Highest Order ONE of the following medications: *Heparin 5000 units SQ TID (Preferred with Epidurals) *Enoxaparin/Lovenox 40 mg SQ daily (WT < 150 kg, CrCl > 30 mL/min) *Enoxaparin/Lovenox 30 mg SQ daily (WT < 150 kg, CrCl > 10-29 mL/min) *Enoxaparin/Lovenox 30 mg SQ BID (WT < 150 kg, CrCl > 30 mL/min) AND *Sequential Compression Device (SCD) Assessment and Plan Assessment and Plan 1. Right hip pain: Patient reporting numbness and paresthesias in her right foot. Imaging shows bulging disc at the L4 level with no spinal stenosis. Patient's neurologic symptoms do not necessarily follow the L4 dermatome. Continue Toradol. Patient requesting increase in pain medication. She received 3 doses of morphine, a total of 12 mg over a 6 hour period yesterday in the ER. Physical therapy eval requested. 2. GERD: Continue PPI. 3. Spondylitis: Continue Imuran. 4. Anxiety/depression: Continue citalopram, bupropion. 5. DVT prophylaxis: SCDs. Mukesh Hodges MD Aug 18, 2017 11:13
[2017-08-18 12:00] VITALS: BP 127/65; PULSE 84; RESP 18; TEMP 97.3; O2SAT 97
[2017-08-18] MEDS ORDERED: PANTOPRAZOLE SOD 40 MG DELAYED RELEASE TAB PO SCH (12:00)
[2017-08-18] MEDS ORDERED: buPROPion HCL 100 MG TAB PO SCH (12:00)
[2017-08-18] MEDS ORDERED: SUMAtriptan SUCCINATE 50 MG TAB PO PRN (12:00)
[2017-08-18] MEDS ORDERED: CITALOPRAM HYDROBROMIDE 20 MG TAB PO SCH (12:00)
[2017-08-18] MEDS ORDERED: ACETAMINOPHEN/HYDROcodone 325 MG/7.5 MG TAB PO PRN (12:00)
--- NOTE | 2017-08-18 14:49 | HHI.DCPOC ---
Discharge Care Plan Diagnosis: (1) Intractable pain (2) Herniated nucleus pulposus, L4-5 Goals to Promote Your Health * To prevent worsening of your condition and complications * To maintain your health at the optimal level Directions to Meet Your Goals Take your medications as prescribed Follow your dietary instruction Follow activity as directed Keep your appointments as scheduled Take your immunizations and boosters as scheduled If your symptoms worsen call your PCP, if no PCP go to Urgent Care Center or Emergency Room Smoking is Dangerous to Your Health. Avoid second hand smoke Call the 24-hour hour crisis hotline for domestic abuse at Mukesh Gurrola Aug 18, 2017 14:49
[2017-08-19] MEDS ORDERED: azaTHIOprine 50 MG TAB PO SCH (09:00)
== END 2017-08-18 15:50 | disposition home or self-care (01) ==
LOC: PHED 15:25 → PHEDA 21:59 → PH3A 08-18 00:34
PROVIDERS: ADMIT Hospitalist; ATTEND Hospitalist
DX: M51.26 Other intervertebral disc displacement, lumbar region (principal); M51.36 Other intervertebral disc degeneration, lumbar region; M16.11 Unilateral primary osteoarthritis, right hip; E78.00 Pure hypercholesterolemia, unspecified; J45.909 Unspecified asthma, uncomplicated; K57.30 Diverticulosis of large intestine without perforation or abscess without bleeding; K21.9 Gastro-esophageal reflux disease without esophagitis; F41.9 Anxiety disorder, unspecified; F32.9 Major depressive disorder, single episode, unspecified; M46.90 Unspecified inflammatory spondylopathy, site unspecified; M41.9 Scoliosis, unspecified
CPT/HCPCS: 72131; 72148; 72192; 73721; 80048; 80053; 85025; 85610; 85730; 96374; 96375; 96376; 97162; 99285; G0378; G8987; G8988; J1885; J2270; J2405

== ENCOUNTER 2017-10-12 23:14 | Observation (INO) | payer MEDICARE ==
[~2017-10-12] VITALS: Ht 172.7 cm; Wt 86.1 kg
[~2017-10-12 23:14] MED LIST changes: -CIPR-9 PO; +CYCL10TA PO; -METR1TAB76 PO; -PROM25TA10 PO; -TRAZ100T10 PO
[2017-10-12 23:23] VITALS: BP 130/78; PULSE 117; RESP 20; TEMP 97.7; O2SAT 95
[2017-10-13] VITALS (7 sets, daily range): BP systolic 108–143; BP diastolic 71–87; PULSE 80–106; RESP 16–20; TEMP 97.7–98.3; O2SAT 95–99
[2017-10-13] MEDS ORDERED: MORPHINE SULFATE 4 MG/ML INJ IV PUSH ONE ×3 (00:15→03:00)
[2017-10-13] MEDS ORDERED: ONDANSETRON HCL 4 MG/2 ML VIAL IV PUSH ONE ×2 (00:15→03:00)
--- NOTE | 2017-10-13 00:16 | PD ---
HPI Chief Complaint: Abdominal Pain Time Seen by Provider: 00:02 Travel History International Travel<30 days: No Contact w/Intl Traveler<30days: No History of Present Illness HPI 62yo F with PMH of chronic back and hip pain, asthma presents to the ED with c/ o abdominal pain since 7pm tonight. Said pain is epigastric, periumbilicus and nonradiating. No exacerbating or alleviating factors. Pain is sharp and moderate in severity. Associated with nausea. Denies any fever, chest pain, sob, dysuria, hematuria, diarrhea. Pt had normal bowel movement today. PSH include cholecystectomy and appendectomy. PFSH Past Medical History Arthritis: Yes Asthma: Yes Anxiety: No Depression: Yes (ON ANTIDEPRESSANTS) Cancer: No Cardiovascular Problems: Yes (Orthostatic hypotension) High Cholesterol: Yes Chemotherapy: Yes (METHOTREXATE LOW DOSES LAST TAKEN SEPTEMBER 2016) Chest Pain: Yes COPD: No Diabetes: No Diminished Hearing: No Endocrine: Yes Gastrointestinal Disorders: Yes (lower GI POLYPS REMOVAL ) GERD: Yes Genitourinary: No Headaches: Yes (MIGRAINES) Hiatal Hernia: Yes Immune Disorder: Yes (SPONDYLITIS) Implanted Vascular Access Dvce: No Musculoskeletal: Yes Neurologic: Yes Psychiatric: No Reproductive: No Respiratory: Yes (ASTHMA) Migraines: Yes Thyroid Disease: No Menopausal: Yes : 0 Para: 0 Past Surgical History Abdominal Surgery: Yes (GI polyps removed 2009, gena 1995, appy 2007) Appendectomy: Yes Cardiac Surgery: Yes (Cardiac ablation for SVT 2007) Cholecystectomy: Yes Ear Surgery: No Eye Surgery: Yes (eye surgery for nystagmus 1978) Gynecologic Surgery: Yes Neurologic Surgery: Yes (SYPATHECTOMY ) Oral Surgery: No Other Surgery: Yes (BACK SURGERY 2015, ROTATOR CUFF SURGERY 2007) Social History Alcohol Use: Yes (RARE) Tobacco Use: No Substance Use: No Allergies-Medications (Allergen,Severity, Reaction): Coded Allergies: levofloxacin (Unverified Allergy, Severe, 08/17/17) piperacillin (Unverified Allergy, Severe, ANAPHALACTIC SHOCK, 08/17/17) tazobactam (Unverified Allergy, Severe, ANAPHALACTIC SHOCK, 08/17/17) Sulfa (Sulfonamide Antibiotics) (Unverified Allergy, Intermediate, 08/17/17 ) doxycycline (Unverified Allergy, Intermediate, RASH, 08/17/17) erythromycin base (Unverified Allergy, Intermediate, RASH, 08/17/17) minocycline (Unverified Allergy, Intermediate, RASH, 08/17/17) tigecycline (Unverified Allergy, Intermediate, RASH, 08/17/17) Reported Meds & Prescriptions Reported Meds & Active Scripts Active Klonopin (Clonazepam) 1 Mg Tab 1.5 Mg PO BID Reported Flexeril (Cyclobenzaprine HCl) 10 Mg Tab 10 Mg PO TID Imuran (Azathioprine) 50 Mg Tab 50 Mg PO DAILY Hazardous agent: use appropriate precautions for handling and disposal. Hydrocodone-Acetaminophen 7.5-325 mg Tab 1 Tab PO Q6HR PRN Omeprazole 40 Mg Cap 40 Mg PO DAILY Sumatriptan (Sumatriptan Succinate) 100 Mg Tab 100 Mg PO ONCE PRN If a satisfactory response has not been obtained at 2 hours, a second dose may be administered Citalopram (Citalopram Hydrobromide) 20 Mg Tab 20 Mg PO DAILY Bupropion HCl 100 Mg Tab 300 Mg PO DAILY Review of Systems Except as stated in HPI: all other systems reviewed are Neg Physical Exam Narrative GENERAL: 62yo F in moderate distress. SKIN: Focused skin assessment warm/dry. HEAD: Atraumatic. Normocephalic. EYES: Pupils equal and round. No scleral icterus. No injection or drainage. ENT: No nasal bleeding or discharge. Mucous membranes pink and moist. NECK: Trachea midline. No JVD. CARDIOVASCULAR: Regular rate and rhythm. No murmur appreciated. RESPIRATORY: No accessory muscle use. Clear to auscultation. Breath sounds equal bilaterally. GASTROINTESTINAL: Abdomen soft, +TTP epigastric and above umbilicus. No rebound tenderness or guarding. MUSCULOSKELETAL: No obvious deformities. No clubbing. No cyanosis. No edema. NEUROLOGICAL: Awake and alert. No obvious cranial nerve deficits. Motor grossly within normal limits. Normal speech. PSYCHIATRIC: Appropriate mood and affect; insight and judgment normal. Data Data Last Documented VS Vital Signs Date Time Temp Pulse Resp B/P (MAP) Pulse Ox O2 Delivery O2 Flow Rate FiO2 10/13/17 02:08 96 20 127/81 (96) 99 10/12/17 23:23 97.7 Orders Orders Complete Blood Count With Diff (10/13/17 00:09) Comprehensive Metabolic Panel (10/13/17 00:09) Lipase (10/13/17 00:09) Urinalysis - C+S If Indicated (10/13/17 00:09) Ct Abd/Pel W Iv Contrast(Rout) (10/13/17 00:09) Electrocardiogram (10/13/17 00:09) Ondansetron Inj (Zofran Inj) (10/13/17 00:15) Morphine Inj (Morphine Inj) (10/13/17 00:15) Iohexol 350 Inj (Omnipaque 350 Inj) (10/13/17 01:30) Sodium Chlor 0.9% 1000 Ml Inj (Ns 1000 M (10/13/17 01:45) Morphine Inj (Morphine Inj) (10/13/17 02:00) Diphenhydramine Inj (Benadryl Inj) (10/13/17 03:00) Morphine Inj (Morphine Inj) (10/13/17 03:00) Place In Observation (10/13/17 ) Vital Signs (Adult) Q4H (10/13/17 02:56) Activity Oob Ad Linda (10/13/17 02:56) Intake + Output ISABELLA.QSHIFT (10/13/17 02:56) Diet Npo (10/13/17 Breakfast) Sodium Chlor 0.9% 1000 Ml Inj (Ns 1000 M (10/13/17 02:56) Sodium Chloride 0.9% Flush (Ns Flush) (10/13/17 03:00) Sodium Chloride 0.9% Flush (Ns Flush) (10/13/17 09:00) Acetaminophen (Tylenol) (10/13/17 03:00) Ondansetron Inj (Zofran Inj) (10/13/17 03:00) Basic Metabolic Panel (Bmp) (10/14/17 06:00) Complete Blood Count With Diff (10/14/17 06:00) Pt Request For Service (10/13/17 02:56) Case Management Consult (10/13/17 02:56) Scd Bilateral/Knee High ISABELLA.BID (10/13/17 02:56) Naloxone Inj (Narcan Inj) (10/13/17 03:00) Morphine Inj (Morphine Inj) (10/13/17 03:00) Ondansetron Inj (Zofran Inj) (10/13/17 03:00) Admit Order (Ed Use Only) (10/13/17 02:57) Labs Laboratory Tests Test 10/13/17 00:45 White Blood Count 11.6 TH/MM3 Red Blood Count 4.32 MIL/MM3 Hemoglobin 12.7 GM/DL Hematocrit 37.8 % Mean Corpuscular Volume 87.6 FL Mean Corpuscular Hemoglobin 29.4 PG Mean Corpuscular Hemoglobin Concent 33.6 % Red Cell Distribution Width 15.0 % Platelet Count 352 TH/MM3 Mean Platelet Volume 6.5 FL Neutrophils (%) (Auto) 73.6 % Lymphocytes (%) (Auto) 15.7 % Monocytes (%) (Auto) 6.6 % Eosinophils (%) (Auto) 1.0 % Basophils (%) (Auto) 3.1 % Neutrophils # (Auto) 8.5 TH/MM3 Lymphocytes # (Auto) 1.8 TH/MM3 Monocytes # (Auto) 0.8 TH/MM3 Eosinophils # (Auto) 0.1 TH/MM3 Basophils # (Auto) 0.4 TH/MM3 CBC Comment DIFF FINAL Differential Comment Blood Urea Nitrogen 38 MG/DL Creatinine 1.30 MG/DL Random Glucose 127 MG/DL Total Protein 8.3 GM/DL Albumin 3.5 GM/DL Calcium Level 9.3 MG/DL Alkaline Phosphatase 134 U/L Aspartate Amino Transf (AST/SGOT) 21 U/L Alanine Aminotransferase (ALT/SGPT) 24 U/L Total Bilirubin 0.1 MG/DL Sodium Level 136 MEQ/L Potassium Level 4.6 MEQ/L Chloride Level 102 MEQ/L Carbon Dioxide Level 28.2 MEQ/L Anion Gap 6 MEQ/L Estimat Glomerular Filtration Rate 42 ML/MIN Lipase 94 U/L [facility] Medical Decision Making Medical Screen Exam Complete: Yes Emergency Medical Condition: Yes Interpretation(s) EKG: NSR 98bpm. Normal axis. No ST segment elevation or depression. Differential Diagnosis Pancreatitis vs. gastritis vs. peptic ulcer disease vs. UTI vs. nephrolithiasis Narrative Course 62yo F with abdominal pain and nausea that started a few hours ago. Labs reviewed, no leukocytosis. BUN/creatinine elevated at 38/1.30. Pt likely dehydrated, given NS IVF. Normal lipase. CT a/p showed diverticulosis without diverticulitis. Mildly prominent small bowel loops with wall thickening in left midabdomen. No definite obstruction seen at this time. Cholecystectomy. Pt reevaluated at bedside and still with significant abdominal pain and nausea even after multiple doses of morphine. Pt also said she is starting to itch and requesting benadryl. Said she has these itching episodes but denies any sob , lip or tongue swelling. Pt said she had a bowel movement this morning but has not had one since the pain started and is not passing gas. Given CT results and persistent pain and nausea, will observe for serial abdominal exams. Will place general surgery consult. Pt does not have an acute abdomen, it is soft, tender above umbilicus with no rebound and guarding. Discussed with Dr. Gan's PA and accepted to her service. Diagnosis Primary Impression: Intractable pain Admitting Information Admitting Physician Requests: Observation Jen Sims DO Oct 13, 2017 00:15
[2017-10-13 00:54] LABS: AUTOMATED NEUTROPHIL # 8.5 TH/MM3 (1.8-7.7); BASOPHIL # 0.4 TH/MM3 (0-0.2); BASOPHIL % 3.1 % (0.0-2.0); EOSINOPHIL # 0.1 TH/MM3 (0-0.4); HEMATOCRIT 37.8 % (35.0-46.0); HEMOGLOBIN 12.7 GM/DL (11.6-15.3); LYMPH % 15.7 % (9.0-44.0); LYMPHOCYTE # 1.8 TH/MM3 (1.0-4.8); MEAN CELL VOLUME 87.6 FL (80.0-100.0); MEAN CORPUSCULAR HEMOGLOBIN 29.4 PG (27.0-34.0); MEAN CORPUSCULAR HGB CONC 33.6 % (32.0-36.0); MEAN PLATELET VOLUME 6.5 FL (7.0-11.0); MONO % 6.6 % (0.0-8.0); MONOCYTE # 0.8 TH/MM3 (0-0.9); NEUT % 73.6 % (16.0-70.0); PLATELET COUNT 352 TH/MM3 (150-450); RED BLOOD COUNT 4.32 MIL/MM3 (4.00-5.30); WHITE BLOOD COUNT 11.6 TH/MM3 (4.0-11.0)
[2017-10-13 01:01] LABS: CHLORIDE 102 MEQ/L (98-107); SODIUM (NA) 136 MEQ/L (136-145)
[2017-10-13 01:04] LABS: CALCIUM 9.3 MG/DL (8.5-10.1)
[2017-10-13 01:05] LABS: ALBUMIN 3.5 GM/DL (3.4-5.0); BICARBONATE 28.2 MEQ/L (21.0-32.0); BLOOD UREA NITROGEN 38 MG/DL (7-18); GLUCOSE,RANDOM 127 MG/DL (74-106)
[2017-10-13 01:08] LABS: ALT (GPT) 24 U/L (10-53); AST (GOT) 21 U/L (15-37); GLOMERULAR FILTRATION RATE 42 ML/MIN (>89)
[2017-10-13 01:09] LABS: TOTAL BILIRUBIN ADULT 0.1 MG/DL (0.2-1.0); TOTAL PROTEIN 8.3 GM/DL (6.4-8.2)
[2017-10-13 01:11] LABS: ALKALINE PHOSPHATASE 134 U/L (45-117)
[2017-10-13] MEDS ORDERED: IOHEXOL 350 MG/ML 10 ML VIAL (for RAD DIAG) IVCONTRAST ONE (01:30)
[2017-10-13] MEDS ORDERED: SODIUM CHLOR 0.9% 1000 ML INJ 1,000 ML IV ONE (01:45)
--- NOTE | 2017-10-13 01:46 | RADRPT ---
EXAM DATE/TIME: 10/13/2017 01:13 [facility] COMPARISON: CT ABDOMEN & PELVIS W CONTRAST, April 18, 2017, 19:01. INDICATIONS : Diffuse abdomen pain today. IV CONTRAST: 92 cc Omnipaque 350 (iohexol) IV ORAL CONTRAST: No oral contrast ingested. RADIATION DOSE: 14.24 CTDIvol (mGy) MEDICAL HISTORY : Gastroesophageal reflux disease. Hernia, hiatal. SURGICAL HISTORY : Cholecystectomy. Appendectomy.lumbar surgery ENCOUNTER: Initial ACUITY: 1 day PAIN SCALE: 8/10 LOCATION: Bilateral abdomen TECHNIQUE: Volumetric scanning of the abdomen and pelvis was performed. Using automated exposure control and ad justment of the mA and/or kV according to patient size, radiation dose was kept as low as reasonably achievable to obtain optimal diagnostic quality images. DICOM format image data is available electro nically for review and comparison. FINDINGS: LOWER LUNGS: The visualized lower lungs are clear. LIVER: Homogeneous density without lesion. There is no dilation of the biliary tree. Cholecystectomy clips. SPLEEN: Normal size without lesion. PANCREAS: Within normal limits. KIDNEYS: Normal in size and shape. There is no mass, stone or hydronephrosis. ADRENAL GLANDS: Within normal limits. VASCULAR: There is no aortic aneurysm. BOWEL/MESENTERY: There are some mildly prominent small bowel loops in left midabdomen which demonstrates a mild wall t hickening. No definite obstruction. Diverticulosis of the colon. There is no free intraperitoneal ai r or fluid. ABDOMINAL WALL: Within normal limits. RETROPERITONEUM: There is no lymphadenopathy. BLADDER: No wall thickening or mass. REPRODUCTIVE: Within normal limits. INGUINAL: There is no lymphadenopathy or hernia. MUSCULOSKELETAL: Within normal limits for patient age. CONCLUSION: 1. Diverticulosis without diverticulitis. 2. Mildly prominent small bowel loops with wall thickening in the left midabdomen. No definite obstru ction seen at this time. 3. Cholecystectomy. Sami Figueroa MD on October 13, 2017 at 1:42 Board Certified Radiologist. This report was verified electronically.
[2017-10-13] MEDS: SODIUM CHLOR 0.9% 1000 ML INJ 1,000 ML IV SCH ×3 (02:56→22:54)
[2017-10-13] MEDS ORDERED: NALOXONE HCL 0.4 MG/ML AMP IV PUSH PRN (03:00)
[2017-10-13] MEDS ORDERED: diphenhydrAMINE HCL 50 MG/ML VIAL IV PUSH ONE (03:00)
[2017-10-13] MEDS ORDERED: ACETAMINOPHEN 325 MG TAB PO PRN (03:00)
[2017-10-13] MEDS ORDERED: SODIUM CHLORIDE 0.9% FLUSH 10 ML FLUSH IV FLUSH PRN (03:00)
[2017-10-13] MEDS ORDERED: ONDANSETRON HCL 4 MG/2 ML VIAL IVP PRN (03:00)
[2017-10-13] MEDS: MORPHINE SULFATE 2 MG/ML SYRINGE IV PUSH PRN ×2 (03:25→08:06)
[2017-10-13] MEDS: SODIUM CHLORIDE 0.9% FLUSH 10 ML FLUSH IV FLUSH SCH ×2 (08:07→21:00)
[2017-10-13] MEDS ORDERED: METHYLNALTREXONE BROMIDE 12 MG/0.6 ML VIAL SQ ONE (08:45)
--- NOTE | 2017-10-13 09:40 | PD.CONS ---
cc: Anuj Adame MD HPI Service General Surgery Consult Requested By Dr. Gan Reason for Consult abdominal pain; thickened bowel on CT scan Primary Care Physician Jayme Costa MD History of Present Illness This is a 62 year old female with a past medical history of depression, orthostatic hypotension, dyslipidemia, migraines, asthma chronic pain in hips and back. The patient came to the ED last night with complaints of sudden abdominal pain after eating a sandwich for dinner. She was in her normal state of health all day prior to this; although she does report some decreased appetite for the past several days. After the abdominal pain occur she had a bowel movement which was normal. She has not had any relief of the abdominal pain. A CT abdomen/pelvis was obtained in the ED and shows mildly prominent small bowel loops with wall thickening in the left midabdomen; no obstruction seen. The patient has a mildly elevated WBC. Her BUN/Creatinine are mildly elevated as well. She takes [place] up to three tablets daily for her chronic pain. A General Surgery consultation has been requested. Review of Systems Constitutional: COMPLAINS OF: Fatigue, Weight gain, Change in appetite Endocrine: DENIES: Polydipsia, Polyuria, Polyphagia Eyes: DENIES: Diplopia, Eye inflammation Ears, nose, mouth, throat: DENIES: Hearing loss, Vertigo Respiratory: DENIES: Cough Cardiovascular: DENIES: Chest pain Gastrointestinal: COMPLAINS OF: Abdominal pain, Nausea, DENIES: Constipation, Diarrhea, Vomiting Genitourinary: DENIES: Urinary frequency Musculoskeletal: DENIES: Joint pain Integumentary: DENIES: Abnormal pigmentation Hematologic/lymphatic: DENIES: Bruising Immunologic/allergic: DENIES: Eczema Neurologic: DENIES: Abnormal gait, Headache Psychiatric: DENIES: Confusion, Mood changes, Depression Past Family Social History Past Medical History Depression Orthostatic hypotension Dyslipidemia Migraines Asthma Chronic pain Past Surgical History Open cholecystectomy Laparoscopic appendectomy Cardiac ablations for SVT Back surgery Rotator cuff surgery Reported Medications Flexeril [place] Klonopin Bupropion Sumatripatan Omeprazole Imuran Allergies: Coded Allergies: levofloxacin (Unverified Allergy, Severe, 08/17/17) piperacillin (Unverified Allergy, Severe, ANAPHALACTIC SHOCK, 08/17/17) tazobactam (Unverified Allergy, Severe, ANAPHALACTIC SHOCK, 08/17/17) Sulfa (Sulfonamide Antibiotics) (Unverified Allergy, Intermediate, 08/17/17 ) doxycycline (Unverified Allergy, Intermediate, RASH, 08/17/17) erythromycin base (Unverified Allergy, Intermediate, RASH, 08/17/17) minocycline (Unverified Allergy, Intermediate, RASH, 08/17/17) tigecycline (Unverified Allergy, Intermediate, RASH, 08/17/17) Active Ordered Medications Current Medications Medications (Trade) Dose Ordered Sig/Kelly Route Start Time Stop Time Status Last Admin Sodium Chloride 1,000 ml @ 100 mls/hr Q10H IV 10/13/17 02:56 10/13/17 02:56 (NS Flush) 2 ml UNSCH PRN IV FLUSH 10/13/17 03:00 (NS Flush) 2 ml BID IV FLUSH 10/13/17 09:00 10/13/17 08:07 (Tylenol) 650 mg Q4H PRN PO 10/13/17 03:00 (Zofran Inj) 4 mg Q6H PRN IVP 10/13/17 03:00 (Narcan Inj) 0.4 mg UNSCH PRN IV PUSH 10/13/17 03:00 (Morphine Inj) 2 mg Q3H PRN IV PUSH 10/13/17 03:00 10/13/17 08:06 Family History Non contributory Social History Denies tobacco use Denies ETOH use Denies illicit drug use Lives her locally; Niece lives with her. Physical Exam Vital Signs Vital Signs Date Time Temp Pulse Resp B/P (MAP) Pulse Ox O2 Delivery O2 Flow Rate FiO2 10/13/17 05:17 97.8 104 20 119/77 (91) 96 10/13/17 04:05 81 20 143/78 (99) 98 10/13/17 02:08 96 20 127/81 (96) 99 10/13/17 00:54 20 10/13/17 00:30 80 20 110/71 (84) 10/12/17 23:23 97.7 117 20 130/78 (95) 95 Physical Exam GENERAL: 62 year old female resting in bed in mild acute distress related to abdominal pain and back pain. SKIN: Warm and dry. Small healing bruise on LEFT forearm. HEAD: Atraumatic. Normocephalic. EYES: Pupils equal and round. No scleral icterus. No injection or drainage. ENT: No nasal bleeding or discharge. Mucous membranes pink and moist. NECK: Trachea midline. CARDIOVASCULAR: Regular rate and rhythm. RESPIRATORY: No accessory muscle use. Clear to auscultation. Breath sounds equal bilaterally. GASTROINTESTINAL: Abdomen soft, mildly distended. Tender throughout. Large RUQ healed incision from prior surgery. No hernias. Faint healed laparoscopic scars. MUSCULOSKELETAL: Extremities without clubbing, cyanosis, or edema. No obvious deformities. NEUROLOGICAL: Awake and alert. No obvious cranial nerve deficits. Motor grossly within normal limits. Five out of 5 muscle strength in the arms and legs. Normal speech. PSYCHIATRIC: Appropriate mood and affect; insight and judgment normal. Laboratory Laboratory Tests Test 10/13/17 00:45 White Blood Count 11.6 Red Blood Count 4.32 Hemoglobin 12.7 Hematocrit 37.8 Mean Corpuscular Volume 87.6 Mean Corpuscular Hemoglobin 29.4 Mean Corpuscular Hemoglobin Concent 33.6 Red Cell Distribution Width 15.0 Platelet Count 352 Mean Platelet Volume 6.5 Neutrophils (%) (Auto) 73.6 Lymphocytes (%) (Auto) 15.7 Monocytes (%) (Auto) 6.6 Eosinophils (%) (Auto) 1.0 Basophils (%) (Auto) 3.1 Neutrophils # (Auto) 8.5 Lymphocytes # (Auto) 1.8 Monocytes # (Auto) 0.8 Eosinophils # (Auto) 0.1 Basophils # (Auto) 0.4 CBC Comment DIFF FINAL Differential Comment Blood Urea Nitrogen 38 Creatinine 1.30 Random Glucose 127 Total Protein 8.3 Albumin 3.5 Calcium Level 9.3 Alkaline Phosphatase 134 Aspartate Amino Transf (AST/SGOT) 21 Alanine Aminotransferase (ALT/SGPT) 24 Total Bilirubin 0.1 Sodium Level 136 Potassium Level 4.6 Chloride Level 102 Carbon Dioxide Level 28.2 Anion Gap 6 Estimat Glomerular Filtration Rate 42 Lipase 94 Result Diagram: 10/13/17 0045 10/13/17 0045 Imaging Last 48 hours Impressions Abdomen/Pelvis CT 10/13/17 0009 Signed Impressions: Service Date/Time: September 01:13 - CONCLUSION: 1. Diverticulosis without diverticulitis. 2. Mildly prominent small bowel loops with wall thickening in the left midabdomen. No definite obstruction seen at this time. 3. Cholecystectomy. Sami Figueroa MD Assessment and Plan Assessment and Plan 62 year old female with abdominal pain; constipation secondary to chronic narcotic use -Primary team giving enemas and Relistor for narcotic related constipation -GI consult-- may benefit from decompressive colonoscopy -Recommend IV hydration -Ice chips okay; advance diet as tolerated -OOB and mobilize -Defer pain control to Primary team -No acute surgical issues at this time PT SEEN WITH RUG SHAMPOOER WHO DOCUMENTED OUR VISIT. SHE ENTERED ORDERS IN THE EMR UNDER MY DIRECT SUPERVISION. CARE PLAN D/W PT, FAMILY, AND NURSING STAFF BY MYSELF. I CERTIFY I PERSONALLY EXAMINED THE PATIENT IN THEIR ROOM. NO SURGICAL INTERVENTION REQUIRED. RECOMMEND GI CONSULT ANUJ ADAME MD FACS Discussed Condition With Dr. Theodore Acosta Ms. Yakelin FernandezP/Email Marketing Intern RUG SHAMPOOER Oct 13, 2017 09:40 Anuj Adame MD Oct 14, 2017 09:48
--- NOTE | 2017-10-13 10:27 | HHI.HP ---
[facility] Primary Care Physician Jayme Costa MD Admission Diagnosis Thickened small bowel wall, intractable abdominal pain Diagnoses: Chief Complaint: Abdominal pain Travel History International Travel<30 Days: No Contact w/Intl Traveler <30 Da: No Traveled to Known Affected Are: No History of Present Illness 62-year-old white female being admitted for intractable abdominal pain Patient was in her usual state of health until sometime yesterday when she experienced a sudden bout of lower abdominal pain that felt like a punch. At worst intensity was 8-8.5/10. Took her home pain medicine of [place] 7.5 to no avail. Decided come to emergency department. Noticed pain gets worse with deep breathing. Says she did have bowel movement yesterday sometime before the the pain episode. Pain has persisted and colicky fashion ever since onset. Denies fevers or chills. Reports nausea but no vomiting. Emergency department CT scan was performed which radiology did not note any acute perforations, there was some nonspecific bowel wall thickening. My independent review show substantial constipation. Lipase CMP are unremarkable. 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 Chronic pain anxiety Allergies: Coded Allergies: levofloxacin (Unverified Allergy, Severe, 08/17/17) piperacillin (Unverified Allergy, Severe, ANAPHALACTIC SHOCK, 08/17/17) tazobactam (Unverified Allergy, Severe, ANAPHALACTIC SHOCK, 08/17/17) Sulfa (Sulfonamide Antibiotics) (Unverified Allergy, Intermediate, 08/17/17 ) doxycycline (Unverified Allergy, Intermediate, RASH, 08/17/17) erythromycin base (Unverified Allergy, Intermediate, RASH, 08/17/17) minocycline (Unverified Allergy, Intermediate, RASH, 08/17/17) tigecycline (Unverified Allergy, Intermediate, RASH, 08/17/17) Family History Lung cancer and bladder cancer in father Mother with tuberculosis and liver Social History Lifelong history of intermittent smoking until about 2 years ago, denies drinking, says she is disabled from her medical conditions, lives with the family member Physical Exam Vital Signs Vital Signs Date Time Temp Pulse Resp B/P (MAP) Pulse Ox O2 Delivery O2 Flow Rate FiO2 10/13/17 05:17 97.8 104 20 119/77 (91) 96 10/13/17 04:05 81 20 143/78 (99) 98 10/13/17 02:08 96 20 127/81 (96) 99 10/13/17 00:54 20 10/13/17 00:30 80 20 110/71 (84) 10/12/17 23:23 97.7 117 20 130/78 (95) 95 Physical Exam VS: afebrile GENERAL: Lying in bed, intermittent distress secondary to bouts of pain SKIN: Warm and dry. EYES: No scleral icterus. No injection or drainage. ENT: No nasal bleeding or discharge. Mucous membranes pink and moist. CARDIOVASCULAR: Regular rate and rhythm. no murmurs RESPIRATORY: No accessory muscle use. Clear to auscultation. Breath sounds equal bilaterally. GASTROINTESTINAL: Abdomen soft, moderate tenderness to palpation over epigastrium and right upper and lower quadrants, no rebound, mildly distended., bowel sounds positive but slightly hypoactive Extremities: No clubbing, cyanosis, or edema. No obvious deformities. MUSCULOSKELETAL: adequate muscle bulk and tone for age and habitus NEUROLOGICAL: Awake and alert. No obvious cranial nerve deficits. No facial droop nor slurred speech noted. PSYCHIATRIC: Appropriate mood and affect; insight and judgment normal. Laboratory Laboratory Tests Test 10/13/17 00:45 White Blood Count 11.6 Red Blood Count 4.32 Hemoglobin 12.7 Hematocrit 37.8 Mean Corpuscular Volume 87.6 Mean Corpuscular Hemoglobin 29.4 Mean Corpuscular Hemoglobin Concent 33.6 Red Cell Distribution Width 15.0 Platelet Count 352 Mean Platelet Volume 6.5 Neutrophils (%) (Auto) 73.6 Lymphocytes (%) (Auto) 15.7 Monocytes (%) (Auto) 6.6 Eosinophils (%) (Auto) 1.0 Basophils (%) (Auto) 3.1 Neutrophils # (Auto) 8.5 Lymphocytes # (Auto) 1.8 Monocytes # (Auto) 0.8 Eosinophils # (Auto) 0.1 Basophils # (Auto) 0.4 CBC Comment DIFF FINAL Differential Comment Blood Urea Nitrogen 38 Creatinine 1.30 Random Glucose 127 Total Protein 8.3 Albumin 3.5 Calcium Level 9.3 Alkaline Phosphatase 134 Aspartate Amino Transf (AST/SGOT) 21 Alanine Aminotransferase (ALT/SGPT) 24 Total Bilirubin 0.1 Sodium Level 136 Potassium Level 4.6 Chloride Level 102 Carbon Dioxide Level 28.2 Anion Gap 6 Estimat Glomerular Filtration Rate 42 Lipase 94 Result Diagram: 10/13/17 0045 10/13/17 0045 Imaging Last Impressions Abdomen/Pelvis CT 10/13/17 0009 Signed Impressions: Service Date/Time: September 01:13 - CONCLUSION: 1. Diverticulosis without diverticulitis. 2. Mildly prominent small bowel loops with wall thickening in the left midabdomen. No definite obstruction seen at this time. 3. Cholecystectomy. MD Layla Gaytan VTE Risk Assessment Layla VTE Risk Assessment: Mod/High Risk (score >= 2) Caprini Risk Assessment Model Point Value = 1 Point Value = 2 Point Value = 3 Point Value = 5 Age 41-60 Minor surgery BMI > 25 kg/m2 Swollen legs Varicose veins or History of unexplained or recurrent spontaneous Oral contraceptives or hormone replacement Sepsis (< 1 month) Serious lung disease, including pneumonia (< 1 month) Abnormal pulmonary function Acute myocardial infarction Congestive heart failure (< 1 month) History of inflammatory bowel disease Medical patient at bed rest Age 61-74 Arthroscopic surgery Major open surgery (> 45 min) Laparoscopic surgery (> 45 min) Malignancy Confined to bed (> 72 hours) Immobilizing plaster cast Central venous access Age >= 75 History of VTE Family history of VTE Factor V Leiden Prothrombin [id number] Lupus anticoagulant Anticardiolipin antibodies Elevated serum homocysteine Heparin-induced thrombocytopenia Other congenital or acquired thrombophilia Stroke (< 1 month) Elective arthroplasty Hip, pelvis, or leg fracture Acute spinal cord injury (< 1 month) Prophylaxis Regimen Total Risk Factor Score Risk Level Prophylaxis Regimen 0-1 Low Early ambulation 2 Moderate Order ONE of the following: *Sequential Compression Device (SCD) *Heparin 5000 units SQ BID 3-4 Higher Order ONE of the following medications: *Heparin 5000 units SQ TID *Enoxaparin/Lovenox 40 mg SQ daily (WT < 150 kg, CrCl > 30 mL/min) *Enoxaparin/Lovenox 30 mg SQ daily (WT < 150 kg, CrCl > 10-29 mL/min) *Enoxaparin/Lovenox 30 mg SQ BID (WT < 150 kg, CrCl > 30 mL/min) AND/OR *Sequential Compression Device (SCD) 5 or more Highest Order ONE of the following medications: *Heparin 5000 units SQ TID (Preferred with Epidurals) *Enoxaparin/Lovenox 40 mg SQ daily (WT < 150 kg, CrCl > 30 mL/min) *Enoxaparin/Lovenox 30 mg SQ daily (WT < 150 kg, CrCl > 10-29 mL/min) *Enoxaparin/Lovenox 30 mg SQ BID (WT < 150 kg, CrCl > 30 mL/min) AND *Sequential Compression Device (SCD) Assessment and Plan Assessment and Plan 62-year-old white female admitted for intractable abdominal pain Intractable abdominal pain -Likely secondary to constipation -General surgery consultation ordered prior to my evaluation the patient, no acute intervention warranted -Clear liquids as tolerated -Administering Relistor or and soapsuds enema, if no substantial relief will proceed with Gastrografin enema -Lidocaine patch as needed pain, minimize narcotic usage KIMBERLY - IVFs, likely 2/2 decreased po intake Chronic pain -Continue home [place] and Flexeril autoimmune arthritis - continue home imuran anxiety - continue home anxiety meds Johan Patiño MD Oct 13, 2017 10:27
[2017-10-13] MEDS ORDERED: LIDOCAINE HCL 5% PATCH T-DERMAL ONE (10:30)
[2017-10-13] MEDS ORDERED: azaTHIOprine 50 MG TAB PO SCH (10:30)
[2017-10-13] MEDS ORDERED: ACETAMINOPHEN 500 MG CPLT PO PRN (10:30)
[2017-10-13] MEDS: clonazePAM 0.5 MG TAB PO SCH ×2 (11:12→21:06)
[2017-10-13] MEDS: CITALOPRAM HYDROBROMIDE 20 MG TAB PO SCH (11:13)
[2017-10-13] MEDS: buPROPion HCL 100 MG TAB PO SCH (11:13)
[2017-10-13] MEDS: PANTOPRAZOLE SOD 40 MG DELAYED RELEASE TAB PO SCH (11:17)
[2017-10-13] MEDS ORDERED: DIATRIZOATE MEGLUM/DIATRIZOATE SOD 120 ML BTL (for RAD DIAG) RECTAL ONE (11:30)
[2017-10-13] MEDS ORDERED: MAGNESIUM CITRATE SOLN 300 ML BTL PO ONE (11:45)
[2017-10-13] MEDS: CYCLOBENZAPRINE HCL 10 MG TAB PO SCH ×2 (12:33→18:23)
[2017-10-13 14:55] LABS: BILIRUBIN, URINE NEG (NEG); BLOOD, URINE NEG (NEG); GLUCOSE,URINE NEG (NEG); KETONE, URINE NEG (NEG); NITRITE,URINE NEG (NEG); PH, URINE 5.5 (5.0-8.5); URINE COLOR YELLOW (YELLW/STRAW); URINE LEUKOCYTE ESTERASE NEG (NEG)
[2017-10-13 15:07] LABS: RBC, URINE 0-3 /hpf (0-3); SQUAMOUS EPITHELIAL CELL URINE > 8 /hpf (0-5)
--- NOTE | 2017-10-13 16:37 | EKG ---
Date Performed: 10/13/2017 Time Performed: 00:34:53 PTAGE: 62 years EKG: Sinus rhythm POSSIBLE RIGHT VENTRICULAR CONDUCTION DELAY NONSPECIFIC T-WAVE ABNORMALITY BORDERLINE ECG PREVIOUS TRACING : 04/18/2017 18.23 Since the previous tracing, no significant change noted DOCTOR: Blaise Johnson Interpretating Date/Time 10/13/2017 16:31:27
[2017-10-13] MEDS ORDERED: REMOVE OLD LIDOCAINE PATCH T-DERMAL SCH (21:00)
[2017-10-14] VITALS: BP 153/89; PULSE 91; RESP 15; TEMP 99; O2SAT 98
[2017-10-14 04:00] VITALS: BP 151/97; PULSE 66; RESP 17; TEMP 96.1; O2SAT 100
[2017-10-14] MEDS: ACETAMINOPHEN/HYDROcodone 325 MG/7.5 MG TAB PO PRN ×2 (04:28→10:40)
[2017-10-14] MEDS ORDERED: diphenhydrAMINE HCL 25 MG CAP PO ONE (04:45)
[2017-10-14 06:17] LABS: BASOPHIL % 0.4 % (0.0-2.0); EOSINOPHIL # 0.1 TH/MM3 (0-0.4); EOSINOPHIL % 2.1 % (0.0-4.0); HEMATOCRIT 30.9 % (35.0-46.0); HEMOGLOBIN 9.9 GM/DL (11.6-15.3); LYMPHOCYTE # 1.3 TH/MM3 (1.0-4.8); MEAN CELL VOLUME 88.1 FL (80.0-100.0); MEAN CORPUSCULAR HEMOGLOBIN 28.4 PG (27.0-34.0); MEAN CORPUSCULAR HGB CONC 32.2 % (32.0-36.0); MEAN PLATELET VOLUME 6.8 FL (7.0-11.0); MONO % 5.7 % (0.0-8.0); MONOCYTE # 0.4 TH/MM3 (0-0.9); NEUT % 72.8 % (16.0-70.0); PLATELET COUNT 272 TH/MM3 (150-450); RED CELL DISTRIBUTION WIDTH 14.3 % (11.6-17.2); WHITE BLOOD COUNT 6.8 TH/MM3 (4.0-11.0)
[2017-10-14 06:38] LABS: BICARBONATE 25.7 MEQ/L (21.0-32.0); CALCIUM 8.1 MG/DL (8.5-10.1); CREATININE 0.59 MG/DL (0.50-1.00)
[2017-10-14 07:52] VITALS: BP 92/64; PULSE 87; RESP 18; TEMP 97.3; O2SAT 97
--- NOTE | 2017-10-14 08:23 | HHI.PR ---
cc: Rashad Jaimes MD Subjective Subjective Notes Resting in bed Still with some mild nausea but improved Objective Vitals/I&O Vital Signs Date Time Temp Pulse Resp B/P (MAP) Pulse Ox O2 Delivery O2 Flow Rate FiO2 10/14/17 07:52 97.3 87 18 92/64 (73) 97 Labs Laboratory Tests Test 10/13/17 10:50 10/14/17 05:55 Urine Color YELLOW Urine Turbidity CLEAR Urine pH 5.5 Urine Specific [place] LESS/EQUAL 1.005 Urine Protein NEG Urine Glucose (UA) NEG Urine Ketones NEG Urine Occult Blood NEG Urine Nitrite NEG Urine Bilirubin NEG Urine Urobilinogen 0.2 Urine Leukocyte Esterase NEG Urine RBC 0-3 Urine Squamous Epithelial Cells > 8 Microscopic Urinalysis Comment CULT NOT INDICATED White Blood Count 6.8 Red Blood Count 3.50 Hemoglobin 9.9 Hematocrit 30.9 Mean Corpuscular Volume 88.1 Mean Corpuscular Hemoglobin 28.4 Mean Corpuscular Hemoglobin Concent 32.2 Red Cell Distribution Width 14.3 Platelet Count 272 Mean Platelet Volume 6.8 Neutrophils (%) (Auto) 72.8 Lymphocytes (%) (Auto) 19.0 Monocytes (%) (Auto) 5.7 Eosinophils (%) (Auto) 2.1 Basophils (%) (Auto) 0.4 Neutrophils # (Auto) 5.0 Lymphocytes # (Auto) 1.3 Monocytes # (Auto) 0.4 Eosinophils # (Auto) 0.1 Basophils # (Auto) 0.0 CBC Comment DIFF FINAL Differential Comment Blood Urea Nitrogen 17 Creatinine 0.59 Random Glucose 81 Calcium Level 8.1 Sodium Level 142 Potassium Level 4.3 Chloride Level 112 Carbon Dioxide Level 25.7 Anion Gap 4 Estimat Glomerular Filtration Rate 104 Radiology Last 48 hours Impressions Abdomen/Pelvis CT 10/13/17 0009 Signed Impressions: Service Date/Time: September 01:13 - CONCLUSION: 1. Diverticulosis without diverticulitis. 2. Mildly prominent small bowel loops with wall thickening in the left midabdomen. No definite obstruction seen at this time. 3. Cholecystectomy. Sami Figueroa MD Cardiovascular: Regular Lungs: Clear Abdomen: Other (minimal tenderness; distention greatly improved since yesterday 's exam ) Extremities: No edema A/P Assessment and Plan 62 year old female with abdominal pain; constipation secondary to chronic narcotic use -Liquid bowel after enema and Relistor -GG enema planned for today -GI consult-- may benefit from decompressive colonoscopy -IV hydration -Ice chips and sips of clear liquids okay -OOB and mobilize -Defer pain control to Primary team -No acute surgical issues at this time -General Surgery will follow peripherally over the weekend; please call with questions PT SEEN WITH ACCOUNT CONTACT ASSOCIATE WHO DOCUMENTED OUR VISIT. SHE ENTERED ORDERS IN THE EMR UNDER MY DIRECT SUPERVISION. CARE PLAN D/W PT, FAMILY, AND NURSING STAFF BY MYSELF. I CERTIFY I PERSONALLY EXAMINED THE PATIENT IN THEIR ROOM. PLEASE CALL WITH ANY QUESTIONS OR CONCERNS. NO ACUTE SURGICAL ISSUES Yakelin Rivers MD, FACSP/Labor Relations Consultant ACCOUNT CONTACT ASSOCIATE Oct 14, 2017 08:23 Rashad Jaimes MD Oct 14, 2017 09:49
[2017-10-14] MEDS: SODIUM CHLOR 0.9% 1000 ML INJ 1,000 ML IV SCH (08:56)
[2017-10-14] MEDS ORDERED: LIDOCAINE HCL 5% PATCH T-DERMAL SCH (09:00)
[2017-10-14] MEDS: buPROPion HCL 100 MG TAB PO SCH (09:03)
[2017-10-14] MEDS: CYCLOBENZAPRINE HCL 10 MG TAB PO SCH ×2 (09:04→13:15)
[2017-10-14] MEDS: PANTOPRAZOLE SOD 40 MG DELAYED RELEASE TAB PO SCH (09:05)
[2017-10-14] MEDS: CITALOPRAM HYDROBROMIDE 20 MG TAB PO SCH (09:05)
[2017-10-14] MEDS: SODIUM CHLORIDE 0.9% FLUSH 10 ML FLUSH IV FLUSH SCH (09:06)
[2017-10-14] MEDS ORDERED: CLON0.5T PO (09:59)
--- NOTE | 2017-10-14 10:04 | HHI.PR ---
Subjective Remarks Patient seen and examined today for follow-up on abdominal pain, ileitis, narcotic induced obstipation. Patient states that she is feeling a little bit better today. However still having abdominal pain. Patient did have soapsuds enema yesterday without any significant outcome. Patient was concerned about having Gastrografin enema performed. I did spend a significant time explaining to the patient the treatment plan, testing. She is in agreement at this time. We will move forward. Vital signs are stable, patient remains afebrile. Objective Vitals Vital Signs Date Time Temp Pulse Resp B/P (MAP) Pulse Ox O2 Delivery O2 Flow Rate FiO2 10/14/17 07:52 97.3 87 18 92/64 (73) 97 10/14/17 04:00 96.1 66 17 151/97 (115) 100 10/14/17 00:00 99.0 91 15 153/89 (110) 98 10/13/17 20:00 98.0 94 16 132/87 (102) 95 10/13/17 16:00 97.7 96 18 108/78 (88) 98 I/O 10/13/17 10/13/17 10/13/17 10/14/17 10/14/17 10/14/17 07:00 15:00 23:00 07:00 15:00 23:00 Intake Total 750 ml 700 ml 2440 ml Output Total 2000 ml Balance 750 ml 700 ml 440 ml Intake Oral 750 ml 1240 ml IV Total 700 ml 1200 ml Output Urine Total 2000 ml # Voids 6 # Bowel Movements 0 Result Diagram: 10/14/17 0555 10/14/17 0555 Objective Remarks GENERAL: Well-developed, well-nourished, in no acute distress. alert and orientated HEENT: Head is normocephalic without any lesions or masses noted. Facial features are symmetric. Eyes: Extraocular muscles are intact. Conjunctivae were clear. NECK: Supple without any masses. Trachea midline no deviation. No JVD, CARDIAC: Regular rhythm, regular rate. S1/S2 are heard. No murmurs gallops or rubs. LUNGS: Clear to auscultation bilaterally. No wheeze, rhonchi or rales. No use of accessory muscles on inspiration or expiration. ABDOMEN: Soft, mild diffuse tenderness. Nondistended. Bowel sounds heard in all 4 quadrants. No organomegaly or masses. Negative rebound, negative guarding EXTREMITIES: No edema, pulses are equal bilaterally. No cyanosis or clubbing NEUROLOGY: Mood and affect appear appropriate. Cranial nerves II through XII grossly intact. Moving all extremities, speech is clear Urinary Catheter: No Vascular Central Line Catheter: No A/P Assessment and Plan Abdominal pain secondary to ileitis, obstipation -CT scan did indicate distended and inflamed small bowel with significant amount of stool throughout the colon -Likely secondary to narcotic induced obstipation/constipation -Status post Relistor, soapsuds enema without any significant relief -Gastrografin enema was performed which showed normal examination and had moderate amount of stool in the colon -Continue pain control -General surgery following the patient -Gauge And Instrument Inspector has been consulted Acute kidney injury -Secondary to dehydration, poor p.o. intake -Patient was given IV fluids with significant improvement Chronic pain -Continue home [place] and Flexeril Autoimmune arthritis -continue home Imuran Anxiety -continue home anxiety meds DVT prevention -Lovenox Discharge Planning Discharge home in stable condition Activity: Ad brady. Diet: Healthy heart diet Medication per medication reconciliation Follow-up with primary medical doctor in 1 week Mukesh Gurrola Oct 14, 2017 10:04
[2017-10-14] MEDS ORDERED: azaTHIOprine 50 MG TAB PO ONE (11:00)
--- NOTE | 2017-10-14 11:44 | RADRPT ---
EXAM DATE/TIME: 10/14/2017 11:01 [place] COMPARISON: No previous studies available for comparison. INDICATIONS : Constipation. FLUORO TIME: 1.1 minutes IMAGE COUNT: 11 CONTRAST: 1. Gastroview MEDICAL HISTORY : Hypercholesterolemia. Emphysema. Gastroesophageal reflux disease. Asthma. Chemotherapy. SURGICAL HISTORY : Cholecystectomy. Appendectomy. L4-L5 repair. ENCOUNTER: Subsequent ACUITY: 2 days PAIN SCORE: 4/10 LOCATION: abdomen FINDINGS: Preliminary film is unremarkable. Under fluoroscopic guidance a Gastrografin enema was performed with free flow of contrast to the ceca l tip. All of the images were obtained in the left lateral acute disposition as the patient was unable to ch troy her position due to discomfort. A moderate amount of stool is seen within the colon. No grossly constricting lesions observed. CONCLUSION: Unremarkable Gastrografin enema. Damian Kim Jr., MD on October 14, 2017 at 11:40 Board Certified Radiologist. This report was verified electronically.
[2017-10-14 12:00] VITALS: BP 99/69; PULSE 91; RESP 18; TEMP 96; O2SAT 97
[2017-10-14] MEDS ORDERED: azaTHIOprine 50 MG TAB PO SCH (13:00)
[2017-10-14] MEDS ORDERED: HYDR-3580 PO (13:33)
--- NOTE | 2017-10-14 13:33 | HHI.DCPOC ---
Discharge Care Plan Diagnosis: (1) Abdominal pain Goals to Promote Your Health * To prevent worsening of your condition and complications * To maintain your health at the optimal level Directions to Meet Your Goals Take your medications as prescribed Follow your dietary instruction Follow activity as directed Keep your appointments as scheduled Take your immunizations and boosters as scheduled If your symptoms worsen call your PCP, if no PCP go to Urgent Care Center or Emergency Room Smoking is Dangerous to Your Health. Avoid second hand smoke Call the 24-hour hour crisis hotline for domestic abuse at Mukesh Gurrola Oct 14, 2017 13:33
[2017-10-14] MEDS ORDERED: clonazePAM 0.5 MG TAB PO SCH ×2 (21:00)
== END 2017-10-14 15:22 | disposition home or self-care (01) ==
LOC: PHED 23:14 → PHEDA 10-13 02:59 → PH3A 10-13 03:55
PROVIDERS: ADMIT Hospitalist; ATTEND Hospitalist
DX: K52.9 Noninfective gastroenteritis and colitis, unspecified (principal); K57.90 Diverticulosis of intestine, part unspecified, without perforation or abscess without bleeding; N17.9 Acute kidney failure, unspecified; E86.0 Dehydration; E78.00 Pure hypercholesterolemia, unspecified; J45.909 Unspecified asthma, uncomplicated; K59.03 Drug induced constipation; K21.9 Gastro-esophageal reflux disease without esophagitis; M54.9 Dorsalgia, unspecified; M25.559 Pain in unspecified hip; G89.29 Other chronic pain; F32.9 Major depressive disorder, single episode, unspecified; F41.9 Anxiety disorder, unspecified; M19.90 Unspecified osteoarthritis, unspecified site; Z79.899 Other long term (current) drug therapy
CPT/HCPCS: 74177; 74270; 80048; 80053; 81001; 83690; 85025; 93005; 96361; 96374; 96375; 96376; 99285; G0378; J1200; J2212; J2270; J2405; J7030; J7500; Q9963; Q9967

== ENCOUNTER 2017-11-25 06:27 | Emergency (ER) | payer MEDICARE ==
[~2017-11-25] VITALS: Ht 170.2 cm; Wt 84.1 kg
[~2017-11-25 06:27] MED LIST changes: +CLON0.5T PO; -CLON1 PO; -CYCL10TA PO; -SUMA100T2 PO
[2017-11-25 06:31] VITALS: BP 141/76; PULSE 111; RESP 12; TEMP 98.7; O2SAT 97
[2017-11-25] MEDS ORDERED: CELE200C PO (06:44)
[2017-11-25] MEDS: LIDOCAINE HCL 1% 30 ML VIAL INFIL ONE ×2 (07:15→07:26)
[2017-11-25] MEDS ORDERED: LIDOCAINE HCL 1% PF 30 ML VIAL INFIL ONE (07:30)
[2017-11-25] MEDS ORDERED: LIDOCAINE HCL 1% 30 ML VIAL INFIL ONE (07:30)
--- NOTE | 2017-11-25 08:12 | PD ---
HPI Chief Complaint: Laceration/Skin Injury Time Seen by Provider: 07:10 Travel History International Travel<30 days: No Contact w/Intl Traveler<30days: No Traveled to known affect area: No History of Present Illness HPI This 62-year-old female cutter right thumb on a knife about 2 hours ago. There is been persistent bleeding. There was a serrated knife that was dirty. She is currently on Augmentin for an ear infection and has a couple of days more to take. She has a history of autoimmune disease and is on Imuran. She does not have any numbness. PFSH Past Medical History Arthritis: Yes Asthma: Yes Anxiety: No Depression: Yes (ON ANTIDEPRESSANTS) Heart Rhythm Problems: No Cancer: No Cardiovascular Problems: Yes High Cholesterol: Yes Chemotherapy: Yes (METHOTREXATE LOW DOSES LAST TAKEN SEPTEMBER 2016) Chest Pain: Yes COPD: No Cerebrovascular Accident: No Diabetes: No Diminished Hearing: No Endocrine: No Gastrointestinal Disorders: Yes GERD: Yes Genitourinary: Yes Headaches: Yes (MIGRAINES) Hiatal Hernia: Yes Hypertension: No Immune Disorder: Yes (SPONDYLITIS) Implanted Vascular Access Dvce: Yes Kidney Stones: No Musculoskeletal: Yes Neurologic: Yes Psychiatric: No Reproductive: No Respiratory: Yes (ASTHMA) Migraines: Yes Seizures: No Thyroid Disease: No Ulcer: No Tetanus Vaccination: < 5 Years Influenza Vaccination: Yes ?: Not Menopausal: Yes : 0 Para: 0 Past Surgical History Abdominal Surgery: Yes (GI POYPS REMOVED) Appendectomy: Yes Cardiac Surgery: Yes (ABLATION) Cholecystectomy: Yes Ear Surgery: No Eye Surgery: Yes Genitourinary Surgery: No Gynecologic Surgery: Yes Neurologic Surgery: Yes (SYPATHECTOMY ) Oral Surgery: No Other Surgery: Yes (BACK SURGERY 2015, ROTATOR CUFF SURGERY 2007) Social History Alcohol Use: Yes (RARE) Tobacco Use: No Substance Use: No Allergies-Medications (Allergen,Severity, Reaction): Coded Allergies: levofloxacin (Unverified Allergy, Severe, 11/25/17) piperacillin (Unverified Allergy, Severe, ANAPHALACTIC SHOCK, 11/25/17) tazobactam (Unverified Allergy, Severe, ANAPHALACTIC SHOCK, 11/25/17) Sulfa (Sulfonamide Antibiotics) (Unverified Allergy, Intermediate, 11/25/17) doxycycline (Unverified Allergy, Intermediate, RASH, 11/25/17) erythromycin base (Unverified Allergy, Intermediate, RASH, 11/25/17) minocycline (Unverified Allergy, Intermediate, RASH, 11/25/17) tigecycline (Unverified Allergy, Intermediate, RASH, 11/25/17) Reported Meds & Prescriptions Reported Meds & Active Scripts Active Reported Celebrex (Celecoxib) 200 Mg Cap 200 Mg PO BID Clonazepam 0.5 Mg Tab 0.5 Mg PO DAILY Imuran (Azathioprine) 50 Mg Tab 50 Mg PO TID Hazardous agent: use appropriate precautions for handling and disposal. Omeprazole 40 Mg Cap 40 Mg PO DAILY Citalopram (Citalopram Hydrobromide) 20 Mg Tab 20 Mg PO DAILY Bupropion HCl 100 Mg Tab 300 Mg PO DAILY Physical Exam Narrative GENERAL: Well-developed female SKIN: Focused skin assessment warm/dry. HEAD: Atraumatic. Normocephalic. EYES: Pupils equal and round. No scleral icterus. No injection or drainage. ENT: No nasal bleeding or discharge. Mucous membranes pink and moist. NECK: Trachea midline. No JVD. MUSCULOSKELETAL: No obvious deformities. No clubbing. No cyanosis. No edema. On the side of the right thumb is a 2.5 cm long irregular jagged laceration. There is full flexion and extension of the thumb. NEUROLOGICAL: Awake and alert. No obvious cranial nerve deficits. Motor grossly within normal limits. Normal speech. PSYCHIATRIC: Appropriate mood and affect; insight and judgment normal. Data Data Last Documented VS Vital Signs Date Time Temp Pulse Resp B/P (MAP) Pulse Ox O2 Delivery O2 Flow Rate FiO2 11/25/17 06:31 98.7 111 12 141/76 (97) 97 Orders Orders Lidocaine 1% Inj (Xylocaine 1% Inj) (11/25/17 07:15) Lidocaine Pf 1% Inj (Xylocaine-Mpf 1% In (11/25/17 07:30) MDM Medical Decision Making Medical Screen Exam Complete: Yes Emergency Medical Condition: Yes Medical Record Reviewed: Yes Differential Diagnosis Differential includes laceration of the thumb Narrative Course Laceration has been sutured and patient is stable for discharge Procedures Procedure Narrative A digital block was performed with 1% lidocaine. After anesthesia of the thumb was achieved the laceration was cleaned thoroughly with Betadine and saline. The edges were approximated with 4-0 nylon sutures. Patient tolerated the procedure well. Sterile dressing applied Diagnosis Primary Impression: Laceration of thumb Additional Instructions: Suture removal 10 days, keep thumb elevated, return if fever or evidence of infection Disposition: 01 DISCHARGE HOME Condition: Stable Rod Elder MD Nov 25, 2017 08:12
== END 2017-11-25 08:40 | disposition home or self-care (01) ==
LOC: PHED 06:27
DX: S61.019A Laceration without foreign body of unspecified thumb without damage to nail, initial encounter (principal); W26.0XXA Contact with knife, initial encounter; M35.9 Systemic involvement of connective tissue, unspecified; H66.90 Otitis media, unspecified, unspecified ear; M19.90 Unspecified osteoarthritis, unspecified site; E78.00 Pure hypercholesterolemia, unspecified; F32.9 Major depressive disorder, single episode, unspecified; J45.909 Unspecified asthma, uncomplicated; K21.9 Gastro-esophageal reflux disease without esophagitis
CPT/HCPCS: 12001

== ENCOUNTER 2018-03-01 08:30 | Inpatient (IN) ==
[~2018-03-01 08:30] MED LIST changes: -BUPR100T4 PO; +Bupivacaine/Epinephrine PF Inj 0.5% 30 ML Vial ONE; -CITA20TA4 PO; -CLON0.5T PO; +Gelatin Size 100 Topical Foam ONE; -HYDR-3580 PO; -IMUR50TA5 PO; -OMEP40CA2 PO; +Thrombin Topical Soln 5,000 UNIT Vial TOPICAL ONE
[2018-03-01] MEDS ORDERED: Chlorhexidine Gluconate 2% 1 Pack (2 Cloths) TOPICAL ONE (11:10)
[2018-03-01] MEDS ORDERED: Metoprolol Tartrate 25 MG Tablet PO ONE (11:10)
[2018-03-01] MEDS ORDERED: Sodium Chlor 0.9% Inj 500 ML IV.SIG SCH (12:00)
[2018-03-01] MEDS ORDERED: Propofol Inj 500 MG/50 ML Vial ONE (14:59)
[2018-03-01] MEDS ORDERED: Phenylephrine/NS 1000 MCG/10ML Syringe IV.PUSH ONE (15:00)
[2018-03-01] MEDS ORDERED: Lidocaine PF 1% Inj 5 ML Syringe INFILTRATN ONE (15:00)
[2018-03-01] MEDS ORDERED: Sod Chloride 0.9% Inj 1,000 ML IV.SIG ONE (15:00)
[2018-03-01] MEDS ORDERED: Sodium Chlor 0.9% Inj 250 ML ONE (15:13)
[2018-03-01] MEDS ORDERED: fentaNYL Citrate Inj 100 MCG/2 ML Ampul ONE ×2 (17:01→19:17)
[2018-03-01] MEDS ORDERED: Morphine Inj 4 MG/ML Vial ONE (19:17)
[2018-03-01] MEDS ORDERED: Bisacodyl 10 MG Supp RECTAL PRN (19:24)
[2018-03-01] MEDS ORDERED: Naloxone Inj 0.4 MG/ML Vial IV.PUSH PRN (19:24)
[2018-03-01] MEDS ORDERED: HYDROmorphone PF Inj 1 MG/ML Ampul IV.PUSH ONE (19:24)
--- NOTE | 2018-03-01 19:49 | P.OP ---
Preoperative Diagnosis: Lumbar degenerative disk disease Postoperative Diagnosis: Lumbar degenerative disk disease Date of procedure: 03/01/18 Procedure: L4-L5 laminectomy, interbody arthrodesis using PEEK cage and autologous bone graft, L4-L5 instrumental fixation using transpedicular screws and rods, L4-L5 territory supervisor lateral fusion using autologous bone graft and demineralized bone matrix. Microsurgical dissection Anesthesia: RAMON Surgeon: Bethel Carrillo MD Dining Manager: Dimitri fernandez Operation and Findings: INDICATIONS FOR THE SURGICAL PROCEDURE Ms Cox is a 62 year-old female who presented with intractable mechanical back pain and los evidence of lower extremity radiculopathy. She failed maximum nonsurgical management including multiple modalities of conservative treatment as well as pain management interventions by an interventional pain specialist. A surgical decompression and arthrodesis were indicated as a last resort. The [id number] details of the procedure, indications, alternatives, risks and potential complications were fully discussed with the patient. The patient fully understood. All the questions were answered. No guarantees were given. The patient voiced requesting the procedure and provided informed consents. The patient was offered the alternative of delaying the procedure and continuing with nonsurgical management. DETAILS OF THE SURGICAL PROCEDURE Prior to the procedure, the surgical incision was marked in the preoperative surgical holding room, and the procedure, risks, and potential complications revisited with the patient. Placement of electrodes for intraoperative neurophysiological monitoring was completed. The patient was taken to the operative room, and following induction of general anesthesia, endotracheal intubation was performed. A Joel catheter, bilateral DEEPTI hose and sequential compression devices were placed and kept throughout the procedure. The patient was positioned prone, over a Kevin table over a bolsters. All pressure in the preoperative surgical holding room points were carefully padded with eggcrate and gel mattress. The eyes were tapped shut after ointment was applied by the anesthesiologist to prevent corneal abrasion. A Blair hugger was placed over the expossed lower body to maintain control of the core body temperature. The electrophysiological team placed the needles and electrodes in their proper location and baseline SSEP's and EMG potentials were registered. The entrance to each pedicles was marked using a C arm. The lumbar region was prepped and draped in the usual sterile fashion. The surgical procedure was performed in several steps as follow: SURGICAL APPROACH Once the patient was positioned, a localizing cross-table lateral x-ray was performed with a C-arm. Two paramedian small incisions were outlined on the skin approximately 3cm from the midline. The skin incisions were made with a # 10 blade. Small bleeders were controlled with the cautery. The dissection was then carried out into deper planes and through the thoracolumbar fascia with a Bovie. The intermuscular septum was identified and the myscles were blunted dissected along the septum. The facets and transverse process of L4 and L5 were exposed and the proper anatomical landmarks were identidied. A microsurgical self-retaining retractor was placed on the incision, and a localizing lateralizing cross-table x-ray was performed with an instrument underneath a lamina of the lumbar spine. INSTRUMENTAL FIXATION At this point in the procedure, placement of bilateral transpedicular screws was necessary for stabilization of the spine. Initially, the entry point for the screw was selected anatomically at the junction of the facet, with the transverse process, and the pars interarticularis at L4 and L5. This was started with a Giamshetti needle followed by the use of a daily wire. A tap was used to create the threads for the screws. Finally bilateral transpedicular screws were carefully placed bilaterally at L4, and L5 under fluoroscopic visualization. An appropriate purchase was achieved with all screws. The position of each screw was assessed anatomically with an AP, lateral , oblique Xrays. An intraoperative scan view of the spine was then performed using the iso-centric c-arm. Each screw was then assessed electrophysiologically stimulating each screw with a nerve stimulator. SURGICAL DECOMPRESSION There was significant mass effect with compression of the neural structures. In order to relieve neural compression, it was necessary to perform a decompressive laminectomy, with decompression of the spinal canal and bilateral lateral recesses. Note that the scope of such decompression was significantly more extensive than the minimal exposure necessary to perform an interbody fusion, as there was extreme facet arthropathy with near complete collapse of the disk spaces and severe stenosis cause by the hyperthrophic joint facets. At this point of the procedure the operative microscope was draped in the usual sterile fashion and brought to the field. The rest of the surgical procedure was performed using microdissection technique with the exception of the closure. Under the operating microscope, a decompressive laminectomy was carried out at L4-L5 as follow: The laminae, base of the spinous processes and facets were carefully drilled exposing the ligamentum flavum. The facets were abnormal with severe spondylolisthesis and gross mechanical instability. A large disk protusion was compressing the neural structures and exiting nerve roots. A near complete facetectomy was necessary resulting in further mechanical instability. The ligamentum flavum appeared hypertrophic, resulting on mass effect on the dorsal surface of the neural structures. The superior free border of the ligamentum flavum was elevated with a ligament dissector and the ligamentum flavum was removed with a 3 and 4 mm Kerrison forceps. The ligament was very adherent to the dural sac and during the dissection, and extreme care was taken during the dissection. The exiting nerve roots were identified, and a wide foraminotomy was performed with a Kerrison in their trajectory towards the neural foramen. Epidural veins located laterally to the dural sac were coagulated with the bipolar cautery, and then incised using microscissors. Gentle medial retraction of the dural sac allowed me to expose the disc space for the discectomy. Upon completion of the discectomy, an excellent decompression of the neural structures was achieved. INTERBODY ARTHRODHESIS In order to correct the narrowing of the disk space and maintain distraction of the space, and to achieve a solid interbody fusion, it was necessary the insertion of an interbody device into the disk space. Otherwise, the disk space would collapse, compromising the result of the surgical procedure. At this point of the procedure, the annulus fibrosus of the disk was carefully coagulated with a bipolar cautery and incised using an 11 bladed knife. Then, a microdiscectomy was carried out in a standard fashion using a combination of straight and up-biting pituitary forceps. A reverse angle curette was applied underneath the posterior longitudinal ligament, and used to push the disk fragments into the disk space, so they can be safely removed with a pituitary forceps. Once the discectomy was completed, it was necessary to decorticate the endplates, in order to eliminate the cartilaginous endplate and to expose healthy bone appropriate to perform the interbody fusion. The endplates at L4- L5 were then thoroughly decorticated using increasing size bone madie and ring curets, eliminating the cartilaginous fragments from both, the superior and inferior endplates. A disk space distractor was applied to the pedicle screws and gentle distraction was applied. This maneuver was assisted by the use of a disk distractor. Increased motility was noted at the disk, which was consistent with instability due to facet arthropathy. Once a thorough preparation of the disk space was achieved, the disk space was irrigated with antibiotic solution, and the interbody fusion was performed by carefully impacting an expandable PPEK cage filled with autologous bone graft. The cage was cartefully expanded. A solid position of the cage with good purchase was achieved. The position of the cage was assessed anatomically with a probe and radiologically with the C-arm. POSTEROLATERAL FUSION The posterolateral fusion is a critical component to the procedure, to prevent future fatigue and failure of the instrumental fixation. Initially, the transverse processes of the vertebral bodies, lateral surface of the facets and the lateral gutters of the spine were carefully cleaned, eliminating all soft tissue and muscle attachments. The area was then irrigated with a large amount of antibiotic solution. Subsequently, the transverse processes, lateral surface of the facets, and lateral gutters of the spine were thoroughly decorticated using the TPS drill with a 5mm cutting sarah, exposing cancellous bone, in preparation for the posterolateral fusion. The incision was again irrigated with antibiotic solution. Then, the posterolateral fusion was then performed by carefully packing the lateral gutters of the spine at L4-L5 with autologous bone combined with demineralized bone matrix. COMPLETION OF THE INSTRUMENTATION AND CLOSURE The rods were brought to the field, applied to all the screws, and the screw caps were sequentially applied. Compression was performed between the pedicle screws, and final tightening of the screws was completed using a torque wrench. The incision was again thoroughly irrigated with several liters of antibiotic solution, and hemostasis secured with the bipolar cautery. A Valsalva Maneuver performed by the anesthesiologist failed to show any evidence of cerebrospinal fluid leak or bleeding. A 7 mm Kevin-Michelle drain was left in the epidural space and externalized through a separate stab incision. The incision was then closed in planes. 0 Vicryl was used in an interrupted fashion to close the thoracolumbar fascia and the superficial fascia. The subcutaneous tissue was then approximated using 3-0 Vicryl in an interrupted fashion. Special care was taken to avoid space. The skin was then closed with 4-0 Vicryl in a running, subcuticular fashion. Dermabond was applied to the skin. Each plane of closure was irrigated with antibiotic solution. At the end of the procedure the sponge, needle and instrument counts were all correct. Estimated blood loss was 200 cc. No blood transfusion was given. The entire procedure was performed using continuous electrophysiological monitoring of the somatosensorial evoked potentials and EMG. The patient received prophylactic antibiotics. The patient was then extubated and transferred to the recovery room in stable condition.
[2018-03-01] MEDS ORDERED: ceFAZolin 2 GM Premix Inj 2 GM/50 ML PIGGYBACK IV.SIG SCH (20:00)
--- NOTE | 2018-03-01 20:13 | XR ---
EXAM DATE: 03/01/2018 8:07 PM EDT AGE/SEX: 62 years / Female INDICATIONS: Lumbar fusion, L4-5. CLINICAL DATA: This is the patient's initial encounter. Patient reports that signs and symptoms have been present for 1 day and indicates a pain score of Nonresponsive. MEDICAL/SURGICAL HISTORY: Non-responsive. Non-responsive. COMPARISON: [facility], XR SPINE LUMBAR AP AND LAT W/ FLEX AND EXT, 10/20/2017. . FINDINGS: AP and lateral coned down views of the lower lumbar spine were obtained using a matrix camera and dem onstrate that the patient is status post fusion at the L4-5 level with bilateral pedicle screws and p osterior fixation rods. There are metallic markers in the interspace and the alignment is anatomic. T here is a posterior surgical drain present. CONCLUSION: Status post L4-5 lumbar fusion. Electronically signed by: Mark Chu MD 03/01/2018 8:12 PM EDT
[2018-03-01] MEDS: Sod Chloride 0.9% Inj 1,000 ML IV.CONT SCH (20:15)
[2018-03-01] MEDS ORDERED: HYDROmorphone PCA Inj 6 MG/30 ML PCA.VIAL PCA ONE (20:25)
[2018-03-01] MEDS ORDERED: *morphine SULFATE 4 MG/ML PERIprocedure ONLY ONE (20:26)
[2018-03-01] MEDS: HYDROmorphone PCA Inj 6 MG/30 ML PCA.VIAL PCA PRN (20:35)
[2018-03-02] MEDS: Senna/Docusate Sodium 8.6/50 MG Tablet PO SCH ×3 (01:39→21:08)
[2018-03-02] MEDS: Vancomycin Inj 1,000 MG in Sodium Chlor 0.9% Inj 250 ML IV.SIG SCH ×2 (01:49→14:00)
[2018-03-02] MEDS: Sod Chloride 0.9% Inj 1,000 ML IV.CONT SCH ×2 (05:33→15:51)
[2018-03-02 06:02] LABS: Baso % (Auto) 0.2 % (0.0-2.0); Hematocrit 28.9 % (35.0-46.0); Hemoglobin 9.2 gm/dL (11.6-15.3); Lymph # (Auto) 0.3 th/mm3 (1.0-4.8); Lymph % (Auto) 4.1 % (9.0-44.0); Mean Corpuscular Hemoglobin 30.7 pg (27.0-34.0); Mean Platelet Volume 6.9 fL (7.0-11.0); Mono # (Auto) 0.3 th/mm3 (0.0-0.9); Mono % (Auto) 3.9 % (0.0-8.0); Neut # (Auto) 6.8 th/mm3 (1.8-7.7); Neut % (Auto) 91.8 % (16.0-70.0); Platelet Count 265 th/mm3 (150-450); Red Blood Count 3.01 mil/mm3 (4.00-5.30); Red Cell Distribution Width 15.5 % (11.6-17.2); White Blood Count 7.4 th/mm3 (4.0-11.0)
[2018-03-02 06:22] LABS: Anion Gap 11 meq/L (5-15); Blood Urea Nitrogen 14 mg/dL (7-18); Carbon Dioxide 23.5 meq/L (21.0-32.0); Chloride 110 meq/L (98-107); Glomerular Filtration Rate Greater Than 89 mL/min (>89); Glucose,Random 104 mg/dL (74-106); Potassium 4.4 meq/L (3.5-5.1); Sodium 144 meq/L (136-145)
[2018-03-02] MEDS: clonazePAM 0.5 MG Tablet PO SCH ×3 (08:47→18:11)
[2018-03-02] MEDS: buPROPion 150 MG 12 HR Tablet PO SCH ×2 (08:48→21:08)
[2018-03-02] MEDS: azaTHIOprine 50 MG Tablet PO SCH (10:16)
--- NOTE | 2018-03-02 11:03 | P.CONIM ---
History of Present Illness Service: Ortho Primary Care Provider: Ruma Costa Family Provider: Jayme Costa History of Present Illness: This is a 62-year-old female with PMHx of Asthma, Chronic back pain, GERD, & Anxiety/Depression admitted for Lumbar Degenerative Disc Disease status post L4-L5 laminectomy with peek case and bone graft with L4-L5 fixation, postoperative day #1. Our team has been consulted for medical management, patient reports that she is on Hydrocodone/APAP 7.5mg for chronic pain managed by a pain clinic, she is on a PPI for GERD, she uses Albuterol as needed for Asthma, and she is on Clonazepam, Citalopram, and Bupropion for Anxiety/ Depression. She denies chest pain, SOB, N/V/D, and fever/chills. She has no acute concerns after surgery. Review of Systems All other systems reviewed negative except as stated in HPI PMFSH - History History Provided By: Patient - Medical History Medical History: Medical History (Last Reviewed 03/02/18 @ 10:48 by Haley Terry MD) Asthma Back pain at L4-L5 level Chronic pain Congenital nystagmus GERD (gastroesophageal reflux disease) Right hip pain Spondylarthritis - Surgical History Surgical History: Surgical History (Last Reviewed 03/02/18 @ 10:48 by Haley Terry MD) History of back surgery Hx of appendectomy Hx of cholecystectomy Hx of shoulder surgery - Family History Family History: Family History (Last Reviewed 03/02/18 @ 10:50 by Haley Terry MD) Mother Family history of diabetes mellitus - Social History I have reviewed the patient's Social History: Yes - Tobacco History Second Hand Smoke Exposure: No Tobacco Use In Past 30 Days: No Smoking Status: Former smoker Tobacco Type: Cigarettes - Alcohol History How Often Do You Have a Drink Containing Alcohol: Monthly or less - Substance Use History Substance History: No History of Abuse - Travel History History of Recent Travel: No Recent Travel in the [place] Within the Last 8 Weeks: No Recent Travel Out of the Country Within the Last 8 Weeks: No - Immunization History Hx Influenza Vaccine This Season: No Medications and Allergies Active Medications: Active Medications Hydrocodone Bitart/Acetaminophen ([place] 10/325) 2 tab PO Q4H PRN PRN Reason: PAIN SCALE 6 TO 10 Al Hydroxide/Mg Hydroxide (Milk Of Magnesia Liq) 30 ml PO Q12H PRN PRN Reason: Mild Constipation Albuterol (Ventolin Hfa Inh) 2 puff INH Q4H PRN PRN Reason: Shortness Of Breath Azathioprine (Imuran) 200 mg PO DAILY [facility] Last Admin: 03/02/18 10:16 Dose: 200 mg Bisacodyl (Dulcolax Supp) 10 mg RECTAL DAILY PRN PRN Reason: SEVERE CONSITIPATION Bupropion HCl (Wellbutrin Sr) 150 mg PO Q12H [facility] Last Admin: 03/02/18 08:48 Dose: 150 mg Citalopram Hydrobromide (Celexa) 50 mg PO DAILY [facility] Clonazepam (Klonopin) 0.5 mg PO TID [facility] Last Admin: 03/02/18 08:47 Dose: 0.5 mg Cyclobenzaprine HCl (Flexeril) 10 mg PO BID [facility] Last Admin: 03/02/18 08:48 Dose: 10 mg Lactated Ringer's (Lr 1000 Ml Inj) 1,000 mls @ 30 mls/hr IV.SIG .Q24H [facility] Stop: 03/02/18 11:14 Last Admin: 03/01/18 13:23 Dose: 30 mls/hr Sodium Chloride (Ns Inj) 500 mls @ 30 mls/hr IV.SIG .Q10H [facility] Last Admin: 03/01/18 22:52 Dose: Not Given Hydromorphone/Sodium Chloride (Dilaudid Pan Devulcanizer Helper Inj) 6 mg in 30 mls @ 0 mls/hr POLISHING MACHINE TENDER UNSCH PRN PRN Reason: per POLISHING MACHINE TENDER parameters Last Admin: 03/01/18 20:35 Dose: 0 mls/hr Sodium Chloride (Ns Inj) 1,000 mls @ 100 mls/hr IV.CONT .Q10H [facility] Last Infusion: 03/02/18 09:16 Dose: Infused Vancomycin HCl 1,000 mg/ (Sodium Chloride) 250 mls @ 250 mls/hr IV.SIG Q12H [facility] Stop: 03/02/18 12:59 Last Infusion: 03/02/18 02:51 Dose: Infused Lactulose (Lactulose Liq) 30 ml PO DAILY PRN PRN Reason: SEVERE CONSITIPATION Miscellaneous Information (Misc Nursing Information) 0 each OTHER UNSCH PRN PRN Reason: SEE LABEL COMMENTS Stop: 03/02/18 19:45 Naloxone HCl (Narcan Inj) 0.4 mg IV.PUSH PRN PRN PRN Reason: SEE LABEL COMMENTS Pantoprazole Sodium (Protonix) 40 mg PO DAILY [facility] Last Admin: 03/02/18 08:49 Dose: 40 mg Senna/Docusate Sodium (Verna-Colace) 1 tab PO BID [facility] Last Admin: 03/02/18 08:47 Dose: 1 tab Sennosides (Senokot) 17.2 mg PO Q12H PRN PRN Reason: Moderate Constipation Allergies Allergy/AdvReac Type Severity Reaction Status Date / Time levofloxacin Allergy Severe Muscle Pain Verified 02/28/18 11:55 piperacillin Allergy Severe ANAPHALACTIC Verified 03/01/18 12:57 SHOCK tazobactam Allergy Severe ANAPHALACTIC Verified 02/28/18 11:55 SHOCK doxycycline Allergy Intermediate RASH Verified 02/28/18 11:55 erythromycin base Allergy Intermediate RASH Verified 02/28/18 11:55 minocycline Allergy Intermediate RASH Verified 02/28/18 11:55 Sulfa (Sulfonamide Allergy Intermediate Fever Verified 02/28/18 11:55 Antibiotics) tigecycline Allergy Intermediate RASH Verified 02/28/18 11:55 Tetracyclines Allergy Rash Verified 02/28/18 11:55 Home Medications Medication Instructions Recorded Confirmed Type azathioprine [Imuran] 200 mg PO DAILY 02/15/18 03/01/18 History bupropion HCl 300 mg PO QAM 02/15/18 03/01/18 History citalopram 50 mg PO DAILY 02/15/18 03/01/18 History cyclobenzaprine 10 mg PO BID 02/15/18 03/01/18 History hydrocodone-acetaminophen 1 tab PO TID PRN 02/15/18 03/01/18 History omeprazole 40 mg PO DAILY 02/15/18 03/01/18 History albuterol sulfate [ProAir HFA] 2 puff INHALATION Q4-6H PRN 02/28/18 03/01/18 History clonazepam 0.5 mg PO TID 03/01/18 03/01/18 History Exam Vital signs: Vital Signs 03/01/18 13:15 03/01/18 19:14 03/01/18 19:15 Temperature 98.1 F 96.8 F L Pulse Rate 95 H 96 H 97 H Respiratory Rate 20 16 16 Blood Pressure 120/71 124/58 L 122/58 L Pulse Oximetry 97 100 99 03/01/18 19:30 03/01/18 19:45 03/01/18 20:00 Temperature Pulse Rate 94 H 93 H 97 H Respiratory Rate 20 20 20 Blood Pressure 133/66 128/64 107/61 Pulse Oximetry 99 99 100 03/01/18 20:15 03/01/18 20:30 03/01/18 20:45 Temperature Pulse Rate 93 H 94 H 94 H Respiratory Rate 20 20 20 Blood Pressure 127/72 124/72 128/74 Pulse Oximetry 99 98 98 03/01/18 21:00 03/01/18 21:05 03/01/18 21:15 Temperature Pulse Rate 95 H 98 H Respiratory Rate 12 19 19 Blood Pressure 114/62 111/58 L Pulse Oximetry 99 99 03/01/18 21:23 03/01/18 21:37 03/02/18 00:00 Temperature 97.6 F 97.6 F 97.8 F Pulse Rate 97 H 99 H 91 H Respiratory Rate 12 18 17 Blood Pressure 109/56 L 111/59 L 102/56 L Pulse Oximetry 94 L 96 98 03/02/18 04:00 03/02/18 08:00 Temperature 97.4 F L 97.8 F Pulse Rate 102 H 97 H Respiratory Rate 17 18 Blood Pressure 97/50 L 100/51 L Pulse Oximetry 98 98 Intake & Output 03/01/18 03/02/18 03/02/18 18:59 06:59 18:59 Intake Total 1800 / 1800 248 / 248 1000 / 1000 Output Total 350 / 350 1305 / 1305 Balance 1450 / 1450 -1057 / -1057 1000 / 1000 Weight 83.7 kg 83.7 kg Intake: IV 248 / 248 1000 / 1000 NS Inj 1,000 ML @ 100 mls/hr IV 1000 / 1000 .CONT .Q10H [facility] Rx#:[id number] Vancomycin Inj 1,000 MG In NS 248 / 248 Inj 250 ML @ 250 mls/hr IV.SIG Q12H [facility] Rx#:[id number] Anesthesia Amount 1800 / 1800 Output: Urine 850 / 850 Estimated Blood Loss 200 / 200 Urine Amount (Catheter) 150 / 150 400 / 400 Indwelling Urethral Catheter 150 / 150 400 / 400 Wound Drainage 55 / 55 # 1 Back 55 55 Other: Date of Last Bowel Movement 03/01/18 Weight On Admission 83.7 kg Narrative: GENERAL: pleasant, in NAD, sitting comfortable in bed. SKIN: Warm and dry. HEAD: Normocephalic. EYES: No scleral icterus. No injection or drainage. NECK: Supple, trachea midline. No JVD or lymphadenopathy. CARDIOVASCULAR: Regular rate and rhythm without murmurs, gallops, or rubs. RESPIRATORY: Breath sounds equal bilaterally. No accessory muscle use. GASTROINTESTINAL: Abdomen soft, non-tender, nondistended. MUSCULOSKELETAL: No cyanosis, or edema. BACK: Nontender, dressing in place with drain over lumbar region, minimal sanguineous fluid in drain. No CVA tenderness. Results - Labs CBC & Chem 7: 03/02/18 04:05 03/02/18 04:05 Labs: Laboratory Results - last 24 hr 03/01/18 03/02/18 03/02/18 13:20 04:05 04:05 WBC 7.4 RBC 3.01 L Hgb 9.2 L Hct 28.9 L MCV 96.0 MCH 30.7 MCHC 32.0 RDW 15.5 Plt Count 265 MPV 6.9 L Neut % (Auto) 91.8 H Lymph % (Auto) 4.1 L [place] % (Auto) 3.9 Eos % (Auto) 0.0 Baso % (Auto) 0.2 Neut # (Auto) 6.8 Lymph # (Auto) 0.3 L [place] # (Auto) 0.3 Eos # (Auto) 0.0 Baso # (Auto) 0.0 WBC Differential . Differential Comment Auto diff final Sodium 144 Potassium 4.4 Chloride 110 H Carbon Dioxide 23.5 Anion Gap 11 BUN 14 Creatinine 0.59 Estimated GFR Greater than 89 Random Glucose 104 Calcium 8.0 L Blood Type O Positive Blood Type Recheck Required Antibody Screen Negative - Imaging Impressions Lumbar Spine X-Ray 03/01/18 00:00 CONCLUSION: Status post L4-5 lumbar fusion. Assessment and Plan - Assessment (1) Disc degeneration, lumbar Code(s): M51.36 - Other intervertebral disc degeneration, lumbar region Status : Chronic (2) Anemia Code(s): D64.9 - Anemia, unspecified Status: Acute (3) Anxiety Code(s): F41.9 - Anxiety disorder, unspecified Status: Acute (4) Depressed Code(s): F32.9 - Major depressive disorder, single episode, unspecified Status : Acute (5) GERD (gastroesophageal reflux disease) Code(s): K21.9 - Gastro-esophageal reflux disease without esophagitis Status: Acute (6) Chronic pain Code(s): G89.29 - Other chronic pain Status: Acute - Plan This is a 62-year-old female with PMHx of Asthma, Chronic back pain, GERD, & Anxiety/Depression admitted for Lumbar Degenerative Disc Disease status post L4-L5 laminectomy with peek case and bone graft with L4-L5 fixation, postoperative day #1, doing well. 1. LUMBAR, Degenerative Disc Disease: status post L4-L5 laminectomy with peek case and bone graft with L4-L5 fixation , postoperative day #1 managed by Ortho SCD's for DVT PPX Hydrocodone for pain mgmt awaiting evaluaation from Ortho today to determine further recommendations 2. ANXIETY/DEPRESSION: cont. home meds- Clonazepam, Citalopram, and Buproprion. Denies S/H ideation. 3. GERD: cont. PPI. 4. Chronic Pain: managed by pain mgmt as an OP. 5. Anemia: acute blod loss, HGb 9.2 from 11.8 preop, on FeSulfate. 6. DVT PPX: SCD's. 7. Dispo: awaiting Ortho evaluation today for recommendations. Code Status: full Discussed Condition With: patient Discharge Planning: pending ortho reccs (2) Anemia Qualifiers: Anemia type: other cause
--- NOTE | 2018-03-02 13:00 | P.PNNS ---
Subjective Interval history: Pt s/p L4-L5 laminectomy, interbody arthrodesis using PEEK cage and autologous bone graft, L4-L5 instrumental fixation using transpedicular screws and rods, L4 -L5 house painter helper lateral fusion using autologous bone graft and demineralized bone matrix. Microsurgical dissection on 03/01/18. She has incisional pain controlled with REGISTERED SALES ASSISTANT. She does not want to switch to oral pain control. She states she has a history of OA in right hip and knee and has pain related to this also. No paresthesias or numbness in LEs. Physical Exam Vital signs: Vital Signs 03/01/18 13:15 03/01/18 19:14 03/01/18 19:15 Temperature 98.1 F 96.8 F L Pulse Rate 95 H 96 H 97 H Respiratory Rate 20 16 16 Blood Pressure 120/71 124/58 L 122/58 L Pulse Oximetry 97 100 99 03/01/18 19:30 03/01/18 19:45 03/01/18 20:00 Temperature Pulse Rate 94 H 93 H 97 H Respiratory Rate 20 20 20 Blood Pressure 133/66 128/64 107/61 Pulse Oximetry 99 99 100 03/01/18 20:15 03/01/18 20:30 03/01/18 20:45 Temperature Pulse Rate 93 H 94 H 94 H Respiratory Rate 20 20 20 Blood Pressure 127/72 124/72 128/74 Pulse Oximetry 99 98 98 03/01/18 21:00 03/01/18 21:05 03/01/18 21:15 Temperature Pulse Rate 95 H 98 H Respiratory Rate 12 19 19 Blood Pressure 114/62 111/58 L Pulse Oximetry 99 99 03/01/18 21:23 03/01/18 21:37 03/02/18 00:00 Temperature 97.6 F 97.6 F 97.8 F Pulse Rate 97 H 99 H 91 H Respiratory Rate 12 18 17 Blood Pressure 109/56 L 111/59 L 102/56 L Pulse Oximetry 94 L 96 98 03/02/18 04:00 03/02/18 08:00 Temperature 97.4 F L 97.8 F Pulse Rate 102 H 97 H Respiratory Rate 17 18 Blood Pressure 97/50 L 100/51 L Pulse Oximetry 98 98 Intake & Output 03/01/18 03/02/18 03/02/18 18:59 06:59 18:59 Intake Total 1800 / 1800 248 / 248 1000 / 1000 Output Total 350 / 350 1305 / 1305 Balance 1450 / 1450 -1057 / -1057 1000 / 1000 Weight 83.7 kg 83.7 kg Intake: IV 248 / 248 1000 / 1000 NS Inj 1,000 ML @ 100 mls/hr IV 1000 / 1000 .CONT .Q10H [facility] Rx#:[id number] Vancomycin Inj 1,000 MG In NS 248 / 248 Inj 250 ML @ 250 mls/hr IV.SIG Q12H [facility] Rx#:[id number] Anesthesia Amount 1800 / 1800 Output: Urine 850 / 850 Estimated Blood Loss 200 / 200 Urine Amount (Catheter) 150 / 150 400 / 400 Indwelling Urethral Catheter 150 / 150 400 / 400 Wound Drainage # 1 Back Other: Date of Last Bowel Movement 03/01/18 Weight On Admission 83.7 kg - Constitutional no acute distress, cooperative - Routine HEENT Exam Head: Present: normocephalic Eye: Present: PERRL. Absent: conjunctival icterus - Routine Respiratory Exam Present: CTA bilaterally. Absent: respiratory distress, rhonchi, wheezes - Routine Cardiovascular Exam Present: RRR, S1, S2. Absent: murmur - Routine Abdominal Exam Present: soft, normoactive bowel sounds - Routine Skin Exam Absent: cyanosis, erythema Comments: Pt laying on her side. Bandage clean and dry intact. EAMON drain in place draining well. - Routine Neurological Exam Present: alert, oriented X3. Absent: sensory deficit, motor deficit, altered mental status - Routine Psychiatric Exam Present: normal affect, cooperative. Absent: agitated - Urinary Catheter Management Indwelling Urethral Catheter Cath placed during this visit: yes Reason for continuing: Hourly intake/output Insertion date: 03/01/18 Insertion time: 15:40 Assessment and Plan - Assessment (1) Disc degeneration, lumbar Code(s): M51.36 - Other intervertebral disc degeneration, lumbar region Status : Chronic (2) Anemia Code(s): D64.9 - Anemia, unspecified Status: Acute Qualifiers: Anemia type: other cause (3) Anxiety Code(s): F41.9 - Anxiety disorder, unspecified Status: Acute (4) Depressed Code(s): F32.9 - Major depressive disorder, single episode, unspecified Status : Acute (5) GERD (gastroesophageal reflux disease) Code(s): K21.9 - Gastro-esophageal reflux disease without esophagitis Status: Acute (6) Chronic pain Code(s): G89.29 - Other chronic pain Status: Acute - Plan A: 62 y/o FM s/p L4-L5 laminectomy, interbody arthrodesis using PEEK cage and autologous bone graft, L4-L5 instrumental fixation using transpedicular screws and rods, L4-L5 house painter helper lateral fusion using autologous bone graft and demineralized bone matrix. Microsurgical dissection by Dr. Carrillo on 03/01/18. P: Continue with postop pain control with REGISTERED SALES ASSISTANT. Continue with EAMON drain Continue with PT. Lumbar brace on when oob. Pt seen in conjunction with Dr. Carrillo and note written on his behalf.
[2018-03-02] MEDS: Loratadine 10 MG Tablet PO SCH (14:01)
[2018-03-02] MEDS: Ferrous Sulfate 325 MG Tablet PO SCH ×2 (14:01→21:08)
[2018-03-02] MEDS: Gabapentin 300 MG Capsule PO SCH ×2 (14:01→18:11)
[2018-03-02] MEDS: HYDROmorphone PCA Inj 6 MG/30 ML PCA.VIAL PCA PRN (14:10)
[2018-03-03] MEDS: Sod Chloride 0.9% Inj 1,000 ML IV.CONT SCH ×4 (00:37→22:21)
[2018-03-03 07:37] LABS: Hematocrit 28.6 % (35.0-46.0); Hemoglobin 9.1 gm/dL (11.6-15.3); Mean Corpuscular HGB Conc 31.7 % (32.0-36.0); Mean Corpuscular Hemoglobin 30.5 pg (27.0-34.0); Mean Corpuscular Volume 96.3 fL (80.0-100.0); Platelet Count 274 th/mm3 (150-450); Red Blood Count 2.97 mil/mm3 (4.00-5.30); Red Cell Distribution Width 15.7 % (11.6-17.2); White Blood Count 8.1 th/mm3 (4.0-11.0)
[2018-03-03 07:50] LABS: Alanine Aminotransferase 22 U/L (10-53); Albumin 2.8 g/dL (3.4-5.0); Alkaline Phosphatase 80 U/L (45-117); Anion Gap 10 meq/L (5-15); Aspartate Aminotransferase 31 U/L (15-37); Blood Urea Nitrogen 8 mg/dL (7-18); Calcium 8.3 mg/dL (8.5-10.1); Carbon Dioxide 25.1 meq/L (21.0-32.0); Chloride 108 meq/L (98-107); Glomerular Filtration Rate 75 mL/min (>89); Glucose,Random 150 mg/dL (74-106); Potassium 3.5 meq/L (3.5-5.1); Sodium 143 meq/L (136-145); Total Protein 6.6 g/dL (6.4-8.2)
[2018-03-03] MEDS: azaTHIOprine 50 MG Tablet PO SCH (08:49)
[2018-03-03] MEDS: Gabapentin 300 MG Capsule PO SCH ×3 (08:49→17:56)
[2018-03-03] MEDS: Ferrous Sulfate 325 MG Tablet PO SCH ×2 (08:49→22:12)
[2018-03-03] MEDS: Senna/Docusate Sodium 8.6/50 MG Tablet PO SCH ×2 (08:49→22:11)
[2018-03-03] MEDS: Loratadine 10 MG Tablet PO SCH (08:49)
[2018-03-03] MEDS: clonazePAM 0.5 MG Tablet PO SCH ×3 (08:50→17:56)
[2018-03-03] MEDS: buPROPion 150 MG 12 HR Tablet PO SCH ×2 (08:50→22:10)
--- NOTE | 2018-03-03 11:47 | P.PN ---
Subjective Interval history: Patient seen and examined Denies any significant back pain No acute event overnight Current afebrile Physical Exam Vital signs: Vital Signs 03/02/18 12:00 03/02/18 14:40 03/02/18 16:00 Temperature 98.7 F 97.5 F L Pulse Rate 100 H 101 H Respiratory Rate 18 18 18 Blood Pressure 95/52 L 94/57 L Pulse Oximetry 94 L 96 03/02/18 18:42 03/02/18 20:00 03/03/18 00:00 Temperature 98.5 F 98.9 F Pulse Rate 99 H 112 H Respiratory Rate 18 17 18 Blood Pressure 97/55 L 116/62 Pulse Oximetry 94 L 93 L 03/03/18 04:00 03/03/18 08:00 Temperature 99.3 F 99.4 F Pulse Rate 110 H 110 H Respiratory Rate 18 18 Blood Pressure 123/59 L 106/57 L Pulse Oximetry 97 92 L Intake & Output 03/02/18 03/03/18 03/03/18 18:59 06:59 18:59 Intake Total 1900 / 1900 1000 / 1000 Output Total 830 / 830 940 / 940 Balance 1070 / 1070 60 / 60 Weight 83.7 kg Intake: IV 1250 / 1250 1000 / 1000 NS Inj 1,000 ML @ 100 mls/hr IV 1000 / 1000 .CONT .Q10H [facility] Rx#:[id number] Vancomycin Inj 1,000 MG In NS 250 / 250 Inj 250 ML @ 250 mls/hr IV.SIG Q12H [facility] Rx#:[id number] Oral 650 / 650 Output: Urine 800 / 800 Urine Amount (Catheter) 900 / 900 Indwelling Urethral Catheter 900 / 900 Wound Drainage 30 / 30 40 / 40 # 1 Back 30 / 30 40 / 40 Other: Date of Last Bowel Movement 03/01/18 03/01/18 Narrative: GENERAL: NAD SKIN: Warm and dry. HEAD: Normocephalic. EYES: No scleral icterus. No injection or drainage. NECK: Supple, trachea midline. No JVD or lymphadenopathy. CARDIOVASCULAR: Regular rate and rhythm without murmurs, gallops, or rubs. RESPIRATORY: Breath sounds equal bilaterally. No accessory muscle use. GASTROINTESTINAL: Abdomen soft, non-tender, nondistended. MUSCULOSKELETAL: No cyanosis, or edema. BACK: Nontender without obvious deformity. No CVA tenderness. Dressing in place - Urinary Catheter Management Indwelling Urethral Catheter Cath placed during this visit: yes Reason for continuing: Hourly intake/output Insertion date: 03/01/18 Insertion time: 15:40 Results - Labs CBC & Chem 7: 03/03/18 06:02 03/03/18 06:02 Laboratory Results - last 24 hr 03/03/18 03/03/18 06:02 06:02 WBC 8.1 RBC 2.97 L Hgb 9.1 L Hct 28.6 L MCV 96.3 MCH 30.5 MCHC 31.7 L RDW 15.7 Plt Count 274 MPV 7.0 Sodium 143 Potassium 3.5 D Chloride 108 H Carbon Dioxide 25.1 Anion Gap 10 BUN 8 Creatinine 0.78 Estimated GFR 75 L Random Glucose 150 H Calcium 8.3 L Total Bilirubin 0.3 AST 31 ALT 22 Alkaline Phosphatase 80 Total Protein 6.6 Albumin 2.8 L Assessment and Plan - Assessment (1) Disc degeneration, lumbar Code(s): M51.36 - Other intervertebral disc degeneration, lumbar region Status : Chronic (2) Anemia Code(s): D64.9 - Anemia, unspecified Status: Acute (3) Anxiety Code(s): F41.9 - Anxiety disorder, unspecified Status: Acute (4) Depressed Code(s): F32.9 - Major depressive disorder, single episode, unspecified Status : Acute (5) GERD (gastroesophageal reflux disease) Code(s): K21.9 - Gastro-esophageal reflux disease without esophagitis Status: Acute (6) Chronic pain Code(s): G89.29 - Other chronic pain Status: Acute - Plan 62-year-old female with 1. LUMBAR, Degenerative Disc Disease: status post L4-L5 laminectomy with peek case and bone graft with L4-L5 fixation Management per neurosurgery Continue current pain management PT to treat and eval 2. ANXIETY/DEPRESSION: cont. home meds- Clonazepam, Citalopram, and Buproprion. 3. GERD: cont. PPI. 4. Chronic Pain: managed by pain mgmt as an OP. 5. Anemia: on FeSulfate. Monitor H&H 6. DVT PPX: SCD's. (2) Anemia Qualifiers: Anemia type: other cause
--- NOTE | 2018-03-03 17:11 | P.PNNS ---
Subjective Interval history: Pt awake and alert. Complains of incisional back pain, controlled with DIFFERENTIAL REPAIRER. No radiculopathy in LEs. No paresthesias in LEs. Physical Exam Vital signs: Vital Signs 03/02/18 18:42 03/02/18 20:00 03/03/18 00:00 Temperature 98.5 F 98.9 F Pulse Rate 99 H 112 H Respiratory Rate 18 17 18 Blood Pressure 97/55 L 116/62 Pulse Oximetry 94 L 93 L 03/03/18 04:00 03/03/18 08:00 03/03/18 12:00 Temperature 99.3 F 99.4 F 99.7 F H Pulse Rate 110 H 110 H 109 H Respiratory Rate 18 18 18 Blood Pressure 123/59 L 106/57 L 101/53 L Pulse Oximetry 97 92 L 97 03/03/18 15:58 Temperature 100 F H Pulse Rate 112 H Respiratory Rate 18 Blood Pressure 99/55 L Pulse Oximetry 96 Intake & Output 03/02/18 03/03/18 03/03/18 18:59 06:59 18:59 Intake Total 1900 / 1900 1000 / 1000 Output Total 830 / 830 940 / 940 Balance 1070 / 1070 60 / 60 Weight 83.7 kg Intake: IV 1250 / 1250 1000 / 1000 NS Inj 1,000 ML @ 100 mls/hr IV 1000 / 1000 .CONT .Q10H [facility] Rx#:[id number] Vancomycin Inj 1,000 MG In NS 250 / 250 Inj 250 ML @ 250 mls/hr IV.SIG Q12H [facility] Rx#:[id number] Oral 650 / 650 Output: Urine 800 / 800 Urine Amount (Catheter) 900 / 900 Indwelling Urethral Catheter 900 / 900 Wound Drainage 30 30 40 / 40 # 1 Back 30 30 40 / 40 Other: Date of Last Bowel Movement 03/01/18 03/01/18 - Constitutional no acute distress - Routine HEENT Exam Head: Present: normocephalic, atraumatic Eye: Present: PERRL. Absent: conjunctival icterus - Routine Respiratory Exam Present: CTA bilaterally. Absent: respiratory distress, rhonchi, wheezes - Routine Cardiovascular Exam Present: RRR, S1, S2. Absent: murmur - Routine Abdominal Exam Present: soft, normoactive bowel sounds. Absent: tenderness - Routine Skin Exam Absent: cyanosis, erythema Comments: EAMON drain in place. - Routine Neurological Exam Present: alert, moving all extremities. Absent: sensory deficit, motor deficit , altered mental status - Urinary Catheter Management Indwelling Urethral Catheter Cath placed during this visit: yes Reason for continuing: Hourly intake/output Insertion date: 03/01/18 Insertion time: 15:40 Assessment and Plan - Assessment (1) Disc degeneration, lumbar Code(s): M51.36 - Other intervertebral disc degeneration, lumbar region Status : Chronic (2) Anemia Code(s): D64.9 - Anemia, unspecified Status: Acute Qualifiers: Anemia type: other cause (3) Anxiety Code(s): F41.9 - Anxiety disorder, unspecified Status: Acute (4) Depressed Code(s): F32.9 - Major depressive disorder, single episode, unspecified Status : Acute (5) GERD (gastroesophageal reflux disease) Code(s): K21.9 - Gastro-esophageal reflux disease without esophagitis Status: Acute (6) Chronic pain Code(s): G89.29 - Other chronic pain Status: Acute - Plan A: 62 y/o FM s/p L4-L5 laminectomy, interbody arthrodesis using PEEK cage and autologous bone graft, L4-L5 instrumental fixation using transpedicular screws and rods, L4-L5 lace inspector lateral fusion using autologous bone graft and demineralized bone matrix. Microsurgical dissection by Dr. Carrillo on 03/01/18. P: Continue with postop pain control with DIFFERENTIAL REPAIRER. discontinue EAMON drain Continue with PT. Lumbar brace on when oob. Anticipate discharge tomorrow. Pt seen in conjunction with Dr. Carrillo and note written on his behalf.
[2018-03-03] MEDS: HYDROmorphone PCA Inj 6 MG/30 ML PCA.VIAL PCA PRN (17:56)
[2018-03-04] MEDS: Gabapentin 300 MG Capsule PO SCH ×3 (08:32→17:59)
[2018-03-04] MEDS: Senna/Docusate Sodium 8.6/50 MG Tablet PO SCH ×2 (08:32→20:20)
[2018-03-04] MEDS: buPROPion 150 MG 12 HR Tablet PO SCH ×2 (08:32→20:20)
[2018-03-04] MEDS: azaTHIOprine 50 MG Tablet PO SCH (08:32)
[2018-03-04] MEDS: Loratadine 10 MG Tablet PO SCH (08:32)
[2018-03-04] MEDS: Ferrous Sulfate 325 MG Tablet PO SCH ×2 (08:32→20:20)
[2018-03-04] MEDS: clonazePAM 0.5 MG Tablet PO SCH ×3 (08:32→17:59)
[2018-03-04] MEDS: Sod Chloride 0.9% Inj 1,000 ML IV.CONT SCH ×2 (09:40→18:40)
--- NOTE | 2018-03-04 11:35 | P.PN ---
Subjective Interval history: Patient seen and examined, still complaining of back pain Afebrile Physical Exam Vital signs: Vital Signs 03/03/18 12:00 03/03/18 15:58 03/03/18 18:26 Temperature 99.7 F H 100 F H Pulse Rate 109 H 112 H Respiratory Rate 18 18 18 Blood Pressure 101/53 L 99/55 L Pulse Oximetry 97 96 03/03/18 20:00 03/03/18 22:22 03/04/18 00:00 Temperature 100.3 F H 99.6 F Pulse Rate 95 H 110 H Respiratory Rate 18 18 18 Blood Pressure 101/53 L 115/59 L Pulse Oximetry 96 98 03/04/18 04:00 03/04/18 08:00 Temperature 100.3 F H 98.8 F Pulse Rate 114 H 109 H Respiratory Rate 17 18 Blood Pressure 113/56 L 101/55 L Pulse Oximetry 98 95 Intake & Output 03/03/18 03/04/18 03/04/18 18:59 06:59 18:59 Intake Total 2120 / 2120 Output Total 2540 / 2540 30 / 30 Balance -420 / -420 -30 / -30 Intake: IV 1000 / 1000 NS Inj 1,000 ML @ 100 mls/hr IV 1000 / 1000 .CONT .Q10H [facility] Rx#:[id number] Oral 1120 / 1120 Output: Urine 1250 / 1250 Urine Amount (Catheter) 1250 / 1250 Indwelling Urethral Catheter 1250 / 1250 Wound Drainage 40 / 40 30 / 30 # 1 Back 40 / 40 30 / 30 Other: # Voids 6 Date of Last Bowel Movement 03/01/18 03/02/18 02/28/18 # Bowel Movements 0 Narrative: GENERAL: NAD SKIN: Warm and dry. HEAD: Normocephalic. EYES: No scleral icterus. No injection or drainage. NECK: Supple, trachea midline. No JVD or lymphadenopathy. CARDIOVASCULAR: Regular rate and rhythm without murmurs, gallops, or rubs. RESPIRATORY: Breath sounds equal bilaterally. No accessory muscle use. GASTROINTESTINAL: Abdomen soft, non-tender, nondistended. MUSCULOSKELETAL: No cyanosis, or edema. BACK: Nontender without obvious deformity. No CVA tenderness. Dressing in place , EAMON drain in place - Urinary Catheter Management Indwelling Urethral Catheter Cath placed during this visit: yes, but has since been removed by the nurse Reason for continuing: Hourly intake/output Insertion date: 03/01/18 Insertion time: 15:40 Removal date: 03/03/18 Removal time: 17:00 Results - Labs CBC & Chem 7: 03/03/18 06:02 03/03/18 06:02 Assessment and Plan - Assessment (1) Disc degeneration, lumbar Code(s): M51.36 - Other intervertebral disc degeneration, lumbar region Status : Chronic (2) Anemia Code(s): D64.9 - Anemia, unspecified Status: Acute (3) Anxiety Code(s): F41.9 - Anxiety disorder, unspecified Status: Acute (4) Depressed Code(s): F32.9 - Major depressive disorder, single episode, unspecified Status : Acute (5) GERD (gastroesophageal reflux disease) Code(s): K21.9 - Gastro-esophageal reflux disease without esophagitis Status: Acute (6) Chronic pain Code(s): G89.29 - Other chronic pain Status: Acute - Plan 62-year-old female with 1. LUMBAR, Degenerative Disc Disease: status post L4-L5 laminectomy with peek case and bone graft with L4-L5 fixation Management per neurosurgery Continue current pain management PT to treat and eval Likely discharge tomorrow March 05, 2018 2. ANXIETY/DEPRESSION: cont. home meds- Clonazepam, Citalopram, and Buproprion. 3. GERD: cont. PPI. 4. Chronic Pain: managed by pain mgmt as an OP. 5. Anemia: on FeSulfate. Monitor H&H 6. DVT PPX: SCD's. (2) Anemia Qualifiers: Anemia type: other cause
--- NOTE | 2018-03-04 12:00 | P.PNNS ---
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 SOFTWARE ENGINEER with drain still in Physical Exam Vital signs: Vital Signs 03/03/18 12:00 03/03/18 15:58 03/03/18 18:26 Temperature 99.7 F H 100 F H Pulse Rate 109 H 112 H Respiratory Rate 18 18 18 Blood Pressure 101/53 L 99/55 L Pulse Oximetry 97 96 03/03/18 20:00 03/03/18 22:22 03/04/18 00:00 Temperature 100.3 F H 99.6 F Pulse Rate 95 H 110 H Respiratory Rate 18 18 18 Blood Pressure 101/53 L 115/59 L Pulse Oximetry 96 98 03/04/18 04:00 03/04/18 08:00 Temperature 100.3 F H 98.8 F Pulse Rate 114 H 109 H Respiratory Rate 17 18 Blood Pressure 113/56 L 101/55 L Pulse Oximetry 98 95 Intake & Output 03/03/18 03/04/18 03/04/18 18:59 06:59 18:59 Intake Total 2120 / 2120 Output Total 2540 / 2540 30 / 30 Balance -420 / -420 -30 / -30 Intake: IV 1000 / 1000 NS Inj 1,000 ML @ 100 mls/hr IV 1000 / 1000 .CONT .Q10H [facility] Rx#:[id number] Oral 1120 / 1120 Output: Urine 1250 / 1250 Urine Amount (Catheter) 1250 / 1250 Indwelling Urethral Catheter 1250 / 1250 Wound Drainage 40 / 40 30 / 30 # 1 Back 40 / 40 30 / 30 Other: # Voids 6 Date of Last Bowel Movement 03/01/18 03/02/18 02/28/18 # Bowel Movements 0 Narrative: GENERAL: NAD SKIN: Warm and dry. HEAD: Normocephalic. EYES: No scleral icterus. No injection or drainage. NECK: Supple, trachea midline. No JVD or lymphadenopathy. CARDIOVASCULAR: Regular rate and rhythm without murmurs, gallops, or rubs. RESPIRATORY: Breath sounds equal bilaterally. No accessory muscle use. GASTROINTESTINAL: Abdomen soft, non-tender, nondistended. MUSCULOSKELETAL: No cyanosis, or edema. BACK: Nontender without obvious deformity. No CVA tenderness. Dressing in place , EAMON drain in place Full strength UE/LE - Urinary Catheter Management Indwelling Urethral Catheter Cath placed during this visit: yes, but has since been removed by the nurse Reason for continuing: Hourly intake/output Insertion date: 03/01/18 Insertion time: 15:40 Removal date: 03/03/18 Removal time: 17:00 Assessment and Plan - Plan A: 62 y/o FM s/p L4-L5 laminectomy, interbody arthrodesis using PEEK cage and autologous bone graft, L4-L5 instrumental fixation using transpedicular screws and rods, L4-L5 metal solderer lateral fusion using autologous bone graft and demineralized bone matrix. Microsurgical dissection by Dr. Carrillo on 03/01/18. P: d/c SYSTEMS SOFTWARE ENGINEER today-- transition to oral pain meds (oxycodone 5-10mg po q4h prn) discontinue EAMON drain Continue with PT. Lumbar brace on when oob. Anticipate discharge Tuesday or Tuesday-- Patient has a daughter who may be reliable vs. may need rehab
[2018-03-04] MEDS: Citalopram 20 MG Tablet PO SCH (17:59)
[2018-03-05] MEDS: Sod Chloride 0.9% Inj 1,000 ML IV.CONT SCH (05:45)
--- NOTE | 2018-03-05 07:22 | P.PNIM ---
Subjective Interval history: Patient doing well overnight. Reports some confusion that occurred after receiving Klonopin yesterday but that has not resolved. Patient is feeding, voiding, and stooling well. Patient feels that she is ready to go home. No concerns. Physical Exam Vital signs: Vital Signs 03/04/18 08:00 03/04/18 12:00 03/04/18 16:00 Temperature 98.8 F 98.8 F 99.4 F Pulse Rate 109 H 107 H 114 H Respiratory Rate 18 16 16 Blood Pressure 101/55 L 109/55 L 125/60 Pulse Oximetry 95 97 96 03/04/18 16:28 03/04/18 16:58 03/04/18 20:00 Temperature 98.5 F Pulse Rate 101 H Respiratory Rate 18 18 18 Blood Pressure 99/57 L Pulse Oximetry 96 03/04/18 20:21 03/05/18 00:00 03/05/18 02:30 Temperature 99 F Pulse Rate 98 H Respiratory Rate 18 18 16 Blood Pressure 103/58 L Pulse Oximetry 97 03/05/18 04:00 Temperature 99.7 F H Pulse Rate 108 H Respiratory Rate 18 Blood Pressure 107/55 L Pulse Oximetry 97 Intake & Output 03/04/18 03/05/18 03/05/18 18:59 06:59 18:59 Intake Total 1558 / 1558 520 / 520 Balance 1558 / 1558 520 / 520 Weight 300 kg Intake: IV 850 / 850 400 / 400 NS Inj 1,000 ML @ 100 mls/hr IV 600 / 600 400 / 400 .CONT .Q10H [facility] Rx#:[id number] Oral 708 / 708 120 / 120 Other: # Voids 2 4 Date of Last Bowel Movement 02/28/18 03/02/18 Narrative: GENERAL: NAD, lying comfortably in bed. SKIN: Warm and dry. HEAD: Normocephalic. EYES: No scleral icterus. No injection or drainage. NECK: Supple, trachea midline. No JVD or lymphadenopathy. CARDIOVASCULAR: Regular rate and rhythm without murmurs, gallops, or rubs. RESPIRATORY: Breath sounds equal bilaterally. No accessory muscle use. GASTROINTESTINAL: Abdomen soft, non-tender, nondistended. MUSCULOSKELETAL: No cyanosis, or edema. BACK: Nontender without obvious deformity. No CVA tenderness. Dressing in place. Full strength UE/LE. NEURO: AAOx3. - Urinary Catheter Management Indwelling Urethral Catheter Cath placed during this visit: yes, but has since been removed by the nurse Reason for continuing: Hourly intake/output Insertion date: 03/01/18 Insertion time: 15:40 Removal date: 03/03/18 Removal time: 17:00 Results - Labs CBC & Chem 7: 03/03/18 06:02 03/03/18 06:02 Assessment and Plan - Assessment (1) Disc degeneration, lumbar Code(s): M51.36 - Other intervertebral disc degeneration, lumbar region Status : Chronic (2) Anemia Code(s): D64.9 - Anemia, unspecified Status: Acute (3) Anxiety Code(s): F41.9 - Anxiety disorder, unspecified Status: Acute (4) Depressed Code(s): F32.9 - Major depressive disorder, single episode, unspecified Status : Acute (5) GERD (gastroesophageal reflux disease) Code(s): K21.9 - Gastro-esophageal reflux disease without esophagitis Status: Acute (6) Chronic pain Code(s): G89.29 - Other chronic pain Status: Acute - Plan This is a 62-year-old female with PMHx of Asthma, Chronic back pain, GERD, & Anxiety/Depression admitted for Lumbar Degenerative Disc Disease status post L4-L5 laminectomy with peek case and bone graft with L4-L5 fixation, postoperative day #4, doing well. 1. LUMBAR, Degenerative Disc Disease: Cont. POST OP CARE Managed by Ortho SCD's for DVT PPX Hydrocodone for pain mgmt (NAIL TECH D/C'd) D/C tomorrow with DME to rehab vs. home, cont. PT 2. ANXIETY/DEPRESSION: cont. home meds- Clonazepam, Citalopram, and Buproprion. Denies S/H ideation. Clonazepam held this AM only due to increased confusion overnight, now resolved. 3. GERD: cont. PPI. 4. Chronic Pain: managed by pain mgmt as an OP. 5. Anemia: acute blod loss, Hgb 9.1 from 11.8 preop, on FeSulfate. 6. DVT PPX: SCD's. 7. Dispo: Continue with PT. Lumbar brace on when oob. Anticipate discharge Tuesday pending DME. Home vs. rehab. Discussed Condition With: patient and nurse Discharge Planning: possible D/C tomorrow with DME, home versus SNF- awaiting reccs (2) Anemia Qualifiers: Anemia type: other cause
[2018-03-05] MEDS: Loratadine 10 MG Tablet PO SCH (08:26)
[2018-03-05] MEDS: azaTHIOprine 50 MG Tablet PO SCH (08:26)
[2018-03-05] MEDS: Citalopram 20 MG Tablet PO SCH (08:26)
[2018-03-05] MEDS: Senna/Docusate Sodium 8.6/50 MG Tablet PO SCH ×2 (08:27→20:03)
[2018-03-05] MEDS: Ferrous Sulfate 325 MG Tablet PO SCH ×2 (08:27→20:03)
[2018-03-05] MEDS: buPROPion 150 MG 12 HR Tablet PO SCH ×2 (08:27→20:03)
[2018-03-05] MEDS: Gabapentin 300 MG Capsule PO SCH ×3 (08:27→17:57)
[2018-03-05] MEDS: clonazePAM 0.5 MG Tablet PO SCH ×3 (08:33→18:01)
--- NOTE | 2018-03-05 11:13 | P.PNNS ---
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 Somewhat confused when woken up in middle of night. [employer] 10 working. Needs assistance getting out of bed with brace but apprehensive about last SNF she went to ([facility]) and apprehensive about going to another one. Does not have the greatest help at home (niece). Physical Exam Vital signs: Vital Signs 03/04/18 12:00 03/04/18 16:00 03/04/18 16:28 Temperature 98.8 F 99.4 F Pulse Rate 107 H 114 H Respiratory Rate 16 16 18 Blood Pressure 109/55 L 125/60 Pulse Oximetry 97 96 03/04/18 16:58 03/04/18 20:00 03/04/18 20:21 Temperature 98.5 F Pulse Rate 101 H Respiratory Rate 18 18 18 Blood Pressure 99/57 L Pulse Oximetry 96 03/05/18 00:00 03/05/18 02:30 03/05/18 04:00 Temperature 99 F 99.7 F H Pulse Rate 98 H 108 H Respiratory Rate 18 16 18 Blood Pressure 103/58 L 107/55 L Pulse Oximetry 97 97 03/05/18 08:27 03/05/18 08:57 Temperature Pulse Rate Respiratory Rate 18 18 Blood Pressure Pulse Oximetry Intake & Output 03/04/18 03/05/18 03/05/18 18:59 06:59 18:59 Intake Total 1558 / 1558 520 / 520 Balance 1558 / 1558 520 / 520 Weight 300 kg Intake: IV 850 / 850 400 / 400 NS Inj 1,000 ML @ 100 mls/hr IV 600 / 600 400 / 400 .CONT .Q10H [facility] Rx#:[id number] Oral 708 / 708 120 / 120 Other: # Voids 2 4 Date of Last Bowel Movement 02/28/18 03/02/18 03/02/18 Narrative: GENERAL: NAD, lying comfortably in bed. SKIN: Warm and dry. HEAD: Normocephalic. EYES: No scleral icterus. No injection or drainage. NECK: Supple, trachea midline. No JVD or lymphadenopathy. CARDIOVASCULAR: Regular rate and rhythm without murmurs, gallops, or rubs. RESPIRATORY: Breath sounds equal bilaterally. No accessory muscle use. GASTROINTESTINAL: Abdomen soft, non-tender, nondistended. MUSCULOSKELETAL: No cyanosis, or edema. BACK: Nontender without obvious deformity. No CVA tenderness. Dressing in place. Full strength UE/LE. NEURO: AAOx3. Incision c/d/i Full strength UE/LE - Urinary Catheter Management Indwelling Urethral Catheter Cath placed during this visit: yes, but has since been removed by the nurse Reason for continuing: Hourly intake/output Insertion date: 03/01/18 Insertion time: 15:40 Removal date: 03/03/18 Removal time: 17:00 Assessment and Plan - Plan A: 62 y/o FM s/p L4-L5 laminectomy, interbody arthrodesis using PEEK cage and autologous bone graft, L4-L5 instrumental fixation using transpedicular screws and rods, L4-L5 roll cutter lateral fusion using autologous bone graft and demineralized bone matrix. Microsurgical dissection by Dr. Carrillo on 03/01/18. P: pain control norco 10 Lumbar brace on when oob. Anticipate discharge early next week to SNF-- per nursing, patient unable to place brace by self, niece at home is not much help, will need assistance -- patient reluctant given past bad experience with one SNF
[2018-03-06] MEDS: buPROPion 150 MG 12 HR Tablet PO SCH (08:02)
[2018-03-06] MEDS: azaTHIOprine 50 MG Tablet PO SCH (08:02)
[2018-03-06] MEDS: Ferrous Sulfate 325 MG Tablet PO SCH (08:02)
[2018-03-06] MEDS: Gabapentin 300 MG Capsule PO SCH ×3 (08:02→17:42)
[2018-03-06] MEDS: Citalopram 20 MG Tablet PO SCH (08:02)
[2018-03-06] MEDS: Loratadine 10 MG Tablet PO SCH (08:02)
[2018-03-06] MEDS: Senna/Docusate Sodium 8.6/50 MG Tablet PO SCH (08:02)
--- NOTE | 2018-03-06 08:49 | P.PNIM ---
Subjective Interval history: Pt seen and examined. AFVSS. Complains of pain in her back but states her current pain regimen is tolerable. Tolerating PO. No N/V. Denies CP or SOB. Requests OT consult. Physical Exam Vital signs: Vital Signs 03/05/18 08:57 03/05/18 12:00 03/05/18 14:14 Temperature 98.8 F Pulse Rate 108 H Respiratory Rate 18 16 18 Blood Pressure 115/57 L Pulse Oximetry 96 03/05/18 14:44 03/05/18 16:00 03/05/18 17:57 Temperature 98.1 F Pulse Rate 98 H Respiratory Rate 18 14 20 Blood Pressure 102/56 L Pulse Oximetry 96 03/05/18 20:00 03/05/18 20:05 03/06/18 00:00 Temperature 98.5 F Pulse Rate 104 H Respiratory Rate 18 18 16 Blood Pressure 108/60 Pulse Oximetry 98 03/06/18 01:29 Temperature 98.5 F Pulse Rate 100 H Respiratory Rate 16 Blood Pressure 113/53 L Pulse Oximetry 96 Intake & Output 03/05/18 03/06/18 03/06/18 18:59 06:59 18:59 Intake Total 720 / 720 660 / 660 Balance 720 / 720 660 / 660 Intake: Oral 720 / 720 660 / 660 Other: # Voids 3 4 Date of Last Bowel Movement 03/02/18 03/02/18 03/02/18 # Bowel Movements 0 Narrative: GENERAL: WN, WD female sitting up in chair in NAD. SKIN: Warm and dry. HEENT: Pupils equal and round. Strabismus. MMM. HEART: Tachycardic no m/r/g. LUNGS: CTAB without wheezes or crackles. ABDOMEN: +BS, soft, NT, ND. EXTREMITIES: No LE edema. BACK: Brace in place. NEURO: Awake and alert. - Urinary Catheter Management Indwelling Urethral Catheter Cath placed during this visit: yes, but has since been removed by the nurse Reason for continuing: Hourly intake/output Insertion date: 03/01/18 Insertion time: 15:40 Removal date: 03/03/18 Removal time: 17:00 Results - Labs CBC & Chem 7: 03/06/18 07:11 03/03/18 06:02 Assessment and Plan - Assessment (1) Disc degeneration, lumbar Code(s): M51.36 - Other intervertebral disc degeneration, lumbar region Status : Chronic (2) Anemia Code(s): D64.9 - Anemia, unspecified Status: Acute (3) Anxiety Code(s): F41.9 - Anxiety disorder, unspecified Status: Acute (4) Depressed Code(s): F32.9 - Major depressive disorder, single episode, unspecified Status : Acute (5) GERD (gastroesophageal reflux disease) Code(s): K21.9 - Gastro-esophageal reflux disease without esophagitis Status: Acute (6) Chronic pain Code(s): G89.29 - Other chronic pain Status: Acute - Plan 62 year old female with history of asthma, chronic back pain, GERD, and anxiety/ depression admitted 03/02 to neurosurgery for lumbar degenerative disc disease s/ p L4-L5 laminectomy and fixation. Hospitalist consulted for medical management. 1. 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 Asthma - Not in acute exacerbation - Albuterol PRN - Supplemental O2 PRN 3. Anxiety/depression - Continue home meds: Klonopin, citalopram, Wellbutrin 4. GERD - Continue PPI 5. Anemia - Hb ranges from 8-9 - Hemodynamically stable - Continue ferrous sulfate DVT prophylaxis: SCDs Discussed Condition With: Patient Discharge Planning: Per neurosurgery (2) Anemia Qualifiers: Anemia type: other cause
--- NOTE | 2018-03-06 08:57 | P.DCO ---
- Physical Therapy Order: Evaluate and treat, Improve ambulation, Strength and gait training - Occupational Therapy Order: Evaluate and treat, Improve ADL - Home Health Nursing Order: Wound care and dressing changes (Help with back brace), Nursing assessment with vital signs - Case Management Consult Yes - Certification I have seen patient Garima Cox on 03/06/18. My clinical findings support the need for the requested home health care services because: Deconditioned with increased weakness, Limited ability to care for self, High risk of falls I certify that my clinical findings support that this patient is homebound because: Unsteady gait/balance, Unsafe to leave home unassisted
[2018-03-06 09:53] LABS: Hematocrit 24.1 % (35.0-46.0); Mean Corpuscular Volume 93.9 fL (80.0-100.0); Platelet Count 292 th/mm3 (150-450); Red Blood Count 2.57 mil/mm3 (4.00-5.30); Red Cell Distribution Width 15.2 % (11.6-17.2); White Blood Count 6.2 th/mm3 (4.0-11.0)
--- NOTE | 2018-03-06 11:49 | P.PNNS ---
Subjective Interval history: 03/06: surgical pain controlled on norco 10. c/o of right knee pain which helps with Neurontin and requesting to increase her dose. she is adamant in being discharge home vs SNF. Physical Exam Vital signs: Vital Signs 03/05/18 12:00 03/05/18 14:14 03/05/18 14:44 Temperature 98.8 F Pulse Rate 108 H Respiratory Rate 16 18 18 Blood Pressure 115/57 L Pulse Oximetry 96 03/05/18 16:00 03/05/18 17:57 03/05/18 20:00 Temperature 98.1 F 98.5 F Pulse Rate 98 H 104 H Respiratory Rate 14 20 18 Blood Pressure 102/56 L 108/60 Pulse Oximetry 96 98 03/05/18 20:05 03/06/18 00:00 03/06/18 01:29 Temperature 98.5 F Pulse Rate 100 H Respiratory Rate 18 16 16 Blood Pressure 113/53 L Pulse Oximetry 96 03/06/18 08:00 Temperature 99.1 F Pulse Rate 116 H Respiratory Rate 16 Blood Pressure 101/55 L Pulse Oximetry 96 Intake & Output 03/05/18 03/06/18 03/06/18 18:59 06:59 18:59 Intake Total 720 / 720 660 / 660 Balance 720 / 720 660 / 660 Intake: Oral 720 / 720 660 / 660 Other: # Voids 3 4 Date of Last Bowel Movement 03/02/18 03/02/18 03/02/18 # Bowel Movements 0 Narrative: Awake, alert sitting up in chair with LSO NAD wound covered in clean dry optifoam dressing moving all major muscle groups of LE's well - Urinary Catheter Management Indwelling Urethral Catheter Cath placed during this visit: yes, but has since been removed by the nurse Reason for continuing: Hourly intake/output Insertion date: 03/01/18 Insertion time: 15:40 Removal date: 03/03/18 Removal time: 17:00 Assessment and Plan - Plan A: 62 y/o FM s/p L4-L5 laminectomy, interbody arthrodesis using PEEK cage and autologous bone graft, L4-L5 instrumental fixation using transpedicular screws and rods, L4-L5 drawbridge tender lateral fusion using autologous bone graft and demineralized bone matrix. Microsurgical dissection by Dr. Carrillo on 03/01/18. P: pain control norco 10 Lumbar brace on when oob. Anticipate discharge early next week to SNF-- per nursing, patient unable to place brace by self, niece at home is not much help, will need assistance -- patient reluctant given past bad experience with one SNF dw patient again today that we advise discharge to SNF given her lack of support at home, patient adamant in being discharged home with [facility] optifoam dressing to be removed 03/08/18 and transition to daily [place] changes increase neurontin from 300 tid to 600 bid today as it helps
[2018-03-06 12:41] VITALS: RESP 18
--- NOTE | 2018-03-06 14:33 | P.DS ---
<Allyson Zayas - Last Filed: 03/08/18 09:03> Date of admission: 03/01/18 10:23 Primary care physician: Ruma Costa Brief History from admission: Ms Cox is a 62 year-old female who presented with intractable mechanical back pain and los evidence of lower extremity radiculopathy. She failed maximum nonsurgical management including multiple modalities of conservative treatment as well as pain management interventions by an interventional pain specialist. A surgical decompression and arthrodesis were indicated as a last resort. DS: Summary Hospital Course: Ms. 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 Microsurgical dissection for Lumbar degenerative disk disease on 03/01/18. Her postoperative pain was stabilized and controlled on oral pain medications. She was discharged to SNF in stable conditions. - Time Spent with Patient Total time spent providing and/or coordinating discharge services: Less than 30 minutes - Quality: VTE Deep Vein Thrombosis/Pulmonary Embolism Present on Admission: No Exam Vital signs: Vital Signs 03/05/18 14:44 03/05/18 16:00 03/05/18 17:57 Temperature 98.1 F Pulse Rate 98 H Respiratory Rate 18 14 20 Blood Pressure 102/56 L Pulse Oximetry 96 03/05/18 20:00 03/05/18 20:05 03/06/18 00:00 Temperature 98.5 F Pulse Rate 104 H Respiratory Rate 18 18 16 Blood Pressure 108/60 Pulse Oximetry 98 03/06/18 01:29 03/06/18 08:00 03/06/18 12:00 Temperature 98.5 F 99.1 F 98.3 F Pulse Rate 100 H 116 H 101 H Respiratory Rate 16 16 18 Blood Pressure 113/53 L 101/55 L 95/54 L Pulse Oximetry 96 96 97 Intake & Output 03/05/18 03/06/18 03/06/18 18:59 06:59 18:59 Intake Total 720 / 720 660 / 660 Balance 720 / 720 660 / 660 Intake: Oral 720 / 720 660 / 660 Other: # Voids 3 4 Date of Last Bowel Movement 03/02/18 03/02/18 03/02/18 # Bowel Movements 0 Results Procedures completed during hospitalization: L4-L5 laminectomy, interbody arthrodesis using PEEK cage and autologous bone graft, L4-L5 instrumental fixation using transpedicular screws and rods, 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 Microsurgical dissection Labs on day of discharge: Labs from last 24 hours 03/06/18 07:11 WBC 6.2 RBC 2.57 L Hgb 8.0 L Hct 24.1 L MCV 93.9 MCH 31.0 MCHC 33.0 RDW 15.2 Plt Count 292 MPV 7.0 - Impressions ITS Impressions Lumbar Spine X-Ray 03/01/18 00:00 CONCLUSION: Status post L4-5 lumbar fusion. <Bethel Carrillo - Last Filed: 03/10/18 14:54> Date of admission: 03/01/18 10:23 Primary care physician: Ruma Costa DS: Summary - Time Spent with Patient Total time spent providing and/or coordinating discharge services: Exam Vital signs: The patient is alert, awake. Comfortable, in no acute distress. Speech is fluent. Cranial nerve examination: pupils to be equal, round and reactive to light. Extra-ocular movements are intact. Facial motor and sensory function are normal and symmetrical. Gross hearing appears intact. Sternocleidomastoid and trapezius muscles are symmetrical. Other cranial nerves are intact. Neck is soft and supple with a good range of motion without pain. Muscle strength is normal in all muscle groups of both upper and lower extremities. Sensory examination is intact to light touch and pin prick in both upper extremities and decreased in a L5 and S1 dermatomes. Deep tendon reflexes are symmetrical in both upper and lower extremities. There is a bilateral plantar flexion response. Cerebellar examination is unremarkable, without deficits. Lungs are clear Heart regular rhythm is regular rate Skin warm and dry Results Procedures completed during hospitalization: I have reviewed the patient's MRI of the lumbar spine. The MRI findings correlate with the patient's clinical symptoms. The patient has failed to improve with conservative treatment including physical therapy, exercises, antiinflammatories and muscle relaxants, as well as, epidural steroid injections performed by an interventional pain specialist. The patient understands that a surgical procedure should be considered as a last resort. Unfortunately, the patient's symptoms are getting worse and continue to affect activities of daily living. I discussed with the patient the alternative of continuing nonsurgical treatment with further pain management and physical therapy, analgesics, and antiinflammatories, versus consideration to a surgical decompression with a right L4-5 and possible L5-S1 hemilaminectomy, mesofacetectomy, foraminotomy with microsurgical resection of the disk. I have discussed the details of the surgical decompression including the step-by -step procedure, its indications, alternatives, risks, and potential complications. Risks and potential complications include, but are not limited to , infection, blood loss, CSF leak, partial or complete loss of sight in one or both eyes, paresis, paralysis, permanent pain, hoarseness or difficulty swallowing, loss of bowel or bladder function, complications from anesthesia, blood clot, stroke, myocardial infarction, or even . I advised Garima Cox surgical procedures have risks, and before reaching a decision in regards to surgery, the patient should consider the alternatives, including the possibility of no treatment. She understands. All questions have been answered, no guaranties were given. - Impressions ITS Impressions Lumbar Spine X-Ray 03/01/18 00:00 CONCLUSION: Status post L4-5 lumbar fusion. The exam, history, and the medical decision-making described in the above note were completed with the assistance of the mid-level provider. I reviewed and agree with the findings presented. I attest that I had a [id number] encounter with the patient on the same day, and personally performed and documented my assessment and findings in the medical record. Discharge Plan - Discharge Order Discharge Orders: Discharge Order (Routine); Ordered 03/06/18 Ordered By: Allyson Zayas - Discharge Details Anticipated Discharge Date: 03/06/18 - Physicians Team Primary Care Provider: Ruma Costa Attending Provider: Bethel Carrillo Other Providers: [employer],Insurance ; Juliann Fields MD ; [facility], [place] - Rxs /Orders / Referrals /Forms Prescriptions: Continue albuterol sulfate [ProAir HFA] 90 mcg/actuation Hfa Aerosol Inhaler 2 puff INHALATION Q4-6H PRN (Reason: Shortness Of Breath) azathioprine [Imuran] 50 mg Tablet 200 mg PO DAILY bupropion HCl 300 mg Tablet Extended Release 24 Hr 300 mg PO QAM citalopram 40 mg Tablet 50 mg PO DAILY clonazepam 0.5 mg Tablet 0.5 mg PO TID cyclobenzaprine 10 mg Tablet 10 mg PO BID hydrocodone-acetaminophen 7.5-325 mg Tablet 1 tab PO TID PRN (Reason: Acute Pain) omeprazole 40 mg Capsule,Delayed Release(Dr/Ec) 40 mg PO DAILY No Action ondansetron HCl [Zofran] 4 mg tablet 4 mg PO Q6H PRN (Reason: nausea and vomiting) Qty: 12 RF: 0 Ambulatory Orders / Order Sets / DME: Bedside Commode (Routine) Location: Determined by Patient Ordered By: Juliann Fields Walker With Front Wheels (1 each) (Routine) Location: Determined by Patient Ordered By: Juliann Fields Referrals: Ruma Costa MD [Primary Care Provider] - See Instructions Jayme Costa MD [Family Provider] - See Instructions - Discharge Instructions Patient Printed Instructions: Hydrocodone/Acetaminophen (By mouth), Laxative, Stool Softeners (By mouth), Laminectomy (DC), How to Choose and Use a Walker ( GEN), Chronic Back Pain (ED), Fall Prevention (DC), Lumbar Brace (GEN) Additional Instructions: FOLLOW UP WITH DR. CARRILLO IN 1-2 WEEKS. PLEASE CALL TO SCHEDULE APPOINTMENT. LEAVE SURGICAL BANDAGE DRY AND INTACT. REPORT ANY INCREASED REDNESS, DRAINAGE, OR SWELLING AT THE SURGICAL SITE. CONTINUE TO WEAR YOUR LUMBAR BRACE WHEN SITTING OR OUT OF BED. - Post Discharge Care Plan Care Plan Goals: Your Health Problems: Goals to Promote Your Health: * To prevent worsening of your condition * To maintain your health at the optimal level Directions to Meet Your Goals: * Take your medications as prescribed * Follow your dietary instruction * Follow activity as directed * Keep your appointments as scheduled * Take your immunizations and boosters as scheduled * If your symptoms worsen call your PCP * If no PCP go to Urgent Care or Emergency Room Smoking is dangerous to your health. Avoid second hand smoke. You may reach the 24-hour crisis hotline for domestic abuse at . I have reviewed the patient's MRI of the lumbar spine. The MRI findings correlate with the patient's clinical symptoms. The patient has failed to improve with conservative treatment including physical therapy, exercises, antiinflammatories and muscle relaxants, as well as, epidural steroid injections performed by an interventional pain specialist. The patient understands that a surgical procedure should be considered as a last resort. Unfortunately, the patient's symptoms are getting worse and continue to affect activities of daily living. I discussed with the patient the alternative of continuing nonsurgical treatment with further pain management and physical therapy, analgesics, and antiinflammatories, versus consideration to a surgical decompression with a right L4-5 and possible L5-S1 hemilaminectomy, mesofacetectomy, foraminotomy with microsurgical resection of the disk. I have discussed the details of the surgical decompression including the step-by -step procedure, its indications, alternatives, risks, and potential complications. Risks and potential complications include, but are not limited to , infection, blood loss, CSF leak, partial or complete loss of sight in one or both eyes, paresis, paralysis, permanent pain, hoarseness or difficulty swallowing, loss of bowel or bladder function, complications from anesthesia, blood clot, stroke, myocardial infarction, or even . I advised Garima Cox surgical procedures have risks, and before reaching a decision in regards to surgery, the patient should consider the alternatives, including the possibility of no treatment. I have counseled Garima Cox on the proper body mechanics, importance of avoiding heavy lifting, repetitive bending, twisting, or any which might result in stress over the spine. The understands. All questions have been answered, no guaranties were given.
[2018-03-06 17:18] VITALS: BP 119/64; PULSE 116; TEMP 99; O2SAT 96
[2018-03-06] MEDS ORDERED: clonazePAM 0.5 MG Tablet PO SCH (21:00)
[2018-03-06] MEDS ORDERED: Gabapentin 300 MG Capsule PO SCH (21:00)
== END 2018-03-06 18:33 ==
LOC: HSDI 10:23 → N06 21:36
PROVIDERS: ADMIT Neurological Surgery; ATTEND Neurological Surgery